=== PATIENT | male | born 1935 | race Caucasian/White ===

== ENCOUNTER → 2017-07-08 12:52 | Outpatient (CLI) | payer MEDICARE, BC, SELFPAY ==
--- NOTE | 2017-07-08 | CT_ITS ---
CT chest wo con HISTORY: Shortness of air, long-term amiodarone therapy, follow-up pulmonary fibrosis ITS.REASON: SOB,, ORDERED HIGH RESOLUTION ORDERING PHYSICIAN: Marcell Angelo MD PATIENT AGE: 82 years COMPARISON: 12/18/2016 Technique: Axial images obtained. Sagittal and coronal reformatted images are also generated and reviewed. EXAM is supplemented with high resolution images All CT scans by the facility use one or more dose reduction, viz: automated exposure control; ma/kV adjustment per patient size (including targeted exams where dose is matched to indication; i.e. head); or iterative reconstruction technique. FINDINGS: No mediastinal or hilar mass or adenopathy. Coronary artery calcifications are present. There remains mild focal thickening of the pericardium anteriorly unchanged. Intralobular emphysematous changes are present with hyperinflation and attenuation the peripheral pulmonary vessels consistent with obstructive chronic bronchitis. Mild fibrotic changes are present in the both apices not significantly changed. Once again there is noted a few small pulmonary nodules some calcified and some are not. The largest noncalcified nodules in the extreme right lung base measuring approximately 7 x 4 mm unchanged. There is a loop recorder device in the precordial region on the left. High-resolution images show no obvious interlobular septal thickening. Scattered fibrotic changes are once again noted in the left lower lobe, lingula, left apex, and right apex unchanged. There is some increased density in the right lower lobe medially in the azygos esophageal recess slightly more prominent on today's exam. No effusions. Upper abdominal images are unremarkable. No acute bony anomalies. IMPRESSION: 1. Centrilobular emphysema/COPD with scattered areas of fibrosis and bilateral calcified and noncalcified pulmonary nodules which are stable. 2. There is a new area of increased density in the right lung base medially in the azygos esophageal region. This could be due to small area of atelectasis or developing fibrosis. 3. No evidence of interlobular septal thickening. The overall findings are not typical for amiodarone lung toxicity. Continued follow-up is recommended.
== END ==
PROVIDERS: PCP Family Medicine; Visit Provider Internal Medicine
DX: R06.02 Shortness of breath (principal)
CPT/HCPCS: 71250

== ENCOUNTER → 2017-09-01 10:34 | Outpatient (CLI) | payer MEDICARE, BC, SELFPAY ==
[2017-09-01 11:22] LABS: Anion Gap 12.3 mEq/L (5-15); Blood Urea Nitrogen 25 mg/dL (7-18); Calcium 8.6 mg/dL (8.5-10.1); Carbon Dioxide 26 mmol/L (21.0-32.0); Chloride 108 mmol/L (98-107); Creatinine,Serum 1.17 mg/dL (0.70-1.30); Estimated Glomerular Filt Rate 60 ml/min (>60); GFR (African American) 73 ML/MIN (>60); Glucose 108 mg/dL (74-106); Sodium 141 mmol/L (136-145)
[2017-09-01 11:23] LABS: Potassium 5.3 mmoL/L (3.5-5.1)
== END ==
PROVIDERS: Visit Provider Internal Medicine
DX: I25.10 Atherosclerotic heart disease of native coronary artery without angina pectoris (principal); I48.0 Paroxysmal atrial fibrillation; I10 Essential (primary) hypertension; E78.5 Hyperlipidemia, unspecified
CPT/HCPCS: 36415; 80048

== ENCOUNTER → 2018-04-28 14:45 | Outpatient (CLI) | payer MEDICARE, BC, SELFPAY ==
--- NOTE | 2018-04-28 14:50 | CT_ITS ---
CT lumbar spine wo con INDICATION: ITS.REASON: ACUTE MIDLINE LOW BACK PAIN ORDERING PHYSICIAN: Ganesh Shah MD PATIENT AGE: 82 years COMPARISON: None TECHNIQUE: Axial images obtained with sagittal and coronal reformats. All CT scans at the facility use one or more dose reduction, viz: automated exposure control, ma/kV adjustment per patient size (including targeted exams where dose is matched to indication, i.e. head), or iterative reconstruction technique. FINDINGS: There is normal alignment. There is multilevel degenerative disc disease. No acute fracture or dislocation is evident. Mild lumbar scoliosis convex left with clockwise rotary component. There is mild wedging anteriorly of T11, T12, and L2 which appears chronic. T10-T11: Degenerative disc disease with endplate hypertrophic change and moderate to severe left-sided foraminal narrowing. Mild left lateral recess narrowing. T11-T12: Mild degenerative disc disease. T12-L1: Degenerative disc disease with a broad-based left foraminal and lateral disc protrusion/disc osteophyte complex causing left-sided foraminal narrowing. L1-L2: Concentric bulging disc which is eccentric toward the left in the left foraminal and lateral region with bilateral foraminal narrowing left greater than right. L2-L3: Degenerative disc disease with bulging disc. Right-sided paracentral foraminal and lateral disc osteophyte complex severe right-sided foraminal narrowing. There is transverse narrowing of the canal at this level at 10 mm. There is mild left foraminal narrowing. Endplate subchondral cystic changes are present along the inferior endplate of L2 L3-L4: Central bulging disc with facet and ligamentum flavum hypertrophy with bilateral foraminal narrowing and transverse canal stenosis. L4-L5: Bulging disc along with facet and ligamentum hypertrophy with transverse narrowing of the canal and bilateral foraminal narrowing and bilateral lateral recess narrowing. L5-S1: Concentric bulging disc with facet hypertrophic change with bilateral foraminal narrowing left greater than right. There is a small left pleural effusion. IMPRESSION: Abnormal CT of the lower thoracic and lumbar spine. There is multilevel degenerative disc disease with bulging disc along facet and ligamentum flavum hypertrophy along with lumbar scoliosis convex left with a rotatory component. Multilevel foraminal and lateral recess narrowing is present as well as transverse narrowing of the canal. Please see above for detailed description at each level. Small left pleural effusion
== END ==
PROVIDERS: PCP Family Medicine; Visit Provider Family Medicine
DX: M54.5 Low back pain (principal)
CPT/HCPCS: 72131

== ENCOUNTER → 2018-05-05 08:40 | Outpatient (POV) | payer MEDICARE, BC, SELFPAY ==
[2018-05-05 08:52] VITALS: BP 156/86; PULSE 77; RESP 18; O2SAT 98
--- NOTE | 2018-05-05 09:24 | HMH.PMCON ---
Assessment and Plan (1) Degenerative disc disease Current visit: Yes Status: Chronic Qualifiers: Spinal region: lumbar Qualified Code(s): M51.36 - Other intervertebral disc degeneration, lumbar region Category: Medical (2) Lumbar radiculopathy Current visit: Yes Status: Chronic Category: Medical Code(s): M54.16 - Radiculopathy, lumbar region - Assessment and plan all Dx Assessment and Plan for all problems:: We will schedule L4-L5 lumbar epidural steroid injection for the patient. Patient is on Eliquis. We will see if he is able to come off of it. We will also give him tramadol 50 mg 1 p.o. twice daily for his travels. I will follow-up with the patient after his injection and reassess his symptoms at that time. Dr. Olmstead has reviewed this note and agrees with this plan of care. This note was dictated using voice recognition software and may contain errors or omissions HPI - Data of Consult Consult date: 05/05/18 Requesting Physician: Etta Adrian APRN Primary Care Provider: Ganesh Shah MD - Consult Narrative Reason for consult: Back pain History of present illness: Mr. Rios is a 82 year old male presents today for consultation in regards to his low back. He rates his pain a 4 out of 10 today. Patient has pain in his low back radiating down his right leg down to his foot. Patient has a recent CT showing degenerative disc disease along with facet ligamentum hypertrophy in his low back. Patient has had injections in the past with extremely good relief lasting up to 3 years. Patient would like to repeat this. Patient is currently on an anti-inflammatory. Patient will be traveling this month for work. Patient has been continuing a home stretching regimen. CC: Etta Adrian APRN [facility] History I have reviewed the patient's past medical history: Yes Medical History: Reports:: Atrial Fibrillation, Cancer, Coronary Artery Disease, Hypertension Denies:: Diabetes Mellitus Type 1, Internal Pacemaker *Have you ever received a pneumonia vaccine?: No Other Medical History: Reports: Arthritis Laterality Cases: Bilateral: Other Other Surgeries: Yes: Skin Cancer Excision, Other (cardioversion). No: Pacemaker Amputation: No Fractures: No - *Social History Smoking Status: Never smoker Tobacco Type: cigarettes #Yrs smoked (if former smoker): 17 Alcohol Intake: never Alcohol Intake Frequency:: a few times a month Substance Use Type: denies use *Occupational Status:: retired Housing: house Household Members: none *Travel in the last 8 weeks: None - Psychiatric History Expresses thoughts of harming self/others: None Suicide Plan Description: No Plan Family Hx:: Coronary Artery Disease Review of Systems - Review of Systems ROS General: no recent weight change, no fever, no sleep disturbances Respiratory: no cough, no shortness of air, no recurring pulmonary infections Cardiovascular/Peripheral Vascular: No chest pain, No palpitations, no edema, no shortness of breath. Gastrointestinal: no incontinence, normal bowel movements reported Genitourinary: no incontinence Musculoskeletal: Back pain, leg pain Psychiatric: normal mood/ affect Neurological: [denies weakness in extremities], [denies balance issues] Meds Home Medications Medication Instructions Recorded Confirmed Type venlafaxine ER 75 mg 75 mg PO QHS 03/10/17 11/20/17 History capsule,extended release 24 hr apixaban 5 mg tablet 5 mg PO BID #60 tab 07/01/17 11/20/17 Rx digoxin 125 mcg tablet 125 mcg PO DAILY #30 tab 07/01/17 11/20/17 Rx tamsulosin 0.4 mg capsule 0.4 mg PO DAILY cap 07/01/17 11/20/17 History gabapentin 100 mg capsule 300 mg PO QHS cap 09/01/17 11/20/17 History prednisone 2.5 mg tablet 7.5 mg PO DAILY #90 tab 10/22/17 11/20/17 Rx diltiazem CD 240 mg 240 mg PO DAILY #30 cap 11/18/17 11/20/17 Rx capsule,extended release 24 hr lisinopril 2.5 mg tablet 2.5 mg PO DAILY 11/18/17 09
--- NOTE | 2018-05-05 09:28 | P.CONS_ITS ---
Assessment and Plan (1) Degenerative disc disease Current visit: Yes Status: Chronic Qualifiers: Spinal region: lumbar Qualified Code(s): M51.36 - Other intervertebral disc degeneration, lumbar region Category: Medical (2) Lumbar radiculopathy Current visit: Yes Status: Chronic Category: Medical Code(s): M54.16 - Radiculopathy, lumbar region - Assessment and plan all Dx Assessment and Plan for all problems:: We will schedule L4-L5 lumbar epidural steroid injection for the patient. Patient is on Eliquis. We will see if he is able to come off of it. We will also give him tramadol 50 mg 1 p.o. twice daily for his travels. I will follow- up with the patient after his injection and reassess his symptoms at that time. Dr. Olmstead has reviewed this note and agrees with this plan of care. This note was dictated using voice recognition software and may contain errors or omissions HPI - Data of Consult Consult date: 05/05/18 Requesting Physician: Etta Adrian APRN Primary Care Provider: Ganesh Shah MD - Consult Narrative Reason for consult: Back pain History of present illness: Mr. Rios is a 82 year old male presents today for consultation in regards to his low back. He rates his pain a 4 out of 10 today. Patient has pain in his low back radiating down his right leg down to his foot. Patient has a recent CT showing degenerative disc disease along with facet ligamentum hypertrophy in his low back. Patient has had injections in the past with extremely good relief lasting up to 3 years. Patient would like to repeat this. Patient is currently on an anti-inflammatory. Patient will be traveling this month for work. Patient has been continuing a home stretching regimen. CC: Etta Adrian APRN [facility] History I have reviewed the patient's past medical history: Yes Medical History: Reports:: Atrial Fibrillation, Cancer, Coronary Artery Disease, Hypertension Denies:: Diabetes Mellitus Type 1, Internal Pacemaker *Have you ever received a pneumonia vaccine?: No Other Medical History: Reports: Arthritis Laterality Cases: Bilateral: Other Other Surgeries: Yes: Skin Cancer Excision, Other (cardioversion). No: Pacemaker Amputation: No Fractures: No - *Social History Smoking Status: Never smoker Tobacco Type: cigarettes #Yrs smoked (if former smoker): 17 Alcohol Intake: never Alcohol Intake Frequency:: a few times a month Substance Use Type: denies use *Occupational Status:: retired Housing: house Household Members: none *Travel in the last 8 weeks: None - Psychiatric History Expresses thoughts of harming self/others: None Suicide Plan Description: No Plan Family Hx:: Coronary Artery Disease Review of Systems - Review of Systems ROS General: no recent weight change, no fever, no sleep disturbances Respiratory: no cough, no shortness of air, no recurring pulmonary infections Cardiovascular/Peripheral Vascular: No chest pain, No palpitations, no edema, no shortness of breath. Gastrointestinal: no incontinence, normal bowel movements reported Genitourinary: no incontinence Musculoskeletal: Back pain, leg pain Psychiatric: normal mood/ affect Neurological: [denies weakness in extremities], [denies balance issues] Meds Home Medications Medication Instructions Recorded Confirmed Type venlafaxine ER 75 mg 75 mg PO QHS 03/10/17 11/20/17 History capsule,extended release 24 hr apixaba
== END ==
PROVIDERS: PCP Family Medicine; Visit Provider Clinical Nurse Specialist Family Health
DX: M51.16 Intervertebral disc disorders with radiculopathy, lumbar region (principal)
CPT/HCPCS: 99202

== ENCOUNTER 2018-08-19 13:35 | Outpatient (RCR) | payer MEDICARE, BC, SELFPAY ==
--- NOTE | 2018-08-19 14:49 | HMH.PTOPEV ---
PT Outpatient Evaluation Rehab PT Outpatient Evaluation Start: 08/19/18 13:46 Freq: Status: Active Protocol: Document 08/19/18 14:40 PHORNE (Rec: 08/19/18 14:48 PHORNE [id number]) Electronically Signed By Girma Sweeney, PT 08/19/18 14:40 Outpatient Therapy Subjective History Subjective History Pt is 83 yowm who presents with c/o intermittent vertigo x 2-3 mos with insidious onset of symptoms. He states, I originally noticed it when I would rollover in bed, then it got worse and will now happen even when I stand up. He reports immediate onset of vertigo with certain positional changes and it resolves quickly. He reports some symptoms of N/V associated with the vertigo at times. He reports having 2 open heart procedures and a pacemaker placed which resulted in his being hospitalized from 12/11 to . He also has hx of COPD and emphysema. He reports ringing in the ears for 40 years or so but it is B and mild in severity. Chief Complaint Other Symptoms Relieved By Rest/Positioning Prior Functional Limitations None Current Functional Limitations Sleeping,Bending/Stooping Symptom Description Activity Dependent Level of pain today (0-10) 0 Pain scale - at its worst (0-10) 0 Balance Eval Chief Complaint vertigo Yes Hx of Falls Hx Falls No Nystagmus Nystagmus Presence Bilateral Nystagmus Description Geotropic,Left Torsion,Latency - Immediate Timed Up and Go Test 3. Is the Timed Up and Go Test result < yes 12 seconds? Oculomotor Gaze Oculomotor Gaze Nml: Vergence Smooth Pursuit Saccades VOR Cancellation Cover/Uncover Cross Cover [place] Feet Together/Eyes open/Stable Surface pass Feet Together/Eyes Closed/Stable Surface pass Feet Together/Eyes open/Unstable Surface pass Feet Together/Eyes Closed/Unstable pass Surface Outpatient Therapy Ass
== END 2018-08-19 13:40 | disposition home or self-care (01) ==
LOC: PT 13:35
PROVIDERS: Visit Provider Family Medicine
DX: R42 Dizziness and giddiness (principal)
CPT/HCPCS: 97140; 97163

== ENCOUNTER → 2018-12-19 09:52 | Outpatient (CLI) | payer MEDICARE, BC, SELFPAY ==
--- NOTE | 2018-12-19 10:04 | XR_ITS ---
PROCEDURE: XR CHEST 2V CLINICAL HISTORY: shortness of breath Shortness of air, smoking history, left-sided chest pain COMPARISON: CXR1 CHEST-PORTABLE from 12/06/2016 CXR CHEST(2 VIEWS-NOT PORTABLE) from 12/17/2016 CXR2 CHEST-AP VIEW ONLY from 12/26/[address] chest wo con from 07/08/2017 FINDINGS: Postsurgical changes are present from prior aortic valve replacement. Borderline cardiomegaly without failure. There is patchy and linear density in the left lower lobe which may be due to areas of atelectasis and/or infiltrate. Vascular crowding is noted in the right lung base. There is a small left pleural effusion. Biventricular and right atrial pacemaker is present. IMPRESSION: Patchy density in the left lower lobe consistent with atelectasis and/or infiltrate with small left effusion Dictated by: Philip Acosta MD 12/19/2018 10:45 Electronically signed by Philip Acosta MD in [place] 12/19/2018 10:45
== END ==
PROVIDERS: PCP Family Medicine; Referring Provider Family Medicine; Visit Provider Family Medicine
DX: R06.02 Shortness of breath (principal)
CPT/HCPCS: 71046

== ENCOUNTER → 2020-05-26 11:08 | Outpatient (CLI) | payer MEDICARE, BC, SELFPAY ==
[2020-05-26 12:14] LABS: Creatine Kinase 42 U/L (55-170)
[2020-05-26 12:46] LABS: Thyroid Stimulating Hormone 2.65 uIU/mL (0.465-4.68)
[2020-05-26 13:04] LABS: Vitamin B12 251 pg/mL (239-931)
== END ==
PROVIDERS: Visit Provider Family Medicine
DX: M79.10 Myalgia, unspecified site (principal); Z13.21 Encounter for screening for nutritional disorder; Z13.29 Encounter for screening for other suspected endocrine disorder; Z79.899 Other long term (current) drug therapy
CPT/HCPCS: 36415; 82550; 82607; 84443

== ENCOUNTER → 2020-08-10 10:53 | Outpatient (CLI) | payer MEDICARE, BC, SELFPAY ==
[2020-08-10 12:46] LABS: Vitamin B12 550 pg/mL (239-931)
== END ==
PROVIDERS: Visit Provider Family Medicine
DX: E53.8 Deficiency of other specified B group vitamins (principal)
CPT/HCPCS: 36415; 82607

== ENCOUNTER 2020-08-11 14:39 | Emergency (ER) | payer MEDICARE, BC, SELFPAY ==
[2020-08-11 14:39] VITALS: BP 146/76; PULSE 74; RESP 18; TEMP 36.7; O2SAT 97; BMI 29.8
--- NOTE | 2020-08-11 14:44 | CT_ITS ---
PROCEDURE: CT HEAD/BRAIN WO CON CT cervical spine without contrast CLINICAL INDICATION: fall, post neck pain, head lac COMPARISON: CT HDWO CT HEAD W/O CONTRAST from 12/26/[address] CERVICAL SPINE WO CON from 08/11/2020 TECHNIQUE: Axial images obtained. All CT scans at the facility use one or more dose reduction, viz: automated exposure control, ma/kV adjustment per patient size (including targeted exams where dose is matched to indication, i.e. head), or iterative reconstruction technique. FINDINGS: CT head shows mild diffuse cerebral atrophy and small-vessel ischemic change. No cerebral edema mass effect or midline shift. No evidence of acute intracranial or subarachnoid hemorrhage. Mild left periorbital soft tissue swelling noted. No acute skull or orbital fracture noted. Paranasal sinuses are patent. CT cervical spine shows extensive diffuse degenerative changes, most pronounced at C5-6. Odontoid and lateral masses of C1 are normal. No prevertebral soft tissue swelling. No acute fracture or subluxation. Soft tissues of the neck are normal. Lung apices show some scarring. There is some calcification of the visualized thoracic aorta without aneurysm. Some bilateral neural foraminal encroachment at several levels, most pronounced at C4-5 and C3-4 on the right noted. IMPRESSION: No acute intracranial abnormality. Mild diffuse cerebral atrophy and small-vessel ischemic change. Mild left periorbital soft tissue swelling. No underlying skull or orbital fracture. Extensive diffuse cervical spondylosis, most pronounced at C5-6 with bilateral neural foraminal encroachment at several levels, most pronounced at C3-4 on the right at C4-5 bilaterally. No acute fracture or subluxation of the cervical spine. Dictated by: Moody Tucker MD 08/11/2020 15:31 Moody Tucker MD in [place] 08/11/2020 15:31
--- NOTE | 2020-08-11 15:37 | HMH.EDFALL ---
ED Disposition Clinical Impression: Closed head injury Qualifiers: Encounter type: initial encounter Qualified Code(s): S09.90XA - Unspecified injury of head, initial encounter Cervical strain, acute Qualifiers: Encounter type: initial encounter Qualified Code(s): S16.1XXA - Strain of muscle, fascia and tendon at neck level, initial encounter Facial laceration Qualifiers: Encounter type: initial encounter Qualified Code(s): S01.81XA - Laceration without foreign body of other part of head, initial encounter Fall Qualifiers: Encounter type: initial encounter Qualified Code(s): W19.XXXA - Unspecified fall, initial encounter Disposition: Home, Self-Care Condition on Discharge: Good Instructions: DI for Laceration Repair -- Simple, DI for Cervical Muscle Strain, DI for Closed Head Injury Additional Instructions: Sutures should be removed in about 7 days. Follow-up with your primary care provider in 3 days for reevaluation. Referrals: Ganesh Shah MD [Primary Care Provider] - 3 days - Critical Care Critical Care Time: No Attestation: On 08/11/20, the high probability of a clinically significant, sudden or life threatening deterioration of the following system(s) required my full and direct attention, intervention and personal management. The time I documented below is in addition to time spent performing reported procedures but includes the following listed in this critical care notation. Medical Decision Making - Medical Records Medical records reviewed: Yes: I reviewed the patient's medical records. - [place] Inquiry Pt receiving controlled substance: No Vital Signs: 08/11/20 14:39 Temperature 98.0 F Temperature Source Oral Pulse Rate [Left Radial] 74 Respiratory Rate 18 Blood Pressure [Left Arm] 146/76 H Blood Pressure Mean [Left Arm] 99 Blood Pressure Source [Left Arm] Automatic Cuff Blood Pressure Position [Left Arm] Sitting 02 Sat by Pulse Oximetry 97 Oxygen Delivery Method Room Air - CT Data CT Scan: Head, C-Spine Time Received: 15:41 Findings Narrative: No acute intracranial abnormality. Mild diffuse cerebral atrophy and small-vessel ischemic change. Mild left periorbital soft tissue swelling. No underlying skull or orbital fracture. Extensive diffuse cervical spondylosis, most pronounced at C5-6 with bilateral neural foraminal encroachment at several levels, most pronounced at C3-4 on the right at C4-5 bilaterally. No acute fracture or subluxation of the cervical spine. Medical Decision Narrative: CT cervical spine with no acute fracture or dislocation on CT scan. He has no radicular or myelopathic symptoms, c-collar removed and patient actually starts feeling better after this. CT head with no acute intracranial process. Facial laceration repaired as below. Mechanical fall, patient has otherwise been feeling well. He is alert and oriented x3. Discharged home. Fall HPI - General Chief Complaint: Fall Stated Complaint: fall, laceration Time Seen by Provider: 08/11/20 14:40 Mode of Arrival: EMS Limitations: No Limitations Description of Symptoms (Recalled from ER Triage Doc. by RN): Pt reports he tripped and fell while walking into his garage. Pt reports possible small period of LOC. Pt states he was able to call his son for help. Irregular shaped laceration to L eyebrow area. Pt also c/o L wrist pain and R knee pain - History of Present Illness HPI Narrative: This is an 85-year-old male with a past medical history significant for hypertension, atrial fibrillation on baby aspirin, coronary artery disease who presents to the emergency department for evaluation of head injury that occurred just prior to arrival. He was picking up bags in his yard and tripped on a rock, hitting his head on either some wood or rock on the ground. Unknown loss of consciousness. He complains of pain around the laceration on the left side of his head, and some low posterior neck pain in the
[2020-08-11 16:23] VITALS: BP 155/99; PULSE 88; RESP 18; TEMP 36.6
== END 2020-08-11 16:24 | disposition home or self-care (01) ==
PROVIDERS: Emergency Provider Emergency Medicine; PCP Family Medicine
DX: S01.81XA Laceration without foreign body of other part of head, initial encounter (principal); S16.1XXA Strain of muscle, fascia and tendon at neck level, initial encounter; M25.532 Pain in left wrist; M25.561 Pain in right knee; W01.198A Fall on same level from slipping, tripping and stumbling with subsequent striking against other object, initial encounter; Y92.015 Private garage of single-family (private) house as the place of occurrence of the external cause; I48.91 Unspecified atrial fibrillation; I10 Essential (primary) hypertension; I25.10 Atherosclerotic heart disease of native coronary artery without angina pectoris; Z79.899 Other long term (current) drug therapy
CPT/HCPCS: 12013; 70450; 72125; 96372; 99282

== ENCOUNTER 2020-08-29 09:45 | Outpatient (RCR) | payer MEDICARE, SELFPAY | END 2020-08-29 09:50 | disposition home or self-care (01) | LOC: PT 09:45 | PROVIDERS: PCP Family Medicine; Visit Provider Family Medicine | DX: R42 Dizziness and giddiness (principal) | CPT/HCPCS: 97163 ==

== ENCOUNTER → 2021-01-16 12:38 | Outpatient (CLI) | payer MEDICARE, SELFPAY ==
--- NOTE | 2021-01-16 13:07 | XR_ITS ---
PROCEDURE: XR CHEST PORTABLE CLINICAL HISTORY: COVID OUTPATIENT COMPARISON: CR CXR CHEST(2 VIEWS-NOT PORTABLE) from 12/17/2016 CR CXR2 CHEST-AP VIEW ONLY from 12/26/[address] chest wo con from 07/08/[address] lumbar spine wo con from 04/28/2018 CR XR CHEST 2V from 12/19/2018 FINDINGS: Mild cardiomegaly without failure. Prior CABG. Biventricular pacemaker with right atrial lead. Prior valve replacement. The there are chronic changes in the left lower lobe with chronic blunting of the left CP angle. Right lung is clear. No acute bony findings. IMPRESSION: Chronic changes in the left lung base. No change with no acute finding. Dictated by: Philip Acosta MD 01/16/2021 13:22 Philip Acosta MD in [place] 01/16/2021 13:22
[2021-01-16 13:38] LABS: Adenovirus,PCR Not Detected (NotDetected); Bordetella Pertussis Not Detected (NotDetected); Chlamydophila Pneumoniae, PCR Not Detected (NotDetected); Coronavirus 19, PCR Not Detected (NotDetected); Coronavirus 229E Not Detected (NotDetected); Coronavirus NL63 Not Detected (NotDetected); Coronavirus OC43 Not Detected (NotDetected); Coronovirus HKU1,PCR Not Detected (NotDetected); Human Metapneumovirus Not Detected (NotDetected); Influenza A, PCR Not Detected (NotDetected); Influenza AH1, 2009 Not Detected (NotDetected); Influenza AH1, PCR Not Detected (NotDetected); Influenza AH3,PCR Not Detected (NotDetected); Influenza B, PCR Not Detected (NotDetected); Mycoplasma Pneumoniae, PCR Not Detected (NotDetected); Parainfluenza 1, PCR Not Detected (NotDetected); Parainfluenza 2, PCR Not Detected (NotDetected); Parainfluenza 3, PCR Not Detected (NotDetected); Parainfluenza 4, PCR Not Detected (NotDetected); Respiratory Syncytial Virus Not Detected (NotDetected); Rhinovirus/Enterovirus Not Detected (NotDetected)
[2021-01-16 15:24] LABS: Coronavirus 19 IgG Antibody Negative (Negative); Coronavirus 19 IgM Antibody Negative (Negative)
== END ==
PROVIDERS: PCP Family Medicine; Visit Provider Family Medicine
DX: Z20.822 Contact with and (suspected) exposure to COVID-19 (principal)
CPT/HCPCS: 36415; 71045; 86328; 87581; 87632; 87798; C9803; U0003; U0005

== ENCOUNTER → 2021-02-28 11:22 | Outpatient (CLI) | payer MEDICARE, SELFPAY ==
[2021-02-28 12:28] LABS: Anion Gap 9.5 mEq/L (5-15); Blood Urea Nitrogen 28 mg/dl (9-20); Calcium 9.4 mg/dl (8.4-10.2); Carbon Dioxide 33 mmol/L (22.0-30.0); Chloride 102 mmol/L (98-107); Estimated Glomerular Filt Rate 53 ml/min (>60); GFR (African American) 64 ML/MIN (>60); Glucose 113 mg/dl (74-100); Magnesium 2.2 mg/dl (1.6-2.3); Potassium 4.5 mmoL/L (3.5-5.1); Sodium 140 mmol/L (136-145)
== END ==
PROVIDERS: Visit Provider Internal Medicine Clinical Cardiac Electrophysiology
DX: I48.19 Other persistent atrial fibrillation (principal)
CPT/HCPCS: 36415; 80048; 83735

== ENCOUNTER → 2021-04-16 14:58 | Outpatient (CLI) | payer MEDICARE, SELFPAY | PROVIDERS: PCP Family Medicine; Visit Provider Nurse Practitioner | DX: Z20.822 Contact with and (suspected) exposure to COVID-19 (principal) | CPT/HCPCS: C9803; U0003; U0005 ==

== ENCOUNTER → 2021-09-06 12:54 | Outpatient (POV) | payer MEDICARE, SELFPAY ==
[2021-09-06 13:35] VITALS: BP 111/67; PULSE 83; RESP 18; TEMP 36.4; O2SAT 92; BMI 31.4
--- NOTE | 2021-09-06 13:56 | HMH.PAINSOAP ---
[facility] Pain Management SOAP Note Subjective:: Patient is a pleasant 86-year-old white male that presents today as a new patient. He was a self-referral. Today he rates his pain a 3 out of 10. He describes his pain located in his neck and lower back. His back he states is a incapacitating feeling that affects his daily activities of living. His neck pain is intermittent with quick shooting pain. He had an episode last week where his neck pain started out of the blue and it affected his vision. He did state that it resolved on its own within 30 minutes. He states that he has had injective therapy in the past by Dr. PITTS with significant relief. He states that his back pain has been going on for years and radiates down his right leg. He denies any trauma or injury to this area. He did have a fall back in July 2020. He states that his neck pain started after this fall. He does currently take gabapentin 300 mg twice a day by Dr. Shah. He States this does help manage his pain. He would like to see about scheduling injections for his neck and back pain. His Zelalem is [id number]. It has been reviewed and is appropriate. Review of Systems: General: No recent weight changes, no fever, no sleep disturbances Respiratory: No cough, no shortness of air, no recurring pulmonary infections Cardiovascular/peripheral vascular: No chest pain, no palpitations, no edema, no shortness of breath Gastrointestinal: No new onset incontinence, normal bowel movements reported Genitourinary: No new onset incontinence Musculoskeletal: Low back pain, neck pain, right leg pain Psychiatric: [Normal mood/affect] Neurological: [Denies weakness in extremities], [denies balance issues] Objective:: Physical Exam: General: Alert and oriented x3, no acute distress, pleasant and cooperative Lungs: Respirations even and unlabored, symmetrical chest expansion Eyes: PERRL Musculoskeletal: Flexion and extension of cervical and lumbar [spine] somewhat guarded secondary to pain, [antalgic gait noted] Neurological: Speech clear, no gross sensory deficit Imaging: CT lumbar spine wo con INDICATION: ITS.REASON: ACUTE MIDLINE LOW BACK PAIN ORDERING PHYSICIAN: Ganesh Shah MD PATIENT AGE: 82 years COMPARISON: None TECHNIQUE: Axial images obtained with sagittal and coronal reformats. All CT scans at the facility use one or more dose reduction, viz: automated exposure control, ma/kV adjustment per patient size (including targeted exams where dose is matched to indication, i.e. head), or iterative reconstruction technique. FINDINGS: There is normal alignment. There is multilevel degenerative disc disease. No acute fracture or dislocation is evident. Mild lumbar scoliosis convex left with clockwise rotary component. There is mild wedging anteriorly of T11, T12, and L2 which appears chronic. T10-T11: Degenerative disc disease with endplate hypertrophic change and moderate to severe left-sided foraminal narrowing. Mild left lateral recess narrowing. T11-T12: Mild degenerative disc disease. T12-L1: Degenerative disc disease with a broad-based left foraminal and lateral disc protrusion/disc osteophyte complex causing left-sided foraminal narrowing. L1-L2: Concentric bulging disc which is eccentric toward the left in the left foraminal and lateral region with bilateral foraminal narrowing left greater than right. L2-L3: Degenerative disc disease with bulging disc. Right-sided paracentral foraminal and lateral disc osteophyte complex severe right-sided foraminal narrowing. There is transverse narrowing of the canal at this level at 10 mm. There is mild left foraminal narrowing. Endplate subchondral cystic changes are present along the inferior endplate of L2 L3-L4: Central bulging disc with facet and ligamentum flavum hypertrophy with bilateral foraminal narrowing and transverse canal stenosis. L4-L5: Bulging disc along with facet and ligamentum hypertrophy with transverse narrow
--- NOTE | 2021-09-06 14:10 | HMH.PMCON ---
Assessment and Plan (1) Neck pain Status: Acute Category: Medical Code(s): M54.2 - Cervicalgia (2) Degenerative disc disease Status: Chronic Qualifiers: Spinal region: lumbar Qualified Code(s): M51.36 - Other intervertebral disc degeneration, lumbar region Category: Medical (3) Lumbar radiculopathy Status: Chronic Category: Medical Code(s): M54.16 - Radiculopathy, lumbar region - Assessment and plan all Dx Assessment and Plan for all problems:: Patient has significant pain in his cervical and lumbar region. He has had a improvement in pain with injective therapy in the past. I have discussed with the patient regarding doing cervical C6-C7 epidural steroid injections. Risk and benefits were discussed with the patient patient would like to proceed forward with this injection. patient states he is not taking any blood thinners. We will schedule the patient today for a JUNAID C6-C7. The last imaging we have on this patient are a cervical CT from [address] from 2017 so we will order updated imaging at today's visit. We will plan to also do lumbar epidural steroid injections in the future. He may be a good candidate for a MILD procedure based off of his imaging. Patient has been instructed to contact the clinic with any concerns before the next appointment. Dr. Olmstead has reviewed this note and agrees with this plan of care. This note was dictated using voice recognition software and make contain errors or omissions. HPI - Data of Consult Patient: new to practice Consult date: 09/06/21 Requesting Physician: JENNIE Nair Primary Care Provider: Pablo - Consult Narrative Reason for consult: low back pain, neck pain History of present illness: Mr. Rios is a pleasant 86-year-old white male that presents today as a new patient. He was a self-referral. Today he rates his pain a 3 out of 10. He describes his pain located in his neck and lower back. His back he states is a incapacitating feeling that affects his daily activities of living. His neck pain is intermittent with quick shooting pain. He had an episode last week where his neck pain started out of the blue and it affected his vision. He did state that it resolved on its own within 30 minutes. He states that he has had injective therapy in the past by Dr. OLMSTEAD with significant relief. He states that his back pain has been going on for years and radiates down his right leg. He denies any trauma or injury to this area. He did have a fall back in July 2020. He states that his neck pain started after this fall. He does currently take gabapentin 300 mg twice a day by Dr. Shah. He States this does help manage his pain. He would like to see about scheduling injections for his neck and back pain. His Zelalem is [id number]. It has been reviewed and is appropriate. CC: JENNIE Nair [facility] History I have reviewed the patient's past medical history: Yes Medical History: Reports:: Arrhythmia, Atrial Fibrillation, Coronary Artery Disease, Diabetes Mellitus Type 2, Hyperlipidemia, Hypertension, Myocardial Infarction, Valvular Heart Disease Denies:: Cancer, Diabetes Mellitus Type 1, Internal Pacemaker, MRSA, Seizures *Have you ever received a pneumonia vaccine?: Yes *Have you received a flu vaccine this season?: Yes Other Medical History: Reports: Arthritis Laterality Cases: Bilateral: Other Other Surgeries: Yes: Cardiac Catheterization, Cardiac Surgery, Skin Cancer Excision, Other Valve Replacement, Other (cardioversion). No: Pacemaker Amputation: No Fractures: No - *Social History Smoking Status: Never smoker Tobacco Type: cigarettes #Yrs smoked (if former smoker): 17 Alcohol Intake: current Alcohol Intake Frequency:: a few times a week Substance Use Type: denies use *Occupational Status:: retired Housing: house Household Members: none *Travel in the last 8 weeks: None Family Hx:: Coronary Artery Disease Review of Systems - Revjulio
== END ==
PROVIDERS: Visit Provider Student in an Organized Health Care Education/Training Program
DX: M51.16 Intervertebral disc disorders with radiculopathy, lumbar region (principal); M54.2 Cervicalgia; M19.90 Unspecified osteoarthritis, unspecified site
CPT/HCPCS: 99202; G0463

== ENCOUNTER → 2021-09-14 15:01 | Outpatient (CLI) | payer MEDICARE, SELFPAY ==
--- NOTE | 2021-09-14 | CT_ITS ---
FINAL REPORT CLINICAL HISTORY: neck pain COMPARISON: 08/11/2021 FINDINGS: Axial CT images of the cervical spine were obtained without contrast. Sagittal and coronal reformatted images were also obtained. This study was performed with techniques to keep radiation doses as low as reasonably achievable (ALARA). Individualized dose reduction techniques using automated exposure control or adjustment of mA and/or kV according to the patient's size were employed. There is no evidence of fracture or dislocation. The bony alignment is normal. There is moderate to severe degenerative change. There is no evidence of canal stenosis. No paraspinous soft tissue abnormality is seen. Limited images of the upper thorax are unremarkable. C2-3: Left uncovertebral osteophytes are present. There is moderate left neural foraminal narrowing. C3-4: A disc osteophyte complex is present. There is severe right and moderate left neural foraminal narrowing. C4-5: A disc osteophyte complex is present. There is moderate right and severe left neural foraminal narrowing. C5-6: A disc osteophyte complex is present. There is moderate bilateral neural foraminal narrowing. C6-7: A disc osteophyte complex is present. There is moderate bilateral neural foraminal narrowing. C7-T1: Bilateral uncovertebral osteophytes are present. There is mild right neural foraminal narrowing. IMPRESSION: Degenerative change with no acute bony abnormality identified, not significantly changed from the prior exam.. Reviewed, Interpreted and Dictated by Keith Steele III, MD Transcribed by Blanca Carter Authenticated and . [facility]
--- NOTE | 2021-09-14 | CT_ITS ---
FINAL REPORT CLINICAL HISTORY: BACKPAIN FINDINGS: Axial imaging of the lumbar spine was obtained without contrast. Sagittal and coronal reformatted images were also obtained and reviewed.This study was performed with techniques to keep radiation doses as low as reasonably achievable (ALARA). Individualized dose reduction techniques using automated exposure control or adjustment of mA and/or kV according to the patient's size were employed. There is no fracture. The vertebral alignment is normal. There is leftward curvature. There is moderate degenerative change. There is multilevel vacuum disc phenomenon. There is no evidence of significant central canal stenosis. T12-L1: There is an annular disc bulge with facet arthropathy and vertebral osteophytes. There is mild right and moderate left neural foraminal narrowing. L1-2: There is an annular disc bulge with facet arthropathy. There is moderate bilateral neural foraminal narrowing. L2-3: There is an annular disc bulge with facet arthropathy and vertebral osteophytes. There is severe right and moderate left neural foraminal narrowing. L3-4: There is an annular disc bulge with facet arthropathy and vertebral osteophytes. There is severe right and moderate left neural foraminal narrowing. There is mild central canal stenosis with an AP diameter of the thecal sac of 8 mm. L4-5: There is an annular disc bulge with facet arthropathy. There is mild right and moderate left neural foraminal narrowing. There is moderate central canal stenosis with an AP diameter of the thecal sac of 6 mm. L5-S1: There is an annular disc bulge with facet arthropathy. There is mild bilateral neural foraminal narrowing. IMPRESSION: Multilevel degenerative change without acute bony abnormality. Canal stenosis at L3-4 and L4-5. Severe neural foraminal narrowing on the right at L2-3 and L3-4 levels. Reviewed, Interpreted and Dictated by Keith Steele III, MD Transcribed by Blanca Carter Authenticated and [facility]
== END ==
PROVIDERS: PCP Family Medicine; Visit Provider Student in an Organized Health Care Education/Training Program
DX: M54.2 Cervicalgia (principal); M54.50 Low back pain, unspecified
CPT/HCPCS: 72125; 72131

== ENCOUNTER 2021-09-18 13:28 | Day surgery (SDC) | payer MEDICARE, SELFPAY ==
[2021-09-18 13:40] VITALS: BP 94/46; PULSE 72; RESP 18; TEMP 36.6; O2SAT 94; BMI 27.1
[2021-09-18 14:02] VITALS: BP 114/61; PULSE 74; RESP 20; O2SAT 97
--- NOTE | 2021-09-18 14:11 | HMH.PMPROC ---
- Procedure Date: 09/18/21 Time: 14:11 Anesthesiologist:: Donovan Vargas CRNA Complications:: None Pre-procedure Diagnosis:: Cervical degenerative disc disease. Cervical radiculopathy. Degenerative disc lumbar spine. Lumbar radiculopathy. Post-procedure Diagnosis:: Same Indications for Procedure:: This patient is a pleasant 86-year-old male who comes to our injection clinic today for cervical epidural steroid injections at the C6-7 level. He has had this once before in 2019 with significant improvement terms of his cervical neck pain and cervical radiculopathy symptoms. He wishes to repeat injection today. Patient complains of cervical neck pain as well as bilateral arm radicular symptoms. Patient also very adamant regarding his lumbar back pain that he rates a 10/10. Patient asking if there is something we can do for his lumbar spine. Patient reports he received lumbar epidural steroid injections in [address] Olmstead which rendered significant improvement in his lumbar pain as well as lumbar radicular pain. I informed the patient we would address this at his follow-up visit and plan injection therapy if possible. Procedure Details:: Procedure:Cervical epidural steroid injection Informed consent was obtained and the risks and benefits of the procedure were explained to the patient. The patient was taken to the procedure room and noninvasive monitors placed, including noninvasive blood pressure cuff and pulse oximeter. The neck was prepped using Betadine as a cleansing solution. The C6-C7 interspace was palpated. The skin and subcutaneous tissues were anesthetized using lidocaine 1.5% and a 25-gauge needle. After this an 18-gauge Touhy epidural needle was placed into the C6-C7 interspace and advanced using loss of resistance to air until the epidural space was encountered. After confirmation of needle placement in the epidural space, a solution containing lidocaine 1.5%, 4 mL and Depo-Medrol 80 mg was incrementally injected into the cervical epidural space.~ The patient tolerated the procedure well with no complications. The patient was observed in the Pain Clinic and then discharged home neurologically intact. Plan and Disposition:: Patient was discharged without incident.
== END 2021-09-18 14:03 | disposition home or self-care (01) ==
LOC: SC.PAINP 13:29
PROVIDERS: PCP Family Medicine; Visit Provider Nurse Anesthetist, Certified Registered
DX: M51.16 Intervertebral disc disorders with radiculopathy, lumbar region (principal); M50.123 Cervical disc disorder at C6-C7 level with radiculopathy
CPT/HCPCS: 62321; J1040

== ENCOUNTER → 2021-09-24 08:59 | Outpatient (POV) | payer MEDICARE, SELFPAY ==
--- NOTE | 2021-09-24 09:38 | HMH.PAINSOAP ---
[facility] Pain Management SOAP Note Subjective:: Patient is a pleasant 86-year-old male that presents today for follow-up from a cervical epidural steroid injection at C6-7 on 09/18/2021. We are currently treating the patient for degenerative disc disease of lumbar spine with lumbar radiculopathy symptoms, degenerative disc disease of cervical spine with cervical radiculopathy symptoms. Patient states that his cervical epidural has worked significantly. He states that he got about 80 to 90% relief and feels like it is still working. Today he rates his pain a 3 out of 10. He states that in his low back and describes it as an ache is worse with increased activity. He states this radiates down his right leg into his right hip. Patient states he has had a previous injection in his low back with Dr. Olmstead. He states this was around 2018 and did provide significant relief. He is interested in having another injection for this. Patient denies any trauma or injury to this area. He did have a fall in July 2020 and at that time his neck pain started. He does believe his low back pain is simply due to his increasing age. He currently takes gabapentin 300 mg twice a day that is prescribed by Dr. Shah. He states this does help manage his pain. He denies any side effects from this medication. His Zelalem is [id number]. It has been reviewed and appropriate. Review of Systems: General: No recent weight changes, no fever, no sleep disturbances Respiratory: No cough, no shortness of air, no recurring pulmonary infections Cardiovascular/peripheral vascular: No chest pain, no palpitations, no edema, no shortness of breath Gastrointestinal: No new onset incontinence, normal bowel movements reported Genitourinary: No new onset incontinence Musculoskeletal: Low back pain, right hip, right thigh pain Psychiatric: [Normal mood/affect] Neurological: [Denies weakness in extremities], [denies balance issues] Objective:: Physical Exam: General: Alert and oriented x3, no acute distress, pleasant and cooperative Lungs: Respirations even and unlabored, symmetrical chest expansion Eyes: PERRL Musculoskeletal: Flexion and extension of lumbar [spine] somewhat guarded secondary to pain, [antalgic gait noted] Neurological: Speech clear, no gross sensory deficit FINDINGS: Axial imaging of the lumbar spine was obtained without contrast. Sagittal and coronal reformatted images were also obtained and reviewed.This study was performed with techniques to keep radiation doses as low as reasonably achievable (ALARA). Individualized dose reduction techniques using automated exposure control or adjustment of mA and/or kV according to the patient's size were employed. There is no fracture. The vertebral alignment is normal. There is leftward curvature. There is moderate degenerative change. There is multilevel vacuum disc phenomenon. There is no evidence of significant central canal stenosis. T12-L1: There is an annular disc bulge with facet arthropathy and vertebral osteophytes. There is mild right and moderate left neural foraminal narrowing. L1-2: There is an annular disc bulge with facet arthropathy. There is moderate bilateral neural foraminal narrowing. L2-3: There is an annular disc bulge with facet arthropathy and vertebral osteophytes. There is severe right and moderate left neural foraminal narrowing. L3-4: There is an annular disc bulge with facet arthropathy and vertebral osteophytes. There is severe right and moderate left neural foraminal narrowing. There is mild central canal stenosis with an AP diameter of the thecal sac of 8 mm. L4-5: There is an annular disc bulge with facet arthropathy. There is mild right and moderate left neural foraminal narrowing. There is moderate central canal stenosis with an AP diameter of the thecal sac of 6 mm. L5-S1: There is an annular disc bulge with facet arthropathy. There is mild bilateral neural foraminal narrowing. IM
[2021-09-24 09:51] VITALS: BP 102/63; PULSE 85; RESP 20; O2SAT 95; BMI 30.5
== END ==
PROVIDERS: Visit Provider Student in an Organized Health Care Education/Training Program
DX: M51.16 Intervertebral disc disorders with radiculopathy, lumbar region (principal); M50.123 Cervical disc disorder at C6-C7 level with radiculopathy
CPT/HCPCS: 99212; G0463

== ENCOUNTER 2021-09-28 14:51 | Day surgery (SDC) | payer MEDICARE, SELFPAY ==
[2021-09-28 13:30] VITALS: BP 105/59; PULSE 70; RESP 18; O2SAT 99
[2021-09-28 15:00] VITALS: BP 117/66; PULSE 88; RESP 20; TEMP 36.4; O2SAT 95; BMI 30.5
[2021-09-28 15:12] VITALS: BP 101/50; PULSE 78; RESP 20
--- NOTE | 2021-09-28 15:18 | HMH.PMPROC ---
- Procedure Date: 09/28/21 Time: 15:18 Anesthesiologist:: Bhupendra Olmstead MD Complications:: None Pre-procedure Diagnosis:: Degenerative disc disease of lumbar spine with lumbar radiculopathy symptoms Post-procedure Diagnosis:: Same Indications for Procedure:: This patient is a pleasant 86-year-old white male who we are treating for low back pain with lumbar radiculopathy symptoms. He has increasing pain in his low back radiating down both legs right greater than left. He has done well with epidural steroid injections before with significant relief for several years after his injection in 2019. Pain is now returned. He presents for repeat series of lumbar epidural steroid injections again. Procedure Details:: Informed consent was obtained and the risk and benefits of the procedure was explained to the patient. The patient was taken to the procedure room. The patient was placed prone on the procedure table. The patient was prepped and draped in sterile fashion. C-arm fluoroscopy was used to view the lumbar spine. Skin and subcutaneous tissues were anesthetized using lidocaine. I placed an 18-gauge epidural needle and advanced into the L4-L5 interspace using fluoroscopic guidance and [id number] to air. After confirmation of needle placement in the epidural space with dye I injected 2 mL of lidocaine 1.5% with Depo-Medrol 80 mg. Patient tolerated the procedure well with no complications. Plan and Disposition:: We will follow-up with him in 2 weeks. Will reevaluate symptoms at that time.
== END 2021-09-28 15:30 | disposition home or self-care (01) ==
LOC: SC.PAINP 14:52
PROVIDERS: PCP Family Medicine; Visit Provider Anesthesiology
DX: M51.16 Intervertebral disc disorders with radiculopathy, lumbar region (principal)
CPT/HCPCS: 62323; J1040; Q9966

== ENCOUNTER → 2021-11-19 14:10 | Outpatient (POV) | payer MEDICARE, SELFPAY ==
[2021-11-19 14:39] VITALS: BP 97/76; PULSE 70; RESP 18; TEMP 36.4; O2SAT 99; BMI 29.0
--- NOTE | 2021-11-19 14:51 | EXP.PAIN.SOA ---
[facility] Pain Management SOAP Note Subjective:: Patient is a pleasant 86-year-old male who presents today for follow-up of lumbar epidural steroid injection of L4-L5 on 09/28/2021. We are currently treating the patient for degenerative disc disease of lumbar spine with lumbar radiculopathy symptoms. Patient states he did have at least 50% improvement of his pain symptoms following this last injection however it only provided about a weeks worth or under worth of relief. Today the patient states his pain is 8 out of 10. He states the pain is primarily in his low back on the right side that radiates into his right lower extremity. Patient denies any new trauma or injury to the site. He denies any change to the location or type of pain he experiences. Patient has had injective therapy in the past that has provided significant improvement of his symptoms. Patient describes this as a aching, throbbing sensation that is worse with increased activity. Patient states he gets relief when he is sitting down. Patient's first lumbar epidural provided significant improvement of his symptoms with a more long-term relief of approximately 1 to 2 months. He is interested in additional injective therapy at today's visit. Patient is currently being managed with [place] [address] Kiana Curry. Patient denies any side effects from this medication. He states this medication is adequately helping manage his pain. His Zelalem is [id number]. It has been reviewed and appropriate. Review of Systems: General: No recent weight changes, no fever, no sleep disturbances Respiratory: No cough, no shortness of air, no recurring pulmonary infections Cardiovascular/peripheral vascular: No chest pain, no palpitations, no edema, no shortness of breath Gastrointestinal: No new onset incontinence, normal bowel movements reported Genitourinary: No new onset incontinence Musculoskeletal: Low back pain, right leg pain Psychiatric: [Normal mood/affect] Neurological: [Denies weakness in extremities], [denies balance issues] Objective:: Physical Exam: General: Alert and oriented x3, no acute distress, pleasant and cooperative Lungs: Respirations even and unlabored, symmetrical chest expansion Eyes: PERRL Musculoskeletal: Flexion and extension of lumbar [spine] somewhat guarded secondary to pain, [antalgic gait noted] Neurological: Speech clear, no gross sensory deficit Assessment:: Degenerative disc disease of lumbar spine with lumbar radiculopathy symptoms Plan:: Patient continues to have significant pain along his low back that radiates into his right lower extremity. Patient has previously gotten significant improvement of his symptoms with epidural injections. I have discussed with the patient regarding a transforaminal epidural injection. Risk and benefits were discussed with the patient. He would like to proceed forward with this injection. Patient is not currently on any blood thinners. We will schedule the patient for a right transforaminal L4-L5 and L5-S1 at today's visit. Patient has been instructed to contact the clinic with any concerns before the next appointment. Dr. Olmstead has reviewed this note and agrees with this plan of care. This note was dictated using voice recognition software and make contain errors or omissions. [facility] Medical History (Updated 09/06/21 @ 14:26 by JENNIE Nair) Tachycardia Social History Smoking Status: Never smoker alcohol intake: never substance use type: denies use current occupational status: retired Travel in the last 8 weeks: None household members: none housing: house current occupational exposures/hazards: No caffeine: Yes
== END ==
PROVIDERS: Visit Provider Nurse Practitioner Family
DX: M51.16 Intervertebral disc disorders with radiculopathy, lumbar region (principal)
CPT/HCPCS: 99212; G0463

== ENCOUNTER → 2021-11-27 10:14 | Day surgery (SDC) | payer MEDICARE, SELFPAY ==
[2021-11-27 10:27] VITALS: BP 121/68; PULSE 88; RESP 20; O2SAT 98; BMI 29.0
[2021-11-27 10:36] VITALS: BP 115/73; PULSE 76; RESP 18; O2SAT 98
[2021-11-27 10:37] VITALS: BP 115/73; PULSE 76; RESP 18; O2SAT 98
[2021-11-27 10:49] VITALS: BP 112/60; PULSE 72; RESP 18; O2SAT 97
--- NOTE | 2021-11-27 11:11 | EXP.PAIN.PRO ---
Procedure Date: 11/27/21 Time: 11:11 Anesthesiologist:: Donovan Vargas CRNA Complications:: None Pre-procedure Diagnosis:: Degenerative disc disease lumbar spine multilevels. Lumbar radiculopathy symptoms Post-procedure Diagnosis:: Same. Indications for Procedure:: Patient is a pleasant 86-year-old male that comes our clinic today for right L4-5, L5-S1 transforaminal epidural injections. Patient has had lumbar epidural steroid injections in the past with some degree of relief. His main complaint is right hip and leg pain. He describes pain as constant, dull, achy. Pain increases with ambulation. He rates his pain 7/10 today. Procedure Details:: Details of the procedure were explained to the patient. The patient was taken to the procedure room placed in the prone position. The area over the lumbar spine was cleansed using chlorhexidine as a cleansing solution. Using fluoroscopy guidance markers were placed on the right lateral border of the L4 and L5 vertebral body. The skin is subcutaneous tissue was anesthetized using 1% lidocaine and 25-gauge needle. At this time using fluoroscopy guidance a 3 inch 22-gauge needle was used to access the upper one third of the right L4-5 foramen and the upper one third of the right L5-S1 foramen. Needle position was confirmed in the lateral view with fluoroscopy. At this time 1 cc of 1% lidocaine and 20 mg of Depo-Medrol was injected at each site. This was after negative aspiration. [place] were removed. Band-Aid applied. Patient tolerated the procedure without difficulty. There are no complications. Plan and Disposition:: Patient was discharged without incident.
== END | disposition home or self-care (01) ==
PROVIDERS: PCP Family Medicine; Visit Provider Nurse Anesthetist, Certified Registered
DX: M51.16 Intervertebral disc disorders with radiculopathy, lumbar region (principal)
CPT/HCPCS: 64483; 64484; J1040

== ENCOUNTER → 2022-01-10 13:01 | Outpatient (POV) | payer MEDICARE, SELFPAY ==
[2022-01-10 13:24] VITALS: BP 107/57; PULSE 80; RESP 18; O2SAT 94; BMI 31.4
--- NOTE | 2022-01-10 13:33 | EXP.PAIN.SOA ---
[facility] Pain Management SOAP Note Subjective:: Patient is a pleasant 86-year-old male who presents today for follow-up of right transforaminal epidural steroid injection at L4-5, L5-S1 on 11/27/2021. We are currently treating the patient for degenerative disc disease of lumbar spine with lumbar radiculopathy symptoms. Patient states that he had 0 relief following this injection. Today he rates his pain a 7 out of 10. He states the pain is all in his low back along the right side with some radiating symptoms into his lower extremities. Patient denies any new trauma or injury. Patient denies any change in location or type of pain he experiences. Patient does state he has increased muscle aches in his lower legs after a long day of walking or working that is more prominent at night. Patient states he frequently has to get up and walk around to relieve these pains. [place] get in to see us sooner. Patient is currently prescribed [place] 7.5 mg from [facility] and gabapentin 300 mg twice a day from Dr. Shah's office. Patient denies any side effects from these medications. He states these medications do help with his pain symptoms. His [place] is [id number]. It has been reviewed and appropriate. Review of Systems: General: No recent weight changes, no fever, no sleep disturbances Respiratory: No cough, no shortness of air, no recurring pulmonary infections Cardiovascular/peripheral vascular: No chest pain, no palpitations, no edema, no shortness of breath Gastrointestinal: No new onset incontinence, normal bowel movements reported Genitourinary: No new onset incontinence Musculoskeletal: Low back pain, leg pain Psychiatric: [Normal mood/affect] Neurological: [Denies weakness in extremities], [denies balance issues] Objective:: Physical Exam: General: Alert and oriented x3, no acute distress, pleasant and cooperative Lungs: Respirations even and unlabored, symmetrical chest expansion Eyes: PERRL Musculoskeletal: Flexion and extension of lumbar [spine] somewhat guarded secondary to pain, [antalgic gait noted] Neurological: Speech clear, no gross sensory deficit Assessment:: Degenerative disc disease of lumbar spine with lumbar radiculopathy symptoms, myofascial pain of right lumbar paraspinous, restless leg syndrome Plan:: Patient continues to experience significant pain in his low back with some radiating symptoms into his lower extremities. Patient did have limited range of motion of his lumbar spine and extreme point tenderness along his right lumbar paraspinous during today's visit. I have discussed with the patient that he may benefit from trigger point injections at this site. Risk and benefits were discussed with the patient. He would like to proceed forward with this plan of care. I will also order the patient ropinirole 0.25 mg at bedtime and provide a 14-day supply of this medication. We will schedule the patient for TPI of right lumbar paraspinous. Patient has been instructed to contact the clinic with any concerns before the next appointment. Dr. Olmstead has reviewed this note and agrees with this plan of care. This note was dictated using voice recognition software and make contain errors or omissions. PFSH PFSH Medical History Hypertension Tachycardia Social History Smoking Status: Never smoker alcohol intake: never substance use type: denies use current occupational status: retired Travel in the last 8 weeks: None household members: none housing: house current occupational exposures/hazards: No caffeine: Yes
== END | disposition home or self-care (01) ==
PROVIDERS: PCP Radiology Diagnostic Radiology; Visit Provider Nurse Practitioner Family
DX: M51.16 Intervertebral disc disorders with radiculopathy, lumbar region (principal); M79.18 Myalgia, other site; G25.81 Restless legs syndrome
CPT/HCPCS: 99212; G0463

== ENCOUNTER 2022-01-22 10:51 | Day surgery (SDC) | payer MEDICARE, SELFPAY ==
[2022-01-22 11:01] VITALS: BP 117/74; PULSE 79; RESP 18; TEMP 36.4; O2SAT 95; BMI 31.1
--- NOTE | 2022-01-22 11:12 | EXP.PAIN.PRO ---
Procedure Date: 01/22/22 Time: 11:12 Anesthesiologist:: Donovan Vargas CRNA Complications:: None Pre-procedure Diagnosis:: Degenerative disc disease of lumbar spine with lumbar radiculopathy symptoms, myofascial pain of right lumbar paraspinous muscles Post-procedure Diagnosis:: same Indications for Procedure:: Patient is a pleasant 86-year-old male who presents today for trigger point injections of his right lumbar paraspinous muscles. We are currently treating the patient for degenerative disc disease of lumbar spine with lumbar radiculopathy symptoms, myofascial pain of the right lumbar paraspinous muscles. Today he rates his pain a 6 out of 10. Patient denies any new trauma or injury. Patient denies any change of location or type of pain he experiences. Patient describes this as a achy, throbbing sensation that is worse with prolonged sitting or standing. Patient is currently managed with [place] 7.5 mg and gabapentin 300 mg twice a day from outside providers. Patient denies any side effects from these medications. General: Alert and oriented x3, no acute distress, pleasant and cooperative Lungs: Respiration even unlabored, symmetrical chest expansion Eyes: PERRL Musculoskeletal: Flexion and extension of lumbar spine somewhat guarded secondary to pain, antalgic gait noted. Extreme point tenderness along right lumbar paraspinous Neurological: Speech clear, no gross sensory deficit Procedure Details:: Informed consent was obtained and the risk and benefits of the procedure were explained to the patient. The patient was taken to the procedure room where noninvasive monitoring was placed including a noninvasive blood pressure cuff and a pulse oximeter. Right lumbar paraspinous muscle region was prepped with ChloraPrep as a cleansing solution. Trigger points were palpated and marked. Each of these trigger points were injected with bupivacaine 0.25% 5 mL and Depo-Medrol 40 mg. A total of 80 mg Depo-Medrol was used for each trigger point of the right cervical paraspinous and right upper trapezius muscles. Needle was withdrawn and sterile bandages placed over the injection sites. Patient tolerated the procedure well with no complications. Plan and Disposition:: Patient was monitored in the clinic setting for short period of time following the procedure and discharged neurologically intact. Patient is going out of town until after February and we will schedule a follow-up appointment within that timeframe. Patient has been counseled to contact the office with any questions or concerns before the next appointment date. Dr. Olmstead has read this note and agrees with this plan of care. This note was dictated using voice recognition software and may contain errors or omissions.
[2022-01-22 11:20] VITALS: BP 102/66; PULSE 83; RESP 20
== END 2022-01-22 11:20 | disposition home or self-care (01) ==
PROVIDERS: PCP Family Medicine; Visit Provider Nurse Anesthetist, Certified Registered
DX: M51.16 Intervertebral disc disorders with radiculopathy, lumbar region (principal); M79.18 Myalgia, other site
CPT/HCPCS: 20552; J1040

== ENCOUNTER 2022-03-07 12:13 | Observation (INO) | payer MEDICARE, SELFPAY ==
--- NOTE | 2022-03-07 12:26 | PC.NURSE ---
patient arrived to floor from front lobby(admissions) at 12:25
--- NOTE | 2022-03-07 12:30 | XR_ITS ---
FINAL REPORT CLINICAL HISTORY: cough, shortness of breath COMPARISON: March 18, 2020 FINDINGS: Two views of the chest were obtained. A left subclavian pacemaker is present. There are postoperative changes from median sternotomy. There is cardiomegaly. The mediastinum is normal. There are mild left lung base opacities favor atelectasis. There is improved aeration of the left lung base. There is a small left pleural effusion. There is no pneumothorax. The bony thorax is intact. IMPRESSION: Mild left lung base opacities, favor atelectasis with improved aeration in the left lung base. Small left pleural effusion. Reviewed, Interpreted and Dictated by Keith Steele III, MD Transcribed by Blanca Carter Authenticated and [facility]
[2022-03-07 12:54] VITALS: BP 98/60; PULSE 74; RESP 17; TEMP 36.4; O2SAT 94; BMI 29.2
[2022-03-07 13:18] LABS: Basophils # 0.2 K/mm3 (0-0.2); Eosinophils # 0.1 K/mm3 (0.0-0.4); Hematocrit 54.2 % (42.0-52.0); Hemoglobin 17.2 g/dL (14.1-18.0); Lymphocytes # 0.7 K/mm3 (0.7-4.5); Mean Corpuscular HGB Conc 31.8 g/dL (31.8-35.4); Mean Corpuscular Hemoglobin 32.9 pg (27.0-31.2); Mean Corpuscular Volume 103.7 fl (80-94); Mean Platelet Volume 9.9 fl (7.4-10.4); Monocytes # 0.6 K/mm3 (0.1-1.0); Neutrophils # 8.2 K/mm3 (1.8-7.8); Neutrophils % 83.9 % (37.0-80.0); Platelet Count 214 K/mm3 (142-424); Red Blood Count 5.23 M/mm3 (4.60-6.20); Red Cell Distribution Width 14.6 % (11.5-17.5); White Blood Count 9.7 K/mm3 (4.8-10.8)
[2022-03-07 13:21] LABS: Adenovirus,PCR Not Detected (NotDetected); Bordetella Pertussis Not Detected (NotDetected); Chlamydophila Pneumoniae, PCR Not Detected (NotDetected); Coronavirus 19, PCR Not Detected (NotDetected); Coronavirus 229E Not Detected (NotDetected); Coronavirus NL63 Not Detected (NotDetected); Coronavirus OC43 Not Detected (NotDetected); Coronovirus HKU1,PCR Not Detected (NotDetected); Human Metapneumovirus Not Detected (NotDetected); Influenza A, PCR Not Detected (NotDetected); Influenza AH1, 2009 Not Detected (NotDetected); Influenza AH1, PCR Not Detected (NotDetected); Influenza AH3,PCR Not Detected (NotDetected); Influenza B, PCR Not Detected (NotDetected); Mycoplasma Pneumoniae, PCR Not Detected (NotDetected); Parainfluenza 1, PCR Not Detected (NotDetected); Parainfluenza 2, PCR Not Detected (NotDetected); Parainfluenza 3, PCR Not Detected (NotDetected); Parainfluenza 4, PCR Not Detected (NotDetected); Respiratory Syncytial Virus Not Detected (NotDetected); Rhinovirus/Enterovirus Not Detected (NotDetected)
[2022-03-07 13:24] LABS: Chloride 104 mmol/L (98-107); Potassium 4.4 mmoL/L (3.5-5.1); Sodium 140 mmol/L (136-145)
[2022-03-07 13:25] LABS: Creatine Kinase 29 U/L (55-170); Lactic Acid 1.6 mmol/L (0.7-2.1)
[2022-03-07 13:27] LABS: Alanine Aminotransferase 17 U/L (12-78); Albumin Level 3.9 g/dl (3.5-5.0); Albumin/Globulin Ratio 1.1 (1.1-1.8); Alkaline Phosphatase 105 U/L (38-126); Anion Gap 12.4 mEq/L (5-15); Aspartate Amino Transferase 26 U/L (17-59); Bilirubin,Total 0.8 mg/dl (0.2-1.3); Blood Urea Nitrogen 25 mg/dl (9-20); Calcium 9.1 mg/dl (8.4-10.2); Carbon Dioxide 28 mmol/L (22.0-30.0); Creatinine Clearance Estimated 47 mL/min (50-200); Estimated Glomerular Filt Rate 41 ml/min (>60); GFR (African American) 50 ML/MIN (>60); Globulin 3.5 g/dL (1.3-3.2); Glucose 103 mg/dl (74-100); Total Protein,Serum 7.4 g/dl (6.3-8.2)
[2022-03-07 13:36] LABS: CKMB Relative Index 3.4 U/L (0-4.0)
[2022-03-07 13:41] LABS: Troponin I < 0.01 ng/ml (0.00-0.034)
--- NOTE | 2022-03-07 14:43 | ECG_ITS ---
APPROVED REPORT Exam: Resting ECG HR:74 bpm ECG Measurements Heart Rate 74 AXES QRSd 119 QRS 176 QT 466 T 58 QTc 493 Conclusion ELECTRONIC VENTRICULAR PACEMAKER ABNORMAL RHYTHM ECG UNCONFIRMED REPORT Electronically signed by : Sukhi Love MD 03/08/2022 10:07:36
--- NOTE | 2022-03-07 14:50 | EXP.HP ---
History of Present Illness *Admission Date: 03/07/22 *Reason for visit:: hypotension, dehydration, bronchitis *History of present illness: Mr. Rios is an 86yo male with a history of Paroxysmal atrial fibrillation, cardiomyopathy with heart failure, hypertension, and mitral valve prolapse. 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 He states when he got off the river boat approximately 10 days ago, he began feeling poorly with sore throat, headache, and body aches. He has felt so bad he could hardly get out of bed and has been extremely fatigued. He has had head congestion but now has shortness of breath and is coughing up sputum. He did not do a home COVID test. He was evaluated in the office today and his CBC showed a bacterial infection. His blood pressure was 70/40 in the office and it was felt he was dehydrated. The case was discussed with Dr. Laird and the plan was to admit the patient for hydration and further testing. [facility] Disclaimer: The information contained in this section may have been updated after the patient was seen, as this information can be updated by other users. Medical History Degenerative disc disease Dilated cardiomyopathy Heart failure Hypertension Lumbar radiculopathy Mitral valve prolapse Nonischemic congestive cardiomyopathy Paroxysmal atrial fibrillation Tachycardia Surgical History History of mitral valve replacement History of permanent cardiac pacemaker placement History of right knee surgery Family History (Updated 03/07/22 @ 15:19 by Gabriela Carlin RN) No significant family history Social History (Updated 03/07/22 @ 15:23 by Gabriela Carlin RN) Smoking Status: Former smoker pack-years: 17 alcohol intake: never substance use type: denies use current occupational status: employed, retired and other Travel in the last 8 weeks: Inside the [place] household members: none housing: house current occupational exposures/hazards: No caffeine: Yes Review of Systems Constitutional Constitutional: Reports body ache(s), Reports chills, Reports fatigue, Reports fever(s), Reports headache(s) and Reports weakness Eyes Eyes: Denies blurry vision and Denies diplopia ENT Ears, Nose, Mouth, and Throat: Reports headache(s), Reports nasal congestion and Reports sore throat *Cardiovascular Cardiovascular: Reports chest pain, Reports dyspnea, Denies leg edema and Denies palpitations *Respiratory Respiratory: Reports cough, Reports dyspnea and Reports wheezing *Gastrointestinal Gastrointestinal: Denies abdominal pain, Denies loose stools, Denies nausea and Denies vomiting *Genitourinary Genitourinary: Denies difficulty urinating and Denies dysuria *Musculoskeletal Musculoskeletal: Reports myalgias *Neurologic Neurologic: Denies confusion, Reports headache(s) and Reports weakness Psychiatric Psychiatric: Denies confusion Endocrine Endocrine: Reports fatigue and Denies palpitations Allergic/Immunologic Allergic/Immunologic: Reports wheezing Meds Home Medications and Allergies Home Medications Medication Instructions Recorded Confirmed Type venlafaxine 75 mg capsule,extended 75 mg PO QHS mood 03/10/17 01/22/22 History release 24 hr tamsulosin 0.4 mg capsule (Flomax) 0.4 mg PO DAILY prostate 07/01/17 01/22/22 History gabapentin 100 mg capsule 300 mg PO QHS Pain 09/01/17 01/22/22 History lisinopril 2.5 mg tablet 2.5 mg PO DAILY blood pressure 11/18/17 01/22/22 History bisoprolol fumarate 5 mg tablet 5 mg PO DAILY blood pressure 06/12/18 01/22/22 History digoxin 125 mcg (0.125 mg) tablet 125 mcg PO DAILY heart rate 06/12/18 01/22/22 History diltiazem HCl 240 mg 240 mg PO DAILY heart rate 06/12/18 01/22/22 History capsule,extended release 24 hr empagliflozin 10 mg tablet 10 mg PO DAILY Diabetes 09/06/21 01/22/22 Hi
[2022-03-07 15:52] VITALS: BP 107/74; PULSE 70; RESP 16; TEMP 36.5; O2SAT 98
--- NOTE | 2022-03-07 19:38 | PC.NURSE ---
pt alert x4. independent with mobility. pleasant. pt c/o DENIZ, spoke with walter, gave multiple med orders to send to pharm including Tylenol. cb within reach no concerns at this time.
[2022-03-07 20:00] VITALS: BP 133/65; PULSE 74; RESP 18; TEMP 37.8; O2SAT 96; O2SAT 97
[2022-03-08] VITALS (7 sets, daily range): BP systolic 109–131; BP diastolic 66–81; PULSE 63–76; RESP 16–20; TEMP 36.4–37; O2SAT 94–97; BMI 29.5
--- NOTE | 2022-03-08 05:27 | PC.NURSE ---
No changes throughout the night. Pt. has one bag left of his NS @ 150 ML/HR.
[2022-03-08 06:24] LABS: Basophils # 0.1 K/mm3 (0-0.2); Basophils % 0.8 % (0.1-2.0); Eosinophils # 0.1 K/mm3 (0.0-0.4); Monocytes # 0.6 K/mm3 (0.1-1.0); Neutrophils # 7.1 K/mm3 (1.8-7.8); White Blood Count 8.9 K/mm3 (4.8-10.8)
[2022-03-08 06:35] LABS: Anion Gap 11.3 mEq/L (5-15); Blood Urea Nitrogen 18 mg/dl (9-20); Calcium 8.5 mg/dl (8.4-10.2); Carbon Dioxide 23 mmol/L (22.0-30.0); Chloride 111 mmol/L (98-107); Creatinine Clearance Estimated 70 mL/min (50-200); Estimated Glomerular Filt Rate 64 ml/min (>60); GFR (African American) 77 ML/MIN (>60); Glucose 91 mg/dl (74-100); Potassium 4.3 mmoL/L (3.5-5.1); Sodium 141 mmol/L (136-145)
[2022-03-08 06:37] LABS: Eosinophils % 1.2 % (0.1-12.0); Hematocrit 49.3 % (42.0-52.0); Lymphocytes % 11.7 % (10-50); Mean Corpuscular HGB Conc 30.6 g/dL (31.8-35.4); Mean Corpuscular Hemoglobin 31.8 pg (27.0-31.2); Mean Platelet Volume 9.4 fl (7.4-10.4); Monocytes % 6.5 % (1.7-9.3); Neutrophils % 79.8 % (37.0-80.0); Platelet Count 192 K/mm3 (142-424); Red Blood Count 4.74 M/mm3 (4.60-6.20); Red Cell Distribution Width 14.6 % (11.5-17.5)
[2022-03-08 06:50] LABS: Hemoglobin 15.1 g/dL (14.1-18.0)
--- NOTE | 2022-03-08 08:25 | EXP.ACUTE.PN ---
Subjective *Date: 03/08/22 *Time: 08:25 Interval history: Patient states he is feeling better this morning. His blood pressure has improved. He still complains of a headache and a nonproductive cough. He states the sputum feels stuck in his chest Medical Exam Vital signs and Labs for Last 24 Hours: Vital Signs Temp Pulse Resp BP Pulse Ox 03/08/22 04:00 98.3 F 75 20 109/66 L 96 03/08/22 00:00 98.0 F 63 20 118/71 94 L 03/07/22 20:00 97 03/07/22 20:00 100.1 F H 74 18 133/65 96 03/07/22 15:52 97.7 F 70 16 107/74 L 98 03/07/22 12:54 97.5 F L 74 17 98/60 L 94 L Intake and Output 03/07/22 03/08/22 03/08/22 19:59 03:59 11:59 Intake Total 840 / 2340 1500 / 2340 Output Total 0 / 800 800 / 800 Balance 840 / 1540 700 / 1540 Intake: Intake, Oral Amount 840 / 840 Intake, Total IV Amount 1500 / 1500 0.9 % Sodium Chloride 2,950 ml 1200 / 1200 @ 150 mls/hr IV .[id number] [facility] Rx #:[id number] Azithromycin 500 mg In 0.9 % 250 / 250 Sodium Chloride 250 ml @ 250 mls/hr IV Q24H [facility] Rx#: [id number] Ceftriaxone Sodium 1 gm In 0.9 50 / 50 % Sodium Chloride 50 ml @ 100 mls/hr IV Q24H [facility] Rx#: [id number] Output: Output, Urine Amount 0 / 800 800 / 800 Other: Number of Unmeasured Voids 1 1 Weight 215 lb 3 oz 218 lb 1.6 oz Patient Weight 03/08/22 11:59 Weight 218 lb 1.6 oz Laboratory Results - last 24 hr 03/07/22 12:50: Chlamy pneumoniae PCR Not detected, Adenovirus (PCR) Not detected, B. pertussis DNA (PCR) Not detected, Coronavirus OC43 (PCR) Not detected, Coronavirus HKU1 (PCR) Not detected, Coronavirus 229E (PCR) Not detected, SARS-CoV-2 (PCR) Not detected, Coronavirus NL63 (PCR) Not detected, Human Metapneumovir PCR Not detected, Influenza A (H1) PCR Not detected, Influ A (H1N1/09) PCR Not detected, Influenza A (H3) PCR Not detected, Influenza Type A (PCR) Not detected, Influenza Type B (PCR) Not detected, M. pneumoniae (PCR) Not detected, Parainfluenza 1 (PCR) Not detected, Parainfluenza 2 (PCR) Not detected, Parainfluenza 3 (PCR) Not detected, Parainfluenza 4 (PCR) Not detected, RSV (PCR) Not detected, Entero/Rhino (PCR) Not detected 03/07/22 12:52: WBC 9.7, RBC 5.23, Hgb 17.2, Hct 54.2 H, MCV 103.7 H, MCH 32.9 H, MCHC 31.8, RDW 14.6, Plt Count 214, MPV 9.9, Neut % (Auto) 83.9 H, Lymph % (Auto) 7.0 L, [place] % (Auto) 6.0, Eos % (Auto) 1.0, Baso % (Auto) 2.0, Neut # (Auto) 8.2 H, Lymph # (Auto) 0.7, [place] # (Auto) 0.6, Eos # (Auto) 0.1, Baso # (Auto) 0.2 03/07/22 12:52: Sodium 140, Potassium 4.4, Chloride 104, Carbon Dioxide 28, Anion Gap 12.4, BUN 25 H, Creatinine 1.60 H, Estimated Creat Clear 47, Estimated GFR 41 L, Est GFR ( Amer) 50 L, Glucose 103 H, Calcium 9.1, Total Bilirubin 0.8, AST 26, ALT 17, Alkaline Phosphatase 105, Total Protein 7.4, Albumin 3.9, Globulin 3.5 H, Albumin/Globulin Ratio 1.1 03/07/22 12:52: Lactate 1.6 03/07/22 12:52: Total Creatine Kinase 29 L, CK-MB (CK-2) 1.0, CK-MB (CK-2) Rel Index 3.4, Troponin I < 0.01 03/08/22 05:56: Sodium 141, Potassium 4.3, Chloride 111 H, Carbon Dioxide 23, Anion Gap 11.3, BUN 18 D, Creatinine 1.10 D, Estimated Creat Clear 70, Estimated GFR 64, Est GFR ( Amer) 77 D, Glucose 91, Calcium 8.5 03/08/22 05:56: WBC 8.9, RBC 4.74, Hgb 15.1 D, Hct 49.3, MCV 104.0 H, MCH 31.8 H, MCHC 30.6 L, RDW 14.6, Plt Count 192, MPV 9.4, Neut % (Auto) 79.8, Lymph % (Auto) 11.7, [place] % (Auto) 6.5, Eos % (Auto) 1.2, Baso % (Auto) 0.8, Neut # (Auto) 7.1, Lymph # (Auto) 1.0, [place] # (Auto) 0.6, Eos # (Auto) 0.1, Baso # (Auto) 0.1 I & O for Labs for Last 24 Hours: Intake & Output 03/05/22 03/06/22 03/07/22 03/08/22 11:59 11:59 11:59 11:59 Intake Total 2340 / 2340 Output Total 800 / 800 Balance 1540 / 1540 Weight 218 lb 1.6 oz Constitutional: Present no acute distress Respiratory: Present decreased breath sounds and CTA bilaterally Cardiac: Present Reg Rat
--- NOTE | 2022-03-08 08:59 | CT_ITS ---
FINAL REPORT TECHNIQUE: Thin section axial CT images of the facial bones and sinuses were obtained without contrast. Coronal reformatted images were also obtained.This study was performed with techniques to keep radiation doses as low as reasonably achievable, (ALARA). Individualized dose reduction techniques using automated exposure control or adjustment of mA and/or kV according to the patient''''s size were employed. CLINICAL HISTORY: left periorbital pain FINDINGS: There is widespread mucosal thickening and opacification throughout the sinuses. There is fluid in the right sphenoid sinus and possible fluid at the level of the left frontal sinus. There is mild leftward nasal septal deviation. Note is made of perla bullosa bilaterally. Soft tissue obstructs the bilateral maxillary sinus ostia and infundibula. IMPRESSION: Sinusitis as above. Reviewed, Interpreted and Dictated by Keith Steele III, MD Transcribed by Roxi Alcazar Authenticated and [facility]
--- NOTE | 2022-03-08 12:25 | HMH.PHAINT1 ---
Pharmacy Intervention Comments: MEDICATION RECONCILIATION COMPLETED ON PATIENT USING EXTERNAL FILL HISTORY FROM PHARMACY, PATIENT INTERVIEW, AND LIST FROM [facility] OFFICE. -ELSI BUSBYD
--- NOTE | 2022-03-08 21:20 | PC.NURSE ---
2120 dr watson called regarding pt complaints of headache un relieved by tylenol and requesting something for sleep, pt states headache is same as has been for days and feels like its from his sinuses, note new orders received for tramadol 50mg 1 q6 hours as needed for pain, melatonin 5mg as needed for sleep repeated and verified.
[2022-03-09 03:44] VITALS: BP 122/68; PULSE 78; RESP 16; TEMP 36.9; O2SAT 97
[2022-03-09 03:45] VITALS: BMI 30.1
--- NOTE | 2022-03-09 05:34 | PC.NURSE ---
pt rested well after dose of melatonin, pt complained of headache this shift relieved by toradol, pt is alert and oriented x4, skin pwd without edema, lung sounds diminished with 02 sats 97% on room air, breathing treatment given x1 for complaints of cough and stated that it feels like phlegm is stuck, pt has not produce sputum for sample at this time, vss, systolic b/p's have been 120-130's, no other issues or concerns at this time.
[2022-03-09 08:00] VITALS: O2SAT 95
[2022-03-09 08:41] VITALS: BP 139/70; PULSE 74; RESP 18; TEMP 36.6; O2SAT 98
--- NOTE | 2022-03-09 10:49 | EXP.ACUTE.PN ---
Subjective *Date: 03/09/22 *Time: 10:49 Interval history: He is feeling better but still complains of headache. His CT of the sinuses showed pansinusitis rather severe.He is receiving IV antibiotic treatment which hopefully will improve his situation. Another day of antibiotics IV today and tomorrow would be indicated. With possible discharge tomorrow. Medical Exam Vital signs and Labs for Last 24 Hours: Vital Signs Temp Pulse Pulse Resp BP Pulse Ox 03/09/22 08:41 97.9 F 74 18 139/70 98 03/09/22 03:44 98.4 F 78 16 122/68 97 03/08/22 20:00 97 03/08/22 20:41 71 03/08/22 20:41 70 03/08/22 19:48 97.8 F 72 16 131/81 97 03/08/22 16:00 97.6 F 76 18 124/76 96 Intake and Output 03/08/22 03/09/22 03/09/22 19:59 03:59 11:59 Intake Total 720 / 1200 480 / 1200 Output Total 0 / 300 300 / 300 Balance 720 / 900 -300 / 900 480 / 900 Intake: Intake, Oral Amount 720 / 1200 480 / 1200 Output: Output, Urine Amount 0 / 300 300 / 300 Other: Number of Unmeasured Voids 0 0 Weight 222 lb 3 oz Patient Weight 03/09/22 11:59 Weight 222 lb 3 oz I & O for Labs for Last 24 Hours: Intake & Output 03/06/22 03/07/22 03/08/22 03/09/22 11:59 11:59 11:59 11:59 Intake Total 2700 / 2700 1200 / 1200 Output Total 1900 / 1900 300 / 300 Balance 800 / 800 900 / 900 Weight 218 lb 1.6 oz 222 lb 3 oz Head: Present normocephalic Eyes: Present eye pain Neck: Present normal inspection Respiratory: Present CTA bilaterally Cardiac: Present Reg Rate and Rhythm (paced) GI: Present soft; Absent tenderness Rectal (male): Present deferred (male): Present deferred Extremities: Absent edema Skin: Present intact Neuro: Present alert and oriented x 3 Assessment and Plan *Assessment and plan (1) Acute pansinusitis: Status: Acute Category: Medical Code(s): J01.40 - Acute pansinusitis, unspecified (2) Dehydration: Status: Acute Category: Medical Code(s): E86.0 - Dehydration (3) Hypotension: Status: Acute Category: Medical Code(s): I95.9 - Hypotension, unspecified (4) History of permanent cardiac pacemaker placement: Status: Acute Category: Surgical Code(s): Z95.0 - Presence of cardiac pacemaker Plan Continue IV antibiotics. We will try to get another dose and tomorrow and then plan for discharge if possible.
[2022-03-09 10:53] VITALS: O2SAT 95
[2022-03-09 15:54] VITALS: BP 120/78; PULSE 70; RESP 18; TEMP 36.7; O2SAT 97
[2022-03-09 20:00] VITALS: BP 139/78; PULSE 72; RESP 18; TEMP 36.6; O2SAT 96; O2SAT 97
--- NOTE | 2022-03-09 23:37 | PC.NURSE ---
2330 noted after starting zithromycin new iv started by karlo hernandez in the amrik infiltrated, david at bedside attempting another iv at this time. pt tolerated well, iv to amrik discontinued with catheter intact
[2022-03-10 04:00] VITALS: BMI 30.2
[2022-03-10 04:53] VITALS: BP 128/83; PULSE 80; RESP 18; TEMP 36.4; O2SAT 91
--- NOTE | 2022-03-10 05:13 | PC.NURSE ---
no acute distress, pt rested well after tramadol given for headache, lung sounds clear and diminished, vss, ow sats 91-98% on room air, no other issues noted at this time.
[2022-03-10 08:00] VITALS: BP 112/63; PULSE 70; RESP 16; TEMP 36.8; O2SAT 97
--- NOTE | 2022-03-10 13:20 | EXP.ACUTE.PN ---
Subjective *Date: 03/10/22 *Time: 13:20 Interval history: He is stable today and ready for discharge. He still complains of some headache. Of course, his sinus infection needs continued antibiotics. He will be discharged on cefdinir. He has received a azithromycin during hospitalization, in addition to Rocephin. He has not received some of his regular medicines on this hospitalization due to hypotension. These include digoxin, diltiazem, metoprolol, and bisoprolol. He also takes lisinopril 2.5 mg daily. I am uncertain as to why he is on both bisoprolol and metoprolol. Prior to hospitalization he was having episodes of passing out which is understandable with these combined medications. His blood pressure has improved since hospitalization. He has continued to receive tamsulosin during hospitalization. He has not received venlafaxine. Apparently empagliflozin has been added to his regimen recently, likely for his cardiac status. I will discharge him today on metoprolol succinate 25 mg, initially twice a day for dosage flexibility. Eventually this should go to 50 mg once a day if BP remains stable. I am reluctant to restart the diltiazem and I am reluctant to restart the digoxin. I will continue the lisinopril 2.5 mg as well as the tamsulosin. I will not continue bisoprolol since he will be on the increased dose of metoprolol. He can continue on venlafaxine and gabapentin. Medical Exam Vital signs and Labs for Last 24 Hours: Vital Signs Temp Pulse Resp BP Pulse Ox 03/10/22 08:00 98.2 F 70 16 112/63 97 03/10/22 04:53 97.6 F 80 18 128/83 91 L 03/09/22 20:00 97.8 F 72 18 139/78 96 03/09/22 20:00 97 03/09/22 15:54 98.1 F 70 18 120/78 97 Intake and Output 03/10/22 03/10/22 03/10/22 03:59 11:59 19:59 Intake Total 660 / 1740 360 / 360 Output Total 0 / 0 Balance 0 / 1740 660 / 1740 360 / 360 Intake: Intake, Oral Amount 360 / 1440 360 / 360 Intake, Total IV Amount 300 / 300 Azithromycin 500 mg In 0.9 % 250 / 250 Sodium Chloride 250 ml @ 250 mls/hr IV Q24H [facility] Rx#:[id number] Ceftriaxone Sodium 1 gm In 0.9 50 / 50 % Sodium Chloride 50 ml @ 100 mls/hr IV Q24H [facility] Rx#:[id number] Output: Output, Urine Amount 0 / 0 Other: Number of Unmeasured Voids 1 Weight 222 lb 11.552 oz I & O for Labs for Last 24 Hours: Intake & Output 03/08/22 03/09/22 03/10/22 03/11/22 11:59 11:59 11:59 11:59 Intake Total 2700 / 2700 1200 / 1200 1740 / 1740 360 / 360 Output Total 1900 / 1900 300 / 300 0 / 0 Balance 800 / 800 900 / 900 1740 / 1740 360 / 360 Weight 218 lb 1.6 oz 222 lb 3 oz 222 lb 11.552 oz Microbiology Reports for the Last 24 Hours: Microbiology 03/07/22 12:52 Blood Blood Culture - Preliminary NO GROWTH AFTER 48 HOURS 03/07/22 12:52 Blood Blood Culture - Preliminary NO GROWTH AFTER 48 HOURS Head: Present normocephalic Neck: Present normal inspection Respiratory: Present CTA bilaterally Cardiac: Present Reg Rate and Rhythm GI: Present soft; Absent tenderness Rectal (male): Present deferred (male): Present deferred Extremities: Absent edema Skin: Present intact Neuro: Present alert, awake and oriented x 3 Assessment and Plan *Assessment and plan (1) Acute pansinusitis: Status: Acute Category: Medical Code(s): J01.40 - Acute pansinusitis, unspecified (2) History of permanent cardiac pacemaker placement: Status: Acute Category: Surgical Code(s): Z95.0 - Presence of cardiac pacemaker (3) Hypotension: Status: Acute Category: Medical Code(s): I95.9 - Hypotension, unspecified (4) Dehydration: Status: Acute Category: Medical Code(s): E86.0 - Dehydration (5) Leukocytosis: Status: Acute Category: Medical Code(s): D72.829 - Elevated white blood cell count, un
--- NOTE | 2022-03-10 15:54 | PC.NURSE ---
pt has been discharged from the unit. prescriptions sent to [facility]. voiced understanding of all dc educaiton and follow up appts.
--- NOTE | 2022-03-11 14:12 | CARE MANAGER ---
Spoke with patient for post-discharge phone interview, no issues noted.
--- NOTE | 2022-03-11 22:29 | EXP.DC.SUM ---
General Admission date:: 03/07/22 Discharge date: 03/10/22 HPI HPI HPI: Mr. Rios is an 86yo male with a history of Paroxysmal atrial fibrillation, cardiomyopathy with heart failure, hypertension, and mitral valve prolapse. 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 He states when he got off the river boat approximately 10 days ago, he began feeling poorly with sore throat, headache, and body aches. He has felt so bad he could hardly get out of bed and has been extremely fatigued. He has had head congestion but now has shortness of breath and is coughing up sputum. He did not do a home COVID test. He was evaluated in the office today and his CBC showed a bacterial infection. His blood pressure was 70/40 in the office and it was felt he was dehydrated. The case was discussed with Dr. Laird and the plan was to admit the patient for hydration and further testing. Hospital Course Hospital Course Hospital Course: Patient was admitted and started on IV fluids. Labs and a chest x-ray as well as blood cultures and respiratory panel were ordered. He did feel better by the morning of 03/08/2022 and his blood pressure had improved. He complained of a headache and a nonproductive cough. His respiratory panel was negative. His kidney function was initially elevated, but did improve with IV fluids. His chest x-ray showed mild left lung base opacities. He was started on IV antibiotics. A CT of the sinuses was ordered due to persistent headache especially around the left eye area. The CT showed pansinusitis which was rather severe. He was continued on IV antibiotics By 03/10/2022 he still complained of some headache, but it was felt he was stable to be discharged home. He was discharged on cefdinir. Some of his home medications were held during his admission due to hypotension. For some reason he had been on bisoprolol and metoprolol at home and had been having episodes of passing out, which was understandable on this combination of medications. He was discharged on metoprolol 25 mg twice a day. Eventually Dr. Shah wanted this to go to 50 mg once a day if his blood pressure remained stable. He was reluctant to restart his diltiazem and digoxin. He did continue the lisinopril 2.5 mg as well as the tamsulosin. Hiis bisoprolol was discontinued. He was discharged on cefdinir 300 mg twice a day and will follow up with cardiology on 03/11/2022 at [facility]. He will follow-up with Dr. Shah in a week as well. Exam Data for Last 24 hours Vital signs and Labs for Last 24 Hours: Temp Pulse Resp BP Pulse Ox 98.2 F 70 16 112/63 97 03/10/22 08:00 03/10/22 08:00 03/10/22 08:00 03/10/22 08:00 03/10/22 08:00 I & O for Last 24 hours: Intake & Output 03/09/22 03/10/22 03/11/22 03/12/22 11:59 11:59 11:59 11:59 Intake Total 1200 / 1200 1740 / 1740 360 / 360 Output Total 300 / 300 0 / 0 Balance 900 / 900 1740 / 1740 360 / 360 Weight 222 lb 3 oz 222 lb 11.552 oz Narrative: Constitutional Comments: Does not appear to feel well *Routine HEENT Exam Head: Present normocephalic and atraumatic Eye: Present EOMI and PERRL ENT: Present mucous membranes dry and other (nose congested) *Routine Neck Exam Neck: Present supple and full ROM *Routine Respiratory Exam Respiratory: Present wheezes; Absent rales *Routine Cardiovascular Exam Cardiovascular: Present RRR *Routine Abdominal Exam Abdominal: Present soft and normoactive bowel sounds; Absent tenderness *Routine Rectal Exam Rectal:: deferred *Routine Genitalia Exam Genitalia:: deferred *Routine Extremities Exam Extremities: Absent cyanosis, clubbing or edema *Routine Skin Exam Skin: Present intact; Absent erythema *Routine Neurological Exam Neurological: Present alert and oriented X3 Results Data Completed and Pending Labs on day of discharge: Preliminary micro results at discharge 02/24
== END 2022-03-10 15:40 | disposition home or self-care (01) ==
PROVIDERS: Physician Assistant; Admitting Provider Family Medicine; PCP Family Medicine; Visit Provider Family Medicine
DX: E86.0 Dehydration (principal); I42.0 Dilated cardiomyopathy; M51.36 Other intervertebral disc degeneration, lumbar region; I34.1 Nonrheumatic mitral (valve) prolapse; I50.32 Chronic diastolic (congestive) heart failure; I48.0 Paroxysmal atrial fibrillation; J01.40 Acute pansinusitis, unspecified; Z95.0 Presence of cardiac pacemaker; I95.1 Orthostatic hypotension; Z79.899 Other long term (current) drug therapy; Z20.822 Contact with and (suspected) exposure to COVID-19
CPT/HCPCS: G0378; G0379; 36415; 70486; 71046; 80048; 80053; 82550; 82553; 83605; 84484; 85025; 87040; 87581; 87632; 87798; 93005; 94640; C9803; J0456; J0696; U0003; U0005

== ENCOUNTER → 2022-04-16 12:40 | Outpatient (CLI) | payer MEDICARE, SELFPAY ==
[2022-04-16 13:37] LABS: Basophils # 0.1 K/mm3 (0-0.2); Basophils % 0.7 % (0.1-2.0); Eosinophils # 0.1 K/mm3 (0.0-0.4); Eosinophils % 1.2 % (0.1-12.0); Hematocrit 53.3 % (42.0-52.0); Hemoglobin 16.7 g/dL (14.1-18.0); Lymphocytes # 1.2 K/mm3 (0.7-4.5); Lymphocytes % 15.5 % (10-50); Mean Corpuscular HGB Conc 31.3 g/dL (31.8-35.4); Mean Corpuscular Hemoglobin 31.6 pg (27.0-31.2); Mean Corpuscular Volume 100.8 fl (80-94); Mean Platelet Volume 10.1 fl (7.4-10.4); Monocytes # 0.5 K/mm3 (0.1-1.0); Monocytes % 6.7 % (1.7-9.3); Neutrophils # 5.9 K/mm3 (1.8-7.8); Neutrophils % 75.9 % (37.0-80.0); Platelet Count 175 K/mm3 (142-424); Red Blood Count 5.28 M/mm3 (4.60-6.20); Red Cell Distribution Width 13.7 % (11.5-17.5); White Blood Count 7.8 K/mm3 (4.8-10.8)
[2022-04-16 13:55] LABS: Chloride 112 mmol/L (98-107); Potassium 4.6 mmoL/L (3.5-5.1); Sodium 146 mmol/L (136-145)
[2022-04-16 13:57] LABS: Alanine Aminotransferase 12 U/L (12-78); Alkaline Phosphatase 113 U/L (38-126); Amylase 53 U/L (30-110); Anion Gap 10.6 mEq/L (5-15); Aspartate Amino Transferase 24 U/L (17-59); Bilirubin,Total 1.1 mg/dl (0.2-1.3); Blood Urea Nitrogen 28 mg/dl (9-20); Carbon Dioxide 28 mmol/L (22.0-30.0); Estimated Glomerular Filt Rate 48 ml/min (>60); GFR (African American) 58 ML/MIN (>60)
[2022-04-16 13:58] LABS: Albumin Level 4.2 g/dl (3.5-5.0); Albumin/Globulin Ratio 1.4 (1.1-1.8); Calcium 9.6 mg/dl (8.4-10.2); Globulin 2.9 g/dL (1.3-3.2); Glucose 102 mg/dl (74-100); Lipase 70 U/L (23-300); Total Protein,Serum 7.1 g/dl (6.3-8.2)
[2022-04-16 14:15] LABS: Free T4 (Free Thyroxine) 0.89 ng/dl (0.78-2.19)
[2022-04-16 14:28] LABS: Thyroid Stimulating Hormone 2.51 uIU/mL (0.465-4.68)
== END ==
PROVIDERS: PCP Nurse Practitioner Family; Visit Provider Nurse Practitioner Family
DX: I42.8 Other cardiomyopathies (principal); R10.9 Unspecified abdominal pain; R53.83 Other fatigue
CPT/HCPCS: 36415; 80053; 82150; 83690; 84439; 84443; 85025

== ENCOUNTER → 2022-08-21 09:17 | Outpatient (POV) | payer MEDICARE, SELFPAY ==
[2022-08-21 09:51] VITALS: BP 119/74; PULSE 80; RESP 19; O2SAT 97; BMI 28.0
--- NOTE | 2022-08-21 10:11 | EXP.PAIN.SOA ---
[facility] Pain Management SOAP Note Subjective:: Patient is a pleasant 87-year-old male who presents today for follow-up. We are currently treating the patient for degenerative disc disease of lumbar spine with lumbar radiculopathy symptoms. Today he rates his pain a 5 out of 10. Patient states he is experiencing worsening pain in his low back along the right side with radiating symptoms into his right hip and groin. Patient denies any new trauma or injury. He does describe this as a constant aching, throbbing sensation that is worse with increased activities. He does state that it is aggravated with prolonged positioning such as sitting and standing. Patient does also state it interferes with his ability perform activities of daily living such as cooking and cleaning. Patient has tried iloz-vav-wbttrcy medications such as Tylenol and ibuprofen along with heat and ice and topicals with no additional relief. Patient states this has been going on for several months. Patient is currently prescribed Deweese 7.5 mg and gabapentin 300 mg twice a day from Dr. Shah's office. Patient denies any side effects from these medications. His Zelalem is [id number]. Its been reviewed and appropriate. Review of Systems: General: No recent weight changes, no fever, no sleep disturbances Respiratory: No cough, no shortness of air, no recurring pulmonary infections Cardiovascular/peripheral vascular: No chest pain, no palpitations, no edema, no shortness of breath Gastrointestinal: No new onset incontinence, normal bowel movements reported Genitourinary: No new onset incontinence Musculoskeletal: Low back pain Psychiatric: [Normal mood/affect] Neurological: [Denies weakness in extremities], [denies balance issues] Objective:: Physical Exam: General: Alert and oriented x3, no acute distress, pleasant and cooperative Lungs: Respirations even and unlabored, symmetrical chest expansion Eyes: PERRL Musculoskeletal: Flexion and extension of lumbar [spine] somewhat guarded secondary to pain, [antalgic gait noted] extreme point tenderness along right SI with positive right Tess's, Maru's, Gaenslen's, compression and distraction exam Neurological: Speech clear, no gross sensory deficit Assessment:: Degenerative disc disease of lumbar spine with lumbar radiculopathy symptoms, right-sided sacroiliitis Plan:: Patient is experiencing significant pain in his low back along the right side with radiating symptoms to his hip and groin. Patient did have limited range of motion of his lumbar spine and extreme point tenderness along his right SI with a positive right Tess's, Maru's, Gaenslen's, compression and distraction exam. I have discussed with the patient that he may benefit from a right SI injection. Risk and benefits were discussed with the patient and he would like to proceed forward with this plan of care. Patient will be scheduled for a right SI injection. Patient has been instructed to contact the clinic with any concerns before the next appointment. Dr. Olmstead has reviewed this note and agrees with this plan of care. This note was dictated using voice recognition software and make contain errors or omissions. [facility] Disclaimer: The information contained in this section may have been updated after the patient was seen, as this information can be updated by other users. Medical History (Updated 03/14/22 @ 00:00 by Joie Moreira) Acute pansinusitis Angina, class III Atrial fibrillation Cervical strain, acute Closed head injury Congestive heart failure Cough Degenerative disc disease Dilated cardiomyopathy Dizziness Facial laceration Fall Heart failure Hypertension Lumbar radiculopathy Mitral valve prolapse Neck pain Nonischemic congestive cardiomyopathy Paroxysmal atrial fibrillation Tachycardia Surgical History (Updated 03/09/22 @ 10:52 by Ganesh Shah MD) History of mitral valve replacement History of permanent cardiac pacemaker placement Hi
== END ==
PROVIDERS: Visit Provider Nurse Practitioner Family
DX: M51.16 Intervertebral disc disorders with radiculopathy, lumbar region (principal); M46.1 Sacroiliitis, not elsewhere classified
CPT/HCPCS: 99212; G0463

== ENCOUNTER 2022-09-03 07:55 | Day surgery (SDC) | payer MEDICARE, SELFPAY ==
[2022-09-03 08:10] VITALS: BP 123/72; PULSE 95; RESP 18; TEMP 36.3; O2SAT 93; BMI 28.0
[2022-09-03 08:26] VITALS: BP 137/83; PULSE 86; RESP 18; O2SAT 94
--- NOTE | 2022-09-03 08:26 | EXP.PAIN.PRO ---
Procedure Date: 09/03/22 Time: 08:00 Anesthesiologist:: Donovan Vargas CRNA Complications:: None Pre-procedure Diagnosis:: Right sacroiliitis Post-procedure Diagnosis:: Same Indications for Procedure:: Very pleasant 87-year-old male that comes our clinic today for right sacroiliac joint injection. Patient has right posterior hip pain describes as constant, dull, aching. Patient states pain increases when sitting and or ambulating. He rates his pain 8/10. Procedure Details:: Procedure: Right sacroliliac joint injection under fluoroscopy Informed consent was obtained and the risk and benefits of the procedure were explained to the patient.~ The patient was taken to the procedure room and noninvasive monitors were placed including noninvasive blood pressure cuff and pulse oximeter.~ The patient was placed prone on the procedure table.~ The~ right hip was cleansed using Betadine as a cleansing solution.~ C-arm fluorosocpy was used to view the right SI joint.~ The skin and subcutaneous tissues were anesthetized using Lidocaine 1.5% and a 25-gauge needle.~ After this, a 22-gauge spinal needle was inserted under fluoroscopic guidance into the inferior aspect of the right SI joint.~ Omnipaque dye was injected and a good spread was seen throughout the joint.~ After this, approximately 5 mL of bupivacaine 0.25% and Depo-Medrol 40 mg was incrementally injected into the sacroiliac joint.~ The patient tolerated the procedure well with no complications.~ The patient was observed in the Pain Clinic, then discharged home neurologically intact.~ Plan and Disposition:: Patient was discharged without incident.
[2022-09-03 08:28] VITALS: BP 135/79; PULSE 86; RESP 18; O2SAT 98
[2022-09-03 08:30] VITALS: BP 135/79; PULSE 86; RESP 18; O2SAT 98
== END 2022-09-03 08:26 | disposition home or self-care (01) ==
PROVIDERS: PCP Nurse Practitioner Family; Visit Provider Nurse Anesthetist, Certified Registered
DX: M46.1 Sacroiliitis, not elsewhere classified (principal)
CPT/HCPCS: 27096; G0260; J1040

== ENCOUNTER 2024-05-12 09:51 | Outpatient (POV) | payer MEDICARE, SELFPAY ==
--- NOTE | 2024-05-12 09:58 | EXP.PAIN.SOA ---
[facility] Disclaimer: The information contained in this section may have been updated after the patient was seen, as this information can be updated by other users. Medical History (Updated 05/12/24 @ 10:56 by Flores Koenig APRN) Tongue lesion Acute pansinusitis Mitral valve prolapse Hypertension Neck pain Fall Facial laceration Cervical strain, acute Closed head injury Lumbar radiculopathy Degenerative disc disease Tachycardia Cough Dizziness Congestive heart failure Dilated cardiomyopathy Angina, class III Nonischemic congestive cardiomyopathy Heart failure Paroxysmal atrial fibrillation Atrial fibrillation Surgical History History of permanent cardiac pacemaker placement History of mitral valve replacement History of right knee surgery Family History Other No significant family history Social History Smoking Status: Former smoker tobacco type: cigarettes alcohol intake: never substance use type: denies use current occupational status: retired Travel in the last 8 weeks: None household members: none housing: house current occupational exposures/hazards: No caffeine: Yes PM Subjective & Objective Subjective Subjective:: Patient is a pleasant 88-year-old male who presents today for worsening pain. Patient was last seen in our office back in August 2022 where he had a right SI joint injection. Patient does state that he has started to experience worsening pain in the same area over the last couple of months. He states the last injection we did was wonderful and that he had no issue for over a year. He states now that he cannot get up and do increased activity for longer than an hour or 2 without being in unbearable pain. He states it is all across to his low back on the right side and goes into his right hip. He states the pain is interfering with his ability perform activities of daily living such as cooking and cleaning. He does rate his pain currently a 3 however states it will automatically go to at least a 5 or more with any type of work. He states that he would like to see about getting additional injections as they did work so well for so long. Patient is also asking whether or not if there is anything we can do to help with the pain where it is unmanageable. His Zelalem has been reviewed and is appropriate. Review of Systems: General: No recent weight changes, no fever, no sleep disturbances Respiratory: No cough, no shortness of air, no recurring pulmonary infections Cardiovascular/peripheral vascular: No chest pain, no palpitations, no edema, no shortness of breath Gastrointestinal: No new onset incontinence, normal bowel movements reported Genitourinary: No new onset incontinence Musculoskeletal: [] Psychiatric: [Normal mood/affect] Neurological: [Denies weakness in extremities], [denies balance issues] Pain at rest (0-10 scale): 5 Objective Objective:: Physical Exam: General: Alert and oriented x3, no acute distress, pleasant and cooperative Lungs: Respirations even and unlabored, symmetrical chest expansion Eyes: PERRL Musculoskeletal: Flexion and extension of lumbar [spine] somewhat guarded secondary to pain, [antalgic gait noted] point tenderness along right SI with positive right Tess's, Maru's, Gaenslen's, compression and distraction exam Neurological: Speech clear, no gross sensory deficit Has patient had previous pain injection?: No Conservative treatment options previously tried: Home exercise plan Length of treatment: Longer than 12 weeks Meds Home Medications and Allergies Home Medications ?Medication ?Instructions ?Recorded ?Confirmed ?Type tamsulosin 0.4 mg capsule (Flomax) 0.4 mg PO DAILY prostate 07/01/17 12/11/22 History empagliflozin 10 mg tablet 10 mg PO DAILY Diabetes 09/06/21 12/11/22 History gabapentin 300 mg capsule 300 mg PO BID Pain 03/08/22 12/11/22 History venlafaxine 75 mg tablet 75 mg PO BID MOOD 03/08/22 12/11/22 History lisinopril 2.5 mg tablet 2.5 mg PO DAILY CHF/HBP #30 tabs 03/10/22 12/11/22 Rx metoprolol succinate 25 mg 25 mg PO BID BLOOD PRESSURE 08/21/22 12/11/22 History tablet,extended release 24 hr baclofen 5 mg tablet 5 mg PO TID #42 tabs 05/12/24 Rx prednisone 20 mg tablet 20 mg PO BID #10 tabs 05/12/24 Rx New Prescriptions to Start Prescriptions: baclofen Koenig,Flores A prednisone Koenig,Flores A Allergies Allergy/AdvReac Type Severity Reaction Status Date / Time No Known Allergies Allergy Verified 12/11/22 14:36 Assessment and Plan *Assessment and plan (1) Sacroiliitis: Status: Acute Category: Medical Code(s): M46.1 - Sacroiliitis, not elsewhere classified (2) Right hip pain: Status: Acute Category: Medical Code(s): M25.551 - Pain in right hip Plan Patient is experiencing worsening pain along the low back and right hip. They did have limited range of motion of the lumbar spine along with point tenderness along right SI joints and a positive right Tess's, Maru's, Gaenslen's, compression and distraction exam. I did discuss with the patient that I do believe they would benefit from right SI injections. Risk and benefits were discussed with the patient and they would like to proceed forward with this option. Patient has tried and failed conservative therapy including oral medications, heat and ice, topicals and continued at home stretching exercise for longer than 12 weeks. Patient had his last SI injection in August 2022 that did provide improvements for over a year and a half. Patient has had this pain for longer than 2 years. Patient has just started to experience increased pain over the last 2 to 3 months. I will order the patient a compounded cream and also send in a 2-week dose of baclofen 5 mg 3 times daily as needed and prednisone 20 mg twice daily for 5 days. Patient will be scheduled for right SI injections under fluoroscopy. Patient has been instructed to contact the clinic with any concerns before the next appointment. Dr. Olmstead has reviewed this note and agrees with this plan of care. This note was dictated using voice recognition software and make contain errors or omissions. All injections are used with Lidocaine or Bupivacaine and Depo Medrol.
[2024-05-12 11:14] VITALS: BP 115/80; PULSE 71; RESP 14; O2SAT 95; BMI 25.7
== END 2024-05-12 23:59 | disposition home or self-care (01) ==
PROVIDERS: PCP Family Medicine; Visit Provider Nurse Practitioner Family
DX: M46.1 Sacroiliitis, not elsewhere classified (principal); M25.551 Pain in right hip; Z87.891 Personal history of nicotine dependence; Z73.89 Other problems related to life management difficulty
CPT/HCPCS: 99212; G0463

== ENCOUNTER 2024-06-08 10:45 | Day surgery (SDC) | payer MEDICARE, SELFPAY ==
[2024-06-08 10:57] VITALS: BP 117/56; PULSE 72; RESP 16; TEMP 36.4; O2SAT 98; BMI 25.7
[2024-06-08 11:09] VITALS: BP 117/72; PULSE 74; RESP 16; O2SAT 98
--- NOTE | 2024-06-08 11:09 | P.PCN_ITS ---
Procedure Date: 06/08/24 Time: 10:55 Anesthesiologist:: Donovan Vargas CRNA Complications:: None Pre-procedure Diagnosis:: Right sacroiliitis Post-procedure Diagnosis:: Same Indications for Procedure:: Is a very pleasant 88-year-old male who comes our clinic today for right sacroiliac joint injection cortisone local onset. Patient describes right low lumbar back pain as well as right posterior hip pain. He reports responding very well to previous right sacroiliac joint injections of cortisone. He rates his pain 6/10. Procedure Details:: Procedure: Right sacroliliac joint injection under fluoroscopy Informed consent was obtained and the risk and benefits of the procedure were explained to the patient.~ The patient was taken to the procedure room and noninvasive monitors were placed including noninvasive blood pressure cuff and p ulse oximeter.~ The patient was placed prone on the procedure table.~ The~ right hip was cleansed using Betadine as a cleansing solution.~ C-arm fluorosocpy was used to view the right SI joint.~ The skin and subcutaneous tissues were anesthetized using Lidocaine 1.5% and a 25-gauge needle.~ After this, a 22-gauge spinal needle was inserted under fluoroscopic guidance into the inferior aspect of the right SI joint.~ Omnipaque dye was injected and a good spread was seen throughout the joint.~ After this, approximately 5 mL of bupivacaine 0.25% and Depo-Medrol 40 mg was incrementally injected into the sacroiliac joint.~ The patient tolerated the procedure well with no complications.~ The patient was observed in the Pain Clinic, then discharged home neurologically intact.~ Plan and Disposition:: Patient was discharged without incident.
[2024-06-08] MEDS: LIDOCAINE 1% 5ML PF VIAL 5 ML (11:50)
[2024-06-08] MEDS: methylPREDNISolone ACETATE 80MG/ML VIAL 80 MG (11:50)
[2024-06-08] MEDS: BUPIVACAINE 0.25% 10ML INJ 25 MG IJ (11:50)
[2024-06-08 11:51] VITALS: BP 109/64; PULSE 79; RESP 18; O2SAT 95
[2024-06-08 11:56] VITALS: BP 109/64; PULSE 79; RESP 18; O2SAT 95
== END 2024-06-08 11:09 | disposition home or self-care (01) ==
PROVIDERS: PCP Family Medicine; Visit Provider Nurse Anesthetist, Certified Registered
DX: M46.1 Sacroiliitis, not elsewhere classified (principal)
CPT/HCPCS: 27096; G0260; J1010

== ENCOUNTER 2024-06-12 21:07 | Emergency (ER) | payer MEDICARE, SELFPAY ==
[2024-06-12 21:16] VITALS: BP 129/81; PULSE 89; RESP 16; TEMP 36.6; O2SAT 95; BMI 24.4
--- OUTSIDE RECORDS SUMMARY | 2024-06-12 21:19 | XMS_ITS ---
Author Organization Unknown Problems Date Problem Result OnSetDate Icd10 SnomedCode Severity 11/26/2021 00:00:00 Systolic CHF, chronic I50.22 [id number] 11/26/2021 00:00:00 Benign prostatic hyperplasia with lower urinary tract symptoms N40.1 [id number] 03/12/2022 00:00:00 Pansinusitis, unspecified chronicity J32.4 [id number] 03/12/2022 00:00:00 Presence of cardiac pacemaker Z95.0 [id number] 03/12/2022 00:00:00 Leukocytosis, unspecified type D72.829 [id number] 04/16/2022 00:00:00 Reactive depression F32.9 04/16/2022 00:00:00 BPH (benign prostatic hyperplasia) N40.0
--- NOTE | 2024-06-12 21:35 | HMH.EDGENADL ---
Discharge Plan Disposition Patient Disposition: Home, Self-Care Chief Complaint: Recheck/Abnormal Lab/Rx Prescriptions Prescriptions: No Action tamsulosin [Flomax] 0.4 mg capsule,extended release 24hr 0.4 mg PO DAILY venlafaxine 75 mg tablet 75 mg PO BID gabapentin 300 mg capsule 300 mg PO BID Patient Comments: TAKE 1 CAPSULE BY MOUTH TWICE DAILY lisinopril 2.5 mg tablet 2.5 mg PO DAILY Qty: 30 2RF metoprolol succinate 25 mg tablet extended release 24 hr 25 mg PO BID baclofen 5 mg tablet 5 mg PO TID Qty: 42 0RF prednisone 20 mg tablet 20 mg PO BID Qty: 10 0RF empagliflozin 10 MG tablet 10 mg PO DAILY Referrals Follow up/Referrals: Ganesh Shah MD [Primary Care Provider] - See instructions Activity Restrictions/Add. Instructions Additional Instructions/Restrictions: At this time it was felt you are safe to be discharged home. If new or worsening symptoms please do not hesitate to return the emergency department. Clinical Impressions Clinical Impression: Tick bite with subsequent removal of tick Print Language Print Language: French Discharge ED Provider: Mikael Garcia General Adult HPI General Chief complaint: Recheck/Abnormal Lab/Rx Stated complaint: 2 ticks in groin area Time Seen by Provider: 06/12/24 21:22 Mode of Arrival: Ambulatory Source of Information: Patient Description of Symptoms (Recalled from ER Triage Doc. by RN): Patient states he believes he has two ticks in his groin area. States his son told him to come here to have them removed. History of Present Illness HPI narrative: Patient is 88-year-old male with no pertinent past medical history presents emergency department for evaluation of possible ticks in his groin. He thinks that he has 2 ticks in his right groin which he wishes to have removed. Unknown duration. No other acute complaints at this time. Please note that above description of symptoms, in this electronic medical record under categorization of recalled from ER triage doctor by RN are reflective of an initial nursing assessment, however, is not reflective of my full history and physical exam that was personally taken and clarified. Consequentially, this preceding description of symptoms, which may include the patient's categorized chief complaint in the EMR, do not reflect my personal clinical impression, and the ultimate description of history of present illness and patient stated complaints should be deferred to this section of the note. Unless stated otherwise or congruent with this section of the note, additional signs, symptoms, or incongruence should be interpreted as inaccurate with my clinical impression. Related Data Home Medications ?Medication ?Instructions ?Recorded ?Confirmed tamsulosin 0.4 mg capsule (Flomax) 0.4 mg PO DAILY prostate 07/01/17 06/08/24 empagliflozin 10 mg tablet 10 mg PO DAILY Diabetes 09/06/21 06/08/24 gabapentin 300 mg capsule 300 mg PO BID Pain 03/08/22 06/08/24 venlafaxine 75 mg tablet 75 mg PO BID MOOD 03/08/22 06/08/24 metoprolol succinate 25 mg 25 mg PO BID BLOOD PRESSURE 08/21/22 06/08/24 tablet,extended release 24 hr Previous Rx's ?Medication ?Instructions ?Recorded lisinopril 2.5 mg tablet 2.5 mg PO DAILY CHF/HBP #30 tabs 03/10/22 baclofen 5 mg tablet 5 mg PO TID #42 tabs 05/12/24 prednisone 20 mg tablet 20 mg PO BID #10 tabs 05/12/24 Allergies Allergy/AdvReac Type Severity Reaction Status Date / Time No Known Allergies Allergy Verified 12/11/22 14:36 [facility] Disclaimer: The information contained in this section may have been updated after the patient was seen, as this information can be updated by other users. Medical History (Updated 06/12/24 @ 22:03 by Mikael Garcia MD) Tongue lesion Acute pansinusitis Mitral valve prolapse Hypertension Neck pain Fall Facial laceration Cervical strain, acute Closed head injury Lumbar radiculopathy Degenerative disc disease Tachycardia Cough Dizziness Congestive heart failure Dilated cardiomyopathy Angina, class III Nonischemic congestive cardiomyopathy Heart failure Paroxysmal atrial fibrillation Atrial fibrillation Surgical History History of permanent cardiac pacemaker placement History of mitral valve replacement History of right knee surgery Family History Other No significant family history Social History Smoking Status: Never smoker alcohol intake: never substance use type: denies use current occupational status: other Travel in the last 8 weeks: None household members: none housing: house current occupational exposures/hazards: No caffeine: Yes Have you lived/traveled outside [place] in past 30 days?: No Contact w/someone who lives/traveled outside US past 30 days?: No Exposure to someone with infectious disease in past 14 days?: No Do you have a fever (greater than 100.4 F or 38 C)?: No Have you tested positive for COVID-19: No Exposed to someone with COVID-19 in past 14 days?: No Do you have a sore throat?: No Do you have a cough?: No Do you have any weakness?: No Do you have any diarrhea?: No Are you experiencing any unusual bleeding?: No Do you have any muscle aches/pain?: No Do you have any abdominal pain?: No Are you experiencing loss of taste or smell?: No Other Medical History Have you received the Flu Vaccine for this season: No Have you received the Pneumonia Vaccine: No ROS Obtained: Yes Systems reviewed as appropriate & no additional complaints except as documented Physical Exam General General appearance: alert and in no apparent distress Head Head exam: atraumatic and normocephalic Eye Eye exam: Present PERRL and EOMI ENT ENT exam: Present mucous membranes moist Neck Neck exam: Present normal inspection Chest Chest inspection: Present normal inspection and symmetric chest wall rise Respiratory Respiratory exam: Absent respiratory distress Cardiovascular Cardiovascular exam: Present regular rate and normal rhythm Abdominal Exam Abdominal exam: Present soft exam: Present other (2 tics embedded in the right inguinal region, no engorgement, no surrounding erythema.) Extremities Exam Extremities exam: Present normal inspection Neurological Exam Neurological exam: Present alert Psychiatric Psychiatric exam: Present normal affect Skin Skin exam: Present warm and dry; Absent rash Medical Decision Making Medical Records Screening: Per USPSTF and CDC recommendations, given the prevalence of disease in our region, it is our hospital?s policy to screen for HIV and viral Hepatitis for all patients aged 18 and over and those with ongoing risk factors. Zelalem Inquiry Pt receiving controlled substance: No Vital Signs: 06/12/24 21:16 Temperature 97.9 F Temperature Source Oral Pulse Rate [Right Radial] 89 Respiratory Rate 16 Blood Pressure [Right Arm] 129/81 Blood Pressure Mean [Right Arm] 97 Blood Pressure Source [Right Arm] Automatic Cuff Blood Pressure Position [Right Arm] Supine 02 Sat by Pulse Oximetry 95 Oxygen Delivery Method Room Air Orders (Tests/Meds): ED MEDICATIONS Discontinued Medications Generic Name Dose Route Start Last Admin Trade Name Curtis PRN Reason Stop Dose Admin Doxycycline Hyclate 200 mg 06/12/24 21:35 06/12/24 21:54 Doxycycline Hycl 100 Mg Tablet PO 06/12/24 21:36 200 mg ONCE ONE Administration Lidocaine HCl 5 ml 06/12/24 21:35 06/12/24 21:53 Lidocaine 2% Jelly 5ml Tube TP 06/12/24 21:36 Not Given ONCE ONE Lidocaine HCl 1 ml 06/12/24 21:41 06/12/24 21:53 Lidocaine 2% Urojet 10ml TP 06/12/24 21:42 1 ml ONCE ONE Administration Medical Decision Narrative: In summary patient is a 88-year-old male with past medical history described above who presents emergency department for evaluation of suspected ticks. Patient has 2 ticks which will be removed after killed with lidocaine. No engorgement to suspect active transmission of Lyme disease postexposure prophylaxis will be conducted with 200 mg p.o. doxycycline 1 dose with some food. Patient underwent tick removal with success and is appropriate for discharge at this time. Procedure: Procedure performed was tick removal. Procedure performed by Mikael Garcia. Using viscous lidocaine both ticks were killed after leaving on for approximately 20 minutes. Using forceps the base where the tick was attached to the skin was grasped and longitudinal traction was applied until tick was successfully removed. Both ticks were removed without residual mouthparts remaining. Patient tolerated procedure well. There were no immediate complications. Critical Care Critical Care Time Critical Care Time: No
[2024-06-12] MEDS: LIDOCAINE 2% UROJET 10ML TP (21:53)
[2024-06-12] MEDS: DOXYCYCLINE HYCL 100 MG TABLET 200 MG PO (21:54)
[2024-06-12 22:04] VITALS: BP 128/81; PULSE 85; RESP 22; TEMP 36.6; O2SAT 97
== END 2024-06-12 22:05 | disposition home or self-care (01) ==
PROVIDERS: Emergency Provider Emergency Medicine; PCP Family Medicine
DX: S30.861A Insect bite (nonvenomous) of abdominal wall, initial encounter (principal); W57.XXXA Bitten or stung by nonvenomous insect and other nonvenomous arthropods, initial encounter
CPT/HCPCS: 99283

== ENCOUNTER 2024-06-23 09:29 | Outpatient (POV) | payer MEDICARE, SELFPAY ==
--- NOTE | 2024-06-23 09:39 | EXP.PAIN.SOA ---
[facility] Disclaimer: The information contained in this section may have been updated after the patient was seen, as this information can be updated by other users. Medical History (Updated 06/12/24 @ 22:03 by Mikael Garcia MD) Tongue lesion Acute pansinusitis Mitral valve prolapse Hypertension Neck pain Fall Facial laceration Cervical strain, acute Closed head injury Lumbar radiculopathy Degenerative disc disease Tachycardia Cough Dizziness Congestive heart failure Dilated cardiomyopathy Angina, class III Nonischemic congestive cardiomyopathy Heart failure Paroxysmal atrial fibrillation Atrial fibrillation Surgical History History of permanent cardiac pacemaker placement History of mitral valve replacement History of right knee surgery Family History Other No significant family history Social History Smoking Status: Never smoker alcohol intake: never substance use type: denies use current occupational status: other Travel in the last 8 weeks?: None household members: none housing: house current occupational exposures/hazards: No caffeine: Yes PM Subjective & Objective Subjective Subjective:: Patient is a pleasant 89-year-old male who presents today for follow-up of right SI injection on 06/08/2024. Today he rates his pain a 5 out of 10. Patient denies any new falls or injuries. He does state that that injection did help his overall low back however did not seem to do much for his right hip. Patient states he does have pain when he is up walking and it does interfere with his ability perform activities of daily living such as cooking and cleaning. Patient denies any prior right hip surgery. patient is currently managed with compounded cream and baclofen 5 mg 3 times a day from our office. He was recently given a dose of prednisone for 5 days. He does state that this medicine really did make a difference. He states however he did not notice as much with the baclofen but does not think it caused any side effects. He does also make mention that he has been dealing with a lot more leg cramps. He states this has been going on for some time but just progressively worsened. He states he has gotten a topical and it does help. he is prescribed gabapentin from outside providers. His Zelalem has been reviewed and is appropriate. Review of Systems: General: No recent weight changes, no fever, no sleep disturbances Respiratory: No cough, no shortness of air, no recurring pulmonary infections Cardiovascular/peripheral vascular: No chest pain, no palpitations, no edema, no shortness of breath Gastrointestinal: No new onset incontinence, normal bowel movements reported Genitourinary: No new onset incontinence Musculoskeletal: Right hip pain Psychiatric: [Normal mood/affect] Neurological: [Denies weakness in extremities], [denies balance issues] Pain at rest (0-10 scale): 5 Objective Objective:: Physical Exam: General: Alert and oriented x3, no acute distress, pleasant and cooperative Lungs: Respirations even and unlabored, symmetrical chest expansion Eyes: PERRL Musculoskeletal: Flexion and extension of right hip somewhat guarded secondary to pain, [antalgic gait noted] Neurological: Speech clear, no gross sensory deficit Has patient had previous pain injection?: Yes Percent improvement in pain since last injection: Moderate Conservative treatment options previously tried: Home exercise plan Length of treatment: Longer than 12 weeks Meds Home Medications and Allergies Home Medications ?Medication ?Instructions ?Recorded ?Confirmed ?Type tamsulosin 0.4 mg capsule (Flomax) 0.4 mg PO DAILY prostate 07/01/17 06/08/24 History empagliflozin 10 mg tablet 10 mg PO DAILY Diabetes 09/06/21 06/08/24 History gabapentin 300 mg capsule 300 mg PO BID Pain 03/08/22 06/08/24 History venlafaxine 75 mg tablet 75 mg PO BID MOOD 03/08/22 06/08/24 History lisinopril 2.5 mg tablet 2.5 mg PO DAILY CHF/HBP #30 tabs 03/10/22 06/08/24 Rx metoprolol succinate 25 mg 25 mg PO BID BLOOD PRESSURE 08/21/22 06/08/24 History tablet,extended release 24 hr baclofen 5 mg tablet 5 mg PO TID #42 tabs 05/12/24 06/08/24 Rx prednisone 20 mg tablet 20 mg PO BID #10 tabs 05/12/24 06/08/24 Rx New Prescriptions to Start Prescriptions: Allergies Allergy/AdvReac Type Severity Reaction Status Date / Time No Known Allergies Allergy Verified 12/11/22 14:36 Assessment and Plan *Assessment and plan (1) Right hip pain: Status: Acute Category: Medical Code(s): M25.551 - Pain in right hip Plan Patient is experiencing worsening pain in his right hip with limited range of motion. I did discuss with the patient that he may benefit from a right hip intra-articular injection. Risk and benefits were discussed with the patient and he would like to proceed forward with this plan of care. Patient has tried and failed conservative therapy including oral medication, heat and ice, topicals, at home stretching exercise for longer than 12 weeks. We did discuss at length regarding his leg cramps. Patient was counseled that he may need updated labs. Patient does state that he was supposed to go to [place] for updated labs in February however due to the weather he never got around to going to have this testing. He states that he will make it a point to go and have this completed. He does state in the past he has had his potassium out of range. I did discuss that I will send in a 2-week dose of ropinirole 0.25 mg at bedtime to see if this does also help with the leg cramps. I will refill his baclofen and change it to a 10 mg 3 times daily. Patient will be scheduled for a right hip intra-articular injection under fluoroscopy. Patient has been instructed to contact the clinic with any concerns before the next appointment. Dr. Olmstead has reviewed this note and agrees with this plan of care. This note was dictated using voice recognition software and make contain errors or omissions. All injections are used with Lidocaine, Bupivacaine and dexamethasone. Occasionally urine drug screen is needed to verify patient's compliance with our office pain contract. This is ordered based off specific treatments related to chronic pain with the potential to abuse certain medications.
[2024-06-23 10:26] VITALS: BP 111/67; PULSE 66; RESP 14; O2SAT 98; BMI 26.2
== END 2024-06-23 23:59 | disposition home or self-care (01) ==
PROVIDERS: PCP Family Medicine; Visit Provider Nurse Practitioner Family
DX: M25.551 Pain in right hip (principal); Z73.89 Other problems related to life management difficulty
CPT/HCPCS: 99212; G0463

== ENCOUNTER 2024-07-20 08:48 | Day surgery (SDC) | payer MEDICARE, SELFPAY ==
[2024-07-20 08:49] VITALS: BP 139/79; PULSE 71; RESP 16; TEMP 36.6; O2SAT 99; BMI 25.7
[2024-07-20] MEDS: DEXAMETHASONE 10MG/ML 1ML VIAL 10 MG (09:13)
[2024-07-20] MEDS: LIDOCAINE 1% 5ML PF VIAL 5 ML (09:13)
[2024-07-20] MEDS: BUPIVACAINE 0.25% 10ML INJ 25 MG IJ (09:13)
[2024-07-20 09:14] VITALS: BP 125/75; PULSE 72; RESP 18; O2SAT 96
[2024-07-20 09:15] VITALS: BP 125/75; PULSE 72; RESP 18; O2SAT 96
--- NOTE | 2024-07-20 09:19 | EXP.PAIN.PRO ---
Procedure Date: 07/20/24 Time: 09:00 Anesthesiologist:: Donovan Vargas CRNA Complications:: None Pre-procedure Diagnosis:: DJD right hip. Chronic right hip pain. Post-procedure Diagnosis:: Same. Indications for Procedure:: Patient is a very pleasant 89-year-old male who comes our clinic today for right intra-articular hip injection to cortisone local anesthetic. Patient describes right hip pain as constant, dull, aching. His pain predominantly is lateral and posterior. However, he does mention some anterior pain with abduction. He rates his pain 6/10. Procedure Details:: Details of the procedure were explained to the patient. The patient was taken to procedure room placed in the supine position. The area over the right hip was cleaned using chlorhexidine as a cleansing solution. Using fluoroscopy guidance a 3 and half inch 22-gauge spinal needle was used to access the right hip joint without difficulty. After negative aspiration 3 cc of 1% lidocaine +3 cc of 0.25% Marcaine and 40 mg of Depo-Medrol was injected. Needle was withdrawn. Band-Aid applied. Patient tolerated procedure without difficulty. There are no complications. Plan and Disposition:: Patient was discharged without incident.
[2024-07-20 09:53] VITALS: BP 133/82; PULSE 70; RESP 16; O2SAT 99
== END 2024-07-20 09:53 | disposition home or self-care (01) ==
PROVIDERS: PCP Family Medicine; Visit Provider Nurse Anesthetist, Certified Registered
DX: M16.11 Unilateral primary osteoarthritis, right hip (principal); M25.551 Pain in right hip; G89.29 Other chronic pain
CPT/HCPCS: 20610; 77002; J1100

== ENCOUNTER 2024-08-09 11:09 | Outpatient (POV) | payer MEDICARE, SELFPAY ==
--- OUTSIDE RECORDS SUMMARY | 2023-09-22 11:30 | XMS_ITS ---
[facility] Address [address] [place] [id number] Care Team Providers Care Warehouse Guard Name Role Phone Miguel Shah Primary Care Provider Allergies No Known Allergies REASON FOR VISIT 4 Month Check Up, Needs labs Medications Medication SIG (Take, Route, Frequency, Duration) Notes Start Date End Date Status Jardiance 10 MG TAKE 1 TABLET BY TERRELL TH ONCE DAILY IN THE MORNING for 30 Active Gabapentin 300 MG 1 cap(s) orally 2 ti mes a day for 30 day(s) 09/22/2023 Active Losartan Potassium 25 MG 1 tab(s) every other day Active Furosemide 20 MG 1 tab(s) orally as needed prn Active Tamsulosin HCl 0.4 MG 1 capsule Orally O nce a day for 90 days Active Venlafaxine HCl 75 MG 1 tab(s) Orally Tw ice a day for 30 days Active B-12 1000 MCG 1 tab(s) orally once a day 05/30/2020 Not-Taking Metoprolol Succinate ER 25 MG 1 tab(s) orally once a day Active Vitamin C 250 MG 1 tab(s) orally once a day for 30 day(s) Not-Taking Vital Signs Blood pressure systolic 120 mm Hg 09/22/19 24 Blood pressure diastolic 70 mm Hg 024 Heart Rate 72 /min 09/22/2023 Height 72 in 09/22/2023 Weight 200.0 lbs 09/22/2023 BMI 27.12 kg/m2 09/22/2023 Encounters Encounter Location Date Provider Diagnosis [place] [address] [facility] [address] [place] [phone] 09/22/2023 Miguel Shah H/O mitral valve replacement Z95.2 ; H/O cardiac pacemaker Z95.0 ; Vitamin B12 deficiency E53.8 ; Hyperkalemia E87.5 ; Benign prostatic hyperplasia with lower urinary tract symptoms N40.1 and Primary osteoarthritis involving multiple joints M15.0 Assessments Encounter Date Diagnosis (ICD Code) Assessment Notes Treatment Notes Treatment Clinical Notes Section Notes 09/22/2023 H/O mitral valve replacement (ICD-10 - Z95.2) 09/22/2023 H/O cardiac pacemaker (ICD-10 - Z95.0) 09/22/2023 Vitamin B12 deficiency (ICD-10 - E53.8) 09/22/2023 Hyperkalemia (ICD-10 - E87.5) 09/22/2023 Benign prostatic hyperplasia with lower urinary tract symptoms (ICD-10 - N40.1) 09/22/2023 Primary osteoarthritis involving multiple joints (ICD-10 - M15.0) Plan Of Treatment Medication Medication Name Sig Start Date Stop Date Notes Gabapentin 300 MG 1 cap(s) orally 2 ti mes a day for 30 day(s) 09/22/2023 Losartan Potassium 25 MG 1 tab(s) every other day Furosemide 20 MG 1 tab(s) orally as needed prn Tamsulosin HCl 0.4 MG 1 capsule Orally O nce a day for 90 days Venlafaxine HCl 75 MG 1 tab(s) Orally Tw ice a day for 30 days Metoprolol Succinate ER 25 MG 1 tab(s) orally once a day Next Appt Details Follow Up: 4 Months, Reason: Provider Name:Miguel Baron er, 08/16/2024 10:30:00 AM, [address] [facility] [address] [facility], [address], [place], [phone], Progress Notes * Brandon RIOSDOB:1935 (89 yo M)Acc No.[id number]:09/22/2023 Progress Notes Patient: Brandno OCONNELL Provider: Miguel Shah M.D. :1935 A ge:88 Y S ex:Male Date:09/22/2023 Address:[facility] [address], [place], [id number] Subjective: * Chief Complaints: * 1 . 4 Month Check Up. 2. Needs labs. * HPI: C ardiology: The pt is here today for a check up. Pt states he is doing good. Pt states he is losing weight. Pt states he saw Cardiology, [facility], Dr. Sotomayor,Potassium was elevated. About 2 weeks ago. Pt states his weight was 196. Pt states he has been trying to eat more. Pt states he gets tired easily. 88 year old male presents with c/o Dizziness w orse standing. Denies : Chest Pain. D enies : Short of Breath. D enies : Palpitations. * ROS: D ERMATOLOGY: no R emelyn. n o H osorio. G ASTROENTEROLOGY: no N ausea. n o V omiting. n o D iarrhea.? U ROLOGY: no D ifficulty urinating. n o B lood in urine. * Medical History: H ypertension, BPH, Depression, Atrial fibrillation, Mitral valve prolapse, COVID 19 Vaccine, Pfizer 2020, 2016 Echo 40-45% EF, [facility]. * Surgical History: R T Knee 1955, Mitral Valve Replacement 11/2017, Pacemaker - [facility] 02/2018. * Hospitalization/Major Diagno stic Procedure: H CHF 12/17-, [facility] - AFIB 01/12-02/09, [facility] ER - laceration to head due to fall 08/11/20. * Family History: F ather: . M other: . 5 brother(s) , 2 sister(s) - healthy. 3 son(s) - healthy. . * Social History: C affeine: no. Exercise: no. Marital Status: . Past smoking status: yes, PPD: , years: ,determination:. Alcohol: Yes, Type: , Frequency: ,Years: , Determination:. * Medications: T aking Losartan Potassium 25 MG Tablet 1 tab(s) every other day , Taking Furosemide 20 MG Tablet 1 tab(s) orally as needed , Notes to Pharmacist: prn, Taking Metoprolol Succinate ER 25 MG Tablet Extended Release 24 Hour 1 tab(s) orally once a day , Taking Tamsulosin HCl 0.4 MG Capsule 1 capsule Orally Once a day , Taking Venlafaxine HCl 75 MG Tablet 1 tab(s) Orally Twice a day , Taking Gabapentin 300 MG Capsule 1 cap(s) orally 2 times a day , Taking Jardiance 10 MG Tablet TAKE 1 TABLET BY MOUTH ONCE DAILY IN THE MORNING , Not-Taking Vitamin C 250 MG Tablet 1 tab(s) orally once a day , Not-Taking B-12 1000 MCG Tablet 1 tab(s) orally once a day , Medication List reviewed and reconciled with the patient * Allergies: N .K.D.A. Objective: * Vitals: W t:200.0, Temp:98.1, BP:120/70, HR:72, Nurse:DELILAH, Ht: 72, BMI:27.12. * Examination: G eneral Examination: General Appearance: N AD. HEENT: u nremarkable. Oral cavity: m ucosa moist and WNL. Neck: s upple, no lymphadenopathy. Chest: n ormal shape and expansion, pacemaker battery in place. Heart: R SR. Lungs: c lear to auscultation. Abdomen: bowel sounds present, soft and nontender. Neurologic Exam: I ntact, gait normal. Skin: n ormal, no rash. Peripheral pulses: n ormal . Extremities: n o leg edema. Assessment: * Assessment: 1. H /O mitral valve replacement - Z95.2 (Primary) 2 . H /O cardiac pacemaker - Z95.0 3 . V itamin B12 deficiency - E53.8 4 . H yperkalemia - E87.5 5 . B enign prostatic hyperplasia with lower urinary tract symptoms - N40.1 6 . P rimary osteoarthritis involving multiple joints - M15.0 ? Plan: * Treatment: 2. B enign prostatic hyperplasia with lower urinary tract symptoms Refill Tamsulosin HCl Capsule, 0.4 MG, 1 capsule, Orally, Once a day, 90 days, 90 Capsule, Refills 1. 3. P rimary osteoarthritis involving multiple joints Refill Gabapentin Capsule, 300 MG, 1 cap(s), orally, 2 times a day, 30 day(s), 60 Capsule, Refills 3. 4. O thers Refill Venlafaxine HCl Tablet, 75 MG, 1 tab(s), Orally, Twice a day, 30 days, 60 Tablet, Refills 3.? * Follow Up: 4 Months * Billing Information: * Visit Code: 38534 Office Visit, Est Pt., Level 4. * Procedure Codes: * Electronic signature of Miguel Shah MD on 08/09/2024 at 11:13 AM EDT Sign off status: Pending * Provider: Miguel Shah M.D. Date: 0 09/22/2023 Generated for Analyi anita/Staci/eTransmitting on: 0 08/09/2024 11:13 AM EDT History and Physical Notes * HPI (History of Present Illness) Category Sub-Category Detail Notes Category Not es Cardiology Short of Breath Chest Pain Palpitations Dizziness worse standing Examination Category Sub-Category Detail Notes Category Not es General Examination HEENT: unremarkable Heart: RSR Lungs: clear to auscultatio n Abdomen: bowel sounds present , soft and nontender Extremities: no leg edema General Appearance: NAD Skin: normal, no rash Neurologic Exam: Intact, gait normal Neck: supple, no lymphaden opathy Oral cavity: mucosa moist and WNL Peripheral pulses: normal Chest: normal shape and exp ansion, pacemaker battery in place
--- OUTSIDE RECORDS SUMMARY | 2024-01-23 05:30 | XMS_ITS ---
Author Organization [facility] Address [address] [facility] [address] [place] [id number] Care Team Providers Care Roller Pneumatic Name Role Phone Miguel Shah Primary Care Provider [phone] Allergies No Known Allergies REASON FOR VISIT 4 MONTH CHECK UP, Needs labs & flu vaccine Encounters Encounter Location Date Provider Diagnosis [place] [address] [facility] [address] [place] [id number] 01/23/2024 Miguel Shah Plan Of Treatment Next Appt Details Provider Name:Miguel Baron er, 08/16/2024 10:30:00 AM, [address] [facility] [address], [address], [place], [phone], Progress Notes * Brandon RIOSDOB:1935 (89 yo M)Acc No.[id number]:01/23/2024 Progress Notes Patient: Brandon OCONNELL Provider: Miguel Shah M.D. :1935 A ge:88 Y S ex:Male Date:01/23/2024 Address:[address], [id number] Subjective: * Chief Complaints: * 1 . [...] Vaccine, Pfizer 2020, 2016 Echo 40-45% EF, [facility]. * Surgical History: R T Knee 1955, Mitral Valve Replacement 11/2017, Pacemaker - [facility] 02/2018. * Hospitalization/Major Diagno stic Procedure: H CHF 12/17-, [facility] - AFIB 01/12-02/09, [facility] ER - laceration to head due [...] 2211 Complex e/m visit add on * Billing Information: * Visit Code: * Procedure Codes: G2211 Complex e/m visit add on. * Electronic signature of Miguel Shah MD on 08/09/2024 at 11:12 AM EDT Sign off status: Pending * Provider: Miguel Shah M.D. Date: 03/24/2023 Generated for Olga Lidia howard/Staci/Odalisitting on: 0 08/09/2024 11:12 AM EDT
--- OUTSIDE RECORDS SUMMARY | 2024-06-14 08:45 | XMS_ITS ---
Author Organization [facility] Address [address] [place] [phone] Care Team Providers Care Hydraulic Jack Mechanic Name Role Phone Miguel Shah Primary Care Provider Allergies No Known Allergies REASON FOR VISIT Check Up and Refills, Needs labs Medications Medication SIG (Take, Route, Frequency, Duration) Notes Start Date End Date Status Losartan Potassium 25 MG 1 tab(s) Orally every other day Active Venlafaxine HCl 75 MG 1 tab(s) Orally Tw ice a day for 15 days Active B-12 1000 MCG 1 tab(s) orally once a day 05/30/2020 Not-Taking Vitamin C 250 MG 1 tab(s) orally once a day for 30 day(s) Not-Taking Doxycycline Monohydrate 100 MG 1 capsule Orally Twice a day for 10 days 06/14/2024 Active Furosemide 20 MG 1 tab(s) orally as needed prn Active Jardiance 10 MG TAKE 1 TABLET BY TERRELL ONCE DAILY IN THE MORNING for 30 Active Gabapentin 300 MG 1 cap(s) orally 2 ti mes a day for 30 day(s) 05/18/2024 Active Metoprolol Succinate ER 25 MG 1 tab(s) orally once a day Active Tamsulosin HCl 0.4 MG 1 capsule Orally O nce a day for 30 days Active Vital Signs Blood pressure systolic 100 mm Hg 06/15/19 25 Blood pressure diastolic 60 mm Hg 025 Heart Rate 74 /min 06/14/2024 Height 72 in 06/14/2024 Weight 193.2 lbs 06/14/2024 BMI 26.2 kg/m2 06/14/2024 Encounters Encounter Location Date Provider Diagnosis [facility] 36 [facility] [address] [place], [place] [id number] 06/14/2024 Miguel Shah 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 :1935 A ge:88 Y S ex:Male Date:06/14/2024 Address:[facility] [place] , [id number] Subjective: * Chief Complaints: * 1 . [...] Vaccine, Pfizer 2020, 2016 Echo 40-45% EF, [facility]. * Surgical History: R T Knee 1955, Mitral Valve Replacement 11/2017, Pacemaker - [facility] 02/2018. * Hospitalization/Major Diagno stic Procedure: H CHF 12/17-, [facility] - AFIB 01/12-02/09, [facility] ER - laceration to head due [...] eneral Examination: General Appearance: N AD. HEENT: s caling lesion right pinna. Treated with cryo freeze/freeze, Micheal IL-100. Oral cavity: m ucosa moist and WNL. Neck: s upple, no lymphadenopathy. Chest: n ormal shape and expansion, pacemaker battery in place. Heart: R SR. Lungs: c lear to auscultation. Abdomen: bowel sounds present, soft and nontender. Neurologic Exam: I ntact, gait normal. Skin: t wo lesions of the left upper arm. Small amount of black material removed. Two lesions of the left buttock. One with dark material removed with splinter forceps from one wound.. Peripheral pulses: n ormal . Extremities: n o leg edema. Raised keratinized lesion of dorsum of left hand, nearly 2cm.. Assessment: * Assessment: 1. A rteriosclerotic cardiovascular disease - I25.10 2 . V itamin B12 deficiency - E53.8 3 . H /O mitral valve replacement - Z95.2 4 . T ick bite of multiple sites - W57.XXXA 5 . N eoplasm of hand - D49.89 ? 6 . B SD 26.0-26.9,adult - Z68.26 Plan: * Treatment: * Labs: * L ab: Lyme IgG/IgM Ab L ab: BMP L ab: CBC * Procedure Codes: G 2211 Complex e/m visit add on, 3074F SYST BP LT 130 MM HG, 3078F DIAST BP < 80 MM HG * Follow Up: 2 Months * Ramying Information: * Visit Code: 24954 Office Visit, Est Pt., Level 3. * Procedure Codes: G2211 Complex e/m visit add on. 3074F SYST BP LT 130 MM HG. 3078F DIAST BP < 80 MM HG. * Electronic signature of Miguel Shah MD on 08/09/2024 at 11:12 AM EDT Sign off status: Pending * Provider: Miguel Shah M.D. Date: 0 06/14/2024 Generated for Olga Lidia howard/Staci/eTransmitting on: 0 08/09/2024 11:12 AM EDT History and Physical Notes * [...]
--- OUTSIDE RECORDS SUMMARY | 2024-06-25 11:59 | XMS_ITS | Encounter Summary ---
Author Organization [place] [address] Care Team Providers Care Agronomy Specialist Name Role Phone Unavailable Primary Care Provider Unavailabl e Encounter Details Date Type Department Care Team (Latest Contact Info) Description 06/25/2024 11:59 AM EDT - 06/25/2024 11:59 PM EDT Hospital Encounter [facility]. [place] [phone] Heart failure with mid-range ejection fraction (HCC) Discharge Disposition: Home or Self Care Social History Tobacco Use Types Packs/Day Years Used Date Smoking Tobacco: Never Smokeless Tobacco: Never Alcohol Use Standard Drinks/Week Comments No 0 (1 standard drink = 0.6 oz pur e alcohol) rare Sexually Active Control Partners Comments Not Currently Sex and Gender Information Value Date Recorded Sex Assigned at Not on file Legal Sex Male 11:06 PM EDT Gender Identity Not on file Sexual Orientation Not on file documented as of this encounter Medications at Time of Discharge fUROsemide (LASIX) 20 mg Oral TabletIndications :Systolic congestive heart failure, unspecified HF chronicity (HCC) Take 1 Tablet by mouth as needed (take for weight gain of 2-3 lbs overnight or > 5 lbs in one week). 30 Tablet 1 12/04/2021 gabapentin (NEURONTIN) 300 mg Oral Capsule Take by mouth nightly. ibuprofen (ADVIL;MOTRIN) 100 mg/5 mL Oral Suspension Take 10 mg/kg by mouth 2 times daily. losartan (COZAAR) 25 mg Oral Tablet Take 1 Tablet by mouth daily. 90 Tablet 3 03/03/2023 metoprolol succinate (TOPROL-XL) 25 mg Oral Tablet Sustained Release 24 hr Take 1 Tablet by mouth 2 times daily. 180 Tablet 3 03/03/2023 spironolactone (ALDACTONE) 25 mg Oral Tablet Take 1 Tablet by mouth every other day. 45 Tablet 3 03/03/2023 tamsulosin (FLOMAX) 0.4 mg Oral Capsule Take 0.4 mg by mouth every other day. venlafaxine (EFFEXOR) 75 mg Oral TabletIndications :Depression, unspecified depression type Take 1 Tab by mouth every evening. 30 Tab 4 02/09/2018 documented as of this encounter Discharge Disposition Disposition Code Departure Means Destination Home or Self Care documented in this encounter Plan of Treatment Upcoming Encounters Date Type Department Care Team (Late st Contact Info) Description 09/10/2024 1:30 PM EDT [facility] [address] [place] [phone] 09/10/2024 2:00 PM EDT Office Visit [facility] [address] [place] [address] [address] [place] [address] Kirti Ely APRN [address] [place] [address] 09/13/2024 11:30 AM EDT Appointment [facility] [address] [place] [address] [address] [place] [phone] Rosa Beebe MD [address] [place] [address] documented as of this encounter Goals Goal Patient Goal Type Associated Problems Recent Progress Patient-Stated? Author Blood Pressure < 140/90 Blood Pressure 115/69(2024 10:38 AM EST) No Belkys Traore CCMA Maintain a healthy diet, exercise regularly and maintain an ideal body weight General Belkys Ely CCMA documented as of this encounter Procedures Procedure Name Priority Date/Time Associated Diagnosis Comments CBC Routine 06/25/2024 11:59 AM EDT Heart failure with mid-range ejection fraction (HCC) BASIC METABOLIC PANEL Routine 06/25/2024 11:59 AM EDT Heart failure with mid-range ejection fraction (HCC) documented in this encounter Results * (ABNORMAL) CBC (06/25/2024 11:59 AM EDT) WBC 9.5 3.7 - 10.3 x10(3)/mcL 06/25/2024 7:11 PM EDT [facility] RBC 5.61 4.60 - 6.10 x10(6)/mcL 06/25/2024 7:11 PM EDT [facility] Hgb 17.1 13.7 - 17.5 g/dL 06/25/2024 7:11 PM EDT [facility] Hct 54.6(H) 40.0 - 51.0 % 06/25/2024 7:11 PM EDT [facility] MCV 97.3 80.0 - 100.0 fL 06/25/2024 7:11 PM EDT [facility] MCH 30.5 26.0 - 34.0 pg 06/25/2024 7:11 PM EDT [facility] MCHC 31.3 30.7 - 35.5 g/dL 06/25/2024 7:11 PM EDT [facility] RDW 15.6(H) <=14.9 % 06/25/2024 7:11 PM EDT [facility] Platelet 125(L) 155 - 369 x10(3)/mcL 06/25/2024 7:11 PM EDT [facility] MPV 12.3 8.8 - 12.5 fL 06/25/2024 7:11 PM EDT [facility] Blood VENOUS BLOOD / Unknown Venipuncture / Unknown 06/25/2024 11:59 AM EDT 06/25/2024 11:59 AM EDT us Luana Cooper NP HEMATOLOGY ORDERABLES Final Res ult [facility] [address] [facility] , [place] [address] * (ABNORMAL) BASIC METABOLIC PANEL (06/25/2024 11:59 AM EDT) Sodium 140 136 - 145 mmol/L 06/25/2024 8:06 PM EDT [facility] Potassium 4.6 3.5 - 5.0 mmol/L 06/25/2024 8:06 PM EDT [facility] Chloride 105 98 - 107 mmol/L 06/25/2024 8:06 PM EDT [facility] Total CO2 24 22 - 29 mmol/L 06/25/2024 8:06 PM EDT [facility] Anion Gap 11 7 - 16 mmol/L 06/25/2024 8:06 PM EDT [facility] Calcium 9.6 8.8 - 10.4 mg/dL 06/25/2024 8:06 PM EDT [facility] Glucose Lvl 86 70 - 99 mg/dL 06/25/2024 8:06 PM EDT [facility] BUN 21 8 - 23 mg/dL 06/25/2024 8:06 PM EDT [facility] Creatinine 1.23 0.67 - 1.30 mg/dL 06/25/2024 8:06 PM EDT [facility] eGFR (CKD-EPIcr 2020) 57(L) >=60 mL/min/1.7 3 m2 06/25/2024 8:06 PM EDT [facility] Comment:Estimated GFR was ca lculated using the CKD-EPIcr (2020) equation refit without race. The equation is recommended by the National Kidney Foundation - [place] [employer] Nephrology Task Force. Blood VENOUS BLOOD / Unknown Venipuncture / Unknown 06/25/2024 11:59 AM EDT 06/25/2024 11:59 AM EDT us Luana Cooper NP CHEMISTRY ORDERABLES Final Resu lt [facility] [address] [facility] , [place] [address] documented in this encounter Visit Diagnoses Diagnosis Heart failure with mid-range ejection fraction (HCC) documented in this encounter Additional Health Concerns Assessment Noted Time A fall risk assessment has been complete d for the patient 09/09/2023 1:11 PM EDT documented as of this encounter
--- OUTSIDE RECORDS SUMMARY | 2024-08-09 11:13 | XMS_ITS | Encounter Summary ---
Author Organization [place] [address] Care Team Providers Care Refrigeration Engine Operator Name Role Phone Unavailable Primary Care Provider Unavailabl e Reason for Visit * Reason Onset Date Comments Other 07/06/2024 Financial - Jard iance - Refill Encounter Details Date Type Department Care Team (Late st Contact Info) Description 07/06/2024 Telephone [facility] [address] [facility] [address] [place], [place] [phone] Hannah Baeza MSW Other (Financial - Jardiance - Refill) Social History Tobacco Use Types Packs/Day Years [...] on file documented as of this encounter Miscellaneous Notes * Telephone Encounter - Hannah Baeza MSW - 07/08/2024 9:54 AM EDT BHAVESH contacted [facility] [place] [facility] and placed refill order for Jardiance for patient. Patient should receive shipment in 7-10 days. BHAVESH contacted patient and let him know that his medication will shipped. * Telephone Encounter - Hannah Baeza MSW - 07/06/2024 3:12 PM EDT Patient left SW a message stating that he has not been able to refill his Jardiance and is needing SW assistance. SW contacted GUILLAUME Messina ([facility]) and was informed that due to the prescription profile beingassigned to [facility] that there is not a valid prescription on file from that provider and a new prescription would need to be sent. documented in this encounter Plan of Treatment Upcoming Encounters Date Type Department Care Team (Late st Contact Info) Description 09/10/2024 1:30 PM EDT Office Visit [facility] [address] [place] [address] [place] [phone] 09/10/2024 2:00 PM EDT Office Visit [facility] [address] [place] [address] [address] [place] [address] Kirti Ely APRN [address] [place] [address] 09/13/2024 11:30 AM EDT Appointment [facility] [address] [place] [address] [address] [place] [address] Rosa Beebe MD [address] [place] [address] documented as of this encounter Goals Goal Patient Goal Type Associated Problems Recent Progress Patient-Stated? Author Blood Pressure < 140/90 Blood Pressure 115/69(2024 10:38 AM EST) Belkys Ely CCMA Maintain a healthy diet, exercise regularly and maintain an ideal body weight General No Belkys Traore CCMA documented as of this encounter Visit Diagnoses Not on filedocumented in this encounter Additional Health Concerns Assessment Noted Time A fall risk assessment has been complete d for the patient 09/09/2023 1:11 PM EDT documented as of this encounter
--- OUTSIDE RECORDS SUMMARY | 2024-08-09 11:13 | XMS_ITS | Encounter Summary ---
Author Organization [place] [address] Care Team Providers Care Technical Sales Support Manager Name Role Phone Unavailable Primary Care Provider Unavailabl e Encounter Details Date Type Department Care Team (Late Contact Info) Description 01/23/2021 Orders Only [facility] [address] [place] [phone] Markell Lennon MD [address] [place] [address] Social History Tobacco Use Types Packs/Day Years [...] on file documented as of this encounter Plan of Treatment Upcoming Encounters Date Type Department Care Team ([facility] Contact Info) Description 09/10/2024 1:30 PM EDT Office Visit [facility] [address] [phone] 09/10/2024 2:00 PM EDT Office Visit [facility] [address] [place] [phone] Kirti Ely APRN [address] [place] [address] 09/13/2024 11:30 AM EDT Appointment [facility] [address] [place] [address] [address] [place], [place] [address] Rosa Beebe MD [address] [place] [address] ROBYN ADRIAN [facility] documented as of this encounter Goals Goal Patient Goal Type Associated Problems Recent Progress Patient-Stated? Author Blood Pressure < 140/90 Blood Pressure 115/69(2024 10:38 AM EST) Belkys Ely CCMA Maintain a healthy diet, exercise regularly and maintain an ideal body weight General No Belkys Traore CCMA documented as of this encounter Procedures Procedure Name Priority Date/Time Associated Diagnosis Comments PACEART REPORT Routine 01/23/2021 12:09 AM EST documented in this encounter Results * PACEART REPORT (01/23/2021 12:09 AM EST) 01/23/2021 12:0 9 AM EST Narrative [facility] - 01/26/2021 2:08 PM EST - Unscheduled Bi-V PPM remote rcv'd. AT/AF and Opti-Vol alerts noted. - Presenting rhythm EGM = AF w/ Bi-Auto Transmission Technician'ing in 90's. - (1) AT/AF episode in progress since 06/07/20. AT/AF histogram indicates V-rates < or = 100bpm approx 95% of time. AF burden = 100% since last session on 11/23/20. Known h/o AF - No VT episodes. - Battery and lead measurements = stable/WNL. Sensing integrity counters= (0). - Histograms = optimal rate response. - Opti-Vol exceeded threshold on 12/12/20 and ongoing to date w/ Thoracic impedance trends below reference. Both trending indicates possible fluid retention. - Device is functioning as programmed. Zeina RN/CDS. us Markell Lennon MD [facility] CATH ORDERAB LES Final Result [facility] 1 [place] [phone] documented in this encounter Visit Diagnoses Not on filedocumented in this encounter Additional Health Concerns Assessment Noted Time A fall risk assessment has been complete d for the patient 06/30/2020 2:32 PM EDT documented as of this encounter
--- OUTSIDE RECORDS SUMMARY | 2024-08-09 11:13 | XMS_ITS | Encounter Summary ---
Author Organization [place] [address] Care Team Providers Care Plastic Parts Fabricator Trimmer Name Role Phone Unavailable Primary Care Provider Unavailabl e Encounter Details Date Type Department Care Team (Late Contact Info) Description 06/11/2024 Orders Only [facility] [address] [phone] Markell Lennon MD [address] [place] [address] Vector Remote Device Social History Tobacco Use Types Packs/Day Years [...] Encounters Date Type Department Care Team (Late Contact Info) Description 09/10/2024 1:30 PM EDT Office Visit [facility] [address] [phone] 09/10/2024 2:00 PM EDT Office Visit [facility] [address] [place] [phone] Kirti Ely APRN [address] [place] [address] 09/13/2024 11:30 AM EDT Appointment [facility] [address] [facility] [address] [place] [address] Rosa Beebe MD [address] [place] [address] documented as of this encounter Goals Goal Patient Goal Type Associated Problems Recent Progress Patient-Stated? Author Blood Pressure < 140/90 Blood Pressure 115/69(2024 10:38 AM EST) Belkys Ely CCMA Maintain a healthy diet, exercise regularly and maintain an ideal body weight General No Belkys Traore CCMA documented as of this encounter Procedures Procedure Name Priority Date/Time Associated Diagnosis Comments WA REM INTERROG ICPMS <30 D PHYS/QHP Routine 06/11/2024 12:00 AM EDT Vector Remote Device documented in this encounter Results * VECTOR REMOTE HEART FAILURE DEVICE (06/11/2024 12:00 AM EDT) 06/11/2024 Narrative [facility] - 06/11/2024 12:00 AM EDT Stable trend. us Markell Lennon MD [facility] CATH ORDERAB LES Final Result [facility] 1 [place] [phone] documented in this encounter Visit Diagnoses Diagnosis Vector Remote Device documented in this encounter Additional Health Concerns Assessment Noted Time A fall risk assessment has been complete d for the patient 09/09/2023 1:11 PM EDT documented as of this encounter
--- OUTSIDE RECORDS SUMMARY | 2024-08-09 11:13 | XMS_ITS | Encounter Summary ---
Author Organization [place] [address] Care Team Providers Care Immigration Consultant Name Role Phone Unavailable Primary Care Provider Unavailabl e Encounter Details Date Type Department Care Team (Late Contact Info) Description 06/21/2024 Orders Only [facility] [address] [phone] Markell Lennon MD [address] [place] [address] Vector Remote Device Social History Tobacco [...] Office Visit [facility] [address] [phone] 09/10/2024 2:00 PM EDT Office Visit [facility] [address] [place] [phone] Kirti Ely APRN [address] [place] [address] 09/13/2024 11:30 AM EDT Appointment [facility] [address] [facility] [address] [place] [address] Rosa Beebe MD [address] [place] [address] [address] [place] [address] documented as of this encounter Goals Goal Patient Goal Type Associated Problems Recent Progress Patient-Stated? Author Blood Pressure < 140/90 Blood Pressure 115/69(2024 10:38 AM EST) Belkys Ely CCMA Maintain a healthy diet, exercise regularly and maintain an ideal body weight General No Belkys Traore CCMA documented as of this encounter Procedures Procedure Name Priority Date/Time Associated Diagnosis Comments VECTOR REMOTE DEVICE Routine 06/21/2024 12:00 AM EDT Vector Remote Device documented in this encounter Results * VECTOR REMOTE DEVICE (06/21/2024 12:00 AM EDT) 06/21/2024 Narrative [facility] - 06/21/2024 12:00 AM EDT NSVT: 3 longest lasting 7s on 06/10/24. V. Sensing Episodes: 8, longest 8s. Pt with history of NOY procedure. Mode: VVIR. ABORIGINAL CEREMONIAL CELEBRANT: 97%. Effective BiVP: 96%. Normal device function. Battery Advisory. Added note: Reviewed. Did not call. Monitor./RS. us Markell Lennon MD [facility] CARDIAC CATH ORDERAB LES Edited Result - Final [facility] [address] [facility] [place] [address] documented in this encounter Visit Diagnoses Diagnosis Vector Remote Device documented in this encounter Additional Health Concerns Assessment Noted Time A fall risk assessment has been complete d for the patient 09/09/2023 1:11 PM EDT documented as of this encounter
--- OUTSIDE RECORDS SUMMARY | 2024-08-09 11:13 | XMS_ITS | Encounter Summary ---
Author Organization [place] [address] Care Team Providers Care Cooker Tender Name Role Phone Unavailable Primary Care Provider Unavailabl e Encounter Details Date Type Department Care Team (Late Contact Info) Description 04/07/2020 Orders Only [facility] [address] [phone] Markell Lennon MD [address] [place] [phone] Social History Tobacco Use Types Packs/Day [...] on file Sexual Orientation Not on file COVID-19 Exposure Response Date Recorded In the last month, have you been in contact with someone who was confirmed or suspected to have Coronavirus / COVID-19? Unable to assess 03/31/2020 12:58 PM EST documented as of this encounter Plan of Treatment Upcoming Encounters Date Type Department Care Team (Late st Contact Info) Description 09/10/2024 1:30 PM EDT Office Visit [facility] [address] [facility] [address] [place] [phone] 09/10/2024 2:00 PM EDT Office Visit [facility] [address] [facility] [address] [place] [phone] Kirti Ely APRN [address] [place] [address] 09/13/2024 11:30 AM EDT Appointment [facility] [address] [place] [address] [address] [place] [address] Rosa Beebe MD [address] [place] [address] documented as of this encounter Goals Goal Patient Goal Type Associated Problems Recent Progress Patient-Stated? Author Blood Pressure < 140/90 Blood Pressure 115/69(2024 10:38 AM EST) Belkys Ely CCMA Maintain a healthy diet, exercise regularly and maintain an ideal body weight General No Belkys Traore CCMA documented as of this encounter Procedures Procedure Name Priority Date/Time Associated Diagnosis Comments PACEART REPORT Routine 04/07/2020 4:33 PM EST documented in this encounter Results * PACEART REPORT (04/07/2020 4:33 PM EST) 04/07/2020 4:33 PM EST Narrative [facility] - 04/07/2020 12:27 PM EST - Medtronic Bi-V PPM remote for pt c/o dizziness episode this AM while dusting. - (1) NS-VT episode = 04/05/20 for 1 sec. - No AT/AF episodes. - Battery and lead measurements = WNL/stable. Sensing integrity counters = (0). Outputs are programmed w/in appropriate safety margins. - Pacing Mode: DDDR 70/130/130ppm. Ap = 60.3%, Consulting Technical Director= 99.9%. (Effective = 99.8%). - Presenting rhythm = Ap/Bi-Consulting Technical Director'ing in 70's w/ PAC's. - Opti-Vol = baseline. - Histograms = optimal rate response distribution. - Device is functioning as programmed. Pt was notified of results. - Zeina WARD. us Markell Lennon MD [facility] CARDIAC CATH ORDERAB LES Final Result [facility] 1 [place] [address] documented in this encounter Visit Diagnoses Not on filedocumented in this encounter
--- OUTSIDE RECORDS SUMMARY | 2024-08-09 11:13 | XMS_ITS | Encounter Summary ---
Author Organization [place] [address] Care Team Providers Care Home Office Claims Examiner Name Role Phone Unavailable Primary Care Provider Unavailabl e Encounter Details Date Type Department Care Team (Late Contact Info) Description 07/04/2024 Orders Only [facility] [address] [phone] Markell Lennon MD [address] [place] [address] Vector Remote Device Social History Tobacco [...] Office Visit [facility] [address] [phone] 09/10/2024 2:00 PM EDT Office Visit [facility] [address] [place] [phone] Kirti Ely APRN [address] [place] [address] 09/13/2024 11:30 AM EDT Appointment [facility] 711 [facility] [address] [place] [address] Rosa Beebe MD [address] [place] [address] ROBYN ADRIAN [address] documented as of this encounter Goals Goal Patient Goal Type Associated Problems Recent Progress Patient-Stated? Author Blood Pressure < 140/90 Blood Pressure 115/69(2024 10:38 AM EST) Belkys Ely CCMA Maintain a healthy diet, exercise regularly and maintain an ideal body weight General No Belkys Traore CCMA documented as of this encounter Procedures Procedure Name Priority Date/Time Associated Diagnosis Comments VECTOR REMOTE DEVICE Routine 07/04/2024 12:00 AM EDT Vector Remote Device documented in this encounter Results * VECTOR REMOTE DEVICE (07/04/2024 12:00 AM EDT) 07/04/2024 Narrative [facility] - 07/04/2024 12:00 AM EDT NSVT: 3 longest lasting 11.4s on 06/28/24. V. Sensing Episodes: 5, longest 13s. Pt with history of NOY procedure. Mode: VVIR. BUSINESS LINE MANAGER: 96%. Effective BiVP: 95%. Normal device function. Battery Advisory. ADDENDUM: No atrial lead but egms c/w probable SVT vs aflutter/RVR due to visible P waves seen in LV1 to Can. Pt has hx of same type of events and has been asymptomatic. Pt not called at this time. Will continue to monitor--kls us Markell Lennon MD [facility] CARDIAC CATH ORDERAB LES Final Result [facility] [address] [place] [address] documented in this encounter Visit Diagnoses Diagnosis Vector Remote Device documented in this encounter Additional Health Concerns Assessment Noted Time A fall risk assessment has been complete d for the patient 09/09/2023 1:11 PM EDT documented as of this encounter
--- OUTSIDE RECORDS SUMMARY | 2024-08-09 11:13 | XMS_ITS | Encounter Summary ---
Author Organization [place] [address] Care Team Providers Care Karate Black Belt Name Role Phone Unavailable Primary Care Provider Unavailabl e Encounter Details Date Type Department Care Team (Late Contact Info) Description 05/15/2021 Orders Only [facility] [address] [address] Markell Lennon MD [address] [place] [address] Social History Tobacco Use Types Packs/Day [...] Office Visit [facility] [address] [address] 09/10/2024 2:00 PM EDT Office Visit [facility] [address] [place] [address] Kirti Ely APRN 711 [place] [address] 09/13/2024 11:30 AM EDT Appointment [facility] [address] [facility] [address] [place], [place] [address] Rosa Beebe MD [address] [place] [address] [place] [address] documented as of this encounter Goals Goal Patient Goal Type Associated Problems Recent Progress Patient-Stated? Author Blood Pressure < 140/90 Blood Pressure 115/69(2024 10:38 AM EST) No Belkys Traore CCMA Maintain a healthy diet, exercise regularly and maintain an ideal body weight General No Belkys Traore CCMA documented as of this encounter Procedures Procedure Name Priority Date/Time Associated Diagnosis Comments PACEART REPORT Routine 05/15/2021 8:35 PM EDT documented in this encounter Results * PACEART REPORT (05/15/2021 8:35 PM EDT) 05/15/2021 8:35 PM EDT Narrative [facility] - 05/16/2021 10:46 AM EDT Carelink alert: MDT BV PPM. Vector summary: Alert Criteria Met Summary 2 SVT and 1 Monitored Fast A&V Episode, c/w significant NSVT lasting 6- 22 seconds all occurring on 05/14/21 (Hx AVN ablation). Battery advisory. AT/AF Russell: 100%. AP: <1%. COLLECTION ADMINISTRATOR: >99%. NOY ligation. Battery 7.7 yrs Brand MDT Model Percepta Quad GLASS EDGER-P MRI Additional note: SVT/AF 05-14-21: 13 sec w/ V-rate avg 188 bpm. Other episodes 04-16-21 w/ V-rate avg 148-176. PVC counters 0 since 03-27-21. V-rate histogram rarely >100 bpm. Optivol increased since 05-02-21. See encounter for more details. LindaRN us Markell Lennon MD [facility] CATH ORDERAB LES Final Result [facility] 1 [facility] [place], [place] [address] documented in this encounter Visit Diagnoses Not on filedocumented in this encounter Additional Health Concerns Assessment Noted Time A fall risk assessment has been complete d for the patient 06/30/2020 2:32 PM EDT documented as of this encounter
--- OUTSIDE RECORDS SUMMARY | 2024-08-09 11:13 | XMS_ITS | Encounter Summary ---
Author Organization [place] [address] Care Team Providers Care Research Project Manager Name Role Phone Unavailable Primary Care Provider Unavailabl e Encounter Details Date Type Department Care Team (Late Contact Info) Description 06/28/2024 Results Follow-Up [facility] [address] [place] [address] Luana Cooper, [employer]ACLE HYPERION CONSULTANT [address] [place] [address] BASIC METABOLIC PANEL, CBC Social History Tobacco Use Types Packs/Day Years [...] Office Visit [facility] [address] [place] [address] [address] [place] [address] 09/10/2024 2:00 PM EDT Office Visit [facility] [address] [place] [address] [address] [place] [address] Kirti Ely APRN [address] [place] [address] 09/13/2024 11:30 AM EDT Appointment [facility] [address] [place] [address] Drive [address] [place] [address] Rosa Beebe MD [address] [place] [address] [place] [address] Scheduled Orders Name Type Priority Associated Diagnoses Orde r Schedule CBC Lab Routine Heart failure with mid-range ejection fraction (HCC) NICM (nonischemic cardiomyopathy) (HCC) 1 Occurrences starting 06/28/2024 until 06/28/2025 documented as of this encounter Goals Goal Patient Goal Type Associated Problems Recent Progress Patient-Stated? Author Blood Pressure < 140/90 Blood Pressure 115/69(2024 10:38 AM EST) Belkys Ely CCMA Maintain a healthy diet, exercise regularly and maintain an ideal body weight General No Belkys Traore CCMA documented as of this encounter Visit Diagnoses Diagnosis Heart failure with mid-range ejection fraction (HCC)- Primary NICM (nonischemic cardiomyopathy) (HCC) Other primary cardiomyopathies documented in this encounter Additional Health Concerns Assessment Noted Time A fall risk assessment has been complete d for the patient 09/09/2023 1:11 PM EDT documented as of this encounter
--- OUTSIDE RECORDS SUMMARY | 2024-08-09 11:14 | XMS_ITS | Encounter Summary ---
Author Organization [place] [address] Care Team Providers Care Bench Lay Out Technician Name Role Phone Unavailable Primary Care Provider Unavailabl e Encounter Details Date Type Department Care Team (Late Contact Info) Description 03/12/2018 Orders Only [facility] [address] [phone] Markell Lennon MD [address] [place] [address] Social History Tobacco Use Types Packs/Day [...] Upcoming Encounters Date Type Department Care Team ([facility] Contact Info) Description 09/10/2024 1:30 PM EDT Office Visit [facility] [address] [address] 09/10/2024 2:00 PM EDT Office Visit [facility] [address] [place] [address] Kirti Ely APRN 711 [place] [address] 09/13/2024 11:30 AM EDT Appointment [facility] 711 [facility] [address] [place] [address] Rosa Beebe MD [address] [place] [address] [address] documented as of this encounter Goals Goal Patient Goal Type Associated Problems Recent Progress Patient-Stated? Author Blood Pressure < 140/90 Blood Pressure 115/69(2024 10:38 AM EST) No Belkys Traore CCMA Maintain a healthy diet, exercise regularly and maintain an ideal body weight General No Belkys Traore CCMA documented as of this encounter Procedures Procedure Name Priority Date/Time Associated Diagnosis Comments PACEART REPORT Routine 03/12/2018 9:10 PM EST documented in this encounter Results * PACEART REPORT (03/12/2018 9:10 PM EST) 03/12/2018 9:10 PM EST Narrative [facility] - 03/12/2018 4:10 PM EST IMPLANT REPORT us Markell Lennon MD [facility] CARDIAC CATH ORDERAB LES Final Result [facility] 1 [place] [address] documented in this encounter Visit Diagnoses Not on filedocumented in this encounter
--- OUTSIDE RECORDS SUMMARY | 2024-08-09 11:14 | XMS_ITS | Encounter Summary ---
Author Organization [place] [address] Care Team Providers Care Disaster Recovery Consultant Name Role Phone Unavailable Primary Care Provider Unavailabl e Encounter Details Date Type Department Care Team (Late Contact Info) Description 07/12/2024 Orders Only [facility] [address] [address] Markell Lennon MD [address] [place] [address] Vector Remote Device Social History Tobacco [...] Office Visit [facility] [address] [address] 09/10/2024 2:00 PM EDT Office Visit [facility] [address] [place] [address] Kirti Ely APRN 711 [place] [address] 09/13/2024 11:30 AM EDT Appointment [facility] 711 [facility] [address] [place] [address] Rosa Beebe MD [address] [place] [address] documented as of this encounter Goals Goal Patient Goal Type Associated Problems Recent Progress Patient-Stated? Author Blood Pressure < 140/90 Blood Pressure 115/69(2024 10:38 AM EST) Belkys Ely CCMA Maintain a healthy diet, exercise regularly and maintain an ideal body weight General No Belkys Traore CCMA documented as of this encounter Procedures Procedure Name Priority Date/Time Associated Diagnosis Comments IL REM INTERROG ICPMS <30 D PHYS/QHP Routine 07/12/2024 12:00 AM EDT Vector Remote Device documented in this encounter Results * VECTOR REMOTE HEART FAILURE DEVICE (07/12/2024 12:00 AM EDT) 07/12/2024 Narrative [facility] - 07/12/2024 12:00 AM EDT Stable trend. Optivol wnl. [place] us Markell Lennon MD [facility] CATH ORDERAB LES Final Result [facility] 1 [place] [address] documented in this encounter Visit Diagnoses Diagnosis Vector Remote Device documented in this encounter Additional Health Concerns Assessment Noted Time A fall risk assessment has been complete d for the patient 09/09/2023 1:11 PM EDT documented as of this encounter
--- OUTSIDE RECORDS SUMMARY | 2024-08-09 11:14 | XMS_ITS | Encounter Summary ---
Author Organization [place] [address] Care Team Providers Care Blow Moulding Machine Operator Name Role Phone Unavailable Primary Care Provider Unavailabl e Encounter Details Date Type Department Care Team (Late st Contact Info) Description 01/11/2020 Orders Only [facility] [address] [address] Markell Lennon MD [address] [place] [address] Social History Tobacco Use Types Packs/Day [...] or suspected to have Coronavirus / COVID-19? No / Unsure 12/31/2019 2:05 PM EST documented as of this encounter Plan of Treatment Upcoming Encounters Date Type Department Care Team (Late st Contact Info) Description 09/10/2024 1:30 PM EDT Office Visit [facility] 711 [facility] [address] [place] [address] 09/10/2024 2:00 PM EDT Office Visit [facility] 711 [facility] [address] [place] [address] Kirti Ely APRN 711 [place] [address] 09/13/2024 11:30 AM EDT Appointment [facility] 711 [facility] [address] [place] [address] Rosa Beebe MD 711 [place] [address] documented as of this encounter Goals Goal Patient Goal Type Associated Problems Recent Progress Patient-Stated? Author Blood Pressure < 140/90 Blood Pressure 115/69(2024 10:38 AM EST) No Belkys Traore CCMA Maintain a healthy diet, exercise regularly and maintain an ideal body weight General No Belkys Traore CCMA documented as of this encounter Procedures Procedure Name Priority Date/Time Associated Diagnosis Comments PACEART REPORT Routine 01/11/2020 12:15 AM EST documented in this encounter Results * PACEART REPORT (01/11/2020 12:15 AM EST) 01/11/2020 12:1 5 AM EST Narrative [facility] - 01/11/2020 10:28 AM EST Carelink alert for VT event lasting 7 sec 01/09 at 19:13 @ 182 bpm. 3 NST VT events lasting 1-3 sec on 01/04 and 01/06 with rates 160 -195 bpm. also 2 AFL events on 12/31 and 01/03, longest 70 hrs 38 min.- known AFL/NOY/AVN. Presenting eGM = AP/BIVP @ 76 bpm. AP = 30.6% BIVP = 99.6% Battery with 9.2 yrs remaining. Optivol and thoracic impedance have exceeded threshold. Histogram WNL. Device function is as programmed. Seema Trejo RN us Markell Lennon MD [facility] CARDI[facility] CATH ORDERAB LES Final Result [facility] 1 [place] [address] documented in this encounter Visit Diagnoses Not on filedocumented in this encounter
--- OUTSIDE RECORDS SUMMARY | 2024-08-09 11:14 | XMS_ITS | Encounter Summary ---
Author Organization [place] [address] Care Team Providers Care Director Translational Name Role Phone Unavailable Primary Care Provider Unavailabl e Encounter Details Date Type Department Care Team (Late Contact Info) Description 07/06/2024 Orders Only [facility] [address] [place] [address] Moody Gates, TOM [address] [place] [address] NICM (nonischemic cardiomyopathy) (HCC) (Primary Dx) Social History Tobacco Use Types Packs/Day Years [...] on file documented as of this encounter Ordered Prescriptions Prescription Sig Dispense Quantity Refills Last Filled Start Date End Date empagliflozin (JARDIANCE) 10 mg Oral Tablet Take 1 Tablet by mouth daily. 90 Tablet 3 07/06/2024 documented in this encounter Plan of Treatment Upcoming Encounters Date Type Department Care Team (Late st Contact Info) Description 09/10/2024 1:30 PM EDT Office Visit [facility] [address] [place] [address] 09/10/2024 2:00 PM EDT Office Visit [facility] [address] [place] [address] [address] [place] [address] Kirti Ely APRN [address] [place] [address] 09/13/2024 11:30 AM EDT Appointment [facility] [address] [place] [address] [address] [place] [address] Rosa Beebe MD [address] [place] [address] documented as of this encounter Goals Goal Patient Goal Type Associated Problems Recent Progress Patient-Stated? Author Blood Pressure < 140/90 Blood Pressure 115/69(2024 10:38 AM EST) No Belkys Traore CCMA Maintain a healthy diet, exercise regularly and maintain an ideal body weight General No Belkys Traore CCMA documented as of this encounter Visit Diagnoses Diagnosis NICM (nonischemic cardiomyopathy) (HCC)- Primary Other primary cardiomyopathies documented in this encounter Discontinued Medications Medication Sig Discontinue Reason Start Date End Da te empagliflozin (JARDIANCE) 10 mg Oral Tablet Take 1 Tablet by mouth daily. Reorder 07/16/2023 07/06/2024 documented as of this encounter Additional Health Concerns Assessment Noted Time A fall risk assessment has been complete d for the patient 09/09/2023 1:11 PM EDT documented as of this encounter
--- OUTSIDE RECORDS SUMMARY | 2024-08-09 11:14 | XMS_ITS | Encounter Summary ---
Author Organization [place] [address] Care Team Providers Care Manager Drive Name Role Phone Unavailable Primary Care Provider Unavailabl e Reason for Visit * Reason Onset Date Comments Reschedule 07/15/2024 Encounter Details Date Type Department Care Team (Late st Contact Info) Description 07/15/2024 Telephone [facility] 711 [facility] [address] [place] [phone] Elisa Mejia MA Reschedule Social History Tobacco Use Types Packs/Day Years [...] encounter Miscellaneous Notes * Telephone Encounter - Elisa Mejia MA - 07/15/2024 8:26 AM EDT LMOM to RS appointment on 09/10 not in that day. documented in this encounter Plan of Treatment Upcoming Encounters Date Type Department Care Team (Late st Contact Info) Description 09/10/2024 1:30 PM EDT Office Visit [facility] 711 [facility] [address] [place] [address] 09/10/2024 2:00 PM EDT Office Visit [facility] [address] [place] [address] [address] [place] [address] Kirti Ely APRN [address] [place] [address] 09/13/2024 11:30 AM EDT Appointment [facility] [address] [place] [address] [address] [place] [address] Rosa Beebe MD [address] [place] [address] documented as of this encounter Goals Goal [...]
--- OUTSIDE RECORDS SUMMARY | 2024-08-09 11:14 | XMS_ITS | Patient Health Record ---
Author Organization [facility] Address [address] [place] [id number] Care Team Providers Care Emotionally Impaired Teacher Name Role Phone Miguel Shah Primary Care Provider [phone] Harjeet Laird Unavailable [phone] Allergies No Known Allergies Medications Medication SIG (Take, Route, Frequency, Duration) Notes Start Date End Date Status Gabapentin 300 MG 1 cap(s) orally 2 ti mes a day for 30 day(s) 07/20/2024 Active Furosemide 20 MG 1 tab(s) orally as needed prn Active Jardiance 10 MG TAKE 1 TABLET BY TERRELL TH ONCE DAILY IN THE MORNING for 30 Active Venlafaxine HCl 75 MG 1 tab(s) Orally Tw ice a day for 15 days Active Tamsulosin HCl 0.4 MG TAKE 1 CAPSULE BY MOUTH DAILY for 90 days Active B-12 1000 MCG 1 tab(s) orally once a day 05/30/2020 Not-Taking Vitamin C 250 MG 1 tab(s) orally once a day for 30 day(s) Not-Taking Doxycycline Monohydrate 100 MG 1 capsule Orally Twice a day for 10 days 06/14/2024 Active Metoprolol Succinate ER 25 MG 1 tab(s) orally once a day Active Losartan Potassium 25 MG TAKE 1 TABLET B Y MOUTH EVERY OTHER DAY for 30 days Active Immunizations Vaccine Route Administration Date Status Comme nts Prevnar (PCV13) IM Intramuscular 10/04/2019 Administered PNEUMOVAX 23 VACCINE Unknown 01/24/2018 Administered Fluzone PF Quad (6-35 months) Unknown 11/29/2017 Administered Fluzone High Dose (65yr and older) IM Intramuscular 11/26/2021 Administered COVID 19 Pfizer Unknown 06/21/2020 Administered COVID 19 Pfizer Unknown 07/12/2020 Administered COVID 19 Pfizer Unknown 01/23/2021 Administered Problems Problem Type SNOMED Code ICD Code Onset Dates Problem Status W/U Status Risk Notes Problem 529487551 Vertigo (R42) Active confirmed Problem 459512050 Vitamin B12 deficiency (E53.8) Active confirmed Problem Benign prostatic hyperplasia (407852338) BPH (benign prostatic hyperplasia) (N40.0) Active confirmed Problem 973355286 Vitamin B 12 deficiency (E53.8) Active confirmed Problem 37803133 Restless legs (G25.81) Active confirmed Problem 653154107 Actinic keratosi s (L57.0) Active confirmed Problem 7012451 Primary insomnia (F51.01) Active confirmed Problem 543179421 Persistent atria l fibrillation (I48.1) Active confirmed Problem 239404321 Presence of card iac pacemaker (Z95.0) Active confirmed Problem 78411745 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 confirmed Problem 72105745 Other chronic pa in (G89.29) Active confirmed Problem 30281274 Fatigue, unspecified type (R53.83) Active confirmed Problem 629768819 Primary osteoarthritis involving multiple joints (M15.0) Active confirmed Problem 5044706767199 H/O mitral valve replacement (Z95.2) Active confirmed Problem 726383171 Leukocytosis, unspecified type (D72.829) Active confirmed Problem 948848454 Episodic atrial fibrillation (I48.0) Active confirmed Problem 827822150 Mitral valve prolapse (I34.1) Active confirmed Problem 039547316 Imbalance (R26.89) Active confirmed Problem Reactive depression (18594995) Reactive depression (F32.9) Active confirmed Problem 290560727 Facial laceratio n, subsequent encounter (S01.81XD) Active confirmed Problem 83582774 Reactive depress ion (situational) (F32.9) Active confirmed Problem 985714269146999 Benign prostatic hyperplasia with lower urinary tract symptoms (N40.1) Active confirmed Problem 4698265 Fall, subsequent encounter (W19.XXXD) Active confirmed Problem 432498927 Pansinusitis, unspecified chronicity (J32.4) Active confirmed Problem 652738 Nystagmus (H55.00) Active confirmed Problem 617718167 H/O cardiac pacemaker (Z95.0) Active confirmed Problem 51656476 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) Active confirmed Problem 746891483 Systolic CHF, chronic (I50.22) Active confirmed Vital Signs Heart Rate 74 /min 06/14/2024 Blood pressure diastolic 60 mm Hg 06/14/2024 Height 72 in 06/14/2024 Blood pressure systolic 100 mm Hg 06/14/2024 Weight 193.2 lbs 06/14/2024 BMI 26.2 kg/m2 06/14/2024 Encounters Encounter Location Date Provider Diagnosis [facility] [address] [place], [place] [phone] 09/22/2023 Miguel Shah H/O mitral valve replacement Z95.2 ; H/O cardiac pacemaker Z95.0 ; Vitamin B12 deficiency E53.8 ; Hyperkalemia E87.5 ; Benign prostatic hyperplasia with lower urinary tract symptoms N40.1 and Primary osteoarthritis involving multiple joints M15.0 [facility] [address] [place], [place] [id number] 06/14/2024 Miguel Shah 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 ; Vitamin B12 deficiency E53.8 ; H/O mitral valve replacement Z95.2 ; Tick bite of multiple sites W57.XXXA ; 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 and BMI 26.0-26.9,adult Z68.26 [facility] [address] [place], [place] [id number] 05/18/2024 Miguel Shah Primary osteoarthrit is involving multiple joints M15.0 [facility] [address] [facility] [place], [place] [id number] 06/07/2024 Miguel Shah [facility] [address] [facility] [place], [place] [id number] 06/18/2024 Miguel Shah [facility] [address] [facility] [address] [place], [place] [id number] 07/01/2024 Miguel Shah [facility] [address] [place], [place] [id number] 07/20/2024 Harjeet Laird Primary osteoarthrit is involving multiple joints M15.0 Assessments Encounter Date Diagnosis (ICD Code) Assessment Notes Treatment Notes Treatment Clinical Notes Section Notes 09/22/2023 H/O cardiac pacemaker (ICD-10 - Z95.0) 05/18/2024 Primary osteoarthritis involving multiple joints (ICD-10 - M15.0) 06/14/2024 Vitamin B12 deficiency (ICD-10 - E53.8) 06/14/2024 Arteriosclerotic cardiovascular disease (ICD-10 - I25.10) 09/22/2023 H/O mitral valve replacement (ICD-10 - Z95.2) 07/20/2024 Primary osteoarthritis involving multiple joints (ICD-10 - M15.0) 06/14/2024 H/O mitral valve replacement (ICD-10 - Z95.2) 09/22/2023 Vitamin B12 deficiency (ICD-10 - E53.8) 09/22/2023 Hyperkalemia (ICD-10 - E87.5) 06/14/2024 Tick bite of multiple sites (ICD-10 - W57.XXXA) 06/14/2024 Neoplasm of hand (ICD-10 - D49.89) 09/22/2023 Benign prostatic hyperplasia with lower urinary tract symptoms (ICD-10 - N40.1) 09/22/2023 Primary osteoarthritis involving multiple joints (ICD-10 - M15.0) 06/14/2024 BMI 26.0-26.9,adult (ICD-10 - Z68.26) Plan Of Treatment Pending Test Test Name Order Date CBC 06/14/2024 BMP 06/14/2024 Lyme IgG/IgM Ab 06/14/2024 Next Appt Details Provider Name:Miguel Baron er, 08/16/2024 10:30:00 AM, [address], [address], [place], [id number], Insurance Providers Payer Name Payer Address Payer Phone Subscriber Number Group Number Insured Name Patient Relationship to Insured Coverage Start Date Coverage End Date [employer] [address] [address] [place], [place] [id number] Brandon Rios Self - patient is the insured Medications Administered Medication Instructions Date of Administration Dosage Notes B-12 05/31/2020 1 mL B-12 06/07/2020 1 mL B-12 06/14/2020 1 mL B-12 06/21/2020 1 mL Medical (General) History Medical History History ICD Code Hypertension BPH depression Atrial fibrillation mitral valve prolapse COVID 19 Vaccine, Pfizer 2020 2016 Echo 40-45% EF, [facility] Surgical History Surgery Date(Month/Year) RT Knee 1955 Mitral Valve Replacement 11/[address] [facility] 02/2018 Hospitalization History Reason Date(Month/Year) [facility] ER - laceration to head due to fall 08/11/20 [facility] - AFIB 01/12-02/09 [facility] CHF 12/17-
--- OUTSIDE RECORDS SUMMARY | 2024-08-09 11:14 | XMS_ITS | Continuity of Care Document ---
Author Organization [facility] Address [address] [place] [phone] Phone Care Team Providers Care Setup Operator Name Role Phone Unavailable Primary Care Provider Unavailabl e Encounters Date Type Department Care Team Description 07/15/2024 Telephone [facility] [address] [place] [address] Elisa Mejia MA Reschedule 07/12/2024 Orders Only [facility] [address] [place] [phone] Alo Lennon MD Vector Remote Device 07/06/2024 Orders Only [facility] [address] [place], [place] [phone] Moody Gates NP NICM (nonischemic cardiomyopathy) (HCC) (Primary Dx) 07/06/2024 Telephone [facility] [address] [place], [place] [phone] Hannah Baeza MSW Other (Financial - Jardiance - Refill) 07/04/2024 Orders Only [facility] [address] [place] [phone] Alo Lennon MD Vector Remote Device 06/28/2024 Results Follow-Up [facility] [address] [place] [address] Luana Cooper NP BASIC METABOLIC PANEL, CBC 06/25/2024 11:59 AM EDT - 06/25/2024 11:59 PM EDT Hospital Encounter [facility] [address] [place], [place] [id number] Heart failure with mid-range ejection fraction (HCC) Discharge Disposition: Home or Self Care 06/21/2024 Orders Only [facility] [address] [facility] [address] [place] [phone] Alo Lennon MD Vector Remote Device 06/11/2024 Orders Only [facility] [address] [place] [address] [address] [place] [phone] Alo Lennon MD Vector Remote Device 05/28/2024 Orders Only [facility] [address] [place] [address] [address] [place] [phone] Alo Lennon MD Vector Remote Device 05/10/2024 Telephone [facility] [address] [place] [address] [address] [place] [address] Nakita Durant (T BV PPM. Carelink. TC. ) 05/10/2024 Orders Only [facility] [address] [place] [address] [address] [place] [address] Alo Lennon MD Vector Remote Device 05/09/2024 Orders Only [facility] [address] [place] [address] [address] [place] [phone] Alo Lennon MD Vector Remote Device 04/09/2024 Orders Only [facility] [address] [place] [address] [address] [place] [address] Alo Lennon MD Vector Remote Device 04/08/2024 Orders Only [facility] [address] [place] [address] [address] [place] [address] Alo Lennon MD Vector Remote Device 03/09/2024 Social Work [facility] [address] [place] [address] [address] [place], [place] [phone] Hannah Baeza MSW Medication-social Work (Jardiance) 03/09/2024 Orders Only [facility] [address] [place], [place] [phone] Alo Lennon MD Vector Remote Device 03/09/2024 10:25 AM EST - 03/09/2024 11:59 PM EST Hospital Encounter [facility] [address] [place] [address] Rosa Beebe MD Heart failure with mid-range ejection fraction (HCC) (Primary Dx); NICM (nonischemic cardiomyopathy) (HCC); Valvular heart disease; Permanent atrial fibrillation (HCC) Discharge Disposition: Home or Self Care 03/08/2024 Orders Only [facility] [address] [place], [place] [phone] Alo Lennon MD Vector Remote Device 02/13/2024 Telephone [facility] [address] [place] [address] Malu Newsome MA Other (Jardiance - CARES) 02/09/2024 Telephone [facility] [address] [place], [place] [phone] Nakita Durant Other (JULIANO BV PPM. Carelink. TC. ) 02/07/2024 Orders Only [facility] [address] [place], [place] [phone] Alo Lennon MD Vector Remote Device 02/06/2024 Orders Only [facility] [address] [place] [phone] Alo Lennon MD Vector Remote Device 01/29/2024 Telephone [facility] [address] [place] [address] Constantine Leos RN Reschedule 09/09/2023 1:00 PM EDT Office Visit [facility] [address] [place] [phone] Alo Lennon MD NICM (nonischemic cardiomyopathy) (HCC) (Primary Dx); Biventricular cardiac pacemaker in situ; 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); Permanent atrial fibrillation (HCC) 09/09/2023 12:30 PM EDT Office Visit [facility] [address] [place] [address] [address] [place] [address] Whit Fernández RN NICM (nonischemic cardiomyopathy) (HCC) (Primary Dx); 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 TC. Carelink. ) 08/27/2023 Orders Only [facility] [address] [place] [address] Joi Sethi, TOM Heart failure with mid-range ejection fraction (HCC) (Primary Dx) 08/26/2023 11:53 AM EDT - 08/26/2023 11:59 PM EDT Hospital Encounter [facility] [address] [place] [address] Heart failure with mid-range ejection fraction (HCC) Discharge Disposition: Home or Self Care 08/26/2023 Social Work [facility] [address] [place] [address] Hannah Baeza MSW Medication-social Work (Jardiance) 08/26/2023 10:53 AM EDT - 08/26/2023 11:52 AM EDT Hospital Encounter [facility] [address] [place] [address] Rosa Beebe MD Heart failure with mid-range ejection fraction (HCC) (Primary Dx); NICM (nonischemic cardiomyopathy) (HCC); Valvular heart disease; Permanent atrial fibrillation (HCC) Discharge Disposition: Home or Self Care 07/15/2023 Refill [facility] [place] [address] Elisa Mejia MA Medication Refill 03/11/2023 1:18 PM EST - 03/11/2023 11:59 PM EST Hospital Encounter [facility] [address] [place] [address] Heart failure with mid-range ejection fraction (HCC) Discharge Disposition: Home or Self Care 03/03/2023 12:55 PM EST - 03/03/2023 11:59 PM EST Hospital Encounter [facility] [place] [address] Rosa Beebe MD Heart failure with mid-range ejection fraction (HCC) (Primary Dx); NICM (nonischemic cardiomyopathy) ([facility]) Discharge Disposition: Home or Self Care 02/28/2023 Orders Only [facility] [address] [place] [phone] Alo Lennon MD Vector Remote Device 02/28/2023 Telephone [facility] [address] [place] [phone] Parvin Trejo RN Results (Carelink results) 12/13/2022 Telephone [facility] [place] [phone] Elisa Mejia MA Other (Jardiance Cost) 09/02/2022 12:52 PM EDT - 09/02/2022 11:59 PM EDT Hospital Encounter [facility] [address] [place], [place] [phone] NICM (nonischemic cardiomyopathy) (HCC) Discharge Disposition: Home or Self Care 09/02/2022 Travel 09/02/2022 11:58 AM EDT - 09/02/2022 12:51 PM EDT Hospital Encounter [facility] [address] [place] [address] Rosa Beebe MD NICM (nonischemic cardiomyopathy) (HCC) (Primary Dx); Heart failure with mid-range ejection fraction (HCC); Valvular heart disease; Permanent atrial fibrillation (HCC) Discharge Disposition: Home or Self Care 08/28/2022 Orders Only [facility] [address] [place], [place] [phone] Alo Lennon MD Vector Remote Device 08/05/2022 Telephone [facility] [address] [place] [address] Mirna Jimenez, varnish dipper Refill (Losartan and metoprolol) 07/15/2022 Orders Only [facility] [address] [place] [address] Shima Sibley, RMA 07/11/2022 Telephone [facility] [address] [place] [address] Mirna Jimenez, varnish dipper Refill (Jardiance and losartan) 05/29/2022 Orders Only [facility] [address] [place], [place] [phone] Alo Lennon MD Vector Remote Device 04/05/2022 Telephone [facility] [address] [place] [address] Shima Sibley, RMA Orders 04/02/2022 Travel 04/02/2022 9:40 AM EST - 04/02/2022 11:[address] [facility] Hospital Encounter [facility] [address] [place] [address] Kulwant Ferraro MD NICM (nonischemic cardiomyopathy) (HCC) (Primary Dx) Discharge Disposition: Home or Self Care 03/28/2022 Orders Only [facility] [address] [place] [address] Luana Cooper NP NICM (nonischemic cardiomyopathy) (HCC) (Primary Dx) 03/25/2022 Travel 03/25/2022 11:30 AM EST - 03/25/2022 11:59 PM EST Hospital Encounter [facility] [address] [facility] [place] [phone] NICM (nonischemic cardiomyopathy) (HCC) Discharge Disposition: Home or Self Care 03/18/2022 Orders Only [facility] [address] [place] [address] Luana Cooper NP NICM (nonischemic cardiomyopathy) (HCC) (Primary Dx) 03/11/2022 Telephone [facility] [address] [place] [address] Nae Garcia RMA Follow-up 03/04/2022 Telephone [facility] [place] [address] Shima Silbey RMA Appointment Needed 01/31/2022 Telephone [facility] [place] [address] Mirna Jimenez RN Other (Reschedule appt) 01/09/2022 Travel 01/09/2022 1:00 PM EST - 01/09/2022 11:59 PM EST Hospital Encounter [facility] [address] [place] [address] Rosa Beebe MD NICM (nonischemic cardiomyopathy) (HCC) (Primary Dx); Orthostatic dizziness; Chronic HFrEF (heart failure with reduced ejection fraction) ([facility]) Discharge Disposition: Home or Self Care 12/10/2021 Refill [facility] [address] [place], [place] [phone] Alo Lennon MD Medication Refill 12/04/2021 Telephone [facility] [place] [address] Shima Sibley RMA Dizziness 11/19/2021 Orders Only [facility] [place] [address] Shima Sibley RMA Heart failure with mid-range ejection fraction (HCC); NICM (nonischemic cardiomyopathy) (HCC) 11/07/2021 Orders Only [facility] [address] [place] [address] [place] [phone] Alo Lennon MD Vector Remote Device 11/07/2021 Travel 11/07/2021 11:15 AM EDT - 11/07/2021 11:59 PM EDT Hospital Encounter [facility] [place] [phone] Kulwant Ferraro MD Heart failure with mid-range ejection fraction (HCC) (Primary Dx); NICM (nonischemic cardiomyopathy) (HCC); ASHD (arteriosclerotic heart disease); Valvular heart disease; Atrial fibrillation, unspecified type (HCC) Discharge Disposition: Home or Self Care 11/05/2021 Travel 11/05/2021 11:25 AM EDT - 11/05/2021 11:59 PM EDT Hospital Encounter [facility] [address] [place] [address] Heart failure with mid-range ejection fraction (HCC); NICM (nonischemic cardiomyopathy) (HCC) Discharge Disposition: Home or Self Care 10/02/2021 Travel 10/02/2021 11:42 AM EDT - 10/02/2021 11:59 PM EDT Hospital Encounter [facility] [place] [phone] Luana Cooper NP Heart failure with mid-range ejection fraction (HCC) (Primary Dx); NICM (nonischemic cardiomyopathy) (HCC); ASHD (arteriosclerotic heart disease); Valvular heart disease; Atrial fibrillation, unspecified type (HCC); Systolic congestive heart failure, unspecified HF chronicity (HCC) Discharge Disposition: Home or Self Care 09/27/2021 Telephone [facility] [address] [place] [phone] Lety Caldwell APRN Procedure (Risk assessment prior to dental procedure ) 09/21/2021 Telephone [facility] [address] [place] [phone] Mirna Jimenez RN Other (Overnight pulse ox status) 09/06/2021 Refill [facility] [address] [place], [place] [phone] Joi Sethi NP Medication Refill 09/06/2021 11:25 AM EDT - 09/06/2021 11:59 PM EDT Hospital Encounter [facility] [address] [facility]. [place] [phone] Heart failure with mid-range ejection fraction (HCC) Discharge Disposition: Home or Self Care 09/05/2021 Telephone [facility] [address] [place] [address] Nae Leblanc APRN Lab Orders 09/05/2021 Travel 09/05/2021 10:04 AM EDT - 09/05/2021 11:59 PM EDT Hospital Encounter [facility] [place] [address] Nae Leblanc APRN Heart failure with mid-range ejection fraction (HCC) (Primary Dx); NICM (nonischemic cardiomyopathy) (HCC); ASHD (arteriosclerotic heart disease); Valvular heart disease; Atrial fibrillation, unspecified type (HCC); Systolic congestive heart failure, unspecified HF chronicity (HCC) Discharge Disposition: Home or Self Care 09/04/2021 Telephone [facility] [place] [address] Moody Gates NP Non-scheduled Referral 08/30/2021 Refill [facility] [address] [place] [phone] Alo Lennon MD Medication Refill 08/20/2021 Orders Only [facility] [address] [place] [phone] Alo Lennon MD Vector Remote Device 08/17/2021 Orders Only [facility] [address] [place] [address] Moody Gates NP Heart failure with mid-range ejection fraction (HCC) (Primary Dx); NICM (nonischemic cardiomyopathy) (HCC) 08/17/2021 Travel 08/17/2021 12:40 PM EDT - 08/17/2021 11:59 PM EDT Hospital Encounter [facility] [place] [address] Persistent atrial fibrillation (HCC); Heart failure with mid-range ejection fraction (HCC); NICM (nonischemic cardiomyopathy) (HCC) Discharge Disposition: Home or Self Care 08/17/2021 2:30 PM EDT Office Visit [facility] [address] [place] [address] [address] [place] [phone] Alo Lennon MD Atrial fibrillation with RVR (HCC) (Primary Dx); S/P AV rissa ablation; Biventricular cardiac pacemaker in situ 08/17/2021 2:00 PM EDT Office Visit [facility] [address] [place] [address] [address] [place] [phone] Cheo Ramos RN Biventricular pacemaker reprogramming (Primary Dx); NICM (nonischemic cardiomyopathy) (HCC); Chronic systolic congestive heart failure (HCC); Paroxysmal atrial fibrillation (HCC); Persistent atrial fibrillation (HCC); Heart failure, unspecified HF chronicity, unspecified heart failure type (HCC); 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); Biventricular cardiac pacemaker in situ 08/15/2021 Travel 08/15/2021 2:21 PM EDT - 08/15/2021 11:59 PM EDT Hospital Encounter [facility] [address] [place] [address] [address] [place] [address] Moody Gates NP Heart failure with mid-range ejection fraction (HCC) (Primary Dx); NICM (nonischemic cardiomyopathy) (HCC); ASHD (arteriosclerotic heart disease); Valvular heart disease; Atrial fibrillation, unspecified type (HCC) Discharge Disposition: Home or Self Care 07/09/2021 Telephone [facility] [address] [place] [address] [address] [place] [phone] Belkys Frost MA Reschedule (R/s cx 06/29/21 appt- 1 year follow up JULIANO BiV PPM) 07/03/2021 Orders Only [facility] [address] [place] [address] Joi Sethi NP Acute on chronic heart failure with preserved ejection fraction (HCC) (Primary Dx); Systolic congestive heart failure, unspecified HF chronicity (HCC) 07/02/2021 Travel 07/02/2021 3:20 PM EDT - 07/02/2021 11:59 PM EDT Hospital Encounter [facility] [address] [place] [address] Chronic systolic congestive heart failure (HCC) Discharge Disposition: Home or Self Care 06/28/2021 Refill [facility] [address] [place] [address] Joi Sethi NP Medication Refill 06/28/2021 Travel 06/28/2021 2:09 PM EDT - 06/28/2021 11:59 PM EDT Hospital Encounter [facility] [address] [place], [place] [phone] Rosa Beebe MD Acute on chronic heart failure with preserved ejection fraction (HCC) (Primary Dx); Valvular heart disease; Chronic systolic congestive heart failure (HCC); Systolic congestive heart failure, unspecified HF chronicity (HCC) Discharge Disposition: Home or Self Care 05/22/2021 Telephone [facility] [address] [place] [address] Nae Garcia RMA Referral (OUTPATIENT PSYCHIATRIST appointment ) 05/22/2021 Travel 05/22/2021 9:12 AM EDT - 05/22/2021 11:59 PM EDT Hospital Encounter [facility] [address] [facility] [place] [address] Lety Caldwell APRN Chronic systolic congestive heart failure (HCC); Persistent atrial fibrillation (HCC) Discharge Disposition: Home or Self Care 05/16/2021 Refill [facility] [address] [place] [phone] Alo Lennon MD Medication Refill 05/16/2021 9:00 AM EDT Clinical Support [facility] [address] 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); NICM (nonischemic cardiomyopathy) (HCC); Chronic systolic congestive heart failure (HCC); Paroxysmal atrial fibrillation (HCC) 03/01/2021 Telephone [facility] [address] [place] [address] [place] [phone] Alo Lennon MD Other 02/26/2021 Telephone [facility] [address] [place] [phone] Alo Lennon MD Other (shortness of breath ) 02/22/2021 Telephone [facility] [address] [place] [address] [place] [phone] Alo Lennon MD Other 01/29/2021 10:48 AM EST - 01/29/2021 11:59 PM EST [facility] [place] [phone] Systolic congestive heart failure, unspecified HF chronicity (HCC) Discharge Disposition: Home or Self Care 01/29/2021 Travel 01/29/2021 9:00 AM EST Office Visit [facility] [address] 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 [address] [place] [phone] Lety Caldwell APRN Chronic systolic congestive heart failure (HCC) (Primary Dx); Persistent atrial fibrillation (HCC); SOB (shortness of breath); S/P AV rissa ablation; S/P left atrial appendage ligation; S/P mitral valve replacement with bioprosthetic valve; NICM (nonischemic cardiomyopathy) ([facility]) 01/26/2021 Refill [facility] [address] [facility] [address] [place] [phone] Lety Caldwell APRN Medication Refill 01/26/2021 Telephone [facility] [address] [place] [phone] Alo Lennon MD Other 01/23/2021 Orders Only [facility] [address] [place] [address] [place] [phone] Alo Lennon MD 11/23/2020 Telephone [facility] [address] [place] [address] [place] [phone] Parvin Trejo RN Other (Carelink results) 11/23/2020 Travel 11/23/2020 9:00 AM EDT Clinical Support [facility] [address] 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 [address] [place] [phone] Alo Lennon MD Other 11/22/2020 Telephone [facility] [address] [place] [address] [place] [phone] Alo Lennon MD Other (address concern) 11/09/2020 Telephone [facility] [address] [place] [address] [place] [phone] Parvin Trejo RN Other (carelink not connecting) 06/30/2020 Travel 06/30/2020 2:30 PM EDT Office Visit [facility] [address] [place] [address] [place] [phone] Alo Lennon MD Biventricular cardiac pacemaker in situ (Primary Dx); Biventricular pacemaker reprogramming; 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); NICM (nonischemic cardiomyopathy) (HCC); Chronic systolic congestive heart failure (HCC); Paroxysmal atrial fibrillation (HCC) 04/07/2020 Orders Only [facility] [address] [place] [address] [place] [phone] Alo Lennon MD 04/07/2020 Telephone [facility] [address] [place] [phone] Alo Lennon MD Other 03/31/2020 Telephone [facility] [address] [place] [phone] Whit Fernández, ED Pacemaker Check (Results of Carelink transmission) 03/31/2020 9:00 AM EST Clinical Support [facility] [address] [place] [address] [place] [phone] Whit Fernández, ED NICM (nonischemic cardiomyopathy) (HCC) (Primary Dx); Chronic systolic congestive heart failure (HCC); 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 [address] [place] [address] Whit Fernández RN Other (Carelink monitor disconnected) 02/07/2020 Telephone [facility] [address] [facility] [address] [place] [address] Alo Lennon MD Other (Echo results ) 01/26/2020 Travel 01/26/2020 1:45 PM EST - 01/26/2020 11:59 PM EST Hospital Encounter [facility] [address] [facility] [place] [address] Alo Lennon MD NICM (nonischemic cardiomyopathy) (HCC); Chronic systolic congestive heart failure (HCC) Discharge Disposition: Home or Self Care 01/25/2020 Travel 01/11/2020 Orders Only [facility] [address] [place] [address] [place] [phone] Alo Lennon MD 01/11/2020 Telephone [facility] [address] [place] [address] [place] [phone] Parvin Trejo RN Other (carelink alert for 7 sec VT event 01/09); Other (Returning call to [facility]) 12/31/2019 Travel 12/31/2019 2:00 PM EST Office Visit [facility] [address] [place] [address] [place] [phone] Alo Lennon MD Biventricular cardiac pacemaker in situ (Primary Dx); Biventricular pacemaker reprogramming; NICM (nonischemic cardiomyopathy) (HCC); Chronic systolic congestive heart failure (HCC); 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 [address] [place] [phone] Parvin Trejo RN Other (carelink results) 10/06/2019 Travel 10/04/2019 9:00 AM EDT Clinical Support [facility] [address] 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) 08/13/2019 Telephone [facility] [address] [place] [address] [place], [place] [phone] Alo Lennon MD Other (Disconnected monitor ) 07/05/2019 Telephone [facility] [address] [place] [address] [place] [phone] Parvin Trejo RN Other (carelink results) 07/05/2019 3:30 PM EDT Clinical Support [facility] [address] [place] [address] [place] [phone] Parvin Trejo RN NICM (nonischemic cardiomyopathy) (HCC) (Primary Dx); Chronic systolic congestive heart failure (HCC); 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) 07/05/2019 Travel 04/05/2019 Telephone [facility] [address] [place] [phone] Parvin Trejo RN Other (carelink results) 04/05/2019 11:00 AM EST Clinical Support [facility] [address] [place] [address] [place] [phone] Parvin Trejo RN NICM (nonischemic cardiomyopathy) (HCC) (Primary Dx); Chronic systolic congestive heart failure (HCC); S/P AV rissa ablation 04/05/2019 Travel 03/31/2019 Telephone [facility] [address] [place] [address] [place] [phone] Whit Fernández RN Other (Carelink not connecting, missed transmission) 12/25/2018 2:00 PM EDT Office Visit [facility] [address] [place] [address] [place] [phone] Alo Lennon MD Cardiac pacemaker in situ (Primary Dx); Pacemaker reprogramming/check; NICM (nonischemic cardiomyopathy) (HCC); S/P AV rissa ablation 08/07/2018 3:30 PM EDT Office Visit [facility] [address] [facility] [address] [place] [address] Alo Lennon MD Cardiac pacemaker in situ (Primary Dx); Pacemaker reprogramming/check 03/26/2018 11:00 AM EST Office Visit [facility] [address] [facility] [address] [place] [address] Parvin Trejo, RN NICM (nonischemic cardiomyopathy) (HCC) (Primary Dx); Chronic systolic congestive heart failure (HCC); Atrial fibrillation with RVR (HCC); S/P AV rissa ablation; Status post biventricular pacemaker; Biventricular pacemaker reprogramming 03/17/2018 Telephone [facility] [address] [place] [address] [address] [place] [address] Alo Lennon MD Other 03/13/2018 Telephone [facility] [address] [place] [address] [address] [place] [address] Alo Lennon MD Other 03/11/2018 1:06 PM EST - 03/13/2018 2:45 PM EST Hospital Encounter EDG 6D [facility]CU [facility] [place] [address] Karl Wilkes MD Goetz, Kevin R, MD Connelly, Kevin D, MD Chronic systolic congestive heart failure (HCC) (Primary Dx); Chest pain, unspecified type; Shortness of breath; Atrial fibrillation, unspecified type (HCC); Heart failure (HCC); Heart failure, unspecified HF chronicity, unspecified heart failure type (HCC); Paroxysmal atrial fibrillation (HCC) Discharge Disposition: Home or Self Care 03/12/2018 Orders Only [facility] [address] [place] [address] [address] [place] [address] Alo Lennon MD 03/12/2018 2:02 PM EST Anesthesia Event EDG PROFESSOR [facility] [place] [place] [address] Vineet Mims MD 03/12/2018 2:30 PM EST - 03/12/2018 5:40 PM EST Surgery EDG PROFESSOR OF MUSIC [facility] [place] [address] Alo Lennon MD ATRIOVENTRICULAR NODE MODIFICATION WITH BIVENTRICULAR PERMANENT PACEMAKER IMPLANT 03/10/2018 Telephone [facility] [address] [place] [address] [address] [place] [address] Alo Lennon MD Other 03/06/2018 Telephone [facility] [address] [place] [address] [address] [place] [address] Alo Lennon MD Procedure (pre procedure instructions) 03/06/2018 10:30 AM EST Office Visit [facility] [address] [place] [address] [address] [place] [address] Alo Lennon MD Paroxysmal atrial fibrillation (HCC) (Primary Dx) 02/26/2018 Telephone EDG [facility] [address] [place] [address] [address] [place] [address] Cecilia Prajapati, Clerical Staff Cardiac Rehab (Referral) 02/18/2018 Orders Only [facility] Surgeons [address] [place] [address] Fred Marquez MD Hx of pleural effusion (Primary Dx) 02/18/2018 12:50 PM EST Office Visit [facility] [address] [place] [address] Harjeet Fox APRN S/P mitral valve replacement (Primary Dx); Paroxysmal atrial fibrillation (HCC); S/P left atrial appendage ligation 02/09/[address] [place] [address] Belkys Traore, MARILYN Medication Question 01/12/2018 2:44 PM EST - 02/09/2018 1:40 PM EST Hospital Encounter [facility]TT [facility] [address] [place] [address] Jeffrey Curtis MD Other constipation (Primary Dx); Paroxysmal atrial fibrillation (HCC); NICM (nonischemic cardiomyopathy) (HCC); Screening for tuberculosis; Pain; Hypertension, unspecified type; SOB (shortness of breath); Essential hypertension; Flush; Debility; Dry eyes, bilateral; Need for prophylactic vaccination against Streptococcus pneumoniae (pneumococcus); Hypotension due to drugs; Depression, unspecified depression type; Insomnia, unspecified type; Dysuria; RLS (restless legs syndrome); Healthcare maintenance; Prophylactic measure Discharge Disposition: Home Health Care [facility] 01/28/2018 Telephone [facility] [address] [place] [address] Willie Addison MD Other (Huseyin from [employer] calling stating would like to set up appt to speak to Dr. Addison) 01/09/2018 4:58 PM EST - 01/12/2018 2:34 PM EST Hospital Encounter FTT TCU 3SW [address] [place] [place] [address] Jeffrey Curtis MD Paroxysmal atrial fibrillation (HCC); NICM (nonischemic cardiomyopathy) (HCC); Persistent atrial fibrillation (HCC); Persistent atrial fibrillation (HCC) Discharge Disposition: Longterm Facility 01/11/2018 10:00 AM EST - 01/11/2018 11:00 AM EST Surgery FTT CARDIAC PROFESSOR OF MUSIC [address] [place] [place] [address] Ricardo Rai MD CARDIOVERSION 01/09/2018 3:38 PM EST - 01/09/2018 4:46 PM EST Hospital Encounter FTT [facility] [address] [place] [place] [place] [address] Jeffrey Curtis MD Paroxysmal atrial fibrillation (HCC) (Primary Dx); NICM (nonischemic cardiomyopathy) (HCC) Discharge Disposition: Admitted as an Inpatient 11/28/2017 11:49 AM EDT - 01/09/2018 3:00 PM EST Hospital Encounter EDG [facility]D [facility] [place] [address] Angeline Lim MD Yates, Jeffrey L, MD Schmelzer, Victor, MD Near syncope (Primary Dx); Chronic atrial fibrillation (HCC); Atrial fibrillation, unspecified type (HCC); Arrhythmia; Other cardiac arrhythmia; Mitral valve disorder; Chest pain; Non-rheumatic mitral regurgitation; Paroxysmal atrial fibrillation (HCC); Paroxysmal atrial fibrillation (HCC); Sternal wound dehiscence, initial encounter; Hemoptysis Discharge Disposition: Longterm Facility 01/01/2018 11:30 AM EST - 01/01/2018 12:30 PM EST Surgery EDG PROFESSOR OF [facility] [place] [place] [address] Alo Lennon MD CARDIOVERSION 01/01/2018 11:00 AM EST Anesthesia Event EDG PROFESSOR [facility] [place] [address] Vineet Mims MD Merkle Serey, Jennifer L, TOM 12/18/2017 9:24 PM EDT Anesthesia Event EDG [facility] [place] [address] Valentina Carrasco MD 12/18/2017 1:00 PM EDT - 12/18/2017 1:40 PM EDT Surgery EDG ENDOSCOPY [facility] [place] [address] Stu Abdi MD BRONCHOSCOPY 12/17/2017 9:52 AM EDT Anesthesia Event EDG PERIOP [facility] [place] [address] Sherif Brown, Neo Nichols, SECURITY SOLUTIONS ENGINEER 12/17/2017 10:00 AM EDT - 12/17/2017 11:50 AM EDT Surgery EDG [facility] [place] [address] Fred Marquez MD STERNAL DEBRIDEMENT/ANTERIOR CHEST WALL DEBRIDEMENT OR STERNAL WASH OUT 12/14/2017 5:50 PM EDT Anesthesia Event EDG [facility] [place] [address] Robert Olson MD 12/11/2017 2:02 PM EDT Anesthesia Event EDG PROFESSOR [facility] [place] [place] [address] Bony Valencia MD Merkle Serey, Jennifer L, TOM 12/11/2017 1:35 PM EDT - 12/11/2017 2:05 PM EDT Surgery EDG PROFESSOR OF [facility] [address] [place] [facility] Alo Lennon MD CARDIOVERSION 12/05/2017 11:04 PM EDT Anesthesia Event EDG [facility] [address] [place] [address] Jose Ramon Bains MD Corriveau, Matthew M, MD 12/05/2017 10:35 PM EDT - 12/06/2017 12:45 AM EDT Surgery EDG [facility] [address] [place] [address] Fred Marquez MD OPEN HEART POST OP BLEED 12/05/2017 7:15 AM EDT - 12/05/2017 12:15 PM EDT Surgery EDG [facility] [address] [place] [facility] Fred Marquez MD MITRAL VALVE REPAIR OR REPLACEMENT 12/05/2017 7:55 AM EDT Anesthesia Event EDG [facility] [address] [place] [facility]17 Fabián Harris MD Braxton-Brown, Jennifer, SITE SUPERVISOR 12/04/2017 Orders Only [facility] Cardiac Surgeons [address] [place] [address] Fred Marquez MD Atrial fibrillation, unspecified type (HCC) (Primary Dx); Non-rheumatic mitral regurgitation 12/01/2017 3:15 PM EDT - 12/01/2017 4:15 PM EDT Surgery EDG PROFESSOR OF MUS[facility] [place] [address] Yolette Davis MD CORONARY ANGIOGRAM / CARDIAC CATHETERIZATION 12/01/2017 11:34 AM EDT Anesthesia Event EDG PROFESSOR OF [facility] [place] [place] [address] Jose Ramon Bains MD Stone, Dyshera Lee, CRNA 12/01/2017 11:30 AM EDT - 12/01/2017 12:10 PM EDT Surgery EDG PROFESSOR OF [facility] [place] [address] Alo Lennon MD TRANSESOPHAGEAL ECHOCARDIOGRAM/CARDIOVE RSION 11/30/2017 11:59 PM EDT Anesthesia Event EDG PROFESSOR OF [facility] [place] [address] Demetrius Cobos MD 11/28/2017 11:00 AM EDT Office Visit [facility] [address] [facility] [address] [facility] [phone] Alo Lennon MD Atrial fibrillation, unspecified type ([facility]) 11/27/2017 Abstract [facility] [address] [facility] [address] [place] [address] Alo Lennon MD 03/31/1995 5:24 AM EST - 03/31/1995 6:52 PM EST Hospital Encounter HST TCB Khurram Pedraza MD Otte, Robert, MD 03/01/1992 9:35 AM EST - 03/01/1992 10:45 PM EST Hospital Encounter HST 4CS [facility] Allergies Active Allergy Reactions Criticality Noted Date Comments Amiodarone Other (See Comments) High 05/13/2018 Possible Lung toxicity Sotalol Other (See Comments) 05/13/2018 Not tolerated. Prolonged QT. Flecainide Other (See Comments) High 05/13/[address] Lennon Medications tamsulosin (FLOMAX) 0.4 mg Oral Capsule Take 0.4 mg by mouth every other day. Active venlafaxine (EFFEXOR) 75 mg Oral TabletIndication s:Depression, unspecified depression type Take 1 Tab by mouth every evening. 30 Tab 4 8 Active gabapentin (NEURONTIN) 300 mg Oral Capsule Take by mouth nightly. Active fUROsemide (LASIX) 20 mg Oral TabletIndication s:Systolic congestive heart failure, unspecified HF chronicity ([facility]) Take 1 Tablet by mouth as needed (take for weight gain of 2-3 lbs overnight or > 5 lbs in one week). 30 Tablet 1 2 Active spironolactone (ALDACTONE) 25 mg Oral Tablet Take 1 Tablet by mouth every other day. 45 Tablet 3 4 Active losartan (COZAAR) 25 mg Oral Tablet Take 1 Tablet by mouth daily. 90 Tablet 3 4 Active metoprolol succinate (TOPROL-XL) 25 mg Oral Tablet Sustained Release 24 hr Take 1 Tablet by mouth 2 times daily. 180 Tablet 3 4 Active ibuprofen (ADVIL;MOTRIN) 100 mg/5 mL Oral Suspension Take 10 mg/kg by mouth 2 times daily. Active empagliflozin (JARDIANCE) 10 mg Oral Tablet Take 1 Tablet by mouth daily. 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 Lennon Biventricular cardiac pacemaker in situ 03/12/19 Overview (03/12/2018): S/P Medtronic BiV PPM by Dr. Lennon on 03/12/18 Benign prostatic hyperplasia with urinary freque ncy 02/01/2018 RLS (restless legs syndrome) 02/01/2018 Hypokalemia 01/18/2018 Debility 01/17/2018 Loculated pleural effusion 01/16/2018 Persistent atrial fibrillation 01/09/2018 Overview (01/10/2018): Added automatically from request for surgery [id number] Respiratory failure, post-operative 12/18/2017 Hemoptysis 12/18/2017 NICM (nonischemic cardiomyopathy) 11/28/2017 Hypotension due to drugs 11/28/2017 Essential hypertension 11/28/2017 Paroxysmal atrial fibrillation 11/28/2017 Overview (12/11/2017): Added automatically from request for surgery [id number] Chronic systolic congestive heart failure Non-rheumatic mitral regurgitation Leukocytosis Confusion S/P mitral valve replacement with bioprosthetic valve S/P left atrial appendage ligation Pulmonary infiltrate Acute respiratory failure with hypoxia Pneumothorax on left Pleural effusion Mediastinal abscess Cellulitis of chest wall SOB (shortness of breath) Bilateral pleural effusion Resolved Problems Problem Noted Date Diagnosed Date Resolved Date S/P AV rissa ablation 03/12/20182023 Overview (03/12/2018): S/P AV node ablation by Dr. Lennon on 03/12/18 Heart failure 03/11/2018 07/01/2023 Overview (03/12/2018): Added automatically from request for surgery [id number] Chest pressure 01/11/2018 12/25/2018 Chest pressure 01/09/2018 12/25/2018 Arrhythmia 11/28/2017 12/25/2018 Overview (12/01/2017): Added automatically from request for surgery [id number] Chest pain, precordial 11/28/201712/25 Overview (12/01/2017): Added automatically from request for surgery [id number] Fever in adult 12/25/2018 Rapid atrial fibrillation S/P mitral valve replacement 12/25/2018 Atrial fibrillation with RVR 07/01/2023 Immunizations Immunization Administration Dates Next Due Influenza Vaccine Quadrivalent PF 11/29/2017 PPD Test 01/26/2018,01/12/2018 Pneumococcal Polysaccharide 23 Valent 01/24/2018 Social History Smoking Status as of 08/09/2024 Tobacco Use Types Packs/Day Years Used Date Smoking Tobacco: Never Assessed Sex and Gender Information Value Date Recorded Sex Assigned at Not on file Legal Sex Male 11:06 PM EDT Gender Identity Not on file Sexual Orientation Not on file Last Filed Vital Signs Vital Sign Reading Time Taken Comments Blood Pressure 115/69 03/09/2024 10:38 AM EST Pulse 70 03/09/2024 10:38 AM EST Temperature 36.3 C (97.4 F) 06/30/2020 2:35 PM EDT Respiratory Rate 18 03/13/2018 11:06 AM EST Oxygen Saturation 97% 03/09/2024 10:38 AM EST Inhaled Oxygen Concentration - - Weight 88 kg (194 lb) 03/09/2024 10:38 AM EST Height 182.9 cm (6') 01/29/2021 10:03 AM EST Body Mass Index 26.31 01/29/2021 10:03 AM EST Plan of Treatment Upcoming Encounters Date Type Department Care Team (Late st Contact Info) Description 09/10/2024 1:30 PM EDT Office Visit [facility] [address] [phone] 09/10/2024 2:00 PM EDT Office Visit [facility] [address] [place] [address] [address] [place] [address] Kirti Ely APRN [address] [place] [address] 09/13/2024 11:30 AM EDT Appointment [facility] [address] [place] [address] [address] [place] [address] Rosa Beebe MD [address] [place] [address] Medical Devices Implanted Type Area Metal Door Assembler Device Identifier Shelf Expiration Date Model / Serial / Lot Lead Pacing Implantable Capsurefix Novus 58cm Atrial/Ventric - [id number] Implanted:Qty: 1 on 03/12/2018 by Alo Lennon MD at [facility] Lead [employer]:EMY King SYS 5076-58 / [id number] / Lead Attain Performa 88cm 4298 - [id number] Implanted:Qty: 1 on 03/12/2018 by Alo Lennon MD at [facility] Lead [employer]:EMY Knig SYS [id number] / [id number] / Lead Pacing Implantable Capsurefix Novus 52cm Atrial/Ventric - [id number] Implanted:Qty: 1 on 03/12/2018 by Alo Lennon MD at [facility] Lead [employer]:EMY King SYS 5076-52 / [id number] / Device - Percepta Mri Quad Signaler-P - [id number] Implanted:Qty: 1 on 03/12/2018 by Alo Lennon MD at [facility] Pacemaker MEDTR[employer]IC [id number] / [id number] / Bioprosthesis Valve Mitral Pericardial Plus Perimount Wilks 31mm - [id number] Implanted:Qty: 1 on 12/05/2017 by Fred Marquez MD at [facility] N/A: Heart WILKS [employer]IF[employer]CI 2018 6900P-31 / [id number] / Procedures Procedure Name Priority Date/Time Associated Diagnosis Comments ID REM INTERROG ICPMS <30 D PHYS/QHP Routine 07/12/2024 12:00 AM EDT Vector Remote Device VECTOR REMOTE DEVICE Routine 07/04/2024 12:00 AM EDT Vector Remote Device CBC Routine 06/25/2024 11:59 AM EDT Heart failure with mid-range ejection fraction (HCC) BASIC METABOLIC PANEL Routine 06/25/2024 11:59 AM EDT Heart failure with mid-range ejection fraction (HCC) VECTOR REMOTE DEVICE Routine 06/21/2024 12:00 AM EDT Vector Remote Device ID REM INTERROG ICPMS <30 D PHYS/QHP Routine 06/11/2024 12:00 AM EDT Vector Remote Device VECTOR REMOTE DEVICE Routine 05/28/2024 12:00 AM EDT Vector Remote Device ID REM INTERROG ICPMS <30 D PHYS/QHP Routine 05/10/2024 12:00 AM EDT Vector Remote Device ID REM INTERROG PM/LDLS PM <90 D PHYS/QHP Routine 05/09/2024 12:00 AM EDT Vector Remote Device ID REM INTERROG ICPMS <30 D PHYS/QHP Routine 04/09/2024 12:00 AM EST Vector Remote Device VECTOR REMOTE DEVICE Routine 04/08/2024 12:00 AM EST Vector Remote Device ID REM INTERROG ICPMS <30 D PHYS/QHP Routine 03/09/2024 12:00 AM EST Vector Remote Device VECTOR REMOTE DEVICE Routine 03/08/2024 12:00 AM EST Vector Remote Device ID REM INTERROG ICPMS <30 D PHYS/QHP Routine 02/07/2024 12:00 AM EST Vector Remote Device ID REM INTERROG PM/LDLS PM <90 D PHYS/QHP Routine 02/06/2024 12:00 AM EST Vector Remote Device PACEART REPORT Routine 09/09/2023 4:40 PM EDT ID REM INTERROG ICPMS <30 D PHYS/QHP Routine 09/02/2023 12:00 AM EDT Vector Remote Device ID REM INTERROG PM/LDLS PM <90 D PHYS/QHP Routine 09/01/2023 12:00 AM EDT Vector Remote Device BASIC METABOLIC PANEL Routine 08/26/2023 12:08 PM EDT Heart failure with mid-range ejection fraction (HCC) BASIC METABOLIC PANEL Routine 03/11/2023 1:18 PM EST Heart failure with mid-range ejection fraction (HCC) VECTOR REMOTE DEVICE Routine 02/28/2023 12:00 AM EST Vector Remote Device BASIC METABOLIC PANEL Routine 09/02/2022 12:52 PM EDT NICM (nonischemic cardiomyopathy) (HCC) ID REM INTERROG PM/LDLS PM <90 D PHYS/QHP Routine 08/28/2022 12:00 AM EDT Vector Remote Device ID REM INTERROG PM/LDLS PM <90 D PHYS/QHP Routine 05/29/2022 12:00 AM EDT Vector Remote Device BASIC METABOLIC PANEL Routine 03/25/2022 11:31 AM EST NICM (nonischemic cardiomyopathy) (HCC) VECTOR REMOTE DEVICE Routine 11/07/2021 12:00 AM EDT Vector Remote Device BASIC METABOLIC PANEL Routine 11/05/2021 11:27 AM EDT Heart failure with mid-range ejection fraction (HCC) NICM (nonischemic cardiomyopathy) (HCC) BASIC METABOLIC PANEL Routine 09/06/2021 11:26 AM EDT Heart failure with mid-range ejection fraction (HCC) SCANNED EKG 08/20/2021 11:39 AM EDT ID REM INTERROG PM/LDLS PM <90 D PHYS/QHP Routine 08/20/2021 12:00 AM EDT Vector Remote Device PACEART REPORT Routine 08/17/2021 6:18 PM EDT MAGNESIUM LEVEL Routine 08/17/2021 1:04 PM EDT Persistent atrial fibrillation (HCC) BASIC METABOLIC PANEL Routine 08/17/2021 1:04 PM EDT Persistent atrial fibrillation (HCC) BASIC METABOLIC PANEL Routine 07/02/2021 3:27 PM EDT Chronic systolic congestive heart failure (HCC) EC ECHOCARDIOGRAM COMPLETE W DOPPLER AND COLOR FLOW MAPPING Routine 05/22/2021 10:33 AM EDT Chronic systolic congestive heart failure (HCC) Persistent atrial fibrillation (HCC) PACEART REPORT Routine 05/15/2021 8:35 PM EDT PACEART REPORT Routine 03/27/2021 6:59 AM EST SCANNED LABS 03/01/2021 1:47 PM EST SCANNED EKG 02/06/2021 9:31 AM EST PACEART REPORT Routine 01/29/2021 2:35 PM EST NT PROBNP Routine 01/29/2021 10:58 AM EST Systolic congestive heart failure, unspecified HF chronicity (HCC) BASIC METABOLIC PANEL Routine 01/29/2021 10:58 AM EST Systolic congestive heart failure, unspecified HF chronicity (HCC) CBC Routine 01/29/2021 10:58 AM EST Systolic congestive heart failure, unspecified HF chronicity (HCC) PACEART REPORT Routine 01/23/2021 12:09 AM EST PACEART REPORT Routine 11/23/2020 12:58 PM EDT PACEART REPORT Routine 06/30/2020 6:42 PM EDT Biventricular cardiac pacemaker in situ PACEART REPORT Routine 04/07/2020 4:33 PM EST PACEART REPORT Routine 03/31/2020 6:10 AM EST EC ECHOCARDIOGRAM COMPLETE W DOPPLER AND COLOR FLOW MAPPING Routine 01/26/2020 2:37 PM EST NICM (nonischemic cardiomyopathy) (HCC) Chronic systolic congestive heart failure (HCC) PACEART REPORT Routine 01/11/2020 12:15 AM EST PACEART REPORT Routine 12/31/2019 7:19 PM EST Biventricular cardiac pacemaker in situ PACEART REPORT Routine 10/04/2019 6:56 AM EDT PACEART REPORT Routine 07/05/2019 6:14 AM EDT PACEART REPORT Routine 04/05/2019 5:51 AM EST PACEART REPORT Routine 12/25/2018 6:05 PM EDT PACEART REPORT Routine 08/07/2018 7:46 PM EDT Pacemaker reprogramming/c heck PACEART REPORT Routine 03/26/2018 5:06 PM EST CARDIAC INTERROGATION DEVICE 03/14/2018 4:23 PM EST ECG AND WAVEFORMS - TELEMETRY Routine 03/13/2018 7:43 AM EST MAGNESIUM LEVEL Routine 03/13/2018 6:31 AM EST BASIC METABOLIC PANEL Routine 03/13/2018 6:31 AM EST CBC WITH DIFF Routine 03/13/2018 6:31 AM EST PACEART REPORT Routine 03/12/2018 9:10 PM EST ECG AND WAVEFORMS - TELEMETRY Routine 03/12/2018 7:56 PM EST SCANNED EKG 03/12/2018 6:08 PM EST ECG AND WAVEFORMS - TELEMETRY Routine 03/12/2018 5:25 PM EST IP CONSULT TO CARDIOLOGY Routine 03/12/2018 5:13 PM EST Procedure Note - Daryl Leroy MD - 03/13/2018 8:33 AM ESTThis note is in progress. CARDIOLOGY CONSULT Brandon Rios Today's Date: 03/13/2018 Date of Admission: 03/11/2018 Primary Care Provider: No primary care provider on file. Waiver Analyst: Dr. Angelo Milan Chief Complaint: chest pain Reason for Consult: chf Referring MD:Dr. Dyer HPI: Brandon Rios is an 82 year old male who presented with cp and sob. Wassent to ER by Dr. Lennon's office. Reports he's been gasping for air unable to lie flat. Some associated cp with his sob. -Has had 2 extensive admissions end of 2017, which included MVR with anassociated would dehis. 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 Reports breathing is 99% better PMH: AF, NICM, dementia, s/p MVR, h/o NSVT, HTN ROS: Denies: Constitutional: fever, chills ENT: headaches, vertigo Cardiovascular: +chest pain, +dyspnea, palpitations, edema, orthopnea,lightheaded, syncope Pulmonary: +cough, sputum production Gastrointestinal: abdominal pain, nausea, vomiting Genitourinary: change in bladder habits Musculoskeletal: weakness, joint complaints Integumentary: rash Endocrine: fatigue Hematologic/Lymphatic: abnormal bruising Allergic/Immunologic: hives Complains of: sob (resolving) No Known Allergies Prior to Admission Medications Prescriptions Prior to Admission Medication Sig Dispense Refill Last Dose apixaban (ELIQUIS) 2.5 mg Oral Tablet Take 1 Tab by mouth 2 times daily.60 Tab 3 03/11/2018 at 800 aspirin 81 mg Oral Tablet, Chewable Take 1 Tab by mouth daily.03/11/2018 at 800 docusate sodium (COLACE) 100 mg Oral Capsule Take 1 Cap by mouth 2 timesdaily. 30 Cap 0 Taking at Unknown time ibuprofen (ADVIL;MOTRIN) 400 mg Oral Tablet Take 400 mg by mouth every 4hours as needed for Pain. 03/11/2018 at 800 melatonin 5 mg Oral Tablet Take by mouth. Taking metoprolol (LOPRESSOR) 100 mg Oral Tablet Take 1 Tab by mouth 2 timesdaily. 60 Tab 3 03/11/2018 at 800 polyethylene glycol (GLYCOLAX, MIRALAX) 17 gram Oral Powder in PacketTake 17 g by mouth daily. Taking at Unknown time pramipexole (MIRAPEX) 0.25 mg Oral Tablet Take 0.25 mg by mouth once.Every bedtime 03/10/2018 at 2100 tamsulosin (FLOMAX) 0.4 mg Oral Capsule Take 0.4 mg by mouth daily.03/11/2018 at 800 venlafaxine (EFFEXOR) 75 mg Oral Tablet Take 1 Tab by mouth everyevening. 30 Tab 4 03/10/2018 at 2100 Past Medical History: Past Medical History: Diagnosis Date Atrial fibrillation (HCC) 11/28/2017 CHF (congestive heart failure) (HCC) NICM (nonischemic cardiomyopathy) (HCC) 11/28/2017 S/P AV rissa ablation 03/12/[address] Lennon Surgical History: Past Surgical History: Procedure Laterality Date BRONCHOSCOPY N/A 12/18/2017 BRONCHOSCOPY at bedside with bronchoaveolar lavage ; Surgeon: Stu Abdi MD; Location: [facility] ENDOSCOPY; Service:Endoscopy CARDIAC SURGERY N/A 12/05/2017 reopen sternotomy,control of bleeding; Surgeon: Fred Marquez MD;Location: [facility] MAIN OR; Service: Open Heart CARDIOVERSION 12/01/[address] Lennon CARDIOVERSION 12/11/[address] Lennon CARDIOVERSION 01/01/2018 IR PICC INSERTION EQUAL OR > 5 YEARS 12/24/2017 IR PICC INSERTION EQUAL OR > 5 YEARS 12/24/2017 Leila Mix PA-C [facility] IR ULTRASOUND GUIDED VASCULAR ACCESS 12/24/2017 IR ULTRASOUND GUIDED VASCULAR ACCESS 12/24/2017 Boone, Leila R, PA-C [facility] IR US GUIDED THORACENTESIS 12/16/2017 IR US GUIDED THORACENTESIS 12/16/2017 [facility] ULTRASOUND KNEE SURGERY MITRAL VALVE REPLACEMENT N/A 12/05/2017 Mitral ValveReplacement-tissue, MAZE Procedure, Ligation Left AtrialAppendage, 3D Trans esophageal Echocardiogram; Surgeon: Fred Marquez MD; Location: [facility] MAIN OR; Service: Open Heart PACEMAKER INSERTION Left 03/12/[address] [employer] [address] Lennon STERNUM DEBRIDEMENT N/A 12/17/2017 sternal debridement and re-wire; Surgeon: Fred Marquez MD;Location: [facility] MAIN OR; Service: Open Heart Family History: History reviewed. No pertinent family history. Social History: reports that he has never smoked. He has never used smokeless tobacco. Hereports that he does not drink alcohol or use drugs. Labs: Lab Results Component Value Date HGB 13.1 (L) 03/13/2018 HCT 42.3 03/13/2018 PLT 171 03/13/2018 NA 139 03/13/2018 K 4.2 03/13/2018 CREATININE 1.09 03/13/2018 BUN 19 03/13/2018 TSH 1.400 02/01/2018 INR 1.23 (H) 01/09/2018 Vitals: Vitals: 03/13/18 0506 03/13/18 0519 03/13/18 0525 03/13/18 0808 BP: 91/50 95/51 (!) 85/42 BP Location: Right arm Right arm Right arm Patient Position: Semi Fowlers Sitting Semi Fowlers Pulse: 88 89 90 Resp: 16 16 16 Temp: 97.4 F (36.3 C) 97.8 F (36.6 C) 98 F (36.7 C) TempSrc: Oral Oral Oral SpO2: 93% 90% 95% 94% Weight: Height: Body mass index is 26.57 kg/m . Echo (complete) 11/2017 CONCLUSIONS Left Ventricular ejection fraction is normal, estimated at 50-55%. Normal global left ventricular size and wall thickness No obvious regional wall motion abnormalities. Mild left atrial dilatation. Mitral valve is mildly thickened. with prolapse of the anterior leaflet. Eccentric mitral regurgitation which is posteriorally directed ,probably moderate in severity. Mild tricuspid regurgitation. LHC/RHC 11/2017 Conclusion Result status: Final result Final Impression: 1. Mild Coronary artery disease as described above 2. Normal filling pressures 3. Preserved left ventricular systolic function 4. At least moderate mitral regurgitation. Echo limited 12/2017 CONCLUSIONS This was a limited exam for ejection fraction. Patient refused tocomplete the exam. Normal global left ventricular size and wall thickness. Difficult to assess for wall motion and ejection fraction due toabnormal rhythm, however, the ejection fraction appears to be mildly decreased 45-50%. A new bioprosthetic mitral valve visualized. The valve appears to bewell seated. There appears to be trace valvular mitral regurgitation. Limited Echo 12/2017 CONCLUSIONS Reduced ejection fraction by visual estimate 35-40% TELEMETRY:V paced Physical Exam: GEN: Alert, pleasant and oriented x3. In no acute distress. HEENT: EOM's intact. NECK: Supple. Carotids without bruits. No JVD LUNGS: slightly diminished RLL. Chest wall nontender. HEART: RRR, no murmur, gallop, or rub. dsg in place mid and left chest ABD: soft, nontender, positive bowel sounds EXT: no edema, +2 radial, +2 PT pulses NEURO: no obvious focal abnormalities EK/16 AF with RVR Assessment: HFrEF -EF 45-50% -increased interstitial markings cxr 03/12 -BNP 4799 -lasix 40mg IVP x 1 03/12 -net I & O -2.3L -on metoprolol SEAM STAY STITCHER, but no diuretics S/P PPM 03/12/17 -AVN ablation, BiV PPM per Dr. Saji MENENDEZ -mild ds per cath 11/2017 -on ASA, metoprolol SEAM STAY STITCHER S/P MVR -bioprosthetic 11/2017 -had sternal wound dehis post op requiring chest wall debridement andsternal re-wire -well seated valve per echo 12/2017 Atrial fib -s/p DCCV, MAZE and NOY ligation 11/2017 -h/o amio toxicity -sotalol previous d/c'd 2/2 prolonged QT -on eliquis, metoprolol SEAM STAY STITCHER NICM -EF 45-50% -on metoprolol SEAM STAY STITCHER H/O NSVT -on metoprolol SEAM STAY STITCHER HTN -on metoprolol SEAM STAY STITCHER Dementia Plan: -SOB patient was having likely to fluid overload. Has had good UOP withdose of IV lasix. SOB has almost completely resolved. Not on any diureticsprior to admission -Will start lasix po daily -Recent echos have been limited. Last complete echo 11/2017. Will deferneed to repeat to fourdrinier tender -Continue eliquis, ASA, metoprolol -EP following s/p BiV PPM Further input to follow-up from Dr. Rad Puente, SITE SUPERVISOR 03/13/2018 Cardiology: ATTENDING PHYSICIAN ATTESTATION: The patient was seen in collaboration with the nurse practioner. I have reviewed all the pertinent history, laboratory and radiologystudies. I have taken a history and performed a physical examination of thispatient. I agree with the history, physical, assessment and plan as outlinedabove. Patent seen and examined Chest exam: negative CVS S1 S2 normal No murmurs or gallops As above. Patient's shortness shortness of breath is improved afterdiuresis in the hospital okay to go from cardiac standpoint on p.o. Lasix. I reduced his dose ofhis metoprolol to 50 mg twice daily due to low blood pressure Thanks for consult follow-up with his own fourdrinier tender in 3-4 weeks XR CHEST AP PORTABLE STAT 03/12/2018 4:30 PM EST INTRAOP AIRWAY PLACEMENT Routine 03/12/2018 4:06 PM EST ELECTROPHYSIOLOGY PROCEDURE Routine 03/12/2018 3:58 PM EST Heart failure, unspecified HF chronicity, unspecified heart failure type (HCC) ECG AND WAVEFORMS - TELEMETRY Routine 03/12/2018 7:44 AM EST PHOSPHORUS LEVEL Routine 03/12/2018 7:21 AM EST MAGNESIUM LEVEL Routine 03/12/2018 7:21 AM EST BASIC METABOLIC PANEL Routine 03/12/2018 7:21 AM EST CBC WITH DIFF Routine 03/12/2018 7:21 AM EST ECG AND WAVEFORMS - TELEMETRY Routine 03/12/2018 3:07 AM EST ECG AND WAVEFORMS - TELEMETRY Routine 03/11/2018 7:38 PM EST TROPONIN-T HIGH SENSITIVITY BASELINE W/ REFLEX Timed 03/11/2018 7:32 PM EST IP CONSULT TO NUTRITION Routine 03/11/2018 6:47 PM EST ECG AND WAVEFORMS - TELEMETRY Routine 03/11/2018 6:17 PM EST IP CONSULT TO ELECTROPHYSIOLOGY Routine 03/11/2018 4:19 PM EST Procedure Note - Alo Lennon MD - 03/12/2018 7:43 AM ESTThis note is in progress. ADMISSION: 03/12/2018 PATIENT: Brandon Rios [id number] PCP: No primary care provider on file. Electrophysiology Consultation I would like to thank Maxi Dyer MD for requesting me to see yourpatient, Brandon Rios in consultation for AF with RVR. Mr. Rios is a 82 yo male with history of persistent AF- Dx 2004, S/Pseveral DCCV- 2 post surgery, severe MR, S/P MVR bioprosthetic and S/Psurgical MAZE/NOY ligation- Sternal wound dehiscence and infection postprocedure, CHF, Cardiomyopathy, HTN, ETOH. 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 He wasseen in office last week and was in AF with RVR. His BB was up titrated.Yesterday when we spoke to him on the phone he C/O SOB. He reportsincrease SOB x 3 days. He presented to ED yesterday. Intermittent chestdiscomfort with inspiration. Son reports his father has gained 20 lbs.Denies edema, abdominal bloating. EKG showed AF with RVR on admission. Hecontinues to have AF with RVR on monitor. Denies syncope. Occ LH. Deniespalpitation. He's afebrile. WBC normal. Past Medical History Past Medical History: Diagnosis Date Atrial fibrillation (HCC) 11/28/2017 CHF (congestive heart failure) (HCC) NICM (nonischemic cardiomyopathy) (HCC) 11/28/2017 Medication No current facility-administered medications on file prior to encounter. Current Outpatient Prescriptions on File Prior to Encounter Medication Sig Dispense Refill apixaban (ELIQUIS) 2.5 mg Oral Tablet Take 1 Tab by mouth 2 times daily.60 Tab 3 aspirin 81 mg Oral Tablet, Chewable Take 1 Tab by mouth daily. docusate sodium (COLACE) 100 mg Oral Capsule Take 1 Cap by mouth 2 timesdaily. 30 Cap 0 metoprolol (LOPRESSOR) 100 mg Oral Tablet Take 1 Tab by mouth 2 timesdaily. 60 Tab 3 polyethylene glycol (GLYCOLAX, MIRALAX) 17 gram Oral Powder in PacketTake 17 g by mouth daily. pramipexole (MIRAPEX) 0.25 mg Oral Tablet Take 0.25 mg by mouth once.Every bedtime tamsulosin (FLOMAX) 0.4 mg Oral Capsule Take 0.4 mg by mouth daily. venlafaxine (EFFEXOR) 75 mg Oral Tablet Take 1 Tab by mouth everyevening. 30 Tab 4 Scheduled Meds: apixaban 2.5 mg Oral BID aspirin 81 mg Oral Daily melatonin 5 mg Oral Nightly metoprolol 75 mg Oral BID pramipexole 0.25 mg Oral QPM tamsulosin 0.4 mg Oral Daily venlafaxine 75 mg Oral QPM Continuous Infusions: Past Surgical History Past Surgical History: Procedure Laterality Date BRONCHOSCOPY N/A 12/18/2017 BRONCHOSCOPY at bedside with bronchoaveolar lavage ; Surgeon: Stu Abdi MD; Location: [facility] ENDOSCOPY; Service:Endoscopy CARDIAC SURGERY N/A 12/05/2017 reopen sternotomy,control of bleeding; Surgeon: Fred Maqruez MD;Location: [facility] MAIN OR; Service: Open Heart CARDIOVERSION 12/01/[address] Lennon CARDIOVERSION 12/11/[address] Lennon CARDIOVERSION 01/01/2018 IR PICC INSERTION EQUAL OR > 5 YEARS 12/24/2017 IR PICC INSERTION EQUAL OR > 5 YEARS 12/24/2017 Leila Mix PA-C [facility] IR ULTRASOUND GUIDED VASCULAR ACCESS 12/24/2017 IR ULTRASOUND GUIDED VASCULAR ACCESS 12/24/2017 Leila Mix PA-C [facility] IR US GUIDED THORACENTESIS 12/16/2017 IR US GUIDED THORACENTESIS 12/16/2017 [facility] ULTRASOUND KNEE SURGERY MITRAL VALVE REPLACEMENT N/A 12/05/2017 Mitral ValveReplacement-tissue, MAZE Procedure, Ligation Left AtrialAppendage, 3D Trans esophageal Echocardiogram; Surgeon: Fred Marquez MD; Location: [facility] MA[facility] OR; Service: Open Heart STERNUM DEBRIDEMENT N/A 12/17/2017 sternal debridement and re-wire; Surgeon: Fred Marquez MD;Location: [facility] MAIN OR; Service: Open Heart Allergy No Known Allergies Family History History reviewed. No pertinent family history. Social History Social History Substance Use Topics Smoking status: Never Smoker Smokeless tobacco: Never Used Alcohol use No Comment: rare Review of Systems Constitutional: negative for - fever, weight loss. +Wt gain. +tired Ophthalmic: negative for - eye pain, diplopia ENT: negative for - hearing loss, sore throat Respiratory: +SOB, +CARRASCO Cardiovascular: negative for - dizziness, lightheadedness, syncope,palpitation. +chest discomfort. Gastrointestinal: negative for - abdominal pain, N/V, melena,hematochezia Hematology: negative for - bleeding, blood clots, bruising Genito-Urinary: negative for - dysuria or incontinence Musculoskeletal: negative for - muscle pain, gait disturbance.+generalized weakness Neurological: negative for - TIA symptoms, confusion Psychiatric: negative for - anxiety, depression Dermatological: negative for - rash, pruritis Objective: BP 103/69 (BP Location: Right arm, Patient Position: Supine) Pulse 132 Temp 97.1 F (36.2 C) (Oral) Resp 18 Ht 6' (1.829 m) Wt 195 lb14.4 oz (88.9 kg) SpO2 95% BMI 26.57 kg/m Physical Exam: Constitutional: Vital signs above. No distress Eyes: sclera white, conjunctiva clear ENT: Oropharynx is clear and moist Neck: Neck supple. No JVD present Cardiovascular: tachycardia, irregularly irregular rhythm, no edema Pulmonary/Chest: Bilateral respiratory sounds. No wheezes, no Rhonchi.Sternum well healed Gastrointestinal: Soft. Bowel sounds present. No distention, Notenderness. Musculoskeletal: no cyanosis, no atrophy or weakness Neurological: Alert and oriented. No gross deficit Hematological: No abnormal bruising, no petechiae Skin: Warm and dry. No rash noted Psychiatric: Normal mood, affect, and behavior Diagnostic tests: Lab Results Component Value Date WBC 7.0 03/11/2018 HGB 14.1 03/11/2018 HCT 44.2 03/11/2018 PLT 174 03/11/2018 Lab Results Component Value Date CREATININE 0.96 03/11/2018 BUN 18 03/11/2018 NA 142 03/11/2018 K 4.6 03/11/2018 CL 106 03/11/2018 CO2 24 03/11/2018 Lab Results Component Value Date CHOLESTEROL 167 01/09/2018 TRIG 72 01/09/2018 HDL 32 (L) 01/09/2018 LDLCALC 121 (H) 01/09/2018 Lab Results Component Value Date ALT 11 02/03/2018 AST 14 02/03/2018 Lab Results Component Value Date TSH 1.400 02/01/2018 Lab Results Component Value Date INR 1.23 (H) 01/09/2018 No results found for: CKTOTAL, CKMB, CKMBINDEX, TROPONINI Chest X-Ray: 03/11/18 1. Interval decrease in small right pleural effusion. 2. Otherwise, no significant change since January 13, 2018. Chronic leftbase parenchymal and pleural disease. A superimposed acute process cannot beentirely excluded and therefore, clinical correlation necessary. EC03/11/18 AF Telemetry: AF, VR currently 130's, rates increase 140-150's at times Echocardiogram: TTE limited 01/12/18 Reduced ejection fraction by visual estimate. EF 35-40% TTE 01/06/18 This was a limited exam for ejection fraction. Patient refused tocomplete the exam. Normal global left ventricular size and wall thickness. Difficult to assess for wall motion and ejection fraction due toabnormal rhythm, however, the ejection fraction appears to be mildlydecreased 45-50%. A new bioprosthetic mitral valve visualized. The valve appears to bewell seated. There appears to be trace valvular mitral regurgitation. Ischemic Evaluation: Cardiac cath 12/01/17 Coronary Findings Dominance: Right Left Anterior Descending The vessel is moderate in size. The vessel exhibits minimal luminalirregularities. This vessel is mildly tortuous. Left Circumflex The vessel is moderate in size. The vessel exhibits minimal luminalirregularities. This vessel is mildly tortuous. Right Coronary Artery The vessel is small. The vessel exhibits minimal luminal irregularities.This vessel is mildly tortuous. Implants No implant documentation for this case. Left Heart Left Ventricle The left ventricular size is in the upper limits of normal.The ejection fraction is 50-55% by visual estimate. Mitral Valve There is moderate (3+) mitral regurgitation. Aortic Valve There is no aortic valve stenosis. Left Heart Pressures LVEDP /post-A wave : 6 mmHg Right Heart Right Heart [place]-Ashutosh catheter inserted via the right femoral vein andadvanced through right heart into pulmonary artery. Cardiac output was obtained through Moon method. Right atrial pressure isnormal. There was no Pulmonary Hypertension. No vasodilator challenge performed.RA 5 sats 66.5 RV: 25/7 PA: 26/10 ~ 12 Sats 67.5 Wedge 12 AIR REST Data Systolic Diastolic EDP MEAN A Wave V WAVE AO pressures 113 mmHg 54 mmHg 75 mmHg 98 mmHg 52 mmHg 70 mmHg 106 mmHg 56 mmHg 76 mmHg LV pressures 99 mmHg 2 mmHg 8 mmHg 102 mmHg 1 mmHg 6 mmHg RA pressures 5 mmHg 5 mmHg 5 mmHg RV pressures 25 mmHg 7 mmHg PA pressures 27 mmHg 5 mmHg 16 mmHg PCWP 12 mmHg 12 mmHg 12 mmHg Blood Oximetry 12/01/17 1526--12/01/17 1625 before discharge Date/Time RA O2 SATURATION PA O2 SATURATION FA O2 SATURATION 12/01/17 15:36:08 67 % 68 % 88 % AIR REST Data HR TDCO TDCI Moon CO Moon CI PVR/SVR TPR/TVR PVR SVR CO results 6.68 L/min 3.06 (L/min)/BSA Resistance 0.05 0.2 0.57 HRU 10.48 HRU Conclusion Result status: Final result Final Impression: 1. Mild Coronary artery disease as described above 2. Normal filling pressures 3. Preserved left ventricular systolic function 4. At least moderate mitral regurgitation. Plan: 1. The patient will be evaluated by cardiothoracic surgery. Last [id number] Score Documented Value Time User [id number] - CALCULATED SCORE 3 03/12/2018 10:46 AM Brian Lagos APRN The most recent cardiovascular imaging studies available in [facility] EMR werereviewed at time of consultation Assessment: Active Hospital Problems Diagnosis *Rapid atrial fibrillation (HCC) SOB (shortness of breath) Pleural effusion S/P mitral valve replacement with bioprosthetic valve Chronic systolic congestive heart failure (HCC) Plan: Patient is a 82 yo male with history of persistent AF, recent MVR, MAZE,NOY ligation, cardiomyopathy. He was recently seen in office and found yolette in AF with RVR. His Metoprolol was increased but later decreased forsymptoms. He's had increasing SOB/CARRASCO, remains in AF with RVR. Difficultto control HR with low BP. Last Echo showed EF 35-40%. Recommendation wasBiV PPM/AV node ablation if medication fails to control HR. Scheduled forprocedure today with Dr. Lennon. Ronit Lagos APRN ATTENDING PHYSICIAN ATTESTATION: The patient was seen in collaboration with the [facility]. I have reviewed all the pertinent history, ROS, laboratory and radiologystudies. I have taken a history and performed a physical examination of thispatient. I agree with the history, physical, assessment and plan as outlinedabove. HPI: Mr. Rios is an 82 yo man well known to me. Last week I increased hismetoprolol for RVR. He continued to have SOB/CARRASCO and presented to [facility]. Continues to be in rapid ventricular response overnight. Physical Examination:BP 102/67 (BP Location: Right arm) Pulse 89 Temp 97.4 F (36.3 C) (Oral) Resp 17 Ht 6' (1.829 m) Wt 195 lb14.4 oz (88.9 kg) SpO2 92% BMI 26.57 kg/m General: NAD, AO3 Neck: Nontender, neck veins are flat, trachea is midline Lung: clear to auscultation bilaterally Heart: Rapid and irregularly irregular rhythm, S1, S2 normal, no murmur,click, rub or gallop Abdomen: Soft, NT, ND Extremities: No edema Pulses: 2+ and symmetric Skin: warm and dry Neuro: normal without focal findings, NATALIE and mental status, speechnormal, alert and oriented x iii Assessment/Plan: 1. Atrial Fibrillation with RVR --> s/p MAZE and NOY ligation 2. Bioprosthetic mitral valve replacement c/b sternal wound infectionwhich has now healed 3. Moderate LV systolic dysfunction, LVEF 35-40%; tachycardia mediated Patient is well known to me. Following mitral valve surgery he had aprolonged and complicated postoperative course with difficult to controlatrial fibrillation with RVR. Anti-arrhythmic drugs (amio, sotalol,flecainide) were unable to maintain sinus rhythm or not tolerated.Ventricular response was not able to be adequately controlled on maximallytolerated AV rissa blocking agents. He is not a good candidate for AFablation given biatrial enlargement. Recommend a biventricular pacemakerand AV node ablation. Alo Lennon MD 03/12/2018 13:00 MAGNESIUM LEVEL Add-On 03/11/2018 3:56 PM EST TROPONIN-T HIGH SENSITIVITY BASELINE W/ REFLEX Timed 03/11/2018 3:56 PM EST NT PROBNP STAT 03/11/2018 1:52 PM EST TROPONIN-T HIGH SENSITIVITY BASELINE W/ REFLEX STAT 03/11/2018 1:52 PM EST BASIC METABOLIC PANEL STAT 03/11/2018 1:52 PM EST CBC WITH DIFF STAT 03/11/2018 1:52 PM EST XR CHEST PA AND LATERAL BUBBA 03/11/2018 1:43 PM EST SALINE LOCK IV STAT 03/11/2018 1:24 PM EST EK EKG 12 LEAD STAT 03/11/2018 12:47 PM EST POCT EKG Routine 03/06/2018 10:32 AM EST Paroxysmal atrial fibrillation (HCC) SEDIMENTATION RATE AUTOMATED Timed 02/03/2018 6:01 AM EST COMPREHENSIVE METABOLIC PANEL Timed 02/03/2018 6:01 AM EST CBC WITH DIFF Timed 02/03/2018 6:01 AM EST C-REACTIVE PROTEIN Timed 02/03/2018 6:01 AM EST THYROID STIMULATING HORMONE Routine 02/01/2018 6:21 AM EST TESTOSTERONE LEVEL TOTAL Routine 02/01/2018 6:21 AM EST VITAMIN D 25 HYDROXY Routine 02/01/2018 6:21 AM EST VITAMIN B12/ FOLIC ACID Routine 02/01/2018 6:21 AM EST COMPREHENSIVE METABOLIC PANEL Routine 02/01/2018 6:21 AM EST CBC Routine 02/01/2018 6:21 AM EST BASIC METABOLIC PANEL Routine 01/31/2018 6:21 AM EST URINE CULTURE (NO STAIN) Routine 01/30/2018 11:21 PM EST CBC WITH DIFF Routine 01/29/2018 5:54 AM EST BASIC METABOLIC PANEL Routine 01/29/2018 5:54 AM EST EK EKG 12 LEAD Routine 01/28/2018 2:35 PM EST SEDIMENTATION RATE AUTOMATED Timed 01/27/2018 6:04 AM EST COMPREHENSIVE METABOLIC PANEL Timed 01/27/2018 6:04 AM EST CBC WITH DIFF Timed 01/27/2018 6:04 AM EST C-REACTIVE PROTEIN Timed 01/27/2018 6:04 AM EST BASIC METABOLIC PANEL Routine 01/26/2018 5:56 PM EST CBC WITH DIFF Routine 01/26/2018 5:56 PM EST COMPREHENSIVE METABOLIC PANEL Routine 01/21/2018 5:23 AM EST CBC Routine 01/21/2018 5:23 AM EST SEDIMENTATION RATE AUTOMATED Timed 01/20/2018 4:55 AM EST COMPREHENSIVE METABOLIC PANEL Timed 01/20/2018 4:55 AM EST CBC WITH DIFF Timed 01/20/2018 4:55 AM EST C-REACTIVE PROTEIN Timed 01/20/2018 4:55 AM EST IP CONSULT TO INTERVENTIONAL RADIOLOGY Routine 01/19/2018 3:08 PM EST Procedure Note - Leila Mix PA-C - 01/19/2018 4:28 PM ESTThis note is in progress. IR aware of consult request for possible chest tube. Case and imagesreviewed with Dr Jose Gates. IR would like opinion from [facility] consideringthis is a complex loculated effusion and unsure whether our small pigtailpleural drain will be able to completely evacuate this collection. [employer] message has been sent to [facility]. Await options and opinion. COMPREHENSIVE METABOLIC PANEL Routine 01/18/2018 6:00 AM EST CBC Routine 01/18/2018 6:[address] CHEST WO CONTRAST BUBBA 01/17/2018 9:34 AM EST IP CONSULT TO PULMONOLOGY Routine 01/13/2018 10:19 PM EST Procedure Note - Kavon Reese MD - 01/16/2018 4:36 PM ESTThis note is in progress. Patient: Brandon Rios Date of Admission: 01/12/2018 Admitting Provider: Jeffrey Curtis MD Date of Consultation: 01/16/[address] Lomeli on 01/13. We were notified only today about the consult. D/w the clerical staff HISTORY OF PRESENT ILLNESS: 82 yo man with AFib, amiodarone toxicity (was on prednisone), hadbioprosthetic MVR, MAZE & Left atrial appendage ligation on 12/05/17. Thepost op course complicated by - post-op bleeding and mediastinal hematoma - incision cellulitis/abscess- required debridement - L pneumothorax s/p L chest tube with 1L of bloody drainage - Pulm infiltrates, s/p Bronch and cultures negative. He was [facility] the SNF on [facility]/09 for rehab. On antibiotics per ID and a chest xray was repeated on 01/13 to evaluatehis dypsnea- see below. Pt states his breathing is ok. Denies any fevers, chills, cough orhemoptysis. PAST MEDICAL HISTORY: Past Medical History: Diagnosis Date Atrial fibrillation (HCC) 11/28/2017 CHF (congestive heart failure) (HCC) NICM (nonischemic cardiomyopathy) (HCC) 11/28/2017 PAST SURGICAL HISTORY: Past Surgical History: Procedure Laterality Date BRONCHOSCOPY N/A 12/18/2017 BRONCHOSCOPY at bedside with bronchoaveolar lavage ; Surgeon: Stu Abdi MD; Location: [facility]; Service:Endoscopy CARDIAC SURGERY N/A 12/05/2017 reopen sternotomy,control of bleeding; Surgeon: Fred Marquez MD;Location: [facility] OR; Service: Open Heart CARDIOVERSION 12/01/[address] Lennon CARDIOVERSION 12/11/[address] Lennon CARDIOVERSION 01/01/2018 IR PICC INSERTION EQUAL OR > 5 YEARS 12/24/2017 IR PICC INSERTION EQUAL OR > 5 YEARS 12/24/2017 Leila Mix PA-C [facility] ULTRASOUND GUIDED VASCULAR ACCESS 12/24/2017 IR ULTRASOUND GUIDED VASCULAR ACCESS 12/24/2017 Leila Mix PA-C [facility] US GUIDED THORACENTESIS 12/16/2017 IR US GUIDED THORACENTESIS 12/16/2017 [facility] ULTRASOUND KNEE SURGERY MITRAL VALVE REPLACEMENT N/A 12/05/2017 Mitral ValveReplacement-tissue, MAZE Procedure, Ligation Left AtrialAppendage, 3D Trans esophageal Echocardiogram; Surgeon: Fred Marquez MD; Location: [facility]; Service: Open Heart STERNUM DEBRIDEMENT N/A 12/17/2017 sternal debridement and re-wire; Surgeon: Fred Marquez MD;Location: [facility]; Service: Open Heart No significant family history SOCIAL HISTORY: Social History Social History Marital status: Spouse name: N/A Number of children: N/A Years of education: N/A Occupational History Not on file. Social History Main Topics Smoking status: Never Smoker Smokeless tobacco: Never Used Alcohol use Yes Comment: rare Drug use: No Sexual activity: Not Currently Other Topics Concern Not on file Social History Narrative No narrative on file reports that he has never smoked. He has never used smokeless tobacco. No significant family history Scheduled Meds: ampicillin-sulbactam (UNASYN) IVPB (Orderable) 3 g Intravenous 4 timesper day aspirin 81 mg Oral Daily Check PPD Site MISCELLANEOUS Q14 Days Check PPD Site MISCELLANEOUS Q14 Days docusate sodium 100 mg Oral BID enoxaparin 40 mg Subcutaneous Daily - LMWH/Xa fUROsemide 20 mg Oral Daily lisinopril 40 mg Oral Daily metoprolol succinate ER 200 mg Oral Daily pantoprazole 40 mg Oral Daily polyethylene glycol 17 g Oral Daily tuberculin 5 Units Intradermal Q14 Days Continuous Infusions: ALLERGIES: Patient has No Known Allergies. REVIEW OF SYSTEMS: Constitutional: Negative except for mentioned in the HPI HENT: Negative for sore throat Eyes: Negative for redness, itching Respiratory: Negative for hemoptysis Cardiovascular: Negative for chest pain Gastrointestinal: Negative for vomiting, diarrhea Genitourinary: Negative for hematuria Musculoskeletal: Negative for arthralgias Skin: Negative for rash Neurological: Negative for syncope Hematological: Negative for adenopathy Psychiatric/Behavorial: Negative for anxiety, depression PHYSICAL EXAM: Vitals: 01/16/18 1305 BP: 130/80 Pulse: 71 Resp: 18 Temp: SpO2: Temp (24hrs), Av.2 F (36.2 C), Min:97 F (36.1 C), Max:97.3 F(36.3 C) & BP Min: 130/80 Max: 150/77 Intake/Output Summary (Last 24 hours) at 01/16/18 1636 Last data filed at 01/16/18 1400 Gross per 24 hour Intake 800 ml Output 400 ml Net 400 ml Constitutional: vitals as above; awake and alert, no distress. Wellgroomed and nourished ENT: clear nares, mucous membranes are moist Eyes: non-icteric sclerae, EOMI Cardiovascular: S1 and S2 are heard without murmurs or gallop, no JVD Respiratory: decreased on the left Musculoskeletal: no clubbing, joint swelling. Normal ROM Neurological: AAOX3, non focal Skin: no rashes, lesions or ulcers Psychiatric: normal affect and mood LABS: Lab Results Component Value Date WBC 10.0 01/13/2018 HGB 10.3 (L) 01/13/2018 HCT 32.5 (L) 01/13/2018 PLT 229 01/13/2018 Lab Results Component Value Date NA 140 01/13/2018 K 4.4 01/13/2018 CL 105 01/13/2018 CO2 24 01/13/2018 BUN 13 01/13/2018 CREATININE 0.92 01/13/2018 GLU 110 (H) 01/13/2018 No results for input(s): AST, ALT, LIPASE, BILIDIR, BILITOT, ALKPHOS inthe last 72 hours. Invalid input(s): AMYLASE, ALB No results found for this visit on 01/12/18 (from the past 336 hour(s)). I personally reviewed the chest imaging (xray and CT chest) and agree withthe radiologist's reading: Chest xray 01/13: Right approach PICC terminates in the SVC. Heart size is enlarged but stable. Prior mitral valve replacement in the upper cord are unchanged. Lung volumes are low. Likely left pleural effusion partially loculatedwith associated left basilar parenchymal opacity. Right lung is grosslyclear. IMPRESSION: Left pleural and parenchymal opacity with possible loculated component laterally. CT chest 12/27: 1. Pleural effusions with some loculation on the LEFT. Associatedbilateral pulmonary infiltrates. 2. Expected postsurgical alterations at the sternotomy. No alterationof mediastinal fat density to suggest superimposed mediastinitis. ASSESSMENT/PLAN: - S/p bioprosthetic MVR, MAZE & Left atrial appendage ligation on12/05/17 - Post op course complicated by - post-op bleeding and mediastinal hematoma - incision cellulitis/abscess- required debridement - L pneumothorax s/p L chest tube with 1L of bloody drainage - Pulm infiltrates, s/p Bronch and cultures negative - L sided pleural effusion, loculated - amiodarone tox, was on prednisone (prior to the surgery) Plan: - The L effusion was noted even on the CT scan from 12/27 (presumed to besterile) but has definitely increased in size on the xray from 01/13.However the pts resp status has been very stable, on room air and his wbcis normal. - Get a CT chest (without contrast) to better evaluate, may need athoracentesis to ensure it is not infected. Will also ask CTS to weigh independing on the CT results. - on ampicillin per ID Thank you for the consult, we will follow. [facility] XR CHEST PA AND LATERAL Routine 01/13/2018 1:54 PM EST EK EKG 12 LEAD STAT 01/13/2018 11:27 AM EST SEDIMENTATION RATE AUTOMATED Timed 01/13/2018 6:24 AM EST COMPREHENSIVE METABOLIC PANEL Timed 01/13/2018 6:24 AM EST CBC WITH DIFF Timed 01/13/2018 6:24 AM EST C-REACTIVE PROTEIN Timed 01/13/2018 6:24 AM EST SCANNED LABS 01/12/2018 4:31 PM EST IP CONSULT TO SOCIAL WORK Routine 01/12/2018 2:55 PM EST IP CONSULT TO NUTRITION Routine 01/12/2018 2:55 PM EST IP CONSULT TO SOCIAL WORK Routine 01/12/2018 2:50 PM EST IP CONSULT TO NUTRITION Routine 01/12/2018 2:50 PM EST EC ECHOCARDIOGRAM LIMITED Routine 01/12/2018 1:09 PM EST ECG AND WAVEFORMS - TELEMETRY Routine 01/12/2018 8:30 AM EST ECG AND WAVEFORMS - TELEMETRY Routine 01/12/2018 7:00 AM EST ECG AND WAVEFORMS - TELEMETRY Routine 01/11/2018 8:45 PM EST ECG AND WAVEFORMS - TELEMETRY Routine 01/11/2018 7:36 PM EST EK EKG 12 LEAD STAT 01/11/2018 10:56 AM EST ECG AND WAVEFORMS - TELEMETRY Routine 01/11/2018 10:44 AM EST ELECTROPHYSIOLOGY PROCEDURE Routine 01/11/2018 10:23 AM EST Persistent atrial fibrillation (HCC) PROFESSOR OF MUSIC HEMODYNAMIC WAVEFORMS Routine 01/11/2018 10:13 AM EST ECG AND WAVEFORMS - TELEMETRY Routine 01/11/2018 7:25 AM EST ECG AND WAVEFORMS - TELEMETRY Routine 01/11/2018 7:00 AM EST POTASSIUM LEVEL Routine 01/11/2018 4:02 AM EST MAGNESIUM LEVEL Routine 01/11/2018 4:02 AM EST EK EKG 12 LEAD Routine 01/11/2018 12:05 AM EST ECG AND WAVEFORMS - TELEMETRY Routine 01/10/2018 9:02 PM EST ECG AND WAVEFORMS - TELEMETRY Routine 01/10/2018 7:02 PM EST IP CONSULT TO ELECTROPHYSIOLOGY Routine 01/10/2018 12:16 PM EST Procedure Note - Alo Lennon MD - 01/10/2018 9:12 PM ESTThis note is in progress. Electrophysiology Consultation Note Admission Date:01/10/2018 PCP: No primary care provider on file. Requesting Physician: Dr. Rai Consult Requested For: AF with RVR 82 yo man s/p MVR (bioprosthetic valve), s/p NOY ligation, s/p surgicalMAZE, persistent AF recently discharged after prolonged hospitalizationafter [facility]. He was [facility] from [facility] to SNF on Friday. During transit he reportedchest discomfort that resolved prior to presenting to SNF. He was thenadmitted to TCU for chest pain evaluation. Cardiology is followingpatient. He is known to have AF with h/o prior cardioversions, amiodarone inducedpneumonitis, QT prolongation on sotalol 120mg BID currently on ratecontrol treatment with periods of RVR. PPM and AVN was not considered yolette a viable option b/c of SWI on abx and risk of CIED infection. Past Medical History Past Medical History: Diagnosis Date Atrial fibrillation (HCC) 11/28/2017 CHF (congestive heart failure) ([facility]) NICM (nonischemic cardiomyopathy) ([facility]) 11/28/2017 Medications No current facility-administered medications on file prior to encounter. Current Outpatient Prescriptions on File Prior to Encounter Medication Sig Dispense Refill acetylcysteine (MUCOMYST) 200 mg/mL (20 %) Misc Solution Inhale 4 mLinto the lungs as needed. ampicillin-sulbactam 3 g in sodium chloride 0.9 % 100 mL Inject 3 g intothe vein every 6 hours for 14 days. apixaban (ELIQUIS) 2.5 mg Oral Tablet Take 1 Tab by mouth 2 times daily.60 Tab 3 aspirin 81 mg Oral Tablet, Chewable Take 1 Tab by mouth daily. dilTIAZem (CARDIZEM CD) 360 mg Oral Capsule, Sust. Release 24 hr Take 1Cap by mouth daily. 60 Cap 3 docusate sodium (COLACE) 100 mg Oral Capsule Take 1 Cap by mouth 2 timesdaily. 30 Cap 0 metoprolol (LOPRESSOR) 100 mg Oral Tablet Take 1 Tab by mouth 2 timesdaily. 60 Tab 3 pantoprazole (PROTONIX) 40 mg Oral Tablet, Delayed Release (E.C.) Take 1Tab by mouth daily. 30 Tab 0 polyethylene glycol (GLYCOLAX, MIRALAX) 17 gram Oral Powder in PacketTake 17 g by mouth daily. tamsulosin (FLOMAX) 0.4 mg Oral Capsule Take 0.4 mg by mouth daily. Scheduled Meds: ampicillin-sulbactam (UNASYN) IVPB (Orderable) 3 g Intravenous 4 timesper day aspirin 81 mg Oral Daily dilTIAZem 360 mg Oral Daily docusate sodium 100 mg Oral BID enoxaparin 40 mg Subcutaneous Daily - LMWH/Xa metoprolol 100 mg Oral BID pantoprazole 40 mg Oral Daily polyethylene glycol 17 g Oral Daily Continuous Infusions: Past Surgical History Past Surgical History: Procedure Laterality Date BRONCHOSCOPY N/A 12/18/2017 BRONCHOSCOPY at bedside with bronchoaveolar lavage ; Surgeon: Stu Abdi MD; Location: [facility]; Service:Endoscopy CARDIAC SURGERY N/A 12/05/2017 reopen sternotomy,control of bleeding; Surgeon: Fred Maqruez MD;[facility]: [facility]; Service: Open Heart CARDIOVERSION 12/01/[address] Lennon CARDIOVERSION 12/11/[address] Lennon CARDIOVERSION 01/01/2018 IR PICC INSERTION EQUAL OR > 5 YEARS 12/24/2017 IR PICC INSERTION EQUAL OR > 5 YEARS 12/24/2017 Leila Mix PA-C [facility] IR ULTRASOUND GUIDED VASCULAR ACCESS 12/24/2017 IR ULTRASOUND GUIDED VASCULAR ACCESS 12/24/2017 Leila Mix PA-C [facility] US GUIDED THORACENTESIS 12/16/2017 IR US GUIDED THORACENTESIS 12/16/2017 [facility] ULTRASOUND KNEE SURGERY MITRAL VALVE REPLACEMENT N/A 12/05/2017 Mitral ValveReplacement-tissue, MAZE Procedure, Ligation Left AtrialAppendage, 3D Trans esophageal Echocardiogram; Surgeon: Fred Marquez MD; Location: [facility]; Service: Open Heart STERNUM DEBRIDEMENT N/A 12/17/2017 sternal debridement and re-wire; Surgeon: Fred Marquez MD;Location: [facility]; Service: Open Heart Allergy No Known Allergies Family History No family history on file. There is no pertinent family history based on the presenting problems. Social History Social History Substance Use Topics Smoking status: Never Smoker Smokeless tobacco: Never Used Alcohol use Yes Comment: rare Review of Systems negative, all other systems have been reviewed and are negative. Objective BP 120/61 (BP Location: Left arm, Patient Position: Semi Fowlers) Pulse67 Temp 98.2 F (36.8 C) (Oral) Resp 18 Ht 6' (1.829 m) Wt202 lb 14.4 oz (92 kg) SpO2 95% BMI 27.52 kg/m General: elderly man in No apparent distress. Alert and oriented. Eyes: No Scleral icterus. Ptosis is absent. Ears, Nose, Mouth, Throat: Oropharynx is clear. Nose is midline. Neck:Trachea is midline. Respiratory: Respiratory effort is normal. Clear to auscultationbilaterally Cardiovascular: Rhythm is rapid and irregulalry irregular. S1 and [id number]. N0 murmur. Pulses are normal. Jugular venous pressure is normal.Carotid Bruits are absent. Abdomen: Abdomen is soft and non tender. Extremeties: Clubbing is absent. Cyanosis is absent. No Edema Skin: Warm and dry. Neurological: Cranial nerves are grossly intact. Speech is normal. Psychiatric: Mood is normal. Affect is normal. Diagnostic Tests Lab Results Component Value Date WBC 7.9 01/09/2018 HGB 10.4 (L) 01/09/2018 HCT 33.1 (L) 01/09/2018 PLT 304 01/09/2018 Lab Results Component Value Date CREATININE 1.15 01/09/2018 BUN 11 01/09/2018 NA 143 01/09/2018 K 3.9 01/09/2018 CL 109 (H) 01/09/2018 CO2 25 01/09/2018 Lab Results Component Value Date CHOLESTEROL 167 01/09/2018 TRIG 72 01/09/2018 HDL 32 (L) 01/09/2018 LDLCALC 121 (H) 01/09/2018 Lab Results Component Value Date ALT 21 01/09/2018 AST 20 01/09/2018 Lab Results Component Value Date TSH 1.610 01/09/2018 Lab Results Component Value Date INR 1.23 (H) 01/09/2018 No results found for: CKTOTAL, CKMB, CKMBINDEX, TROPONINI Assessment 1. AF with RVR 2. S/p surgical MAZE 3. S/p NOY surgical ligation 4. S/p Bioprosthetic MVR 5. Sternal wound infection 6. NSVT Plan Flecainide 150mg BID --> Will repeat echo in SR for EF assessment. Recent LVEF done in settingof RVR was poor quality and incomplete. If LVEF remains low, will not beable to continue. Discussed with Dr. Rai Will plan for CVN tomorrow AM Anticoagulation is not indicated - the NOY is surgically excluded fromLA Continue metoprolol Hold AM diltiazem PPM and AVN is not considered to be a viable option b/c of SWI on abx andrisk of CIED infection. ECG AND WAVEFORMS - TELEMETRY Routine 01/10/2018 7:24 AM EST ECG AND WAVEFORMS - TELEMETRY Routine 01/10/2018 7:00 AM EST EK EKG 12 LEAD Routine 01/10/2018 12:06 AM EST BASIC METABOLIC PANEL Routine 01/09/2018 10:29 PM EST TROPONIN-T HIGH SENSITIVITY BASELINE W/ REFLEX Timed 01/09/2018 10:29 PM EST ECG AND WAVEFORMS - TELEMETRY Routine 01/09/2018 8:03 PM EST ECG AND WAVEFORMS - TELEMETRY Routine 01/09/2018 7:03 PM EST TROPONIN-T HIGH SENSITIVITY BASELINE W/ REFLEX Timed 01/09/2018 6:01 PM EST IP CONSULT TO CARDIOLOGY Routine 01/09/2018 5:55 PM EST Procedure Note - Riacrdo Rai MD - 01/10/2018 9:46 AM ESTThis note is in progress. Cardiology Consultation Admission: 01/10/2018 Patient: Brandon Rios [id number] PCP:No primary care provider on file. Waiver Analyst: Valentina Angelo MD - [place], [place] Presents with chest pain Cardiology consulted for chest pain PMH includes afib, NICM, dementia Recent extensive hospitalization (11/27 - 01/09/2018) at ED followingcardiversion, bioprosthetic MVR, MAZE procedure with NOY ligation, chestwall debridement with cellulitis. Upon arrival to [facility] (for rehab)began having chest pain transferred to TCU. States after leaving [facility] in son's truck began having mild SOB followed bymidtsternal chest pain. Describes as tightness, 2/10, lasted < 5 minutes,non radiating. States pain was completely gone before [facility]. No palpitations, presyncope, diaphoresis. Cardiac catheterization 12/01/2017 Minimal luminal irregularities Past Medical History Past Medical History: Diagnosis Date Atrial fibrillation (HCC) 11/28/2017 CHF (congestive heart failure) ([facility]) NICM (nonischemic cardiomyopathy) ([facility]) 11/28/2017 Medication No current facility-administered medications on file prior to encounter. Current Outpatient Prescriptions on File Prior to Encounter Medication Sig Dispense Refill acetylcysteine (MUCOMYST) 200 mg/mL (20 %) Misc Solution Inhale 4 mLinto the lungs as needed. ampicillin-sulbactam 3 g in sodium chloride 0.9 % 100 mL Inject 3 g intothe vein every 6 hours for 14 days. apixaban (ELIQUIS) 2.5 mg Oral Tablet Take 1 Tab by mouth 2 times daily.60 Tab 3 aspirin 81 mg Oral Tablet, Chewable Take 1 Tab by mouth daily. dilTIAZem (CARDIZEM CD) 360 mg Oral Capsule, Sust. Release 24 hr Take 1Cap by mouth daily. 60 Cap 3 docusate sodium (COLACE) 100 mg Oral Capsule Take 1 Cap by mouth 2 timesdaily. 30 Cap 0 metoprolol (LOPRESSOR) 100 mg Oral Tablet Take 1 Tab by mouth 2 timesdaily. 60 Tab 3 pantoprazole (PROTONIX) 40 mg Oral Tablet, Delayed Release (E.C.) Take 1Tab by mouth daily. 30 Tab 0 polyethylene glycol (GLYCOLAX, MIRALAX) 17 gram Oral Powder in PacketTake 17 g by mouth daily. tamsulosin (FLOMAX) 0.4 mg Oral Capsule Take 0.4 mg by mouth daily. Scheduled Meds: ampicillin-sulbactam (UNASYN) IVPB (Orderable) 3 g Intravenous 4 timesper day aspirin 81 mg Oral Daily dilTIAZem 360 mg Oral Daily docusate sodium 100 mg Oral BID enoxaparin 40 mg Subcutaneous Daily - LMWH/Xa pantoprazole 40 mg Oral Daily polyethylene glycol 17 g Oral Daily Continuous Infusions: Past Surgical History Past Surgical History: Procedure Laterality Date BRONCHOSCOPY N/A 12/18/2017 BRONCHOSCOPY at bedside with bronchoaveolar lavage ; Surgeon: Stu Abdi MD; [facility]; Service:Endoscopy CARDIAC SURGERY N/A 12/05/2017 reopen sternotomy,control of bleeding; Surgeon: Fred Marquez MD;Location: [facility]; Service: Open Heart CARDIOVERSION 12/01/[address] Lennon CARDIOVERSION 12/11/[address] Lennon CARDIOVERSION 01/01/2018 IR PICC INSERTION EQUAL OR > 5 YEARS 12/24/2017 IR PICC INSERTION EQUAL OR > 5 YEARS 12/24/2017 Leila Mix PA-C [facility] IR ULTRASOUND GUIDED VASCULAR ACCESS 12/24/2017 IR ULTRASOUND GUIDED VASCULAR ACCESS 12/24/2017 Leila Mix PA-C [facility] US GUIDED THORACENTESIS 12/16/2017 IR US GUIDED THORACENTESIS 12/16/2017 [facility] ULTRASOUND KNEE SURGERY MITRAL VALVE REPLACEMENT N/A 12/05/2017 Mitral ValveReplacement-tissue, MAZE Procedure, Ligation Left AtrialAppendage, 3D Trans esophageal Echocardiogram; Surgeon: Fred Marquez MD; Location: [facility]; Service: Open Heart STERNUM DEBRIDEMENT N/A 12/17/2017 sternal debridement and re-wire; Surgeon: Fred Marquez MD;Location: [facility]; Service: Open Heart Allergy No Known Allergies Family History No family history on file. Social History Social History Substance Use Topics Smoking status: Never Smoker Smokeless tobacco: Never Used Alcohol use Yes Comment: rare Review of Systems Denies or negative for the following: Constitutional: fever, chills, weight loss, weight gain, falls ENT: headaches, visual changes Cardiovascular: see HPI Pulmonary: cough, sputum production, wheezing, hemoptysis Gastrointestinal: abdominal pain, nausea, vomiting, constipation,diarrhea, hematochezia, melena Genitourinary: change in bladder habits, hematuria Musculoskeletal: weakness, joint complaints Integumentary: rash Endocrine: fatigue Hematologic/Lymphatic: abnormal bruising or excessive bleeding Allergic/Immunologic: hives Objective: BP 126/74 (BP Location: Left arm, Patient Position: Semi Fowlers) [id number] Temp 97.5 F (36.4 C) (Oral) Resp 20 Ht 6' (1.829 m) Wt202 lb 14.4 oz (92 kg) SpO2 95% BMI 27.52 kg/m General: alert, appears stated age, cooperative and no distress Oropharynx: normal Neck: nontender, no carotid bruit, no JVD, thyroid nonenlarged Lung: clear to auscultation bilaterally Heart: irregularly irregular rhythm and S1, S2 normal Abdomen: soft, non-tender. Bowel sounds normal. No masses, no organomegaly Extremities: extremities normal, atraumatic, no cyanosis or edema Pulses: 2+ and symmetric bilaterally,brachial, radial, inquinal,popliteal, posterior tibial and dorsalis pedis Skin: Warm and dry Neuro: No obvious focal deficits Diagnostic tests Lab Results Component Value Date WBC 7.9 01/09/2018 HGB 10.4 (L) 01/09/2018 HCT 33.1 (L) 01/09/2018 PLT 304 01/09/2018 Lab Results Component Value Date CREATININE 1.15 01/09/2018 BUN 11 01/09/2018 NA 143 01/09/2018 K 3.9 01/09/2018 CL 109 (H) 01/09/2018 CO2 25 01/09/2018 Lab Results Component Value Date CHOLESTEROL 167 01/09/2018 TRIG 72 01/09/2018 HDL 32 (L) 01/09/2018 LDLCALC 121 (H) 01/09/2018 Lab Results Component Value Date ALT 21 01/09/2018 AST 20 01/09/2018 Lab Results Component Value Date TSH 1.610 01/09/2018 Lab Results Component Value Date INR 1.23 (H) 01/09/2018 No results found for: CKTOTAL, CKMB, CKMBINDEX, TROPONINI Ek Ekg 12 Lead Result Date: 01/10/2018 NOTICE: Preliminary tracing available for review; Final Interpretation byphysician to follow. Stationary ECG StudySt. Nanda PrajapatiInterpretive StatementsATRIAL FIBRILLATION WITH RAPID VENTRICULAR RESPONSE ST DEVIATION ANDMODERATE T-WAVE ABNORMALITY, CONSIDER LATERAL ISCHEMIA [-0.1+ mV T WAVE INI/aVL/V5/V6] Ek Ekg 12 Lead Result Date: 01/09/2018 NOTICE: Preliminary tracing available for review; Final Interpretation byphysician to follow. Stationary ECG StudySt. Nanda PrajapatiInterpretive StatementsATRIAL FIBRILLATION decreased R progression, non specific STabnormalities. Electronically Signed On 01-09-2018 17:46:08 EST by MD Herman Telemetry: afib, rate 110's The most recent cardiovascular imaging studies availabe [facility] EMR werereviewed at time of consultation Assessment: 1. Chest pain Recent cath - minimal disease Echo 01/06- EF 45-50% 2. Mitral valve disease S/p MVR - biosprosthetic 3. Persistent afib S/p DCCV (12/11), MAZE, NOY ligation (12/06) Rate 110's Hx amio toxicity Sotalol stopped - prolonged QT interval 4. Hx NSVT 5. Dementia 6. Chest incision cellulitis / chest abscess 7. HTN Controlled Plan: Suspect noncardiac etiology for pain Continue ASA, CCB Resume BB Monitor rhythm Further input to follow per Dr. Fredi Patel APRN Pt was seen in conjunction with a mid-level provider. I obtained the history from the patient. I personally examined this patient. I discussed the plan with pt and at bedside. I placed orders in chart. Pt admitted with chest pain Pt with recent cardiac surgery Mild chest pain for about 10 min No recurrence No radiation Pain in center of chest Feels well now. On exam VSS Neck no JVD CVS s1, s2 irr RS no rales or rhonchi Abd soft + BS Ext no edema EKG course AFib Telemetry Afib Labs noted Plan. Atypical cp Med Rx Afib Consulted ARLINE Taylor, he know pt very well- proceed with CV tomorroww/o AC I obtained informed consent from patient and his son, Tenzin Risks not limited to stroke, medication reactions, aspiration pneumonia,life threatening arrhythmias and explained. S/p bioprosthetic mitral valve replacement ligation of left atrialappendage, MAZE on 12/05/2017 complicated by cardiac tamponade and takenback to the OR on 12/06/2017. Intraoperatively had an arrest requiringCPR, postop bleeding with mediastinal re exploration. hematomaevacuation was done and repair of left atriotomy and repair of rightatrium. Echo in Dec 2017- Difficult to assess for wall motion and ejectionfraction due to abnormal rhythm, however, the ejection fraction appears to be mildly decreased 45-50%. A new bioprosthetic mitral valve visualized. The valve appears to bewell seated. There appears to be trace valvular mitral regurgitation. IP CONSULT TO CARDIOLOGY Routine 01/09/2018 5:53 PM EST Procedure Note - Ricardo aRi MD - 01/10/2018 9:46 AM ESTThis note is in progress. Cardiology Consultation Admission: 01/10/2018 Patient: Brandon Rios [id number] PCP:No primary care provider on file. Waiver Analyst: Valentina Angelo MD - [place], [place] Presents with chest pain Cardiology consulted for chest pain PMH includes afib, NICM, dementia Recent extensive hospitalization (11/27 - 01/09/2018) at [facility] followingcardiversion, bioprosthetic MVR, MAZE procedure with NOY ligation, chestwall debridement with cellulitis. Upon arrival to [facility] (for rehab)began having chest pain transferred to TCU. States after leaving [facility] in son's truck began having mild SOB followed bymidtsternal chest pain. Describes as tightness, 2/10, lasted < 5 minutes,non radiating. States pain was completely gone before [facility]hospital [facility]. No palpitations, presyncope, diaphoresis. Cardiac catheterization 12/01/2017 Minimal luminal irregularities Past Medical History Past Medical History: Diagnosis Date Atrial fibrillation (HCC) 11/28/2017 CHF (congestive heart failure) ([facility]) NICM (nonischemic cardiomyopathy) ([facility]) 11/28/2017 Medication No current facility-administered medications on file prior to encounter. Current Outpatient Prescriptions on File Prior to Encounter Medication Sig Dispense Refill acetylcysteine (MUCOMYST) 200 mg/mL (20 %) Misc Solution Inhale 4 mLinto the lungs as needed. ampicillin-sulbactam 3 g in sodium chloride 0.9 % 100 mL Inject 3 g intothe vein every 6 hours for 14 days. apixaban (ELIQUIS) 2.5 mg Oral Tablet Take 1 Tab by mouth 2 times daily.60 Tab 3 aspirin 81 mg Oral Tablet, Chewable Take 1 Tab by mouth daily. dilTIAZem (CARDIZEM CD) 360 mg Oral Capsule, Sust. Release 24 hr Take 1Cap by mouth daily. 60 Cap 3 docusate sodium (COLACE) 100 mg Oral Capsule Take 1 Cap by mouth 2 timesdaily. 30 Cap 0 metoprolol (LOPRESSOR) 100 mg Oral Tablet Take 1 Tab by mouth 2 timesdaily. 60 Tab 3 pantoprazole (PROTONIX) 40 mg Oral Tablet, Delayed Release (E.C.) Take 1Tab by mouth daily. 30 Tab 0 polyethylene glycol (GLYCOLAX, MIRALAX) 17 gram Oral Powder in PacketTake 17 g by mouth daily. tamsulosin (FLOMAX) 0.4 mg Oral Capsule Take 0.4 mg by mouth daily. Scheduled Meds: ampicillin-sulbactam (UNASYN) IVPB (Orderable) 3 g Intravenous 4 timesper day aspirin 81 mg Oral Daily dilTIAZem 360 mg Oral Daily docusate sodium 100 mg Oral BID enoxaparin 40 mg Subcutaneous Daily - LMWH/Xa pantoprazole 40 mg Oral Daily polyethylene glycol 17 g Oral Daily Continuous Infusions: Past Surgical History Past Surgical History: Procedure Laterality Date BRONCHOSCOPY N/A 12/18/2017 BRONCHOSCOPY at bedside with bronchoaveolar lavage ; Surgeon: Stu Abdi MD; Location: [facility]; Service:Endoscopy CARDIAC SURGERY N/A 12/05/2017 reopen sternotomy,control of bleeding; Surgeon: Fred Marquez MD;Location: [facility]; Service: Open Heart CARDIOVERSION 12/01/[address] Lennon CARDIOVERSION 12/11/[address] Lennon CARDIOVERSION 01/01/2018 IR PICC INSERTION EQUAL OR > 5 YEARS 12/24/2017 IR PICC INSERTION EQUAL OR > 5 YEARS 12/24/2017 Leila Mix PA-C [facility] IR ULTRASOUND GUIDED VASCULAR ACCESS 12/24/2017 IR ULTRASOUND GUIDED VASCULAR ACCESS 12/24/2017 Leila Mix PA-C [facility] IR US GUIDED THORACENTESIS 12/16/2017 IR US GUIDED THORACENTESIS 12/16/2017 [facility] ULTRASOUND KNEE SURGERY MITRAL VALVE REPLACEMENT N/A 12/05/2017 Mitral ValveReplacement-tissue, MAZE Procedure, Ligation Left AtrialAppendage, 3D Trans esophageal Echocardiogram; Surgeon: Fred Marquez MD; Location: [facility]; Service: Open Heart STERNUM DEBRIDEMENT N/A 12/17/2017 sternal debridement and re-wire; Surgeon: Fred Marquez MD;Location: [facility]; Service: Open Heart Allergy No Known Allergies Family History No family history on file. Social History Social History Substance Use Topics Smoking status: Never Smoker Smokeless tobacco: Never Used Alcohol use Yes Comment: rare Review of Systems Denies or negative for the following: Constitutional: fever, chills, weight loss, weight gain, falls ENT: headaches, visual changes Cardiovascular: see HPI Pulmonary: cough, sputum production, wheezing, hemoptysis Gastrointestinal: abdominal pain, nausea, vomiting, constipation,diarrhea, hematochezia, melena Genitourinary: change in bladder habits, hematuria Musculoskeletal: weakness, joint complaints Integumentary: rash Endocrine: fatigue Hematologic/Lymphatic: abnormal bruising or excessive bleeding Allergic/Immunologic: hives Objective: BP 126/74 (BP Location: Left arm, Patient Position: Semi Fowlers) [id number] Temp 97.5 F (36.4 C) (Oral) Resp 20 Ht 6' (1.829 m) Wt202 lb 14.4 oz (92 kg) SpO2 95% BMI 27.52 kg/m General: alert, appears stated age, cooperative and no distress Oropharynx: normal Neck: nontender, no carotid bruit, no JVD, thyroid nonenlarged Lung: clear to auscultation bilaterally Heart: irregularly irregular rhythm and S1, S2 normal Abdomen: soft, non-tender. Bowel sounds normal. No masses, no organomegaly Extremities: extremities normal, atraumatic, no cyanosis or edema Pulses: 2+ and symmetric bilaterally,brachial, radial, inquinal,popliteal, posterior tibial and dorsalis pedis Skin: Warm and dry Neuro: No obvious focal deficits Diagnostic tests Lab Results Component Value Date WBC 7.9 01/09/2018 HGB 10.4 (L) 01/09/2018 HCT 33.1 (L) 01/09/2018 PLT 304 01/09/2018 Lab Results Component Value Date CREATININE 1.15 01/09/2018 BUN 11 01/09/2018 NA 143 01/09/2018 K 3.9 01/09/2018 CL 109 (H) 01/09/2018 CO2 25 01/09/2018 Lab Results Component Value Date CHOLESTEROL 167 01/09/2018 TRIG 72 01/09/2018 HDL 32 (L) 01/09/2018 LDLCALC 121 (H) 01/09/2018 Lab Results Component Value Date ALT 21 01/09/2018 AST 20 01/09/2018 Lab Results Component Value Date TSH 1.610 01/09/2018 Lab Results Component Value Date INR 1.23 (H) 01/09/2018 No results found for: CKTOTAL, CKMB, CKMBINDEX, TROPONINI Ek Ekg 12 Lead Result Date: 01/10/2018 NOTICE: Preliminary tracing available for review; Final Interpretation byphysician to follow. Stationary ECG StudySt. Nanda PrajapatiInterpretive StatementsATRIAL FIBRILLATION WITH RAPID VENTRICULAR RESPONSE ST DEVIATION ANDMODERATE T-WAVE ABNORMALITY, CONSIDER LATERAL ISCHEMIA [-0.1+ mV T WAVE INI/aVL/V5/V6] Ek Ekg 12 Lead Result Date: 01/09/2018 NOTICE: Preliminary tracing available for review; Final Interpretation byphysician to follow. Stationary ECG StudyStViridiana PrajapatiInterpretive StatementsATRIAL FIBRILLATION decreased R progression, non specific STabnormalities. Electronically Signed On 01-09-2018 17:46:08 EST by MD Herman Telemetry: afib, rate 110's The most recent cardiovascular imaging studies availabe in [facility] EMR werereviewed at time of consultation Assessment: 1. Chest pain Recent cath - minimal disease Echo 01/06- EF 45-50% 2. Mitral valve disease S/p MVR - biosprosthetic 3. Persistent afib S/p DCCV (12/11), MAZE, NOY ligation (12/06) Rate 110's Hx amio toxicity Sotalol stopped - prolonged QT interval 4. Hx NSVT 5. Dementia 6. Chest incision cellulitis / chest abscess 7. HTN Controlled Plan: Suspect noncardiac etiology for pain Continue ASA, CCB Resume BB Monitor rhythm Further input to follow per Dr. Fredi Patel APRN Pt was seen in conjunction with a mid-level provider. I obtained the history from the patient. I personally examined this patient. I discussed the plan with pt and at bedside. I placed orders in chart. Pt admitted with chest pain Pt with recent cardiac surgery Mild chest pain for about 10 min No recurrence No radiation Pain in center of chest Feels well now. On exam VSS Neck no JVD CVS s1, s2 irr RS no rales or rhonchi Abd soft + BS Ext no edema EKG course AFib Telemetry Afib Labs noted Plan. Atypical cp Med Rx Afib Consulted ARLINE Taylor, he know pt very well- proceed with CV tomorroww/o AC I obtained informed consent from patient and his son, Tenzin Risks not limited to stroke, medication reactions, aspiration pneumonia,life threatening arrhythmias and explained. S/p bioprosthetic mitral valve replacement ligation of left atrialappendage, MAZE on 12/05/2017 complicated by cardiac tamponade and takenback to the OR on 12/06/2017. Intraoperatively had an arrest requiringCPR, postop bleeding with mediastinal re exploration. hematomaevacuation was done and repair of left atriotomy and repair of rightatrium. Echo in Dec 2017- Difficult to assess for wall motion and ejectionfraction due to abnormal rhythm, however, the ejection fraction appears to be mildly decreased 45-50%. A new bioprosthetic mitral valve visualized. The valve appears to bewell seated. There appears to be trace valvular mitral regurgitation. EXTRA GOLD SST Routine 01/09/2018 5:12 PM EST EXTRA TUBES PANEL Routine 01/09/2018 5:12 PM EST TROPONIN-T HIGH SENSITIVITY BASELINE W/ REFLEX STAT 01/09/2018 5:12 PM EST THYROID STIMULATING HORMONE Routine 01/09/2018 5:12 PM EST PT / INR Routine 01/09/2018 5:12 PM EST PARTIAL THROMBOPLASTIN TIME Routine 01/09/2018 5:12 PM EST MAGNESIUM LEVEL Routine 01/09/2018 5:12 PM EST LIPID SCREEN Routine 01/09/2018 5:12 PM EST HEPATIC FUNCTION PANEL Routine 01/09/2018 5:12 PM EST CBC WITH DIFF Routine 01/09/2018 5:12 PM EST BASIC METABOLIC PANEL Routine 01/09/2018 5:12 PM EST ECG AND WAVEFORMS - TELEMETRY Routine 01/09/2018 5:03 PM EST IP CONSULT TO NEUROLOGY Routine 01/09/2018 5:03 PM EST Procedure Note - Robb Newton MD - 01/10/2018 9:06 AM ESTThis note is in progress. Inpatient consult to Neurology Other (persistent confusion) Consult performed by: ROBB NEWTON Consult ordered by: JEFFREY CURTIS Pt seen and examined. Full note Dictated. #[id number] 82yo WM with confusion. Evaluated by Dr. Jimenez on the . That w/uwas unrevealing. Exam is not changed. Some question if underlyingdementia process but would need to be evaluated in outpatient setting. Ofnote, has A.fib but only on ASA daily. Multiple Cardiac/CT surgery/EPprocedures last admission. Defer Anti-coagulation when/if toCards/EP/CTS. No additional recs. Will sign-off, please call with any additionalquestions/concerns. ECG AND WAVEFORMS - TELEMETRY Routine 01/09/2018 5:00 PM EST EK EKG 12 LEAD Routine 01/09/2018 3:55 PM EST ECG AND WAVEFORMS - TELEMETRY Routine 01/09/2018 7:04 AM EST ECG AND WAVEFORMS - TELEMETRY Routine 01/08/2018 7:01 PM EST ECG AND WAVEFORMS - TELEMETRY Routine 01/08/2018 7:04 AM EST ECG AND WAVEFORMS - TELEMETRY Routine 01/07/2018 7:04 PM EST BASIC METABOLIC PANEL BUBBA 01/07/2018 9:34 AM EST ECG AND WAVEFORMS - TELEMETRY Routine 01/07/2018 8:11 AM EST ECG AND WAVEFORMS - TELEMETRY Routine 01/06/2018 7:06 PM EST EC ECHOCARDIOGRAM LIMITED Routine 01/06/2018 1:[address] HEAD WO CONTRAST BUBBA 01/06/2018 11:28 AM EST BASIC METABOLIC PANEL STAT 01/06/2018 10:26 AM EST ECG AND WAVEFORMS - TELEMETRY Routine 01/06/2018 9:34 AM EST ECG AND WAVEFORMS - TELEMETRY Routine 01/06/2018 7:57 AM EST ECG AND WAVEFORMS - TELEMETRY Routine 01/06/2018 7:29 AM EST ECG AND WAVEFORMS - TELEMETRY Routine 01/05/2018 7:05 PM EST ECG AND WAVEFORMS - TELEMETRY Routine 01/05/2018 10:34 AM EST ECG AND WAVEFORMS - TELEMETRY Routine 01/05/2018 7:41 AM EST COMPREHENSIVE METABOLIC PANEL Routine 01/05/2018 4:53 AM EST CBC WITH DIFF Routine 01/05/2018 4:53 AM EST ECG AND WAVEFORMS - TELEMETRY Routine 01/05/2018 1:24 AM EST ECG AND WAVEFORMS - TELEMETRY Routine 01/04/2018 7:03 PM EST BASIC METABOLIC PANEL Routine 01/04/2018 3:47 PM EST ECG AND WAVEFORMS - TELEMETRY Routine 01/04/2018 7:43 AM EST ECG AND WAVEFORMS - TELEMETRY Routine 01/03/2018 11:51 AM EST ECG AND WAVEFORMS - TELEMETRY Routine 01/03/2018 7:13 AM EST EK EKG 12 LEAD Routine 01/03/2018 12:05 AM EST ECG AND WAVEFORMS - TELEMETRY Routine 01/02/2018 7:06 PM EST GLUCOSE METER POC Routine 01/02/2018 6:11 PM EST ECG AND WAVEFORMS - TELEMETRY Routine 01/02/2018 4:00 PM EST ECG AND WAVEFORMS - TELEMETRY Routine 01/02/2018 7:37 AM EST SCANNED RHYTHM STRIPS 01/02/2018 6:58 AM EST C-REACTIVE PROTEIN Routine 01/02/2018 5:14 AM EST SEDIMENTATION RATE AUTOMATED Routine 01/02/2018 5:14 AM EST EK EKG 12 LEAD Routine 01/02/2018 12:05 AM EST EK EKG 12 LEAD STAT 01/01/2018 11:18 AM EST ELECTROPHYSIOLOGY PROCEDURE Routine 01/01/2018 11:12 AM EST Atrial fibrillation, unspecified type (HCC) INTRAOP AIRWAY PLACEMENT Routine 01/01/2018 11:03 AM EST XR CHEST PA AND LATERAL Routine 01/01/2018 7:46 AM EST ECG AND WAVEFORMS - TELEMETRY Routine 01/01/2018 7:06 AM EST POTASSIUM LEVEL Routine 01/01/2018 5:00 AM EST MAGNESIUM LEVEL Routine 01/01/2018 5:00 AM EST EK EKG 12 LEAD Routine 01/01/2018 12:05 AM EST ECG AND WAVEFORMS - TELEMETRY Routine 12/31/2017 7:49 PM EST ECG AND WAVEFORMS - TELEMETRY Routine 12/31/2017 5:12 PM EST ECG AND WAVEFORMS - TELEMETRY Routine 12/31/2017 9:18 AM EST BASIC METABOLIC PANEL Routine 12/31/2017 3:14 AM EST CBC WITH DIFF Routine 12/31/2017 3:14 AM EST ECG AND WAVEFORMS - TELEMETRY Routine 12/30/2017 8:11 PM EST FL MODIFIED BARIUM SWALLOW BUBBA 12/30/2017 9:51 AM EST ECG AND WAVEFORMS - TELEMETRY Routine 12/30/2017 6:37 AM EST XR CHEST AP PORTABLE BUBBA 12/30/2017 6:24 AM EST ECG AND WAVEFORMS - TELEMETRY Routine 12/29/2017 7:38 PM EST ECG AND WAVEFORMS - TELEMETRY Routine 12/29/2017 9:36 AM EST GLUCOSE METER POC Routine 12/29/2017 6:00 AM EST COMPREHENSIVE METABOLIC PANEL Routine 12/29/2017 4:39 AM EST CBC WITH DIFF Routine 12/29/2017 4:39 AM EST BASIC METABOLIC PANEL Timed 12/29/2017 4:39 AM EST PREALBUMIN Timed 12/29/2017 4:39 AM EST PHOSPHORUS LEVEL Timed 12/29/2017 4:39 AM EST MAGNESIUM LEVEL Timed 12/29/2017 4:39 AM EST GLUCOSE METER POC Routine 12/28/2017 11:43 PM EST ECG AND WAVEFORMS - TELEMETRY Routine 12/28/2017 7:50 PM EST GLUCOSE METER POC Routine 12/28/2017 5:45 PM EST GLUCOSE METER POC Routine 12/28/2017 1:02 PM EST ECG AND WAVEFORMS - TELEMETRY Routine 12/28/2017 7:37 AM EST XR CHEST AP PORTABLE BUBBA 12/28/2017 7:25 AM EST PHOSPHORUS LEVEL Add-On 12/28/2017 7:22 AM EST MAGNESIUM LEVEL Add-On 12/28/2017 7:22 AM EST COMPREHENSIVE METABOLIC PANEL Routine 12/28/2017 7:22 AM EST CBC WITH DIFF Routine 12/28/2017 7:22 AM EST VANCOMYCIN LEVEL TROUGH Timed 12/28/2017 7:22 AM EST GLUCOSE METER POC Routine 12/28/2017 6:49 AM EST GLUCOSE METER POC Routine 12/27/2017 11:49 PM EDT GLUCOSE METER POC Routine 12/27/2017 5:26 PM EDT GLUCOSE METER POC Routine 12/27/2017 11:[address] CHEST WO CONTRAST Routine 12/27/2017 11:26 AM EDT IP CONSULT TO PHARMACY Routine 12/27/2017 9:55 AM EDT XR CHEST AP PORTABLE Routine 12/27/2017 6:38 AM EDT HEPATIC FUNCTION PANEL Add-On 12/27/2017 4:08 AM EDT MAGNESIUM LEVEL Routine 12/27/2017 4:08 AM EDT BASIC METABOLIC PANEL Early AM 12/27/2017 4:08 AM EDT CBC WITH DIFF Early AM 12/27/2017 4:08 AM EDT SCANNED RHYTHM STRIPS 12/27/2017 12:00 AM EDT GLUCOSE METER POC Routine 12/26/2017 11:51 PM EDT GLUCOSE METER POC Routine 12/26/2017 6:06 PM EDT SCANNED RHYTHM STRIPS 12/26/2017 3:19 PM EDT FL MODIFIED BARIUM SWALLOW BUBBA 12/26/2017 1:45 PM EDT GLUCOSE METER POC Routine 12/26/2017 12:47 PM EDT GLUCOSE METER POC Routine 12/26/2017 7:08 AM EDT XR CHEST AP PORTABLE BUBBA 12/26/2017 6:40 AM EDT VANCOMYCIN LEVEL TROUGH Timed 12/26/2017 5:54 AM EDT CBC WITH DIFF Early AM 12/26/2017 5:54 AM EDT BASIC METABOLIC PANEL Timed 12/26/2017 5:54 AM EDT C-REACTIVE PROTEIN Routine 12/26/2017 5:54 AM EDT SEDIMENTATION RATE AUTOMATED Routine 12/26/2017 5:54 AM EDT GLUCOSE METER POC Routine 12/26/2017 1:02 AM EDT ECG AND WAVEFORMS - TELEMETRY Routine 12/26/2017 12:08 AM EDT GLUCOSE METER POC Routine 12/25/2017 5:52 PM EDT POTASSIUM WHOLE BLOOD STAT 12/25/2017 4:03 PM EDT GLUCOSE METER POC Routine 12/25/2017 12:33 PM EDT BASIC METABOLIC PANEL Early AM 12/25/2017 9:51 AM EDT CBC WITH DIFF Early AM 12/25/2017 9:51 AM EDT EK EKG 12 LEAD Routine 12/25/2017 8:44 AM EDT ECG AND WAVEFORMS - TELEMETRY Routine 12/25/2017 8:11 AM EDT XR CHEST AP PORTABLE Early AM 12/25/2017 6:21 AM EDT GLUCOSE METER POC Routine 12/25/2017 5:04 AM EDT PREALBUMIN Timed 12/25/2017 4:57 AM EDT PHOSPHORUS LEVEL Timed 12/25/2017 4:57 AM EDT MAGNESIUM LEVEL Timed 12/25/2017 4:57 AM EDT ECG AND WAVEFORMS - TELEMETRY Routine 12/25/2017 12:35 AM EDT GLUCOSE METER POC Routine 12/24/2017 11:31 PM EDT ECG AND WAVEFORMS - TELEMETRY Routine 12/24/2017 7:44 PM EDT GLUCOSE METER POC Routine 12/24/2017 5:06 PM EDT CATH TIP CULTURE (NO STAIN) Routine 12/24/2017 4:25 PM EDT IR ULTRASOUND GUIDED VASCULAR ACCESS BUBBA 12/24/2017 3:50 PM EDT IR PICC INSERTION EQUAL OR > 5 YEARS BUBBA 12/24/2017 3:50 PM EDT GLUCOSE METER POC Routine 12/24/2017 11:43 AM EDT CBC Routine 12/24/2017 9:52 AM EDT ECG AND WAVEFORMS - TELEMETRY Routine 12/24/2017 6:46 AM EDT XR CHEST AP PORTABLE Early AM 12/24/2017 6:21 AM EDT GLUCOSE METER POC Routine 12/24/2017 6:00 AM EDT BASIC METABOLIC PANEL Timed 12/24/2017 4:14 AM EDT GLUCOSE METER POC Routine 12/24/2017 12:19 AM EDT LOWER RESPIRATORY CULTURE (STAIN INCLUDED) Routine 12/23/2017 8:38 PM EDT URINALYSIS Routine 12/23/2017 8:30 PM EDT UA W/REFLEX TO CULTURE Routine 12/23/2017 8:30 PM EDT URINE CULTURE (NO STAIN) Routine 12/23/2017 8:30 PM EDT EXTRA GLYNN URINE CX Routine 12/23/2017 8:30 PM EDT BLOOD CULTURE (NO STAIN) Routine 12/23/2017 8:09 PM EDT BLOOD CULTURE (NO STAIN) Routine 12/23/2017 8:09 PM EDT GLUCOSE METER POC Routine 12/23/2017 7:36 PM EDT SCANNED RHYTHM STRIPS 12/23/2017 5:16 PM EDT GLUCOSE METER POC Routine 12/23/2017 12:29 PM EDT XR CHEST AP PORTABLE Early AM 12/23/2017 6:17 AM EDT BASIC METABOLIC PANEL STAT 12/23/2017 5:15 AM EDT CBC STAT 12/23/2017 5:15 AM EDT ECG AND WAVEFORMS - TELEMETRY Routine 12/22/2017 7:52 PM EDT GLUCOSE METER POC Routine 12/22/2017 5:59 PM EDT GLUCOSE METER POC Routine 12/22/2017 4:15 PM EDT SCANNED RHYTHM STRIPS 12/22/2017 1:35 PM EDT GLUCOSE METER POC Routine 12/22/2017 12:30 PM EDT XR CHEST AP PORTABLE Routine 12/22/2017 6:24 AM EDT GLUCOSE METER POC Routine 12/22/2017 6:21 AM EDT COMPREHENSIVE METABOLIC PANEL Routine 12/22/2017 3:55 AM EDT CBC WITH DIFF Routine 12/22/2017 3:55 AM EDT BASIC METABOLIC PANEL Timed 12/22/2017 3:55 AM EDT PREALBUMIN Timed 12/22/2017 3:55 AM EDT PHOSPHORUS LEVEL Timed 12/22/2017 3:55 AM EDT MAGNESIUM LEVEL Timed 12/22/2017 3:55 AM EDT GLUCOSE METER POC Routine 12/21/2017 11:38 PM EDT ECG AND WAVEFORMS - TELEMETRY Routine 12/21/2017 8:31 PM EDT GLUCOSE METER POC Routine 12/21/2017 6:16 PM EDT GLUCOSE METER POC Routine 12/21/2017 1:05 PM EDT ECG AND WAVEFORMS - TELEMETRY Routine 12/21/2017 7:58 AM EDT XR CHEST AP PORTABLE Early AM 12/21/2017 6:56 AM EDT GLUCOSE METER POC Routine 12/21/2017 6:27 AM EDT HEMOGLOBIN AND HEMATOCRIT BUBBA 12/21/2017 4:18 AM EDT POTASSIUM WHOLE BLOOD BUBBA 12/21/2017 4:18 AM EDT GLUCOSE METER POC Routine 12/21/2017 12:55 AM EDT ECG AND WAVEFORMS - TELEMETRY Routine 12/20/2017 7:35 PM EDT GLUCOSE METER POC Routine 12/20/2017 5:32 PM EDT GLUCOSE METER POC Routine 12/20/2017 2:37 PM EDT ECG AND WAVEFORMS - TELEMETRY Routine 12/20/2017 8:15 AM EDT XR CHEST AP PORTABLE Early AM 12/20/2017 6:28 AM EDT GLUCOSE METER POC Routine 12/20/2017 5:17 AM EDT BASIC METABOLIC PANEL Routine 12/20/2017 4:27 AM EDT CBC WITH DIFF Routine 12/20/2017 4:27 AM EDT GLUCOSE METER POC Routine 12/20/2017 12:10 AM EDT ECG AND WAVEFORMS - TELEMETRY Routine 12/19/2017 7:57 PM EDT GLUCOSE METER POC Routine 12/19/2017 5:55 PM EDT POC ARTERIAL BLOOD GAS PROFILE Routine 12/19/2017 2:37 PM EDT POC ARTERIAL BLOOD GAS PROFILE Routine 12/19/2017 10:56 AM EDT POC ARTERIAL BLOOD GAS PROFILE Routine 12/19/2017 7:33 AM EDT XR CHEST AP PORTABLE Early AM 12/19/2017 6:23 AM EDT SCANNED RHYTHM STRIPS 12/19/2017 5:54 AM EDT GLUCOSE METER POC Routine 12/19/2017 5:13 AM EDT BASIC METABOLIC PANEL Timed 12/19/2017 4:31 AM EDT CORTISOL Timed 12/19/2017 4:31 AM EDT HEPATIC FUNCTION PANEL Routine 12/19/2017 4:31 AM EDT GLUCOSE METER POC Routine 12/19/2017 12:08 AM EDT BLOOD GAS ARTERIAL STAT 12/18/2017 11:58 PM EDT ANE ARTERIAL LINE PLACEMENT Routine 12/18/2017 9:24 PM EDT CALCIUM, IONIZED STAT 12/18/2017 6:26 PM EDT MAGNESIUM LEVEL STAT 12/18/2017 6:26 PM EDT POTASSIUM WHOLE BLOOD STAT 12/18/2017 6:26 PM EDT POC ARTERIAL BLOOD GAS PROFILE Routine 12/18/2017 6:13 PM EDT GLUCOSE METER POC Routine 12/18/2017 6:13 PM EDT ECG AND WAVEFORMS - TELEMETRY Routine 12/18/2017 4:56 PM EDT SCANNED RHYTHM STRIPS 12/18/2017 2:19 PM EDT CELL COUNT BODY FLUID Routine 12/18/2017 1:19 PM EDT Hemoptysis CELL COUNT W/ DIFF BODY FLUID Routine 12/18/2017 1:19 PM EDT Hemoptysis FUNGUS CULTURE (NO STAIN) Routine 12/18/2017 1:19 PM EDT Hemoptysis LOWER RESPIRATORY CULTURE (STAIN INCLUDED) Routine 12/18/2017 1:19 PM EDT Hemoptysis MODIFIED ACID FAST STAIN (STAIN ONLY) Routine 12/18/2017 1:19 PM EDT Hemoptysis ACID FAST BACILLI CULTURE AND SMEAR (STAIN INCLUDED) Routine 12/18/2017 1:19 PM EDT Hemoptysis MISCELLANEOUS LAB Routine 12/18/2017 1:19 PM EDT Hemoptysis NON-FIRE CONTROL TECHNICIAN B CYTOLOGY REQUEST Routine 12/18/2017 1:19 PM EDT Hemoptysis BRONCHOSCOPY 12/18/2017 1:15 PM EDT Hemoptysis GLUCOSE METER POC Routine 12/18/2017 12:00 PM EDT IP CONSULT TO PULMONOLOGY STAT 12/18/2017 9:45 AM EDT GLUCOSE METER POC Routine 12/18/2017 6:40 AM EDT XR CHEST AP PORTABLE Early AM 12/18/2017 6:26 AM EDT CBC WITH DIFF Routine 12/18/2017 4:14 AM EDT BASIC METABOLIC PANEL Routine 12/18/2017 4:14 AM EDT PREALBUMIN Timed 12/18/2017 4:14 AM EDT PHOSPHORUS LEVEL Timed 12/18/2017 4:14 AM EDT MAGNESIUM LEVEL Timed 12/18/2017 4:14 AM EDT GLUCOSE METER POC Routine 12/18/2017 12:12 AM EDT ECG AND WAVEFORMS - TELEMETRY Routine 12/17/2017 11:47 PM EDT SCANNED RHYTHM STRIPS 12/17/2017 8:20 PM EDT GLUCOSE METER POC Routine 12/17/2017 6:14 PM EDT PATHOLOGY TISSUE REQUEST Routine 12/17/2017 2:25 PM EDT Sternal wound dehiscence, initial encounter GLUCOSE METER POC Routine 12/17/2017 1:30 PM EDT XR CHEST AP PORTABLE STAT 12/17/2017 1:14 PM EDT POTASSIUM WHOLE BLOOD STAT 12/17/2017 12:26 PM EDT MAGNESIUM LEVEL Routine 12/17/2017 12:25 PM EDT PARTIAL THROMBOPLASTIN TIME Routine 12/17/2017 12:25 PM EDT PT / INR Routine 12/17/2017 12:25 PM EDT BASIC METABOLIC PANEL Routine 12/17/2017 12:25 PM EDT CBC Routine 12/17/2017 12:25 PM EDT COAGULATION SCREEN Routine 12/17/2017 12:25 PM EDT FIBRINOGEN Routine 12/17/2017 12:25 PM EDT TRANSFUSE RED BLOOD CELLS Routine 12/17/2017 11:07 AM EDT TRANSFUSE RED BLOOD CELLS Routine 12/17/2017 10:46 AM EDT INTRAOP AIRWAY PLACEMENT Routine 12/17/2017 10:36 AM EDT FUNGUS CULTURE (NO STAIN) Routine 12/17/2017 10:35 AM EDT Sternal wound dehiscence, initial encounter WOUND CULTURE (STAIN INCLUDED) Routine 12/17/2017 10:35 AM EDT Sternal wound dehiscence, initial encounter ANAEROBIC CULTURE (NO STAIN) Routine 12/17/2017 10:35 AM EDT Sternal wound dehiscence, initial encounter MISCELLANEOUS LAB Routine 12/17/2017 10:35 AM EDT Sternal wound dehiscence, initial encounter STERNAL DEBRIDEMENT/ANTERIOR CHEST WALL DEBRIDEMENT OR STERNAL WASH OUT 12/17/2017 9:51 AM EDT Sternal wound dehiscence, initial encounter CBC STAT 12/17/2017 9:18 AM EDT ECG AND WAVEFORMS - TELEMETRY Routine 12/17/2017 7:21 AM EDT XR CHEST AP PORTABLE Early AM 12/17/2017 6:30 AM EDT GLUCOSE METER POC Routine 12/17/2017 5:46 AM EDT BASIC METABOLIC PANEL Timed 12/17/2017 3:42 AM EDT GLUCOSE METER POC Routine 12/16/2017 11:50 PM EDT RED BLOOD CELLS REQUEST BUBBA 12/16/2017 8:25 PM EDT BB HISTORY CHECK Routine 12/16/2017 8:25 PM EDT ANTIBODY SCREEN IGG Routine 12/16/2017 8:25 PM EDT ABORH Routine 12/16/2017 8:25 PM EDT TYPE AND SCREEN Routine 12/16/2017 8:25 PM EDT BLOOD CULTURE (NO STAIN) STAT 12/16/2017 8:24 PM EDT URINALYSIS STAT 12/16/2017 7:52 PM EDT URINE CULTURE (NO STAIN) STAT 12/16/2017 7:52 PM EDT BLOOD CULTURE (NO STAIN) STAT 12/16/2017 7:50 PM EDT GLUCOSE METER POC Routine 12/16/2017 6:36 PM EDT HEMOGLOBIN AND HEMATOCRIT Routine 12/16/2017 4:21 PM EDT IR US GUIDED THORACENTESIS STAT 12/16/2017 4:07 PM EDT WOUND CULTURE (STAIN INCLUDED) Routine 12/16/2017 4:03 PM EDT PT / INR STAT 12/16/2017 1:20 PM EDT GLUCOSE METER POC Routine 12/16/2017 11:52 AM EDT SCANNED RHYTHM STRIPS 12/16/2017 9:12 AM EDT GLUCOSE METER POC Routine 12/16/2017 8:31 AM EDT XR CHEST AP PORTABLE Early AM 12/16/2017 6:42 AM EDT GLUCOSE METER POC Routine 12/16/2017 5:43 AM EDT CBC BUBBA 12/16/2017 5:38 AM EDT BASIC METABOLIC PANEL BUBBA 12/16/2017 5:38 AM EDT GLUCOSE METER POC Routine 12/16/2017 12:44 AM EDT GLUCOSE METER POC Routine 12/15/2017 6:21 PM EDT POTASSIUM WHOLE BLOOD STAT 12/15/2017 6:09 PM EDT HEMOGLOBIN AND HEMATOCRIT Routine 12/15/2017 5:13 PM EDT POTASSIUM WHOLE BLOOD STAT 12/15/2017 2:20 PM EDT PREALBUMIN Routine 12/15/2017 2:15 PM EDT MAGNESIUM LEVEL Routine 12/15/2017 2:15 PM EDT PHOSPHORUS LEVEL Routine 12/15/2017 2:15 PM EDT BASIC METABOLIC PANEL Routine 12/15/2017 2:15 PM EDT IP CONSULT TO NUTRITION Routine 12/15/2017 8:20 AM EDT XR CHEST AP PORTABLE Early AM 12/15/2017 6:20 AM EDT BLOOD CULTURE (NO STAIN) Routine 12/15/2017 5:30 AM EDT BASIC METABOLIC PANEL Routine 12/15/2017 4:38 AM EDT CBC WITH DIFF Routine 12/15/2017 4:38 AM EDT PROCALCITONIN Routine 12/15/2017 4:38 AM EDT BLOOD CULTURE (NO STAIN) Routine 12/15/2017 4:38 AM EDT POC ARTERIAL BLOOD GAS PROFILE Routine 12/14/2017 10:01 PM EDT XR CHEST AP PORTABLE BUBBA 12/14/2017 7:57 PM EDT POC ARTERIAL BLOOD GAS PROFILE Routine 12/14/2017 7:42 PM EDT XR CHEST AP PORTABLE BUBBA 12/14/2017 6:10 PM EDT LOWER RESPIRATORY CULTURE (STAIN INCLUDED) Routine 12/14/2017 5:56 PM EDT ANE INTUBATION Routine 12/14/2017 5:51 PM EDT XR CHEST AP PORTABLE BUBBA 12/14/2017 5:12 PM EDT POC ARTERIAL BLOOD GAS PROFILE Routine 12/14/2017 5:04 PM EDT XR CHEST AP PORTABLE STAT 12/14/2017 2:12 PM EDT LOWER RESPIRATORY CULTURE (STAIN INCLUDED) Routine 12/14/2017 10:26 AM EDT XR CHEST AP PORTABLE STAT 12/14/2017 10:12 AM EDT ECG AND WAVEFORMS - TELEMETRY Routine 12/14/2017 8:19 AM EDT XR CHEST AP PORTABLE Early AM 12/14/2017 6:20 AM EDT CBC WITH DIFF Early AM 12/14/2017 5:22 AM EDT BASIC METABOLIC PANEL Early AM 12/14/2017 5:22 AM EDT POC ARTERIAL BLOOD GAS PROFILE Routine 12/14/2017 1:35 AM EDT ECG AND WAVEFORMS - TELEMETRY Routine 12/13/2017 8:50 PM EDT BLOOD CULTURE (NO STAIN) STAT 12/13/2017 7:54 PM EDT PROCALCITONIN STAT 12/13/2017 7:20 PM EDT LACTIC ACID Routine 12/13/2017 7:20 PM EDT BLOOD CULTURE (NO STAIN) STAT 12/13/2017 7:20 PM EDT ECG AND WAVEFORMS - TELEMETRY Routine 12/13/2017 8:12 AM EDT XR CHEST AP PORTABLE Early AM 12/13/2017 5:20 AM EDT BLOOD GAS ARTERIAL STAT 12/13/2017 4:33 AM EDT CBC WITH DIFF Early AM 12/13/2017 4:30 AM EDT BASIC METABOLIC PANEL Early AM 12/13/2017 4:30 AM EDT ECG AND WAVEFORMS - TELEMETRY Routine 12/12/2017 8:19 PM EDT HIV AG/AB Routine 12/12/2017 5:46 PM EDT SYPHILIS SCREEN WITH REFLEX RPR QUANT Routine 12/12/2017 5:46 PM EDT VITAMIN B12/ FOLIC ACID Routine 12/12/2017 5:46 PM EDT URINALYSIS Routine 12/12/2017 5:01 PM EDT LEGIONELLA ANTIGEN URINE Routine 12/12/2017 5:01 PM EDT STREP PNEUMO ANTIGEN Routine 12/12/2017 5:01 PM EDT URINE CULTURE (NO STAIN) Routine 12/12/2017 5:01 PM EDT CATH TIP CULTURE (NO STAIN) Routine 12/12/2017 10:45 AM EDT POC ARTERIAL BLOOD GAS PROFILE Routine 12/12/2017 10:16 AM EDT BLOOD CULTURE (NO STAIN) Routine 12/12/2017 9:38 AM EDT CBC WITH DIFF STAT 12/12/2017 9:34 AM EDT AMMONIA LEVEL STAT 12/12/2017 9:22 AM EDT PROCALCITONIN Routine 12/12/2017 8:26 AM EDT HEPATIC FUNCTION PANEL Routine 12/12/2017 8:26 AM EDT BLOOD CULTURE (NO STAIN) Routine 12/12/2017 8:26 AM EDT ECG AND WAVEFORMS - TELEMETRY Routine 12/12/2017 7:30 AM EDT XR CHEST AP PORTABLE Early AM 12/12/2017 6:38 AM EDT CBC WITH DIFF Early AM 12/12/2017 4:33 AM EDT BASIC METABOLIC PANEL Early AM 12/12/2017 4:33 AM EDT ECG AND WAVEFORMS - TELEMETRY Routine 12/11/2017 8:27 PM EDT EK EKG 12 LEAD STAT 12/11/2017 2:54 PM EDT ELECTROPHYSIOLOGY PROCEDURE Routine 12/11/2017 2:19 PM EDT Paroxysmal atrial fibrillation (HCC) INTRAOP AIRWAY PLACEMENT Routine 12/11/2017 2:09 PM EDT ECG AND WAVEFORMS - TELEMETRY Routine 12/11/2017 7:11 AM EDT XR CHEST AP PORTABLE Early AM 12/11/2017 6:35 AM EDT ECG AND WAVEFORMS - TELEMETRY Routine 12/10/2017 8:09 PM EDT SCANNED RHYTHM STRIPS 12/10/2017 3:18 PM EDT XR CHEST AP PORTABLE Early AM 12/10/2017 10:52 AM EDT BASIC METABOLIC PANEL Routine 12/10/2017 3:55 AM EDT CBC WITH DIFF Routine 12/10/2017 3:55 AM EDT ECG AND WAVEFORMS - TELEMETRY Routine 12/09/2017 8:13 PM EDT GLUCOSE METER POC Routine 12/09/2017 6:22 PM EDT FL MODIFIED BARIUM SWALLOW BUBBA 12/09/2017 1:55 PM EDT GLUCOSE METER POC Routine 12/09/2017 11:49 AM EDT SCANNED RHYTHM STRIPS 12/09/2017 11:23 AM EDT GLUCOSE METER POC Routine 12/09/2017 8:34 AM EDT XR CHEST AP PORTABLE Early AM 12/09/2017 6:32 AM EDT BASIC METABOLIC PANEL Routine 12/09/2017 5:15 AM EDT GLUCOSE METER POC Routine 12/08/2017 10:14 PM EDT ECG AND WAVEFORMS - TELEMETRY Routine 12/08/2017 8:00 PM EDT POTASSIUM WHOLE BLOOD Routine 12/08/2017 6:05 PM EDT GLUCOSE METER POC Routine 12/08/2017 5:09 PM EDT POTASSIUM WHOLE BLOOD Routine 12/08/2017 1:55 PM EDT GLUCOSE METER POC Routine 12/08/2017 1:10 PM EDT SCANNED RHYTHM STRIPS 12/08/2017 11:36 AM EDT EK EKG 12 LEAD Routine 12/08/2017 11:18 AM EDT IP CONSULT TO ELECTROPHYSIOLOGY Routine 12/08/2017 10:16 AM EDT POTASSIUM WHOLE BLOOD Timed 12/08/2017 9:26 AM EDT GLUCOSE METER POC Routine 12/08/2017 7:54 AM EDT XR CHEST AP PORTABLE Early AM 12/08/2017 6:25 AM EDT CBC WITH DIFF Early AM 12/08/2017 4:07 AM EDT BASIC METABOLIC PANEL Early AM 12/08/2017 4:07 AM EDT POTASSIUM WHOLE BLOOD Timed 12/08/2017 4:07 AM EDT SCANNED RHYTHM STRIPS 12/08/2017 3:23 AM EDT ECG AND WAVEFORMS - TELEMETRY Routine 12/08/2017 2:16 AM EDT POTASSIUM WHOLE BLOOD Timed 12/07/2017 11:41 PM EDT GLUCOSE METER POC Routine 12/07/2017 10:05 PM EDT ECG AND WAVEFORMS - TELEMETRY Routine 12/07/2017 7:56 PM EDT POTASSIUM WHOLE BLOOD Timed 12/07/2017 5:28 PM EDT GLUCOSE METER POC Routine 12/07/2017 5:26 PM EDT POTASSIUM WHOLE BLOOD Timed 12/07/2017 11:56 AM EDT GLUCOSE METER POC Routine 12/07/2017 11:55 AM EDT SCANNED RHYTHM STRIPS 12/07/2017 8:53 AM EDT XR CHEST AP PORTABLE Early AM 12/07/2017 6:59 AM EDT GLUCOSE METER POC Routine 12/07/2017 4:19 AM EDT O2 SAT - MIXED VENOUS BUBBA 12/07/2017 4:15 AM EDT CORTISOL BUBBA 12/07/2017 4:13 AM EDT CBC WITH DIFF Early AM 12/07/2017 4:13 AM EDT BASIC METABOLIC PANEL Early AM 12/07/2017 4:13 AM EDT POTASSIUM WHOLE BLOOD Timed 12/07/2017 4:13 AM EDT FFP/PLASMA REQUEST BUBBA 12/07/2017 2:35 AM EDT GLUCOSE METER POC Routine 12/07/2017 12:13 AM EDT POTASSIUM WHOLE BLOOD Timed 12/06/2017 10:20 PM EDT GLUCOSE METER POC Routine 12/06/2017 10:19 PM EDT ECG AND WAVEFORMS - TELEMETRY Routine 12/06/2017 8:14 PM EDT POTASSIUM WHOLE BLOOD Timed 12/06/2017 4:47 PM EDT GLUCOSE METER POC Routine 12/06/2017 4:46 PM EDT GLUCOSE METER POC Routine 12/06/2017 12:53 PM EDT HEMOGLOBIN AND HEMATOCRIT STAT 12/06/2017 12:51 PM EDT POTASSIUM WHOLE BLOOD Timed 12/06/2017 12:51 PM EDT POC ARTERIAL BLOOD GAS PROFILE Routine 12/06/2017 11:05 AM EDT POC ARTERIAL BLOOD GAS PROFILE Routine 12/06/2017 10:06 AM EDT GLUCOSE METER POC Routine 12/06/2017 10:04 AM EDT SCANNED RHYTHM STRIPS 12/06/2017 9:23 AM EDT POTASSIUM WHOLE BLOOD Timed 12/06/2017 7:53 AM EDT POC ARTERIAL BLOOD GAS PROFILE Routine 12/06/2017 7:52 AM EDT GLUCOSE METER POC Routine 12/06/2017 7:52 AM EDT XR CHEST AP PORTABLE STAT 12/06/2017 6:42 AM EDT POC ARTERIAL BLOOD GAS PROFILE Routine 12/06/2017 5:35 AM EDT GLUCOSE METER POC Routine 12/06/2017 5:34 AM EDT MAGNESIUM LEVEL Routine 12/06/2017 5:29 AM EDT O2 SAT - MIXED VENOUS Routine 12/06/2017 5:29 AM EDT CBC WITH DIFF Early AM 12/06/2017 5:29 AM EDT BASIC METABOLIC PANEL Early AM 12/06/2017 5:29 AM EDT POTASSIUM WHOLE BLOOD Timed 12/06/2017 5:29 AM EDT PLATELETS REQUEST STAT 12/06/2017 2:35 AM EDT CRYOPRECIPITATE REQUEST BUBBA 12/06/2017 2:35 AM EDT POC ARTERIAL BLOOD GAS PROFILE Routine 12/06/2017 1:59 AM EDT GLUCOSE METER POC Routine 12/06/2017 1:59 AM EDT PARTIAL THROMBOPLASTIN TIME STAT 12/06/2017 1:51 AM EDT PT / INR STAT 12/06/2017 1:51 AM EDT PLATELET COUNT STAT 12/06/2017 1:51 AM EDT COAGULATION SCREEN STAT 12/06/2017 1:51 AM EDT POTASSIUM WHOLE BLOOD Timed 12/06/2017 1:51 AM EDT BROOKS Routine 12/06/2017 12:47 AM EDT INTRAOP AIRWAY PLACEMENT Routine 12/06/2017 12:28 AM EDT XR CHEST AP PORTABLE Early AM 12/06/2017 12:24 AM EDT EK EKG 12 LEAD Early AM 12/06/2017 12:05 AM EDT TRANSFUSE RED BLOOD CELLS Routine 12/05/2017 11:52 PM EDT TRANSFUSE RED BLOOD CELLS Routine 12/05/2017 11:42 PM EDT ACTIVATED CLOTTING TIME + POC Routine 12/05/2017 11:38 PM EDT POC ARTERIAL BLOOD GAS PROFILE Routine 12/05/2017 11:38 PM EDT TRANSFUSE FRESH FROZEN PLASMA Routine 12/05/2017 11:35 PM EDT OPEN HEART POST OP BLEED 12/05/2017 11:08 PM EDT Bleeding TRANSFUSE FRESH FROZEN PLASMA Routine 12/05/2017 11:00 PM EDT CBC STAT 12/05/2017 10:46 PM EDT XR CHEST AP PORTABLE STAT 12/05/2017 10:10 PM EDT TRANSFUSE RED BLOOD CELLS STAT 12/05/2017 10:02 PM EDT POC ARTERIAL BLOOD GAS PROFILE Routine 12/05/2017 9:48 PM EDT TRANSFUSE PLATELETS Routine 12/05/2017 9:21 PM EDT TRANSFUSE CRYOPRECIPITATE Routine 12/05/2017 9:00 PM EDT O2 SAT - MIXED VENOUS Routine 12/05/2017 8:36 PM EDT PARTIAL THROMBOPLASTIN TIME Routine 12/05/2017 8:18 PM EDT PT / INR Routine 12/05/2017 8:18 PM EDT FIBRINOGEN Routine 12/05/2017 8:18 PM EDT COAGULATION SCREEN Routine 12/05/2017 8:18 PM EDT CBC Routine 12/05/2017 8:18 PM EDT POTASSIUM WHOLE BLOOD Timed 12/05/2017 8:18 PM EDT POC ARTERIAL BLOOD GAS PROFILE Routine 12/05/2017 8:16 PM EDT TRANSFUSE RED BLOOD CELLS Routine 12/05/2017 7:16 PM EDT O2 SAT - MIXED VENOUS Routine 12/05/2017 6:15 PM EDT POC ARTERIAL BLOOD GAS PROFILE Routine 12/05/2017 6:03 PM EDT TRANSFUSE PLATELETS Routine 12/05/2017 5:48 PM EDT SCANNED RHYTHM STRIPS 12/05/2017 5:30 PM EDT XR CHEST AP PORTABLE STAT 12/05/2017 4:34 PM EDT TEG PLATELET MAPPING Routine 12/05/2017 4:15 PM EDT O2 SAT - MIXED VENOUS Routine 12/05/2017 4:10 PM EDT POTASSIUM WHOLE BLOOD Timed 12/05/2017 4:10 PM EDT TEG GLOBAL HEMOSTASIS Routine 12/05/2017 4:08 PM EDT PLATELET COUNT Add-On 12/05/2017 4:02 PM EDT HEMOGLOBIN AND HEMATOCRIT STAT 12/05/2017 4:02 PM EDT POC ARTERIAL BLOOD GAS PROFILE Routine 12/05/2017 3:57 PM EDT POC ARTERIAL BLOOD GAS PROFILE Routine 12/05/2017 3:32 PM EDT POC ARTERIAL BLOOD GAS PROFILE Routine 12/05/2017 2:40 PM EDT XR CHEST AP PORTABLE STAT 12/05/2017 2:10 PM EDT POC ARTERIAL BLOOD GAS PROFILE Routine 12/05/2017 1:43 PM EDT O2 SAT - MIXED VENOUS Timed 12/05/2017 1:41 PM EDT FIBRINOGEN STAT 12/05/2017 1:34 PM EDT PARTIAL THROMBOPLASTIN TIME STAT 12/05/2017 1:34 PM EDT PT / INR STAT 12/05/2017 1:34 PM EDT POTASSIUM WHOLE BLOOD STAT 12/05/2017 1:34 PM EDT CBC STAT 12/05/2017 1:34 PM EDT TEG GLOBAL HEMOSTASIS Routine 12/05/2017 12:13 PM EDT POC ARTERIAL BLOOD GAS PROFILE Routine 12/05/2017 12:02 PM EDT ACTIVATED CLOTTING TIME + POC Routine 12/05/2017 12:01 PM EDT POC ARTERIAL BLOOD GAS PROFILE Routine 12/05/2017 11:50 AM EDT ACTIVATED CLOTTING TIME + POC Routine 12/05/2017 11:36 AM EDT POC ARTERIAL BLOOD GAS PROFILE Routine 12/05/2017 11:36 AM EDT ACTIVATED CLOTTING TIME + POC Routine 12/05/2017 11:14 AM EDT POC ARTERIAL BLOOD GAS PROFILE Routine 12/05/2017 11:13 AM EDT ACTIVATED CLOTTING TIME + POC Routine 12/05/2017 10:41 AM EDT POC WHOLE BLOOD GLUCOSE Routine 12/05/2017 10:41 AM EDT ACTIVATED CLOTTING TIME + POC Routine 12/05/2017 10:12 AM EDT POC ARTERIAL BLOOD GAS PROFILE Routine 12/05/2017 10:12 AM EDT BROOKS Routine 12/05/2017 10:05 AM EDT ACTIVATED CLOTTING TIME + POC Routine 12/05/2017 9:59 AM EDT ACTIVATED CLOTTING TIME + POC Routine 12/05/2017 9:43 AM EDT POC ARTERIAL BLOOD GAS PROFILE Routine 12/05/2017 9:42 AM EDT ACTIVATED CLOTTING TIME + POC Routine 12/05/2017 9:33 AM EDT ACTIVATED CLOTTING TIME + POC Routine 12/05/2017 9:14 AM EDT POC ARTERIAL BLOOD GAS PROFILE Routine 12/05/2017 9:14 AM EDT ACTIVATED CLOTTING TIME + POC Routine 12/05/2017 9:06 AM EDT ANE PA CATHETER PLACEMENT Routine 12/05/2017 9:03 AM EDT CENTRAL VENOUS LINE PLACEMENT Routine 12/05/2017 9:00 AM EDT POC WHOLE BLOOD GLUCOSE Routine 12/05/2017 8:58 AM EDT ACTIVATED CLOTTING TIME + POC Routine 12/05/2017 8:57 AM EDT PATHOLOGY TISSUE REQUEST Routine 12/05/2017 8:46 AM EDT Non-rheumatic mitral regurgitation Atrial fibrillation, unspecified type (HCC) TEG GLOBAL HEMOSTASIS Routine 12/05/2017 8:37 AM EDT TEG PLATELET MAPPING Routine 12/05/2017 8:29 AM EDT ACTIVATED CLOTTING TIME + POC Routine 12/05/2017 8:18 AM EDT POC ARTERIAL BLOOD GAS PROFILE Routine 12/05/2017 8:18 AM EDT INTRAOP AIRWAY PLACEMENT Routine 12/05/2017 8:13 AM EDT MITRAL VALVE REPAIR OR REPLACEMENT 12/05/2017 7:15 AM EDT Non-rheumatic mitral regurgitation Atrial fibrillation, unspecified type (HCC) ECG AND WAVEFORMS - TELEMETRY Routine 12/05/2017 5:29 AM EDT GLUCOSE METER POC Routine 12/05/2017 4:44 AM EDT HEPARIN ANTI-XA, UNF Timed 12/05/2017 3:47 AM EDT EK EKG 12 LEAD Routine 12/05/2017 12:05 AM EDT ECG AND WAVEFORMS - TELEMETRY Routine 12/04/2017 5:02 PM EDT URINALYSIS Routine 12/04/2017 1:39 PM EDT STAPHYLOCOCCUS AUREUS SCREEN Routine 12/04/2017 12:52 PM EDT XR CHEST PA AND LATERAL BUBBA 12/04/2017 9:08 AM EDT RED BLOOD CELLS REQUEST STAT 12/04/2017 8:52 AM EDT RED BLOOD CELLS REQUEST BUBBA 12/04/2017 8:52 AM EDT RED BLOOD CELLS REQUEST STAT 12/04/2017 8:52 AM EDT RED BLOOD CELLS REQUEST STAT 12/04/2017 8:52 AM EDT RED BLOOD CELLS REQUEST BUBBA 12/04/2017 8:52 AM EDT BB HISTORY CHECK Routine 12/04/2017 8:52 AM EDT ANTIBODY SCREEN IGG Routine 12/04/2017 8:52 AM EDT ABORH Routine 12/04/2017 8:52 AM EDT TYPE AND SCREEN Routine 12/04/2017 8:52 AM EDT HEMOGLOBIN A1C Routine 12/04/2017 8:52 AM EDT BLOOD GAS ARTERIAL Routine 12/04/2017 8:52 AM EDT PT / INR Routine 12/04/2017 8:52 AM EDT BASIC METABOLIC PANEL STAT 12/04/2017 8:52 AM EDT CBC WITH DIFF Routine 12/04/2017 8:52 AM EDT EK EKG 12 LEAD Routine 12/04/2017 8:36 AM EDT HEPARIN ANTI-XA, UNF Early AM 12/04/2017 5:55 AM EDT CBC Timed 12/04/2017 5:55 AM EDT ECG AND WAVEFORMS - TELEMETRY Routine 12/04/2017 5:00 AM EDT EK EKG 12 LEAD Routine 12/04/2017 12:05 AM EDT ECG AND WAVEFORMS - TELEMETRY Routine 12/03/2017 4:54 PM EDT BASIC METABOLIC PANEL Routine 12/03/2017 6:34 AM EDT HEPARIN ANTI-XA, UNF Early AM 12/03/2017 6:34 AM EDT ECG AND WAVEFORMS - TELEMETRY Routine 12/03/2017 5:05 AM EDT PULMONARY FUNCTION TEST - BEDSIDE Routine 12/03/2017 2:21 AM EDT EK EKG 12 LEAD Routine 12/03/2017 12:06 AM EDT ECG AND WAVEFORMS - TELEMETRY Routine 12/02/2017 4:48 PM EDT EC ECHOCARDIOGRAM LIMITED Routine 12/02/2017 4:[address] CHEST WO CONTRAST BUBBA 12/02/2017 3:25 PM EDT HEPARIN ANTI-XA, UNF Timed 12/02/2017 1:45 PM EDT PARTIAL THROMBOPLASTIN TIME Early AM 12/02/2017 6:21 AM EDT HEPARIN ANTI-XA, UNF Early AM 12/02/2017 6:21 AM EDT CBC Timed 12/02/2017 6:21 AM EDT ECG AND WAVEFORMS - TELEMETRY Routine 12/02/2017 5:17 AM EDT ECG AND WAVEFORMS - TELEMETRY Routine 12/01/2017 5:45 PM EDT ECG AND WAVEFORMS - TELEMETRY Routine 12/01/2017 5:07 PM EDT LEFT HEART CATH Routine 12/01/2017 4:25 PM EDT Mitral valve disorder LEFT VENTRICULOGRAM Routine 12/01/2017 4:25 PM EDT Mitral valve disorder CARDIAC PROCEDURE Routine 12/01/2017 4:25 PM EDT Mitral valve disorder CARDIAC PROCEDURE Routine 12/01/2017 4:25 PM EDT Mitral valve disorder PROFESSOR OF MUSIC HEMODYNAMIC WAVEFORMS Routine 12/01/2017 3:36 PM EDT EK EKG 12 LEAD STAT 12/01/2017 2:41 PM EDT EC ECHOCARDIOGRAM TRANSESOPHAGEAL W DOPPLER AND COLOR FLOW MAPPING Routine 12/01/2017 12:45 PM EDT ELECTROPHYSIOLOGY PROCEDURE Routine 12/01/2017 12:22 PM EDT Other cardiac arrhythmia INTRAOP AIRWAY PLACEMENT Routine 12/01/2017 11:40 AM EDT PARTIAL THROMBOPLASTIN TIME Early AM 12/01/2017 5:51 AM EDT HEPARIN ANTI-XA, UNF Early AM 12/01/2017 5:51 AM EDT ECG AND WAVEFORMS - TELEMETRY Routine 12/01/2017 5:38 AM EDT MAGNESIUM LEVEL Add-On 11/30/2017 8:25 PM EDT PT / INR Routine 11/30/2017 8:25 PM EDT BASIC METABOLIC PANEL Routine 11/30/2017 8:25 PM EDT CBC WITH DIFF Routine 11/30/2017 8:25 PM EDT ECG AND WAVEFORMS - TELEMETRY Routine 11/30/2017 5:06 PM EDT PARTIAL THROMBOPLASTIN TIME Early AM 11/30/2017 5:59 AM EDT HEPARIN ANTI-XA, UNF Early AM 11/30/2017 5:59 AM EDT CBC Timed 11/30/2017 5:59 AM EDT ECG AND WAVEFORMS - TELEMETRY Routine 11/30/2017 5:30 AM EDT ECG AND WAVEFORMS - TELEMETRY Routine 11/29/2017 4:52 PM EDT PARTIAL THROMBOPLASTIN TIME Timed 11/29/2017 2:01 PM EDT HEPARIN ANTI-XA, UNF Timed 11/29/2017 2:01 PM EDT EC ECHOCARDIOGRAM COMPLETE W DOPPLER AND COLOR FLOW MAPPING Routine 11/29/2017 8:52 AM EDT PARTIAL THROMBOPLASTIN TIME Early AM 11/29/2017 7:49 AM EDT HEPARIN ANTI-XA, UNF Early AM 11/29/2017 7:49 AM EDT ECG AND WAVEFORMS - TELEMETRY Routine 11/29/2017 5:30 AM EDT TROPONIN-T HIGH SENSITIVITY BASELINE W/ REFLEX Timed 11/28/2017 6:28 PM EDT ECG AND WAVEFORMS - TELEMETRY Routine 11/28/2017 5:53 PM EDT HEPARIN ANTI-XA, UNF STAT 11/28/2017 5:20 PM EDT PARTIAL THROMBOPLASTIN TIME STAT 11/28/2017 5:20 PM EDT ECG AND WAVEFORMS - TELEMETRY Routine 11/28/2017 3:45 PM EDT DIGOXIN LEVEL STAT 11/28/2017 3:22 PM EDT TROPONIN-T HIGH SENSITIVITY BASELINE W/ REFLEX Timed 11/28/2017 2:30 PM EDT XR CHEST AP PORTABLE BUBBA 11/28/2017 12:37 PM EDT BB HISTORY CHECK STAT 11/28/2017 12:19 PM EDT ANTIBODY SCREEN IGG STAT 11/28/2017 12:19 PM EDT ABORH STAT 11/28/2017 12:19 PM EDT TYPE AND SCREEN STAT 11/28/2017 12:19 PM EDT TROPONIN-T HIGH SENSITIVITY BASELINE W/ REFLEX STAT 11/28/2017 12:11 PM EDT NT PROBNP STAT 11/28/2017 12:11 PM EDT COMPREHENSIVE METABOLIC PANEL STAT 11/28/2017 12:11 PM EDT CBC WITH DIFF STAT 11/28/2017 12:11 PM EDT SALINE LOCK IV STAT 11/28/2017 12:08 PM EDT EK EKG 12 LEAD STAT 11/28/2017 11:48 AM EDT POCT EKG Routine 11/28/2017 11:03 AM EDT Atrial fibrillation, unspecified type (HCC) TRANSFUSE CRYOPRECIPITATE Routine Results * VECTOR REMOTE HEART FAILURE DEVICE (07/12/2024 12:00 AM EDT) Only the most recent of7 resultswithin the time period is included. 07/12/2024 Narrative [facility] - 07/12/2024 12:00 AM EDT Stable trend. Optivol wnl. [place] us Alo Lennon MD [facility] CARDIAC CATH ORDERAB LES Final Result Performing Organization Address City/State/[facility] Co de Phone Number [facility] [address] [place] [address] * VECTOR REMOTE DEVICE (07/04/2024 12:00 AM EDT) Only the most recent of13 resultswithin the time period is included. 07/04/2024 Narrative [facility] - 07/04/2024 12:00 AM EDT NSVT: 3 longest lasting 11.4s on 06/28/24. V. Sensing Episodes: 5, longest 13s. Pt with history of NOY procedure. Mode: VVIR. PRE PLANNING ADVISOR: 96%. Effective BiVP: 95%. Normal device function. Battery Advisory. ADDENDUM: No atrial lead but egms c/w probable SVT vs aflutter/RVR due to visible P waves seen in LV1 to Can. Pt has hx of same type of events and has been asymptomatic. Pt not called at this time. Will continue to monitor--kls us Alo Lennon MD [facility]ARDIAC CATH ORDERAB LES Final Result [facility] [address] [place] [address] * (ABNORMAL) CBC (06/25/2024 11:59 AM EDT) Only the most recent of16 resultswithin the time period is included. WBC 9.5 3.7 - 10.3 x10(3)/mcL 06/25/2024 [...] ORDERABLES Final Res ult [facility] [address] [facility] , [place] [address] * (ABNORMAL) BASIC METABOLIC PANEL (06/25/2024 11:59 AM EDT) Only the most recent of48 resultswithin the time period is included. Sodium 140 136 - 145 mmol/L 06/25/2024 8:06 PM EDT [facility] Potassium 4.6 3.5 - 5.0 mmol/L 06/25/2024 8:06 PM EDT [facility] Chloride 105 98 - 107 mmol/L 06/25/2024 8:06 PM EDT [facility] Total CO2 24 22 - 29 mmol/L 06/25/2024 8:06 PM EDT [facility] Anion Gap 11 7 - 16 mmol/L 06/25/2024 8:06 PM EDT [facility] Calcium 9.6 8.8 - 10.4 mg/dL 06/25/2024 8:06 PM EDT [facility] Glucose Lvl 86 70 - 99 mg/dL 06/25/2024 8:06 PM EDT [facility] BUN 21 8 - 23 mg/dL 06/25/2024 8:06 PM EDT [facility] Creatinine 1.23 0.67 - 1.30 mg/dL 06/25/2024 8:06 PM EDT [facility] eGFR (CKD-EPIcr 2020) 57(L) >=60 mL/min/1.7 3 m2 06/25/2024 8:06 PM EDT [facility] Comment:Estimated GFR was ca lculated using the CKD-EPIcr (2020) equation refit without race. The equation is recommended by the [employer] - [place] [employer] Neph[employer] Task Force. Blood VENOUS BLOOD / Unknown Venipuncture / Unknown 06/25/2024 11:59 AM EDT 06/25/2024 11:59 AM EDT uLana Cooper OUTPATIENT PSYCHIATRIST CHEMISTRY ORDERABLES Final Resu lt Performing Organization Address City/[facility]/ZIP Co de Phone Number [employer] [address] [facility], [place] [address] * PACEART REPORT (09/09/2023 4:40 PM EDT) Only the most recent of19 resultswithin the time period is included. 09/09/2023 4:40 PM EDT Narrative [facility] - 09/09/2023 12:57 PM EDT Here for MD visit. See office visit note and attached PDF. Umm Fernández, RN/CDS Alo Lennon MD [facility] CARDI[facility] CATH ORDERAB LES Final Result Performing Organization Address [facility] Co de Phone Number [facility] [address] [place], [place] [id number] * SCANNED EKG (08/20/2021 11:39 AM EDT) Only the most recent of3 resultswithin the time period is included. Anatomical Region Laterality Modality Other 08/20/2021 11:3 9 AM EDT Unknown Provider IMG ECG ORDERABLES Final Result * (ABNORMAL) MAGNESIUM LEVEL (08/17/2021 1:04 PM EDT) Only the most recent of18 resultswithin the time period is included. Magnesium 2.8(H) 1.6 - 2.4 mg/dL 08/17/2021 2:31 PM EDT [employer] Blood VENOUS BLOOD / Unknown Venipuncture / Unknown 08/17/2021 1:04 PM EDT 08/17/2021 1:04 PM EDT Alo Lennon MD CHEMISTRY ORDERABLES Fin al Result [facility] [address] [facility] , [place] [address] * EC ECHOCARDIOGRAM COMPLETE W DOPPLER AND COLOR FLOW MAPPING (05/22/2021 10:33 AM EDT) Only the most recent of3 resultswithin the time period is included. AORTIC STENOSIS no PYRAMIS LV DIASTOLIC PLAX 4.984 cm PYRAMIS MITRAL REGURGITATION trace PYRAMIS Anatomical Region Laterality Modality Electrocardiogra phy 05/22/2021 9:25 AM EDT Impressions 05/22/2021 3:43 PM EDT Conclusions * Left ventricular segmental wall motion is abnormal. * Right ventricular systolic function is reduced, with a TAPSE of 1.08 cm and a RV s' of 7.00 cm/s. Narrative Procedure Note Los Tyson MD - 05/22/2021 IMPRESSION Conclusions * Left ventricular segmental wall motion is abnormal. * Right ventricular systolic function is reduced, with a TAPSE of 1.08cm and a RV s' of 7.00 cm/s. Lety Caldwell APRN IMG ECHO ORDERABLES Final Resu lt * SCANNED LABS (03/01/2021 1:47 PM EST) Only the most recent of2 resultswithin the time period is included. 03/01/2021 1:47 PM EST us Unknown Provider HEMATOLOGY ORDERABLES Final Res ult * (ABNORMAL) NT PROBNP (01/29/2021 10:58 AM EST) Only the most recent of3 resultswithin the time period is included. NT Pro-BNP 926(H) <=852 pg/mL 01/29/2021 12:11 PM EST [employer] Blood VENOUS BLOOD / Unknown Venipuncture / Unknown 01/29/2021 10:58 AM EST 01/29/2021 10:59 AM EST Narrative [employer] - 01/29/2021 12:11 PM EST An NT pro-BNP level less than 300 pg/mL in any patient, regardless of age, effectively rules out acute CHF with a 99% negative predictive value. Ingestion of paz doses of biotin (>5 mg/day) taken within 8 hours of drawing blood sample can interfere with this immunoassay test. us Lety Caldwell SITE SUPERVISOR CHEMISTRY ORDERABLES Final Res ult Performing Organization Address [facility] de Phone Number [employer] [address] [facility] [facility], [address] [place] [id number] * CARDIAC INTERROGATION DEVICE (03/14/2018 4:23 PM EST) Anatomical Region Laterality Modality Other 03/14/2018 4:23 PM EST us Unknown Unknown IMG ECG ORDERABLES Final Result * ECG AND WAVEFORMS - TELEMETRY (03/13/2018 7:43 AM EST) Only the most recent of95 resultswithin the time period is included. ECG INTERPRET Ventricular Paced [facility] SAND SYSTEM OPERATOR APPROVED Yes [facility] 03/13/2018 7:43 AM EST Narrative [facility] - 03/13/2018 8:33 AM EST See Clinical Report link for waveform capture us Unknown Provider POINT OF CARE CARDIOLOGY Final Result Performing Organization Address [facility] de Phone Number [facility] [address] [place] [address] * (ABNORMAL) CBC WITH DIFF (03/13/2018 6:31 AM EST) Only the most recent of32 resultswithin the time period is included. WBC 11.6(H) 3.7 - 10.3 x10(3)/mcL 03/13/2018 6:47 AM EST [employer] RBC 4.76 4.60 - 6.10 x10(6)/mcL 03/13/2018 6:47 AM EST [employer] Hgb 13.1(L) 13.7 - 17.5 g/dL 03/13/2018 6:47 AM EST [facility] Hct 42.3 40.0 - 51.0 % 03/13/2018 6:47 AM EST [facility] MCV 88.9 79.0 - 98.0 fL 03/13/2018 6:47 AM EST [facility] MCH 27.5 26.0 - 32.0 pg 03/13/2018 6:47 AM EST [facility] MCHC 31.0 30.7 - 35.5 g/dL 03/13/2018 6:47 AM EST [facility] RDW 14.6 <=14.9 % 03/13/2018 6:47 AM EST [facility] Platelet 171 155 - 369 x10(3)/mcL 03/13/2018 6:47 AM EST [facility] MPV 11.9 8.8 - 12.5 fL 03/13/2018 6:47 AM EST [facility] Neut Percent 92.1 % 03/13/2018 6:47 AM EST [facility] Comment:Neutrophils equals s egs plus bands Imm Gran% 0.6 % 03/13/2018 6:47 AM EST [facility] Comment:Automated count of m etamyelocytes, myelocytes and promyelocytes. Lymph Percent 2.6 % 03/13/2018 6:47 AM EST [facility] Frontier Percent 4.0 % 03/13/2018 6:47 AM EST [facility] Eos Percent 0.5 % 03/13/2018 6:47 AM EST [facility] Baso Percent 0.2 % 03/13/2018 6:47 AM EST [facility] Neut # 10.7(H) 1.6 - 6.1 x10(3)/mcL 03/13/2018 6:47 AM EST [facility] Comment:Neutrophils equals s egs plus bands IMMGRAN# 0.1 0.0 - 0.1 x10(3)/mcL 03/13/2018 6:47 AM EST [facility] Comment:Automated count of m etamyelocytes, myelocytes and promyelocytes. An absolute IG <0.1 is reported as 0.0. Lymph # 0.3(L) 1.2 - 3.9 x10(3)/mcL 03/13/2018 6:47 AM EST [facility] # 0.5 0.3 - 0.9 x10(3)/mcL 03/13/2018 6:47 AM EST [facility] Eos# 0.1 0.0 - 0.5 x10(3)/mcL 03/13/2018 6:47 AM EST [facility] Baso # 0.0 0.0 - 0.1 x10(3)/[facility] 03/13/2018 6:47 AM EST [facility] [facility] Blood Venipuncture / Unknown 03/13/2018 6:31 AM EST 03/13/2018 6:37 AM EST us Maxi Dyer MD HEMATOLOGY ORDERABLES Final Result [facility] [address] [place] [address], [place] [address] * XR CHEST AP PORTABLE (03/12/2018 4:30 PM EST) Only the most recent of36 resultswithin the time period is included. Anatomical Region Laterality Modality Chest Radiographic Eugenia ging 03/12/2018 4:30 PM EST Impressions 03/12/2018 4:58 PM EST No evidence of pneumothorax following transvenous pacer insertion. Increased interstitial markings compared to yesterday's exam, suggesting CHF or fluid overload. Progress films advised. Code gris. Stat call. Narrative 03/12/2018 4:58 PM EST XR CHEST AP PORTABLE, 03/12/2018 4:30 PM CLINICAL HISTORY: -rule out pneumothorax post Pacemaker/ICD COMPARISON: 03/11/2018. PROCEDURE COMMENTS: AP portable technique. FINDINGS: Patient is moderately rotated to the left. Interval placement of transvenous pacer, with right atrial, right ventricular, and coronary sinus leads. Prior sternotomy and valvular prosthesis again noted. No pneumothorax identified. Pleural and parenchymal opacity is again noted at the left lung base. There are increased interstitial markings throughout both lungs, and markings are more prominent than on yesterday's exam, suggesting mild CHF or fluid overload. Triangular opacity overlying the medial left upper lung is likely superimposition of aortic knob and bony structures, due to patient rotation. Procedure Note Moody Courtney MD - 03/12/2018 XR CHEST AP PORTABLE, 03/12/2018 4:30 PM CLINICAL HISTORY: -rule out pneumothorax post Pacemaker/ICD COMPARISON: 03/11/2018. PROCEDURE COMMENTS: AP portable technique. FINDINGS: Patient is moderately rotated to the left. Interval placement oftransvenous pacer, with right atrial, right ventricular, and coronary sinus leads.Prior sternotomy and valvular prosthesis again noted. No pneumothoraxidentified. Pleural and parenchymal opacity is again noted at the left lung base.There are increased interstitial markings throughout both lungs, and markings aremore prominent than on yesterday's exam, suggesting mild CHF or fluidoverload. Triangular opacity overlying the medial left upper lung is likely superimposition of aortic knob and bony structures, due to patientrotation. IMPRESSION: No evidence of pneumothorax following transvenous pacer insertion. Increased interstitial markings compared to yesterday's exam, suggestingCHF or fluid overload. Progress films advised. Code jot. Stat call. us Alo Lennon MD IMG DIAGNOSTIC IMAGING O RDERABLES Final Result * INTRAOP AIRWAY PLACEMENT (03/12/2018 4:06 PM EST) Narrative [facility] - 03/12/2018 4:06 PM EST Bony Raman CRNA 03/12/2018 4:06 PM Intraop Airway Placement: Airway type: Nasal cannula salter Procedure Note Bony Raman CRNA - 03/12/2018 4:06 PM EST Intraop Airway Placement: Airway type: Nasal cannula salter us Vineet Mims MD ID ANESTHESIA Final Result [facility] [address] [place] [phone] * AV NODE MODIFICATION WITH BIVENTRICULAR PERMANENT PACEMAKER (03/12/2018 3:58 PM EST) Narrative [facility] - 03/25/2018 1:08 PM EST Successful biventricular pacemaker placement Permanent atrial fibrillation 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 Phosphorus 4.1 2.5 - 4.5 mg/dL 03/12/2018 8:32 AM EST [employer] Blood VENOUS BLOOD / Unknown Venipuncture / Unknown 03/12/2018 7:21 AM EST 03/12/2018 7:53 AM EST Maxi Dyer MD CHEMISTRY ORDERABLES Final R esult Performing Organization Address [facility] Co de Phone Number [facility] [address] [place] [address], [place] [address] * TROPONIN-T HIGH SENSITIVITY (03/11/2018 7:32 PM EST) Only the most recent of9 resultswithin the time period is included. mx-[id number] 18 <22 ng/L 03/11/2018 8:04 PM EST [facility] Comment: See the website below for rule out VT care pathway, conditions other than AMI that can cause elevated hs cTnT, and comparison of values from the 4th and 5th generation Suha tests. [email or web address] Blood VENOUS BLOOD / Unknown Venipuncture / Unknown 03/11/2018 7:32 PM EST 03/11/2018 7:40 PM EST Narrative [facility] - 03/11/2018 8:04 PM EST Ingestion of paz doses of biotin (>5 mg/day) taken within 8 hours of drawing blood sample can interfere with this immunoassay test. us Karl Wilkes MD CHEMISTRY ORDERABLES Final Resul t Performing Organization Address City/[facility]/ZIP Co de Phone Number [facility] [address] [place] [phone] * XR CHEST PA AND LATERAL (03/11/2018 1:43 PM EST) Only the most recent of4 resultswithin the time period is included. Anatomical Region Laterality Modality Chest Radiographic Eugenia ging 03/11/2018 1:43 PM EST Impressions 03/11/2018 2:07 PM EST 1. Interval decrease in small right pleural effusion. 2. Otherwise, no significant change since January 13, 2018. 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 A superimposed acute process cannot be entirely excluded and therefore, clinical correlation necessary. Narrative 03/11/2018 2:07 PM EST PA AND LATERAL CHEST X-RAY, 03/11/2018 1:43 PM CLINICAL HISTORY: -CHEST PAIN 82-year-old with chest pain. History of bilateral pleural effusions, loculated left effusion. COMPARISON: December 28, December 30, January 01, and January 13, 2018. PROCEDURE COMMENTS: Frontal and lateral views of the chest. FINDINGS: Overlying cardiac leads noted. Status post median sternotomy and mitral valve replacement. instrumentation and control technician device projects over the medial aspect of the left hemithorax, unchanged. Cardiomediastinal silhouette partially obscured. Visualized portions stable and enlarged. Pulmonary vasculature is within normal limits. Persistent left pleural effusion with associated left base airspace opacity, unchanged. Remainder the lungs are stable. No definite new parenchymal opacities. Interval decrease in small right pleural effusion. No pneumothorax. Procedure Note Nanda Logan MD - 03/11/2018 PA AND LATERAL CHEST X-RAY, 03/11/2018 1:43 PM CLINICAL HISTORY: -CHEST PAIN 82-year-old with chest pain. History ofbilateral pleural effusions, loculated left effusion. COMPARISON: December 28, December 30, January 01, and January 13, 2018. PROCEDURE COMMENTS: Frontal and lateral views of the chest. FINDINGS: Overlying cardiac leads noted. Status post median sternotomyand mitral valve replacement. instrumentation and control technician device projects over the medialaspect of the left hemithorax, unchanged. Cardiomediastinal silhouette partially obscured. Visualized portionsstable and enlarged. Pulmonary vasculature is within normal limits. Persistent left pleural effusion with associated left base airspaceopacity, unchanged. Remainder the lungs are stable. No definite new parenchymal opacities. Interval decrease in small right pleural effusion. Nopneumothorax. IMPRESSION: 1. Interval decrease in small right pleural effusion. 2. Otherwise, no significant change since January 13, 2018. Chronic leftbase parenchymal and pleural disease. A superimposed acute process cannot beentirely excluded and therefore, clinical correlation necessary. Karl Wilkes MD IMG DIAGNOSTIC IMAGING ORDERABLE S Final Result * EK EKG 12 LEAD (03/11/2018 12:47 PM EST) Only the most recent of21 resultswithin the time period is included. Anatomical Region Laterality Modality Electrocardiogra phy 03/11/2018 12:5 1 PM EST Impressions 03/11/2018 8:51 PM EST Stationary ECG Study [place] Interpretive Statements ATRIAL FIBRILLATION WITH RAPID VENTRICULAR RESPONSE POSSIBLE ANTERIOR MYOCARDIAL INFARCTION, OF INDETERMINATE AGE Electronically Signed On 03-11-2018 20:51:05 EST by Ray Davis MD Narrative Procedure Note Ray Davis MD - 03/11/2018 IMPRESSION Stationary ECG Study [place] Interpretive Statements ATRIAL FIBRILLATION WITH RAPID VENTRICULAR RESPONSE POSSIBLE ANTERIOR MYOCARDIAL INFARCTION, OF INDETERMINATE AGE Electronically Signed On 03-11-2018 20:51:05 EST by Ray Davis MD Karl Wilkes MD IMG ECG ORDERABLES Final Result * POCT EKG (03/06/2018 10:32 AM EST) Only the most recent of2 resultswithin the time period is included. 03/06/2018 10:3 2 AM EST Impressions [facility] - 03/06/2018 10:32 AM EST Atrial Fibrillation with RVR Alo Lennno MD POINT OF CARE CARDIOLOGY Final Result [facility] * (ABNORMAL) SEDIMENTATION RATE AUTOMATED (02/03/2018 6:01 AM EST) Only the most recent of6 resultswithin the time period is included. Sed Rate 39(H) 0 - 20 mm/hr 02/03/2018 6:59 AM EST [facility] Blood VENOUS BLOOD / Unknown Venipuncture / Unknown 02/03/2018 6:01 AM EST 02/03/2018 6:15 AM EST Willie Addison MD HEMATOLOGY ORDERABLES F inal Result Performing Organization Address [facility] Co de Phone Number [facility] [address] [place] [id number] * C-REACTIVE PROTEIN (02/03/2018 6:01 AM EST) Only the most recent of6 resultswithin the time period is included. Pathologist [facility] CRP 3.09 <=5.00 mg/L 02/03/2018 7:55 AM EST [employer] Blood Venipuncture / Unknown 02/03/2018 6:01 AM EST 02/03/2018 6:15 AM EST Willie Addison MD CHEMISTRY ORDERABLES Fi nal Result Performing Organization Address [facility] Co de Phone Number [employer] [address] [place] [address], [address] [place] [phone] * (ABNORMAL) COMPREHENSIVE METABOLIC PANEL (02/03/2018 6:01 AM EST) Only the most recent of12 resultswithin the time period is included. Pathologist [facility] Sodium 139 136 - 145 mmol/L 02/03/2018 6:34 AM EST [facility] Potassium 4.9 3.5 - 5.0 mmol/L 02/03/2018 6:34 AM [facility] Chloride 103 98 - 107 mmol/L 02/03/2018 6:34 AM EST [facility] Total CO2 25 22 - 29 mmol/L 02/03/2018 6:34 AM [facility] Anion Gap 11 7 - 16 mmol/L 02/03/2018 6:34 AM [facility] Calcium 9.5 8.8 - 10.2 mg/dL 02/03/2018 6:34 AM EST [facility] Glucose Lvl 118(H) 82 - 100 mg/dL 02/03/2018 6:34 AM EST [facility] BUN 18 8 - 23 mg/dL 02/03/2018 6:[address] [facility] Creatinine 1.02 0.67 - 1.30 mg/dL 02/03/2018 6:[address] [facility] Albumin 3.4 3.2 - 4.6 gm/dL 02/03/2018 6:34 AM EST [facility] Total Protein 6.7 6.4 - 8.3 gm/dL 02/03/2018 6:34 AM EST [facility] Bili Total 0.4 0.1 - 1.4 mg/dL 02/03/2018 6:34 AM EST [facility] ALT 11 <=41 IU/L 02/03/2018 6:[address] [facility] AST 14 <=40 IU/L 02/03/2018 6:[address] [facility] Alk Phos 114 40 - 129 IU/L 02/03/2018 6:34 AM EST [facility] GFR Afr Am 80 >=60 mL/min/1.7 3 m2 02/03/2018 6:[address] [facility] GFR Non Afr Am 69 >=60 mL/min/1.7 3 m2 02/03/2018 6:[address] [facility] Comment: This estimated GFR was calculated using CKD-EPI equation which is modified based on ethnicity for Non Americans and Americans. Both results are reported since it is not always possible to determine the patient's ethnicity. This equation should only be used for individuals 18 and older. It has not been validated for use with the elderly (>70 years), women, or in some racial or ethnic subgroups, such as Hispanics. The equation will be less accurate in people with differences in nutritional status or muscle mass. Blood Venipuncture / Unknown 02/03/2018 6:01 AM EST 02/03/2018 6:15 AM EST us Willie Addison MD CHEMISTRY ORDERABLES Fi nal Result [facility] [address] [facility] [place] [address] * (ABNORMAL) VITAMIN B12/ FOLIC ACID (02/01/2018 6:21 AM EST) Only the most recent of2 resultswithin the time period is included. Vitamin B12 512 211 - 946 pg/mL 02/01/2018 11:22 AM EST [employer] Folate >16.00(H) 4.50 - 16.00 ng/mL 02/01/2018 11:22 AM EST [employer] Blood VENOUS BLOOD / Unknown Venipuncture / Unknown 02/01/2018 6:21 AM EST 02/01/2018 6:34 AM EST Narrative [employer] - 02/01/2018 11:22 AM EST Ingestion of paz doses of biotin (>5 mg/day) taken within 8 hours of drawing blood sample can interfere with this immunoassay test. us Willie Addison MD CHEMISTRY ORDERABLES Fi nal Result Performing Organization Address [facility] Co de Phone Number [employer] [address] [facility] , [address] [place], [place] [phone] * (ABNORMAL) VITAMIN D 25 HYDROXY (02/01/2018 6:21 AM EST) Vit D 25 OH 24.0(L) 30.0 - 120.0 ng/mL 02/01/2018 12:36 PM EST [employer] Comment: INTERPRETIVE INFORMATION: Vitamin D, 25-Hydroxy <20 ng/mL Deficiency 20 - 29 ng/mL Insufficiency 30 - 80 ng/mL Optimum Level >120 ng/mL Possible Toxicity NOTE: For infants and children up to 17 years of age, the optimum level is >=20 ng/mL. This assay accurately quantifies the sum of vitamin D3, 25-Hydroxy and vitamin D2, 25-Hydroxy. Blood VENOUS BLOOD / Unknown Venipuncture / Unknown 02/01/2018 6:21 AM EST 02/01/2018 6:34 AM EST us Willie Addison MD CHEMISTRY ORDERABLES Fi nal Result Performing Organization Address [facility] de Phone Number [employer] [address] [facility] , [place] [address] * THYROID STIMULATING HORMONE (02/01/2018 6:21 AM EST) Only the most recent of2 resultswithin the time period is included. TSH 1.400 0.270 - 4.200 mcIU/mL 02/01/2018 11:30 AM EST [employer] Blood VENOUS BLOOD / Unknown Venipuncture / Unknown 02/01/2018 6:21 AM EST 02/01/2018 6:33 AM EST Narrative [employer] - 02/01/2018 11:30 AM EST Ingestion of paz doses of biotin (>5 mg/day) taken within 8 hours of drawing blood sample can interfere with this immunoassay test. us Willie Addison MD CHEMISTRY ORDERABLES nal Result Performing Organization Address [facility] Phone Number [employer] [address] [place] [address] , [place] [address] * TESTOSTERONE LEVEL TOTAL (02/01/2018 6:21 AM EST) Testosterone Lvl 329 300 - 720 ng/dL 02/01/2018 11:30 AM EST [employer] Blood VENOUS BLOOD / Unknown Venipuncture / Unknown 02/01/2018 6:21 AM EST 02/01/2018 6:33 AM EST Narrative [employer] - 02/01/2018 11:30 AM EST Values less than 12 ng/dL are not reliable as the intermediate precision coefficient of variation is > 20%. Ingestion of paz doses of biotin (>5 mg/day) taken within 8 hours of drawing blood sample can interfere with this immunoassay test. us Willie Addison MD CHEMISTRY ORDERABLES Fi nal Result Performing Organization Address [facility] Co de Phone Number [employer] [address] [facility] , [place] [address] * (ABNORMAL) URINE CULTURE (NO STAIN) (01/30/2018 11:21 PM EST) Only the most recent of4 resultswithin the time period is included. Culture Positive Growth(A) 02/01/2018 11:35 AM EST [facility] Culture 3000 CFU/mL Gram negative rods 02/01/2018 11:35 AM EST [employer] Comment:No further workup. Urine URINE SPECIMEN COLLECTION, CLEAN CATCH / Unknown 01/30/2018 11:21 PM EST 01/30/2018 11:25 PM EST us Jeffrey Curtis MD MICROBIOLOGY - GENERAL ORDERABL ES Final Result [facility] [address] [facility], [place] [address] * CT CHEST WO CONTRAST (01/17/2018 9:34 AM EST) Only the most recent of3 resultswithin the time period is included. Anatomical Region Laterality Modality Chest Computed Tomogra phy 01/17/2018 9:34 AM EST Impressions 01/17/2018 10:31 AM EST Similar size of bilateral pleural effusions with left loculated. Similar associated consolidation atelectasis and/or pneumonia. Narrative 01/17/2018 10:[address] CHEST WITHOUT CONTRAST, 01/17/2018 9:34 AM CLINICAL HISTORY: -Pleural effusion -Worsening effusion on 01/13 xray. Concern for continued worsening based on exam COMPARISON: December 27, 2017 PROCEDURE COMMENTS: Multi-detector CT of the chest with multiplanar reconstructions per protocol. No contrast given. Automated exposure control for dose reduction was used. CTDIvol: 8.9 mGy. DLP: 339 mGy-cm. FINDINGS: Central airways are patent not well evaluated distally within consolidation. Bilateral pleural effusions and associated consolidation are similar to the clinically increased bilaterally. Left appears loculated unchanged. Minimal other patchy and bandlike areas of consolidation. No suspicious mediastinal or hilar lymphadenopathy. Heart size is stable. Post surgical changes of mitral valve redemonstrated. Limited imaging of the upper abdomen demonstrates no acute findings. No suspicious osseous lesion. Procedure Note Zander Michael MD - 01/17/2018 CT CHEST WITHOUT CONTRAST, 01/17/2018 9:34 AM CLINICAL HISTORY: -Pleural effusion -Worsening effusion on 01/13 xray. Concern for continued worsening basedon exam COMPARISON: December 27, 2017 PROCEDURE COMMENTS: Multi-detector CT of the chest with multiplanar reconstructions per protocol. No contrast given. Automated exposurecontrol for dose reduction was used. CTDIvol: 8.9 mGy. DLP: 339 mGy-cm. FINDINGS: Central airways are patent not well evaluated distally withinconsolidation. Bilateral pleural effusions and associated consolidation are similar tothe clinically increased bilaterally. Left appears loculated unchanged.Minimal other patchy and bandlike areas of consolidation. No suspicious mediastinal or hilar lymphadenopathy. Heart size is stable.Post surgical changes of mitral valve redemonstrated. Limited imaging of the upper abdomen demonstrates no acute findings. No suspicious osseous lesion. IMPRESSION: Similar size of bilateral pleural effusions with left loculated. Similar associated consolidation atelectasis and/or pneumonia. Kavon Reese MD [facility] [place] ORDERABLES Final Resul t * EC ECHOCARDIOGRAM LIMITED (01/12/2018 1:09 PM EST) Only the most recent of3 resultswithin the time period is included. Ejection Fraction 35-40 % [place] Anatomical Region Laterality Modality Electrocardiogra phy 01/12/2018 12:3 2 PM EST Impressions 01/12/2018 2:13 PM EST CONCLUSIONS Reduced ejection fraction by visual estimate. Narrative Procedure Note Los Tyson MD - 01/12/2018 IMPRESSION CONCLUSIONS Reduced ejection fraction by visual estimate. Alo Lennon MD [facility] [place] ORDERABLES Haylee l Result * CARDIOVERSION (01/11/2018 10:23 AM EST) Narrative [facility] - 01/11/2018 10:50 AM EST Successful CV of Afib to SR with one 200Joule DC shock. Plan Flecainide per Dr. Lennon. us Ricardo Rai MD ELECTROPHYSIOLOGY ORDERABLES Fin al Result Performing Organization Address [facility] Co de Phone Number [facility] * PROFESSOR OF MUSIC HEMODYNAMIC WAVEFORMS (01/11/2018 10:13 AM EST) Only the most recent of2 resultswithin the time period is included. 01/11/2018 10:1 3 AM EST us Ricardo Rai MD CARDIAC CATH ORDERABLES Final Re sult Performing Organization Address [facility] de Phone Number [facility] [address] [place] [phone] * POTASSIUM LEVEL (01/11/2018 4:02 AM EST) Only the most recent of2 resultswithin the time period is included. Pathologist [facility] Potassium 4.1 3.5 - 5.0 mmol/L 01/11/2018 7:13 AM EST [facility] Blood BLOOD SAMPLE TAKEN FROM CENTRAL LINE / Unknown Venipuncture / Unknown 01/11/2018 4:02 AM EST 01/11/2018 6:46 AM EST us Ricardo Rai MD CHEMISTRY ORDERABLES Final Resul t Performing Organization Address [facility] [place] Number [facility] [address] [place] [id number] * EXTRA GOLD SST (01/09/2018 5:12 PM EST) Blood VENOUS BLOOD / Unknown Venipuncture / Unknown 01/09/2018 5:12 PM EST 01/09/2018 5:34 PM EST us Jeffrey Curtis MD CHEMISTRY ORDERABLES Final Resu lt Performing Organization Address [facility] de Phone Number [facility] [address] [place] [address] * PARTIAL THROMBOPLASTIN TIME (01/09/2018 5:12 PM EST) Only the most recent of11 resultswithin the time period is included. PTT 32.7 26.0 - 36.4 second(s) 01/09/2018 5:54 PM EST [facility] Comment: Therapeutic range for unfractionated heparin: 53.0 - 94.4 seconds Therapeutic range for direct thrombin inhibitors: Argatroban is 1.5 to 3 times the aPTT baseline. Lepirudin is 1.5 to 2 times the aPTT baseline. The aPTT should not exceed 100 seconds. The dosage of Argatroban should be decreased in patients with hepatic impairment. The dosage of Lepirudin should be decreased in renal insufficiency. Blood VENOUS BLOOD / Unknown 01/09/2018 5:12 PM EST 01/09/2018 5:33 PM EST Jeffrey Curtis MD HEMATOLOGY ORDERABLES Final Res ult Performing Organization Address [facility] de Phone Number [facility] [address] [place] [address] * (ABNORMAL) PT / INR (01/09/2018 5:12 PM EST) Only the most recent of8 resultswithin the time period is included. PT 13.9(H) 9.7 - 12.5 second(s) 01/09/2018 5:54 PM EST [facility] INR 1.23(H) 0.86 - 1.10 no units 01/09/2018 5:54 PM EST [facility] Comment: Level of Therapy Indications Target INR Range Standard Dose Treatment and prophylaxis of venous 2.0 - 3.0 thrombosis, pulmonary embolism High Dose High risk patients with mechanical 2.5 - 3.5 heart valves Blood VENOUS BLOOD / Unknown 01/09/2018 5:12 PM EST 01/09/2018 5:33 PM EST us Jeffrey Curtis MD HEMATOLOGY ORDERABLES Final Res ult Performing Organization Address [facility] de Phone Number [facility] [address] [place] [address] * (ABNORMAL) HEPATIC FUNCTION PANEL (01/09/2018 5:12 PM EST) Only the most recent of4 resultswithin the time period is included. Pathologist [facility] Total Protein 6.2(L) 6.4 - 8.3 gm/dL 01/09/2018 5:59 PM EST [facility] Albumin 3.1(L) 3.2 - 4.6 gm/dL 01/09/2018 5:59 PM EST [facility] Bili Direct <0.2 0.0 - 0.3 mg/dL 01/09/2018 5:59 PM EST [facility] Bili Total 0.4 0.1 - 1.4 mg/dL 01/09/2018 5:59 PM EST [facility] AST 20 <=40 IU/L 01/09/2018 5:59 PM EST [facility] ALT 21 <=41 IU/L 01/09/2018 5:59 PM EST [facility] Alk Phos 136(H) 40 - 129 IU/L 01/09/2018 5:59 PM EST [facility] Blood VENOUS BLOOD / Unknown 01/09/2018 5:12 PM EST 01/09/2018 5:33 PM EST us Jeffrey Curtis MD CHEMISTRY ORDERABLES Final Resu lt [facility] [address] [place] [address] * (ABNORMAL) LIPID SCREEN (01/09/2018 5:12 PM EST) [facility] Cholesterol 167 <=200 mg/dL 01/09/2018 11:49 PM EST [employer] Comment: < 200 Desirable 200 - 239 Borderline High >= 240 High Triglyceride 72 <=150 mg/dL 01/09/2018 11:49 PM EST [employer] Comment: < 150 Normal 150 - 199 Borderline High 200 - 499 High >= 500 Very High HDL 32(L) >=40 mg/dL 01/09/2018 11:49 PM EST [employer] Comment: > 60 Optimal 40 - 60 Acceptable < 40 Low LDL Calculated 121(H) <=100 mg/dL 01/09/2018 11:49 PM EST [facility] Comment: < 100 Optimal 100 - 129 Near or above optimal 130 - 159 Borderline High 160 - 189 High >= 190 Very High Non-HDL-C Calculated 135(H) <=129 mg/dL 01/09/2018 11:49 PM EST [facility] Comment: <130 Desirable 130-159 Above Desirable 160-189 Borderline High 190-219 High >= 220 Very High Blood VENOUS BLOOD / Unknown 01/09/2018 5:12 PM EST 01/09/2018 5:33 PM EST us Jeffrey Curtis MD CHEMISTRY ORDERABLES Final Resu lt [employer] [address] [facility] , [place] [address] * CT HEAD WO CONTRAST (01/06/2018 11:28 AM EST) Anatomical Region Laterality Modality Head Computed Tomogra phy 01/06/2018 11:2 8 AM EST Impressions 01/06/2018 11:49 AM EST No acute intracranial abnormality. Narrative 01/06/2018 11:[address] HEAD WO CONTRAST 01/06/2018 11:28 AM CLINICAL HISTORY: -Encephalopathy COMPARISON: None. PROCEDURE COMMENTS: Routine noncontrast head CT with multiplanar reconstructions. Automated exposure control for dose reduction was used. CTDIvol: 51.1 mGy. DLP: 887 mGy-cm. FINDINGS: No evidence of acute stroke, mass, or hemorrhage. No fracture or extra-axial collection. Age related changes noted, including atrophy and chronic white matter ischemic changes. Included portions of the paranasal sinuses, mastoids, and orbits unremarkable. Procedure Note Tobi Vergara MD - 01/06/2018 CT HEAD WO CONTRAST 01/06/2018 11:28 AM CLINICAL HISTORY: -Encephalopathy COMPARISON: None. PROCEDURE COMMENTS: Routine noncontrast head CT with multiplanar reconstructions. Automated exposure control for dose reduction wasused. CTDIvol: 51.1 mGy. DLP: 887 mGy-cm. FINDINGS: No evidence of acute stroke, mass, or hemorrhage. No fracture orextra-axial collection. Age related changes noted, including atrophy and chronicwhite matter ischemic changes. Included portions of the paranasal sinuses, mastoids, and orbitsunremarkable. IMPRESSION: No acute intracranial abnormality. us Moody Jimenez MD IMG CT ORDERABLES Final Resul t * GLUCOSE METER POC (01/02/2018 6:11 PM EST) Only the most recent of74 resultswithin the time period is included. [facility] Glucose Meter POC 87 70 - 100 mg/dL 01/02/2018 6:13 PM EST [facility] Sample Type Capillary 01/02/2018 6:13 PM EST [facility] Patient Status Non-Critical Patient 01/02/2018 6:13 PM EST [facility] Blood BLOOD SPECIMEN / Unknown 01/02/2018 6:11 PM EST 01/02/2018 6:13 PM EST us Fred Marquez MD POINT OF CARE TEST ORDERABLE S Final Result Performing Organization Address City/[facility]/ZIP Co de Phone Number [facility] [address] [place] [address] * SCANNED RHYTHM STRIPS (01/02/2018 6:58 AM EST) Only the most recent of16 resultswithin the time period is included. Anatomical Region Laterality Modality Other 01/02/2018 6:58 AM EST us Unknown Unknown IMG ECG ORDERABLES Final Result * CARDIOVERSION (01/01/2018 11:12 AM EST) Narrative [facility] - 01/28/2018 1:07 PM EST Successful external DC cardioversion us Alo Lennon MD ELECTROPHYSIOLOGY ORDERA BLES Final Result [facility] * INTRAOP AIRWAY PLACEMENT (01/01/2018 11:03 AM EST) Narrative [facility] - 01/01/2018 11:03 AM EST Harjeet Amos CRNA 01/01/2018 11:03 AM Intraop Airway Placement: Airway type: Nasal cannula salter Procedure Note Harjeet Amos CRNA - 01/01/2018 11:03 AM EST Intraop Airway Placement: Airway type: Nasal cannula salter us Vineet Mims MD ID ANESTHESIA Final Result Performing Organization Address [facility] Co de Phone Number [facility] [address] [place] [address] * [place] MODIFIED BARIUM SWALLOW (12/30/2017 9:51 AM EST) Only the most recent of3 resultswithin the time period is included. Narrative PACS - 12/30/2017 9:51 AM EST Modified Barium Swallow was performed in the Radiology department by Speech Pathology. No Radiologist in attendance. No charge from [facility]. Refer to Speech Pathology for further information. us Fred Marquez MD IMG FLUOROSCOPY ORDERABLES F inal Result Performing Organization Address [facility] de Phone Number PACS * (ABNORMAL) PREALBUMIN (12/29/2017 4:39 AM EST) Only the most recent of5 resultswithin the time period is included. Prealbumin 14.0(L) 20.0 - 40.0 mg/dL 12/29/2017 5:20 AM EST [facility] Blood BLOOD SAMPLE TAKEN FROM CENTRAL LINE / Unknown Venipuncture / Unknown 12/29/2017 4:39 AM EST 12/29/2017 4:47 AM EST us Marnie Bhagat SITE SUPERVISOR CHEMISTRY ORDERABLE S Final Result Performing Organization Address [facility] Co de Phone Number [employer] [address] [place] [address], [place] [address] * (ABNORMAL) VANCOMYCIN LEVEL TROUGH (12/28/2017 7:22 AM EST) Only the most recent of2 resultswithin the time period is included. Vanco Tr 21.0(HH) 10.0-<20.0 mcg/mL 12/28/2017 8:19 AM EST [employer] Blood Venipuncture / Unknown 12/28/2017 7:22 AM EST 12/28/2017 7:42 AM EST Narrative [employer] - 12/28/2017 8:19 AM EST Minimum serum concentration for infection control is 10 mcg/mL; a target therapeutic range of 15-20 mcg/mL is recommended for significant infections such as S. aureus. Toxicity does not correlate well with serum concentrations. Supratherapeutic levels are considered to be > 20 mcg/mL. David Mtz DO CHEMISTRY ORDERABLES Fin al Result Performing Organization Address City/[facility] Co de Phone Number [facility] [address] [place] [address] , [place] [address] * POTASSIUM WHOLE BLOOD (12/25/2017 4:03 PM EDT) Only the most recent of23 resultswithin the time period is included. K-WB 4.2 3.5 - 5.0 mEq/L 12/25/2017 4:24 PM EDT [employer] Blood VENOUS BLOOD / Unknown Venipuncture / Unknown 12/25/2017 4:03 PM EDT 12/25/2017 4:09 PM EDT Fred Marquez MD CHEMISTRY ORDERABLES Final R esult Performing Organization Address [facility] Co de Phone Number [employer] [address] , [place] [address] * CATH TIP CULTURE (NO STAIN) (12/24/2017 4:25 PM EDT) Only the most recent of2 resultswithin the time period is included. Culture No Growth at 3 days. 12/27/2017 7:11 AM EDT [employer] Catheter Tip CENTRAL VENOUS CATHETER / Unknown 12/24/2017 4:25 PM EDT 12/24/2017 4:31 PM EDT Narrative [employer] - 12/27/2017 7:11 AM EDT Blood cultures (one drawn peripherally, one drawn through the line) are the test of choice to evaluate infections associated with catheters. us Rebecca Lomeli MD MICROBIOLOGY - GENERAL ORDERA BLES Final Result [facility] [address] [place] [address], [place] [address] * IR ULTRASOUND GUIDED VASCULAR ACCESS (12/24/2017 3:50 PM EDT) Anatomical Region Laterality Modality Interventional R adiology 12/24/2017 3:50 PM EDT Impressions 12/24/2017 3:57 PM EDT SUCCESSFUL AND UNCOMPLICATED ULTRASOUND AND FLUOROSCOPICALLY GUIDED PLACEMENT OF PICC. PICC READY FOR IMMEDIATE USE. Narrative 12/24/2017 3:57 PM EDT ULTRASOUND AND FLUOROSCOPICALLY GUIDED PICC LINE INSERTION: 12/24/2017 3:50 PM CLINICAL HISTORY: ICD-10, Z45.2, encounter for adjustment and management of vascular access device. TECHNICAL FACTORS AND FINDINGS: Procedure was performed by MICAH Quijano under the supervision of Dr. Jose Gates.. Ultrasound interrogation performed of the right basilic vein. It is shown to be patent and compressible. This was documented with a permanent image. The catheter was placed using all elements of maximal sterile barrier technique as well as all elements of sterile ultrasound technique. Following sterile skin preparation and local anesthesia under ultrasound guidance the vein was punctured. This allowed guide wire and introducer sheath insertion. Through the introducer sheath a PICC was inserted. Catheter tip was positioned at the cavo-atrial junction. This was documented with a single fluoroscopic spot film. Catheter was cut to 38 cm. Fluoroscopy time 0.4 minutes. Catheter aspirated and flushed freely. The catheter was secured to the skin surface. A sterile dressing was applied. Patient tolerated the procedure well and left the Radiology Department in stable condition. Procedure Note Artem Gates MD - 12/24/2017 ULTRASOUND AND FLUOROSCOPICALLY GUIDED PICC LINE INSERTION: 12/24/20173:50 PM CLINICAL HISTORY: ICD-10, Z45.2, encounter for adjustment and managementof vascular access device. TECHNICAL FACTORS AND FINDINGS: Procedure was performed by MCIAH Quijano under the supervision of Dr.Brad Gates.. Ultrasound interrogation performed of the right basilic vein.It is shown to be patent and compressible. This was documented with apermanent image. The catheter was placed using all elements of maximal sterile barriertechnique as well as all elements of sterile ultrasound technique. Following sterileskin preparation and local anesthesia under ultrasound guidance the vein was punctured. This allowed guide wire and introducer sheath insertion.Through the introducer sheath a PICC was inserted. Catheter tip was positioned atthe cavo-atrial junction. This was documented with a single fluoroscopic spotfilm. Catheter was cut to 38 cm. Fluoroscopy time 0.4 minutes. Catheter aspirated and flushed freely. The catheter was secured to theskin surface. A sterile dressing was applied. Patient tolerated the procedurewell and left the Radiology Department in stable condition. IMPRESSION: SUCCESSFUL AND UNCOMPLICATED ULTRASOUND AND FLUOROSCOPICALLY GUIDED PLACEMENT OF PICC. PICC READY FOR IMMEDIATE USE. us Fred Marquez MD IMG IR ORDERABLES Final Resu lt * IR PICC INSERTION EQUAL OR > 5 YEARS (12/24/2017 3:50 PM EDT) Anatomical Region Laterality Modality Interventional R adiology 12/24/2017 3:50 PM EDT Impressions 12/24/2017 3:57 PM EDT SUCCESSFUL AND UNCOMPLICATED ULTRASOUND AND FLUOROSCOPICALLY GUIDED PLACEMENT OF PICC. PICC READY FOR IMMEDIATE USE. Narrative 12/24/2017 3:57 PM EDT ULTRASOUND AND FLUOROSCOPICALLY GUIDED PICC LINE INSERTION: 12/24/2017 3:50 PM CLINICAL HISTORY: ICD-10, Z45.2, encounter for adjustment and management of vascular access device. TECHNICAL FACTORS AND FINDINGS: Procedure was performed by MICAH Quijano under the supervision of Dr. Jose Gates.. Ultrasound interrogation performed of the right basilic vein. It is shown to be patent and compressible. This was documented with a permanent image. The catheter was placed using all elements of maximal sterile barrier technique as well as all elements of sterile ultrasound technique. Following sterile skin preparation and local anesthesia under ultrasound guidance the vein was punctured. This allowed guide wire and introducer sheath insertion. Through the introducer sheath a PICC was inserted. Catheter tip was positioned at the cavo-atrial junction. This was documented with a single fluoroscopic spot film. Catheter was cut to 38 cm. Fluoroscopy time 0.4 minutes. Catheter aspirated and flushed freely. The catheter was secured to the skin surface. A sterile dressing was applied. Patient tolerated the procedure well and left the Radiology Department in stable condition. Procedure Note Artem Gates MD - 12/24/2017 ULTRASOUND AND FLUOROSCOPICALLY GUIDED PICC LINE INSERTION: 12/24/20173:50 PM CLINICAL HISTORY: ICD-10, Z45.2, encounter for adjustment and managementof vascular access device. TECHNICAL FACTORS AND FINDINGS: Procedure was performed by MICAH Quijano under the supervision of Dr.Brad Gates.. Ultrasound interrogation performed of the right basilic vein.It is shown to be patent and compressible. This was documented with apermanent image. The catheter was placed using all elements of maximal sterile barriertechnique as well as all elements of sterile ultrasound technique. Following sterileskin preparation and local anesthesia under ultrasound guidance the vein was punctured. This allowed guide wire and introducer sheath insertion.Through the introducer sheath a PICC was inserted. Catheter tip was positioned atthe cavo-atrial junction. This was documented with a single fluoroscopic spotfilm. Catheter was cut to 38 cm. Fluoroscopy time 0.4 minutes. Catheter aspirated and flushed freely. The catheter was secured to theskin surface. A sterile dressing was applied. Patient tolerated the procedurewell and left the Radiology Department in stable condition. IMPRESSION: SUCCESSFUL AND UNCOMPLICATED ULTRASOUND AND FLUOROSCOPICALLY GUIDED PLACEMENT OF PICC. PICC READY FOR IMMEDIATE USE. Fred Marquez MD IMG IR ORDERABLES Final Resu lt * LOWER RESPIRATORY CULTURE (STAIN INCLUDED) (12/23/2017 8:38 PM EDT) Only the most recent of4 resultswithin the time period is included. Culture Moderate growth of normal oral herrera. 12/25/2017 6:04 PM EDT [facility] Stain Group 4: >25 WBC and 10-25 epithelial cells/lpf 12/25/2017 6:04 PM EDT [facility] Stain Moderate Gram positive cocci 12/25/2017 6:04 PM EDT [facility] Sputum LOWER RESPIRATORY TRACT STRUCTURE / Unknown 12/23/2017 8:38 PM EDT 12/23/2017 8:44 PM EDT us Dawson Salvador MD MICROBIOLOGY - GENERAL ORDERABL ES Final Result Performing Organization Address [facility]/ZIP Co de Phone Number [facility], [address], [place] [address] * EXTRA GLYNN URINE CX (12/23/2017 8:30 PM EDT) Urine URINE SPECIMEN OBTAINED VIA INDWELLING URINARY CATHETER / Unknown 12/23/2017 8:30 PM EDT 12/23/2017 8:43 PM EDT us Rebecca Lomeli MD MICROBIOLOGY - GENERAL ORDERA BLES Final Result Performing Organization Address [facility] [place] [address] * (ABNORMAL) URINALYSIS (12/23/2017 8:30 PM EDT) Only the most recent of4 resultswithin the time period is included. UA Color Yellow 12/23/2017 9:32 PM EDT [facility] UA Appear Clear Clear 12/23/2017 9:32 PM EDT [facility] UA Glucose Negative Negative mg/dL 12/23/2017 9:32 PM EDT [facility] UA Ketones Negative Negative mg/dL 12/23/2017 9:32 PM EDT [facility] UA Blood Small(A) Negative 12/23/2017 9:32 PM EDT [facility] UA pH 7.0 5.0 - 8.0 pH 12/23/2017 9:32 PM EDT [facility] UA Protein 100(A) Negative mg/dL 12/23/2017 9:32 PM EDT [facility] UA Urobilinogen Normal <=1 mg/dL 8 9:32 PM EDT [facility] UA Bili Negative Negative 12/23/2017 9:32 PM EDT [facility] UA Nitrite Negative Negative 12/23/2017 9:32 PM EDT [facility] UA Leuk Est Trace(A) Negative 12/23/2017 9:32 PM EDT [facility] UA Spec Grav 1.025 1.001 - 1.035 no units 12/23/2017 9:32 PM EDT [facility] Comment: Reference range valid for random specimens only. UA WBC 2 0 - 4 /HPF 12/23/2017 9:32 PM EDT [facility] UA RBC 159(H) 0 - 3 /HPF 12/23/2017 9:32 PM EDT [facility] UA Bacteria Trace(A) Negative /HPF 12/23/2017 9:32 PM EDT [facility] UA Hyal Cast 1 0 - 2 /LPF 12/23/2017 9:32 PM EDT [facility] Urine URINE SPECIMEN COLLECTION, CLEAN CATCH / Unknown 12/23/2017 8:30 PM EDT 12/23/2017 8:43 PM EDT Rebecca Lomeli MD URINE ORDERABLES Final Result Performing Organization Address [facility]/ZIP Co de Phone Number [facility], [address] , [address] [place] [id number] * BLOOD CULTURE (NO STAIN) (12/23/2017 8:09 PM EDT) Only the most recent of10 resultswithin the time period is included. Culture Result No Growth at 120 hours. BLOOD CULTURE (NO STAIN) 12/28/2017 9:00 PM EST [facility] Blood BLOOD SAMPLE TAKEN FROM CENTRAL LINE / Unknown Venipuncture / Unknown 12/23/2017 8:09 PM EDT 12/23/2017 8:46 PM EDT Rebecca Lomeli MD MICROBIOLOGY - GENERAL ORDERA BLES Final Result Performing Organization Address [facility]/ZIP Co de Phone Number [facility], [address] , [place] [address] * (ABNORMAL) HEMOGLOBIN AND HEMATOCRIT (12/21/2017 4:18 AM EDT) Only the most recent of5 resultswithin the time period is included. Hgb 7.9(L) 13.7 - 17.5 g/dL 12/21/2017 4:46 AM EDT [employer] Hct 25.0(L) 40.0 - 51.0 % 12/21/2017 4:46 AM EDT [employer] [facility] Blood BLOOD SAMPLE TAKEN FROM CENTRAL LINE / Unknown Venipuncture / Unknown 12/21/2017 4:18 AM EDT 12/21/2017 4:38 AM EDT us Fred Marquez MD HEMATOLOGY ORDERABLES Final Result [employer] [facility] [employer] [address] [facility], [place] [address] * (ABNORMAL) POC OPEN HEART PROFILE (12/19/2017 2:37 PM EDT) Only the most recent of30 resultswithin the time period is included. pH 7.45(H) 7.37 - 7.44 pH 12/19/2017 2:40 PM EDT [facility] pCO2 35 32 - 45 mmHg 12/19/2017 2:40 PM EDT [facility] pO2 70(L) 80 - 100 mmHg 12/19/2017 2:40 PM EDT [facility] HCO3 24.0 20.0 - 29.0 mmol/L 12/19/2017 2:40 PM EDT [facility] TCO2 25 21 - 30 mmol/L 12/19/2017 2:40 PM EDT [facility] Base Excess -0.1 -2.8 - 2.3 mmol/L 12/19/2017 2:40 PM EDT [facility] O2 Sat 95.0 95.0 - 97.0 % 12/19/2017 2:40 PM EDT [facility] Sodium 134(L) 135 - 148 mmol/L 12/19/2017 2:40 PM EDT [facility] K-WB 4.2 3.5 - 5.3 mEq/L 12/19/2017 2:40 PM EDT [facility] Calcium Ionized 1.13 1.12 - 1.32 mmol/L 12/19/2017 2:40 PM EDT [facility] Chloride 105 98 - 108 mmol/L 12/19/2017 2:40 PM EDT [facility] Glucose WB 160(H) 72 - 112 mg/dL 12/19/2017 2:40 PM EDT [facility] Lactic Acid 0.8(L) 1.0 - 1.7 mmol/L 12/19/2017 2:40 PM EDT [facility] Hgb 9.1(L) 13.5 - 17.1 g/dL 12/19/2017 2:40 PM EDT [facility] Hct 27.0(L) 39.0 - 52.0 % 12/19/2017 2:40 PM EDT [facility] Blood ARTERIAL BLOOD / Unknown 12/19/2017 2:37 PM EDT 12/19/2017 2:40 PM EDT Fred Marquez MD POINT OF CARE TEST ORDER[place] [address] * CORTISOL (12/19/2017 4:31 AM EDT) Only the most recent of2 resultswithin the time period is included. Cortisol 13.29 mcg/dL 12/19/2017 6:2 2 AM EDT [employer] Blood ARTERIAL BLOOD / Unknown Venipuncture / Unknown 12/19/2017 4:31 AM EDT 12/19/2017 5:30 AM EDT Narrative [facility] - 12/19/2017 6:22 AM EDT Normals: Mornin.2 - 19.4 mcg/dL Evenin.3 - 11.9 mcg/dL Ingestion of paz doses of biotin (>5 mg/day) taken within 8 hours of drawing blood sample can interfere with this immunoassay test. David Mtz DO CHEMISTRY ORDERABLES Fin al Result [employer] [facility] [address] [place] [address] , [place] [address] * BLOOD GAS ARTERIAL (12/18/2017 11:58 PM EDT) Only the most recent of3 resultswithin the time period is included. pH 7.38 7.35 - 7.45 pH 12/19/2017 12:18 AM EDT [facility] pCO2 41 35 - 45 mmHg 12/19/2017 12:18 AM EDT [facility] pO2 91 80 - 100 mmHg 12/19/2017 12:18 AM EDT [facility] HCO3 23.3 22.0 - 26.0 mmol/L 12/19/2017 12:18 AM EDT [facility] TCO2 22 22 - 29 mmol/L 12/19/2017 12:18 AM EDT [facility] Base Excess -1.1 -2.0 - 3.0 mmol/L 12/19/2017 12:18 AM EDT [facility] O2 Sat 97.9 95.0 - 98.0 % 12/19/2017 12:18 AM EDT [facility] [employer] O2 40 12/19/2017 12:18 AM EDT [facility] Blood ARTERIAL BLOOD / Unknown Venipuncture / Unknown 12/18/2017 11:58 PM EDT 12/19/2017 12:13 AM EDT David Mtz DO CHEMISTRY ORDERABLES Fin al Result [facility] [address] [facility] , [place] [address] * ANE ARTERIAL LINE PLACEMENT (12/18/2017 9:24 PM EDT) Narrative [facility] - 12/18/2017 9:24 PM EDT Valentina Carrasco MD 12/18/2017 9:25 PM Arterial Line Placement Procedure Date/time: 12/18/2017 9:24 PM Patient Location: Patient's room Indication: Continuous blood pressure monitoring Ultrasound-Guided: Surface landmarks Anesthesiologist: VALENTINA CARRASCO Placed By: Anesthesiologist Sterility prep: Provider hand hygiene prior to procedure and Provider used sterile gloves, hat, mask Skin prep: Chloraprep Local anesthetic: None Catheter Size: 20 gauge Catheter Length: 1 and 3/4 inch Catheter Type: Arrow Seldinger Technique: Yes Laterality: Left Site: Radial Insertion attempts: 2 Line Secured: Biopatch applied and Tegaderm Events: Patient tolerated procedure well with no complications Procedure Note Valentina Carrasco MD - 12/18/2017 9:24 PM EDT Arterial Line Placement Procedure Date/time: 12/18/2017 9:24 PM Patient Location: Patient's room Indication: Continuous blood pressure monitoring Ultrasound-Guided: Surface landmarks Anesthesiologist: VALENTINA CARRASCO Placed By: Anesthesiologist Sterility prep: Provider hand hygiene prior to procedure and Provider usedsterile gloves, hat, mask Skin prep: Chloraprep Local anesthetic: None Catheter Size: 20 gauge Catheter Length: 1 and 3/4 inch Catheter Type: Arrow Seldinger Technique: Yes Laterality: Left Site: Radial Insertion attempts: 2 Line Secured: Biopatch applied and Tegaderm Events: Patient tolerated procedure well with no complications us Valentina Carrasco MD ANESTHESIA ORDERABLES Fin al Result Performing Organization Address [facility] [facility] Co de Phone Number [facility] [address] [place], [place] [id number] * IONIZED CALCIUM - INPATIENT (12/18/2017 6:26 PM EDT) [facility] Calcium Ionized 1.14 1.12 - 1.32 mmol/L 12/18/2017 6:42 PM EDT [employer] Blood VENOUS BLOOD / Unknown Venipuncture / Unknown 12/18/2017 6:26 PM EDT 12/18/2017 6:39 PM EDT us David Mtz DO CHEMISTRY ORDERABLES Fin al Result Performing Organization Address City/[facility] Co de Phone Number [employer] [address] [place] [address], [place] [address] * CELL COUNT BODY FLUID (12/18/2017 1:19 PM EDT) Pathologist [facility] Color BF 12/19/2017 9:50 AM EDT [facility] Comment:[place] Appear BF Slightly Hazy 12/19/2017 9:50 AM EDT [facility] RBC BF /mcL 12/19/2017 9:50 AM EDT [facility] Comment:Cells are too degene rated to count Total Nucleated Cells BF /mcL 12/19/2017 9:50 AM EDT [facility] Comment:Cells are to degener ated to count Bronchoalveolar Lavage BRONCHIAL STRUCTURE / Unknown 12/18/2017 1:19 PM EDT Narrative [facility] - 12/19/2017 9:50 AM EDT Cells are too degenerated to do an accurate count or any differential. Stu Abdi MD BODY FLUIDS AND STOOLS RANDAL ANTON Final Result Performing Organization Address City/[facility]/ZIP Co de Phone Number [facility] [address] [place] [address] * FUNGUS CULTURE (NO STAIN) (12/18/2017 1:19 PM EDT) Only the most recent of2 resultswithin the time period is included. Culture No growth of fungus at 4 weeks. 01/19/2018 9:49 PM EST [facility] Bronchoalveolar Lavage BRONCHIAL STRUCTURE / Unknown 12/18/2017 1:19 PM EDT 12/18/2017 3:50 PM EDT Stu Abdi MD MICROBIOLOGY - GENERAL [place] Final Result Performing Organization Address City/[facility]/ZIP Co de Phone Number [employer] [address] [facility], [place] [address] * MODIFIED ACID FAST STAIN (STAIN ONLY) (12/18/2017 1:19 PM EDT) Modified Acid Fast Stain No partially acid fast bacilli seen. 12/19/2017 5:00 PM EDT [facility] Bronchoalveolar Lavage BRONCHIAL STRUCTURE / Unknown 12/18/2017 1:19 PM EDT 12/18/2017 3:50 PM EDT Stu Abdi MD MICROBIOLOGY - GENERAL [place] Final Result Performing Organization Address [facility]/ZIP Co de Phone Number [facility] [address] [facility], [place] [address] * ACID FAST BACILLI CULTURE AND SMEAR (STAIN INCLUDED) (12/18/2017 1:19 PM EDT) Culture No growth of AFB after 8 weeks. 02/15/2018 3:35 PM EST [facility] AFB Stain No Acid Fast Bacilli seen with fluorescent stain. 02/15/2018 3:35 PM EST [facility] AFB Stain Test performed by reference lab; see separate report. 02/15/2018 3:35 PM EST [facility] Bronchoalveolar Lavage BRONCHIAL STRUCTURE / Unknown 12/18/2017 1:19 PM EDT 12/18/2017 3:50 PM EDT Narrative [facility] - 02/15/2018 3:35 PM EST Test performed by reference lab; see separate report Stu Abdi MD MICROBIOLOGY - GENERAL [place] Final Result Performing Organization Address City/[facility]/[place] [address] * NON-FIRE CONTROL TECHNICIAN B CYTOLOGY REQUEST (12/18/2017 1:19 PM EDT) CASE REPORT Non-gynecologic Cytology Case: [id number] Authorizing Provider: Stu Abdi MD Collected: 12/18/2017 1319 Ordering Location: [facility] Received: 12/18/2017 1456 Pathologist: Mercedes Milner MD Specimen: Bronchoalveolar, Bronchoalveolar lavage right middle lobe 12/19/2017 11:23 AM EDT [facility] NON-FIRE CONTROL TECHNICIAN B CYTOLOGY FINAL DIAGNOSIS Bronchoalveolar lavage (Right middle lung lobe): - Negative for malignant cells. - Benign bronchial epithelial cells, macrophages, and scattered leukocytes. - GMS stain negative for fungal organisms and Pneumocystis. 12/19/2017 11:23 AM EDT [facility] at 1123 EDT EMBEDDED IMAGES 12/19/2017 11:23 AM EDT [facility] MICROSCOPIC DESCRIPTION Microscopic examination is performed and the findings corroborate the diagnosis. 12/19/2017 11:23 AM EDT [facility] GROSS DESCRIPTION Bronchoalveolar lavage, RML, Rec'd 10 ml blood tinged fluid (TP,GMS) 12/19/2017 11:23 AM EDT [facility] COMMENT 12/19/2017 11:23 AM EDT [facility] Bronchoalveolar Lavage BRONCHIAL STRUCTURE / Unknown 12/18/2017 1:19 PM EDT 12/18/2017 2:55 PM EDT Stu Abdi MD CYTOLOGY ORDERABLES Final R esult Performing Organization Address City/[facility]/[place] [address] * MISCELLANEOUS LAB (12/18/2017 1:19 PM EDT) Only the most recent of2 resultswithin the time period is included. [facility] See Scanned Image 02/15/2018 3:36 PM EST EXTERNAL LAB Bronchoalveolar Lavage BRONCHIAL STRUCTURE / Unknown 12/18/2017 1:19 PM EDT 12/18/2017 3:50 PM EDT us Stu Abdi MD HEMATOLOGY ORDERABLES Final Result EXTERNAL LAB See Scanned Report * PATHOLOGY TISSUE REQUEST (12/17/2017 2:25 PM EDT) Only the most recent of2 resultswithin the time period is included. CASE REPORT Surgical Pathology Case: [id number] Authorizing Provider: Fred Marquez MD Collected: 12/17/2017 1425 Ordering Location: [facility] Received: 12/17/2017 1513 Pathologist: Uamng Chaparro MD Specimen: Sternum, sternum 12/19/2017 3:23 PM EDT [facility] FINAL DIAGNOSIS Bone, sternum, debridement: - Fragments of cortical bone with bone marrow fat necrosis, and hemorrhage. 12/19/2017 3:23 PM EDT [facility] at 1522 EDT GROSS DESCRIPTION Received in formalin, labeled with the patient's name and sternum are two irregular fragments of zarate-brown trabeculated bone measuring 1.3 x 0.4 x 0.2 cm and 1.5 x 1.1 x 0.4 cm. The cut surface is brown-red and trabeculated. The specimen is serially sectioned and entirely submitted in cassette A1 after fixation and decalcification . /JWP 12/19/2017 3:23 PM EDT [facility] MICROSCOPIC DESCRIPTION Microscopic examination is performed and the findings corroborate the diagnosis. 12/19/2017 3:23 PM EDT [facility] EMBEDDED IMAGES 12/19/2017 3:23 PM EDT [facility] Tissue BONE STRUCTURE OF STERNUM / Unknown 12/17/2017 2:25 PM EDT 12/17/2017 3:13 PM EDT us Fred Marquez MD PATHOLOGY ORDERABLES Final R esult Performing Organization Address City/[facility]/ZIP Co de Phone Number [facility] [address] [phone] [facility] [address] [place] [address] * FIBRINOGEN (12/17/2017 12:25 PM EDT) Only the most recent of3 resultswithin the time period is included. Fibrinogen 445 196 - 447 mg/dL 12/17/2017 1:24 PM EDT [employer] Blood VENOUS BLOOD / Unknown Venipuncture / Unknown 12/17/2017 12:25 PM EDT 12/17/2017 12:37 PM EDT us Dawson Salvador MD HEMATOLOGY ORDERABLES Final Res ult [employer] [address] [facility] , [place] [address] * TRANSFUSE RED BLOOD CELLS (12/17/2017 11:36 AM EDT) Only the most recent of4 resultswithin the time period is included. us Sherif Brown DO NURSING TREATMENT ORDERABLES - B LOOD ADMIN Final Result * INTRAOP AIRWAY PLACEMENT (12/17/2017 10:36 AM EDT) Narrative [facility] - 12/17/2017 10:36 AM EDT [facility] CRNA 12/17/2017 10:37 AM Intraop Airway Placement: Induction type: Inhalation Airway type: ETT- cuffed Procedure Note Neo Bella CRNA - 12/17/2017 10:36 AM EDT Intraop Airway Placement: Induction type: Inhalation Airway type: ETT- cuffed us Sherif Brown DO ID ANESTHESIA Final Result Performing Organization Address [facility] de Phone Number [facility] [address] [place] [address] * WOUND CULTURE (STAIN INCLUDED) (12/17/2017 10:35 AM EDT) Only the most recent of2 resultswithin the time period is included. Culture No growth at 94 hours. 12/21/2017 12:10 PM EDT [facility] Stain No organisms seen 12/21/2017 12:10 PM EDT [facility] Stain Few WBCs 12/21/2017 12:10 PM EDT [facility] Stain Few RBCs 12/21/2017 12:10 PM EDT [facility] Drainage SPECIMEN FROM MEDIASTINUM / Unknown 12/17/2017 10:35 AM EDT 12/17/2017 10:46 AM EDT Comment:AEROBIC, ANAEROBIC, FUNGAL, STAT GRAM STAIN us Fred Marquez MD MICROBIOLOGY - GENERAL ORDER MILEY Final Result Performing Organization Address City/[facility]/ZIP Co de Phone Number [facility] [address] [facility] , [address] [place] [phone] * (ABNORMAL) ANAEROBIC CULTURE (NO STAIN) (12/17/2017 10:35 AM EDT) Culture Positive Growth(A) 01/01/2018 2:35 PM EST [facility] Culture Sparse growth of Cutibacterium (Propionibacteriu m acnes) SUSCEPTIB ILITY RESULT 01/01/2018 2:35 PM EST [employer] Comment:Susceptibility perfo rmed by reference laboratory, see scanned report. Drainage SPECIMEN FROM [employer] / Unknown 12/17/2017 10:35 AM EDT 12/17/2017 10:46 AM EDT Comment:AEROBIC, ANAEROBIC, FUNGAL, STAT GRAM STAIN Fred Marquez MD MICROBIOLOGY - GENERAL ORDER MILEY Edited Result - Final [facility]REF[facility] [address] [facility], [place] [address] * RED BLOOD CELLS REQUEST (12/16/2017 8:25 PM EDT) Only the most recent of6 resultswithin the time period is included. Product Code [id number] [facility] Unit Number [id number] [facility] Crossmatch Interp Compatible [facility] Dispense Status TRANSFUSED [facility] BLOOD [facility] Blood Expiration Date [facility] ISBT 128 Type 9500 [facility]OD [facility] BA CODING SYSTEM [id number] [facility] Blood Type (Unit) O NEG [facility] Product Code [id number] [facility] Unit Number [id number] [facility] Crossmatch Interp Compatible [facility] Dispense Status TRANSFUSED [facility] Blood Expiration Date [facility] ISBT 128 Type 9500 [facility] B[facility]OD [facility] BA CODING SYSTEM [id number] [facility] Blood Type (Unit) O NEG [facility] Blood 12/16/2017 8:25 PM EDT 12/16/2017 8:36 PM EDT us Fred Marquez MD BLOOD PRODUCT ORDERS Final R esult Performing Organization Address [facility] Co de Phone Number [facility] BLOOD [address] [phone] * BB HISTORY CHECK (12/16/2017 8:25 PM EDT) Only the most recent of3 resultswithin the time period is included. Pathologist [facility] BB HISTORY CHECK (1) Previous History OK 12/16/2017 9:07 PM EDT [facility] Blood VENOUS BLOOD / Unknown Venipuncture / Unknown 12/16/2017 8:25 PM EDT 12/16/2017 8:35 PM EDT us Fred Marquez MD BLOOD BANK ORDERABLES Final Result Performing Organization Address [facility] de Phone Number [address] [phone] * ABORH (12/16/2017 8:25 PM EDT) Only the most recent of3 resultswithin the time period is included. [facility] ABORH Int O NEG 12/16/2017 9:3 8 PM EDT [facility] BLOOD [facility] Blood VENOUS BLOOD / Unknown Venipuncture / Unknown 12/16/2017 8:25 PM EDT 12/16/2017 8:35 PM EDT us Fred Marquez MD BLOOD BANK ORDERABLES Final Result Performing Organization Address [facility] Co de Phone Number [facility] B[facility]OD [address] [phone] * ANTIBODY SCREEN IGG (12/16/2017 8:25 PM EDT) Only the most recent of3 resultswithin the time period is included. Pathologist [facility] ABSC IgG Int Negative 12/16/2017 9:40 PM EDT [facility] BLOOD [facility] Blood VENOUS BLOOD / Unknown Venipuncture / Unknown 12/16/2017 8:25 PM EDT 12/16/2017 8:35 PM EDT us Fred Marquez MD BLOOD BANK ORDERABLES Final Result [facility] [address] [place], [place] [address], [place] [phone] * IR US GUIDED THORACENTESIS (12/16/2017 4:07 PM EDT) Anatomical Region Laterality Modality Ultrasound 12/16/2017 4:07 PM EDT Impressions 12/16/2017 4:16 PM EDT SUCCESSFUL AND UNCOMPLICATED ULTRASOUND-GUIDED THORACENTESIS. Narrative 12/16/2017 4:16 PM EDT ULTRASOUND-GUIDED THORACENTESIS: [12/16/2017 4:07 PM] HISTORY: -Pnemo PROCEDURE: The procedure was performed by Emily Hannah under supervision of Dr. Vela, following obtaining informed written consent. The left chest was prepped and draped in usual sterile fashion. Skin anesthetized with 1% Lidocaine. Access was gained using a sheathed needle under ultrasound guidance. The inner needle was removed and the catheter left in place. 1 L of pleural fluid was removed. The catheter was then removed and a sterile dressing applied to the exit site. If requested by clinician, the fluid will be sent for analysis. A permanent image was obtained. The patient tolerated the procedure well and left the Radiology Department in stable condition. Procedure Note Nura Michael MD - 12/16/2017 ULTRASOUND-GUIDED THORACENTESIS: [12/16/2017 4:07 PM] HISTORY: -Pnemo PROCEDURE: The procedure was performed by Emily Hannah under supervision of Dr.Van Michael, following obtaining informed written consent. The left chest wasprepped and draped in usual sterile fashion. Skin anesthetized with 1% Lidocaine. Access was gained using a sheathed needle under ultrasound guidance. Theinner needle was removed and the catheter left in place. 1 L of pleural fluidwas removed. The catheter was then removed and a sterile dressing applied tothe exit site. If requested by clinician, the fluid will be sent foranalysis. A permanent image was obtained. The patient tolerated the procedure well and left the Radiology Departmentin stable condition. IMPRESSION: SUCCESSFUL AND UNCOMPLICATED ULTRASOUND-GUIDED THORACENTESIS. us Fred Marquez MD IMG IR ORDERABLES Final Resu lt * PROCALCITONIN (12/15/2017 4:38 AM EDT) Only the most recent of3 resultswithin the time period is included. Procalcitonin 0.24 <=0.49 ng/mL 12/15/2017 6:20 AM EDT [employer] Blood VENOUS BLOOD / Unknown Venipuncture / Unknown 12/15/2017 4:38 AM EDT 12/15/2017 4:45 AM EDT Narrative [employer] - 12/15/2017 6:20 AM EDT Procalcitonin <0.50 ng/mL: Procalcitonin levels below 0.50 ng/mL on the first day of ICU admission represent a low risk for progression to severe sepsis and/or septic shock Procalcitonin >=0.50 ng/mL and <=2.00 ng/mL: If the procalcitonin measurement is performed shortly after the systemic infection process has started (usually less than 6 hours), this value may still be low. As various non-infectious conditions are known to induce procalcitonin as well, procalcitonin levels between 0.50 ng/mL and 2.00 ng/mL should be reviewed carefully to take into account the specific clinical background and condition(s) of the patient. Procalcitonin >2.00 ng/mL: Procalcitonin levels above 2.00 ng/mL on the first day of ICU admission represent a high risk for progression to severe sepsis and/or septic shock. us Rebecca Lomeli MD CHEMISTRY ORDERABLES Final Re sult [employer] [address] [facility] , [address] [place] [phone] * ANE NON SURGICAL AIRWAY (12/14/2017 5:51 PM EDT) Narrative [facility] - 12/14/2017 5:51 PM EDT Robert Olson MD 12/14/2017 5:54 PM Emergent Intubation Airway not difficult General Information and Staff Anesthesiologist: ROBERT OLSON Performed: anesthesiologist Indications and Patient Status Indications for airway management: airway protection, hypoxemia and respiratory failure Spontaneous ventilation: present Sedation level: deep Preoxygenated: yes Mask difficulty assessment: 1 - vent by mask Vital signs pre-intubation: BP 90's/50's, HR 110, O2 Sat 100% Vital signs post-intubation: BP 110/60 aprox, HR 110, O2 [id number] Final Airway Details Final airway type: endotracheal airway Successful airway: ETT-cuffed Successful intubation technique: direct laryngoscopy Blade: Reina Blade size: #3 ETT size: 8 mm mm Cormack-Lehane Classification: grade I - full view of glottis Number of attempts at approach: 1 Number of other approaches attempted: 0 Additional Comments Called to intubate by nursing. Pt on bipap doing poorly with respect to respiratory status. Intubation with 50 mg of propofol and 120 mg of succinylcholine. No apparent complications. Procedure Note Robert Olson MD - 12/14/2017 5:51 PM EDT Emergent Intubation Airway not difficult General Information and Staff Anesthesiologist: ROBERT OLSON Performed: anesthesiologist Indications and Patient Status Indications for airway management: airway protection, hypoxemia andrespiratory failure Spontaneous ventilation: present Sedation level: deep Preoxygenated: yes Mask difficulty assessment: 1 - vent by mask Vital signs pre-intubation: BP 90's/50's, HR 110, O2 Sat 100% Vital signs post-intubation: BP 110/60 aprox, HR 110, O2 [id number] Final Airway Details Final airway type: endotracheal airway Successful airway: ETT-cuffed Successful intubation technique: direct laryngoscopy Blade: Reina Blade size: #3 ETT size: 8 mm mm Cormack-Lehane Classification: grade I - full view of glottis Number of attempts at approach: 1 Number of other approaches attempted: 0 Additional Comments Called to intubate by nursing. Pt on bipap doing poorly with respect torespiratory status. Intubation with 50 mg of propofol and 120 mg ofsuccinylcholine. No apparent complications. us Robert Olson MD ANESTHESIA [place] [address] * LACTIC ACID (12/13/2017 7:20 PM EDT) [facility] Lactic Acid 1.9 0.5 - 1.9 mmol/L 12/13/2017 7:43 PM EDT [facility] Blood VENOUS BLOOD / Unknown Butterfly / Unknown 12/13/2017 7:20 PM EDT 12/13/2017 7:26 PM EDT us Dawson Salvador MD CHEMISTRY ORDERABLES Final Resu lt Performing Organization Address City/[facility]/ZIP Co de Phone Number [facility] 1 [place] [address] * HIV AG/AB (12/12/2017 5:46 PM EDT) [facility] HIV Ag/AB Non-Reacti ve Non-Reactive, See Footnote 12/12/2017 7:33 PM EDT [facility] Blood Venipuncture / Unknown 12/12/2017 5:46 PM EDT 12/12/2017 5:53 PM EDT us Rebecca Lomeli MD IMMUNOLOGY ORDERABLES Final R esult Performing Organization Address [facility] Co de Phone Number [facility] [address] [place] [address], [place] [address] * SYPHILIS SCREEN WITH REFLEX RPR QUANT (12/12/2017 5:46 PM EDT) [facility] Trep Ab Index 0.09 <=0.99 Index Value 12/12/2017 7:33 PM EDT [employer] Comment: < 1.00 - Negative >=1.00 - Positive NOTE: All positive results will be reflexed to Quantitative Non-Treponemal(RPR)test. Blood Venipuncture / Unknown 12/12/2017 5:46 PM EDT 12/12/2017 5:53 PM EDT us Rebecca Lomeli MD CHEMISTRY ORDERABLES Final Re sult Performing Organization Address City/[facility]/ZIP Co de Phone Number [employer] [address] [facility] , [place] [address] * STREP PNEUMO ANTIGEN (12/12/2017 5:01 PM EDT) Strep Pneum Ag Not Detected Not Detected 12/12/2017 7:09 PM EDT [facility] Urine STRUCTURE OF URINARY TRACT PROPER / Unknown 12/12/2017 5:01 PM EDT 12/12/2017 5:25 PM EDT us Rebecca Lomeli MD MICROBIOLOGY - GENERAL ORDERA BLES Final Result Performing Organization Address [facility] de Phone Number [employer] [address] [facility] , [place] [address] * LEGIONELLA ANTIGEN URINE (12/12/2017 5:01 PM EDT) Legionella Ag Not Detected Not Detected 018 7:09 PM EDT [facility] Urine STRUCTURE OF URINARY TRACT PROPER / Unknown 12/12/2017 5:01 PM EDT 12/12/2017 5:25 PM EDT us Rebecca Lomeli MD MICROBIOLOGY - GENERAL ORDERA BLES Final Result Performing Organization Address [facility] Co de Phone Number [employer] [address] [facility] , [place] [address] * AMMONIA LEVEL (12/12/2017 9:22 AM EDT) Ammonia 30 16 - 60 mcmol/L 12/12/2017 10:13 AM EDT [facility] Blood VENOUS BLOOD / Unknown Venipuncture / Unknown 12/12/2017 9:22 AM EDT 12/12/2017 9:50 AM EDT us Rebecca Lomeli MD CHEMISTRY ORDERABLES Final Re sult Performing Organization Address [facility]/ZIP Co de Phone Number [id number] [address] [facility] , [address] [place] [phone] * CARDIOVERSION (12/11/2017 2:19 PM EDT) Narrative [facility] - 12/16/2017 12:52 PM EDT 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, 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 Successful cardioversion to SR us Ronit Lagos SITE SUPERVISOR ELECTROPHYSIOLOGY ORDER MILEY Final Result Performing Organization Address [facility]/ZIP Co de Phone Number [facility] * INTRAOP AIRWAY PLACEMENT (12/11/2017 2:09 PM EDT) Narrative [facility] - 12/11/2017 2:09 PM EDT Ely Simmons 12/11/2017 2:09 PM Intraop Airway Placement: Airway type: Nasal cannula salter Procedure Note Ely Simmons - 12/11/2017 2:09 PM EDT Intraop Airway Placement: Airway type: Nasal cannula salter us Bony Valencia MD ID ANESTHESIA Final Re sult Performing Organization Address [facility] Co de Phone Number [facility] [address] [place] [address] * O2 SAT - MIXED VENOUS (12/07/2017 4:15 AM EDT) Only the most recent of6 resultswithin the time period is included. O2 Sat Mixed Venous 55.8 40.0 - 70.0 % 12/07/2017 5:23 AM EDT [facility] Blood BLOOD SAMPLE TAKEN FROM CENTRAL LINE / Unknown Venipuncture / Unknown 12/07/2017 4:15 AM EDT 12/07/2017 5:00 AM EDT us Fred Marquez MD CHEMISTRY ORDERABLES Final R esult Performing Organization Address [facility] Co de Phone Number [employer] [facility] [address] [facility] , [place] [address] * FFP/PLASMA REQUEST (12/07/2017 2:35 AM EDT) Product Code [id number] [facility] BLOOD BANK Unit Number [id number] [facility]OD [facility] Dispense Status TRANSFUSED [facility] Blood Expiration Date [id number] [facility] BLOOD [facility] ISBT 128 Type 5100 [facility] BLOOD B[facility] BA CODING SYSTEM [id number] [facility]OD [facility] Blood Type (Unit) O POS [facility]LOOD [facility] Product Code [id number] [facility] BLOOD [facility] Unit Number [id number] [facility] BLOOD [facility] Dispense Status TRANSFUSED [facility] Blood Expiration Date [id number] [facility] ISBT 128 Type 9500 [facility] BA CODING SYSTEM [id number] [facility] Blood Type (Unit) O NEG [facility] Blood 12/07/2017 2:35 AM EDT us Fred Marquez MD BLOOD PRODUCT ORDERS Final R esult [facility] [address] [place] [address] * TRANSFUSE FRESH FROZEN PLASMA (12/06/2017 4:24 AM EDT) us Fred Marquez MD NURSING TREATMENT ORDERABLES - BLOOD ADMIN Final Result * PLATELETS REQUEST (12/06/2017 2:35 AM EDT) Product Code [id number] [facility] Unit Number [id number] [facility] Dispense Status TRANSFUSED [facility] Blood Expiration Date [id number] [facility] ISBT 128 Type 6200 [facility] BA CODING SYSTEM [id number] [facility] Blood Type (Unit) A POS [facility] Product Code [id number] [facility] Unit Number [id number] [facility] Dispense Status TRANSFUSED [facility] Blood Expiration Date [id number] [facility] ISBT 128 Type 5100 [facility] BA CODING SYSTEM [id number] [facility] Blood Type (Unit) O POS [facility] Blood 12/06/2017 2:35 AM EDT Harjeet Fox APRN BLOOD PRODUCT ORDE RS Final Result Performing Organization Address [facility] [place] [address] * CRYOPRECIPITATE REQUEST (12/06/2017 2:35 AM EDT) Product Code [id number] [facility] Unit Number [id number] [facility] Dispense Status TRANSFUSED [facility] BLOOD [facility] Blood Expiration Date [facility] ISBT 128 Type 5100 [facility] BA CODING SYSTEM [id number] [facility] Blood Type (Unit) O POS [facility] Product Code [id number] [facility] Unit Number [id number] [facility] Dispense Status TRANSFUSED [facility] BLOOD [facility] Blood Expiration Date [facility] ISBT 128 Type 5100 [facility] BA CODING SYSTEM [id number] [facility] Blood Type (Unit) O POS [facility] Blood 12/06/2017 2:35 AM EDT Harjeet Fox APRN BLOOD PRODUCT ORDE RS Final Result Performing Organization Address [facility] [place] [address] * (ABNORMAL) PLATELET COUNT (12/06/2017 1:51 AM EDT) Only the most recent of2 resultswithin the time period is included. Platelet 100(L) 155 - 369 x10(3)/mcL 12/06/2017 2:26 AM EDT [facility] MPV 10.3 8.8 - 12.5 fL 12/06/2017 2:26 AM EDT [employer] [facility] Blood ARTERIAL BLOOD / Unknown Venipuncture / Unknown 12/06/2017 1:51 AM EDT 12/06/2017 1:59 AM EDT us Fred Marquez MD HEMATOLOGY ORDERABLES Final Result [facility] [address] [facility], [place] [address] * BROOKS (12/06/2017 12:47 AM EDT) Narrative [facility] - 12/06/2017 12:47 AM EDT Jose Ramon Bains MD 12/06/2017 12:54 AM BROOKS by Anesthesia Procedure Date/Time: 12/06/2017 12:20 AM Location: OR Physician Requesting Echo: Lori MARQUEZication: bring back bleed Intubated: YES Sedated: YES Insertion: Easy Probe type: Multiplane Modalities: CFM and 2D Echocardiographic and Doppler Measurements Aorta Size Diam (cm) Dissection Plaque thick (mm) Plaque mobile Ascending AO AO Arch Descending AR Valves Annulus Stenosis Area/ Gradient Regurg Leaflet Morphology Leaflet Motion Aortic Valve normal no 0 nl Mitral Valve bioprosth no 1+ nl nl Tricuspid normal 1+ Atria Size SEC (smoke) Thrombus Tumor Device Right Atrium Left Atrium Ventricles Cavity Size Cavity Dimension Hypertrophy Thrombus Global FXN EF RV moderately decreased LV moderately decreased Post Intervention Follow-up Study Procedure Note Jose Ramon Bains MD - 12/06/2017 12:47 AM EDT BROOKS by Anesthesia Procedure Date/Time: 12/06/2017 12:20 AM Location: OR Physician Requesting Echo: Lori MARQUEZication: bring backbleed Intubated: YES Sedated: YES Insertion: Easy Probe type: Multiplane Modalities: CFM and 2D Echocardiographic and Doppler Measurements Aorta Size Diam (cm) Dissection Plaque thick (mm) Plaque mobile Ascending AO AO Arch Descending AR Valves Annulus Stenosis Area/ Gradient Regurg Leaflet Morphology Leaflet Motion Aortic Valve normal no 0 nl Mitral Valve bioprosth no 1+ nl nl Tricuspid normal 1+ Atria Size SEC (smoke) Thrombus Tumor Device Right Atrium Left Atrium Ventricles Cavity Size Cavity Dimension Hypertrophy Thrombus Global FXN EF RV moderately decreased LV moderately decreased Post Intervention Follow-up Study us Jose Ramon Bains MD ANESTHESIA ORDERABLES Fin al Result Performing Organization Address [facility] [place] [address] * INTRAOP AIRWAY PLACEMENT (12/06/2017 12:28 AM EDT) Narrative [facility] - 12/06/2017 12:28 AM EDT Jose Ramon Bains MD 12/06/2017 12:28 AM Intraop Airway Placement: Airway type: ETT- cuffed Procedure Note Jose Ramon Bains MD - 12/06/2017 12:28 AM EDT Intraop Airway Placement: Airway type: ETT- cuffed us Jose Ramon Bains MD ID ANESTHESIA Final Res ult Performing Organization Address [facility] [place] [address] * ACTIVATED CLOTTING TIME + POC (12/05/2017 11:38 PM EDT) Only the most recent of13 resultswithin the time period is included. ACT+ 109 89 - 169 second(s) 12/06/2017 12:57 AM EDT [facility] Blood BLOOD SPECIMEN / Unknown 12/05/2017 11:38 PM EDT 12/06/2017 12:56 AM EDT us Fred Marquez MD POINT OF CARE TEST ORDERABLE S Final Result Performing Organization Address [facility] Phone Number [facility] [address] [place] [address] * TRANSFUSE PLATELETS (12/05/2017 10:57 PM EDT) Only the most recent of2 resultswithin the time period is included. us Fred Marquez MD NURSING TREATMENT ORDERABLES - BLOOD ADMIN Final Result * TRANSFUSE CRYOPRECIPITATE (12/05/2017 9:10 PM EDT) us Harjeet Fox APRN NURSING TR EATMENT ORDERABLES - BLOOD ADMIN Final Result * (ABNORMAL) TEG PLATELET MAPPING (12/05/2017 4:15 PM EDT) Only the most recent of2 resultswithin the time period is included. TEG PM - MA AA 2.2 2 - 19 mm [facility] TEG PM - HKH MA 53.9 53 - 68 mm [facility] TEG PM - MA ADP 19.3(A) 45 - 69 mm [facility] TEG PM - Pct Aggregation ADP 33.1(A) 83 - 100 % [facility] TEG PM - Pct Inhibition ADP 66.9(A) 0 - 17 % [facility] 12/05/2017 4:15 PM EDT Narrative [facility] - 12/08/2017 12:28 PM EDT Test Notes: ActF Calc=Fibrin; HKH Calc=Thrombin; ADP Calc=ADP; Cartridge Lot#=[id number] us Fred Marquez MD HEMATOLOGY ORDERABLES Final Result [facility] [address] [place] [address] * (ABNORMAL) TEG GLOBAL HEMOSTASIS (12/05/2017 4:08 PM EDT) Only the most recent of3 resultswithin the time period is included. [facility] Signature TEG Functional Fibrinogen - MA 10.2(A) 15 - 32 mm [facility] TEG Functional Fibrinogen - FLEV 186.1(A) 278 - 581 mg/dL [facility] TEG Rapid - MA 47.8(A) 52 - 70 mm [facility] TEG Kaolin w Heparinase - R 684(A) 258 - 498 sec [facility] TEG [employer] - Angle 62.2(A) 63 - 78 deg [facility] TEG Kaolin - K 150(A) 48 - 126 sec [facility] TEG Kaolin - MA 48.9(A) 52 - 69 mm [facility] TEG Kaolin - R 528 276 - 546 sec [facility] 12/05/2017 4:08 PM EDT Narrative [facility] - 12/08/2017 12:28 PM EDT Test Notes: CFF Calc=Fibrin; Cartridge Lot#=[id number] us Fred Marquez MD HEMATOLOGY ORDERABLES Final Result Performing Organization Address [facility] Co de Phone Number [facility] [address] [place] [address] * (ABNORMAL) POC OPEN HEART WHOLE BLOOD GLUCOSE (12/05/2017 10:41 AM EDT) Only the most recent of2 resultswithin the time period is included. Glucose WB 176(H) 72 - 112 mg/dL 12/05/2017 10:43 AM EDT [facility] Blood BLOOD SPECIMEN / Unknown 12/05/2017 10:41 AM EDT 12/05/2017 10:43 AM EDT us Leo Santos MD POINT OF CARE TEST ORDERABLES Final Result Performing Organization Address [facility] [place] [address] * BROOKS (12/05/2017 10:05 AM EDT) Narrative [facility] - 12/05/2017 10:05 AM EDT Luana Newsome 12/05/2017 12:29 PM BROOKS by Anesthesia Procedure Date/Time: 12/05/2017 10:07 AM Location: OR Physician Requesting Echo: FRED MARQUEZIndication: MR Intubated: YES Sedated: YES Insertion: Easy Probe type: Multiplane Modalities: CFM, CWD, PWD, 2D and 3D Echocardiographic and Doppler Measurements Aorta Size Diam (cm) Dissection Plaque thick (mm) Plaque mobile Ascending AO nl No 0-3 No AO Arch nl No 0-3 No Descending AR nl No >3 No Valves Annulus Stenosis Area/ Gradient Regurg Leaflet Morphology Leaflet Motion Aortic Valve normal no 0 nl nl 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 Anteriorly directed jet, hugging the lateral wall of the left atrium making it difficult to assess the entire extent of the regurgitant jet. Thickened leaflets. Posterior leaflet very restricted. A2 prolapse. 3+ myxom Tricuspid normal no 1+ nl nl Atria Size SEC (smoke) Thrombus Tumor Device Right Atrium normal No No No No Left Atrium dilated No No No No Left atrial appendage: Clearly defined edges. No thrombus. Interatrial Septum Morphology: normal, Interventricular Septum Morphology:Normal Ventricles Cavity Size Cavity Dimension Hypertrophy Thrombus Global FXN EF RV normal No No normal 50-55% LV normal No No mildly decreased 50-55% Pericardium: Normal Pleura: Normal Post Intervention Follow-up Study Prosthetic Valve FXN: Bioprosthetic Regional Ventricular FXN: Unchanged Global Ventricular FXN: Unchanged Complications: None Procedure Note Luana Newsome - 12/05/2017 10:05 AM EDT BROOKS by Anesthesia Procedure Date/Time: 12/05/2017 10:07 AM Location: OR Physician Requesting Echo: Lori MARQUEZication: MR Intubated: YES Sedated: YES Insertion: Easy Probe type: Multiplane Modalities: CFM, CWD, PWD, 2D and 3D Echocardiographic and Doppler Measurements Aorta Size Diam (cm) Dissection Plaque thick (mm) Plaque mobile Ascending AO nl No 0-3 No AO Arch nl No 0-3 No Descending AR nl No >3 No Valves Annulus Stenosis Area/ Gradient Regurg Leaflet Morphology Leaflet Motion Aortic Valve normal no 0 nl nl 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 Anteriorly directed jet,hugging the lateral wall of the left atrium making it difficult to assessthe entire extent of the regurgitant jet. Thickened leaflets. Posterior leaflet very restricted. A2 prolapse. 3+ myxom Tricuspid normal no 1+ nl nl Atria Size SEC (smoke) Thrombus Tumor Device Right Atrium normal No No No No Left Atrium dilated No No No No Left atrial appendage: Clearly defined edges. No thrombus. Interatrial Septum Morphology: normal, Interventricular SeptumMorphology:Normal Ventricles Cavity Size Cavity Dimension Hypertrophy Thrombus Global FXN EF RV normal No No normal 50-55% LV normal No No mildly decreased 50-55% Pericardium: Normal Pleura: Normal Post Intervention Follow-up Study Prosthetic Valve FXN: Bioprosthetic Regional Ventricular FXN: Unchanged Global Ventricular FXN: Unchanged Complications: None Fabián Harris MD ANESTHESIA ORDERABLES Edited [facility] [address] [place], [place] [id number] * ANE SWAN ASHUTOSH PLACEMENT (12/05/2017 9:03 AM EDT) Narrative [facility] - 12/05/2017 9:03 AM EDT Luana Newsome 12/05/2017 9:04 AM PA Catheter Placement Location: OR Procedure Date/Time: 12/05/2017 7:45 AM Patient sedated: Yes Immediate pre anesthetic assessment completed:Yes Anesthesiologist: FABIÁN HARRIS Other staff: LUANA NEWSOME catheter type: Oximetric Catheter size: 7.5 Fr Laterality: Right Site: Internal jugular Placement verification: Pressure tracing changes and Verified by BROOKS PA catheter depth: 56 Events: Patient tolerated well with no complications Procedure Note Luana Newsome - 12/05/2017 9:03 AM EDT PA Catheter Placement Location: OR Procedure Date/Time: 12/05/2017 7:45 AM Patient sedated: Yes Immediate pre anesthetic assessment completed:Yes Anesthesiologist: FABIÁN HARRIS Other staff: LUANA NEWSOME PA catheter type: Oximetric Catheter size: 7.5 Fr Laterality: Right Site: Internal jugular Placement verification: Pressure tracing changes and Verified by BROOKS PA catheter depth: 56 Events: Patient tolerated well with no complications us Fabián Harris MD ANESTHESIA ORDERABLES Final Resu lt [facility] [address] [place] [address] * ANE INTRODUCER PLACEMENT (12/05/2017 9:00 AM EDT) Narrative [facility] - 12/05/2017 9:00 AM EDT Luana Newsome 12/05/2017 9:03 AM Central Line / Introducer Placement Procedure Date/Time: 12/05/2017 7:27 AM Patient Location: OR Indication: Central Venous Access and CVP Monitoring Ultrasound-Guided: Ultrasound guided Anesthesiologist: FABIÁN HARRIS Other Staff: LUANA NEWSOME Placed By: Student Greenbelt Sterility prep: Provider hand hygiene prior to procedure, Sterile drape was used and Provider used sterile gloves, gown, hat, mask Prep: Chloraprep Patient position: Reverse trendelenburg Local Anesthetic: Injectable Laterality: Right Site: Internal jugular Catheter size: 9 Catheter Type: Introducer Seldinger Technique: Yes Intravenous Verification: Ultrasound and Venous blood return Post Insertion: All ports aspirated, All ports flushed easily, Guidewire was removed intact, Biopatch was applied, Line was sutured in place and Sterile dressing applied Events: Patient tolerated well with no complications Procedure Note Luana Newsome - 12/05/2017 9:00 AM EDT Central Line / Introducer Placement Procedure Date/Time: 12/05/2017 7:27 AM Patient Location: OR Indication: Central Venous Access and CVP Monitoring Ultrasound-Guided: Ultrasound guided Anesthesiologist: FABIÁN HARRIS Other Staff: YOLA LUANA Placed By: Student Greenbelt Sterility prep: Provider hand hygiene prior to procedure, Sterile drapewas used and Provider used sterile gloves, gown, hat, mask Prep: Chloraprep Patient position: Reverse trendelenburg Local Anesthetic: Injectable Laterality: Right Site: Internal jugular Catheter size: 9 Catheter Type: Introducer Seldinger Technique: Yes Intravenous Verification: Ultrasound and Venous blood return Post Insertion: All ports aspirated, All ports flushed easily, Guidewirewas removed intact, Biopatch was applied, Line was sutured in place andSterile dressing applied Events: Patient tolerated well with no complications Fabián Harris MD ANESTHESIA ORDERABLES Final Resu lt [facility] [address] [place] [address] * INTRAOP AIRWAY PLACEMENT (12/05/2017 8:13 AM EDT) Narrative [facility] - 12/05/2017 8:13 AM EDT Luana Newsome 12/05/2017 8:28 AM Intraop Airway Placement: Date/Time: 12/05/2017 8:03 AM Induction type: IV Mask size: Standard adult Pre-Oxygenation: Standard Mask ventilation: Easy mask ventilation Mask ventilation improved by: Chinlift and Oral airway Oral airway sizes: 100 Technique: Video laryngoscope Laryngoscope blade: Reina Blade size: 1 Grade view: I Airway type: ETT- cuffed Topical Anesthetic/Lubricant: Lubricant jelly Intubation assist devices: Stylet 14fr Device size: 8mm Secured at: 23 cm Secured by: Commercial tube lobo Measured from: Lips Placement verified: Auscultation, End tidal CO2 and Symmetric chest wall motion Condition: Atraumatic (Before induction, patient stated he had a missing cap on one of his teeth on the top left side. Teeth intact post intubation. ) Insertion attempts: 1 Attempt 1 by: Luana Newsome Title: RNSA Procedure Note Luana Newsome - 12/05/2017 8:13 AM EDT Intraop Airway Placement: Date/Time: 12/05/2017 8:03 AM Induction type: IV Mask size: Standard adult Pre-Oxygenation: Standard Mask ventilation: Easy mask ventilation Mask ventilation improved by: Chinlift and Oral airway Oral airway sizes: 100 Technique: Video laryngoscope Laryngoscope blade: Reina Blade size: 1 Grade view: I Airway type: ETT- cuffed Topical Anesthetic/Lubricant: Lubricant jelly Intubation assist devices: Stylet 14fr Device size: 8mm Secured at: 23 cm Secured by: Commercial tube lobo Measured from: Lips Placement verified: Auscultation, End tidal CO2 and Symmetric chestwall motion Condition: Atraumatic (Before induction, patient stated he had amissing cap on one of his teeth on the top left side. Teeth intact postintubation. ) Insertion attempts: 1 Attempt 1 by: Luana Newsome Title: RNSA us Leo Santos MD ID ANESTHESIA Final Result Performing Organization Address [facility] de Phone Number [facility] [address] [place] [address] * HEPARIN ANTI-XA, UNF (12/05/2017 3:47 AM EDT) Only the most recent of10 resultswithin the time period is included. Heparin Level UNF 0.38 0.30 - 0.70 IU/mL 12/05/2017 4:14 AM EDT [employer] Comment: The therapeutic range for heparinized patients monitored by the Heparin Lvl UF is 0.30-0.70 IU/mL. Blood VENOUS BLOOD / Unknown Venipuncture / Unknown 12/05/2017 3:47 AM EDT 12/05/2017 4:02 AM EDT us Fred Marquez MD HEMATOLOGY ORDERABLES Final Result Performing Organization Address [facility] Co de Phone Number [employer] [address] [place] [address], [place] [address] * STAPHYLOCOCCUS AUREUS SCREEN (12/04/2017 12:52 PM EDT) Pathologist [facility] Staph aureus PCR Not Detected Not Detected 12/04/2017 4:34 PM EDT [facility] MRSA PCR Not Detected Not Detected 12/04/2017 4:34 PM EDT [facility] Swab BOTH ANTERIOR NARES / Unknown 12/04/2017 12:52 PM EDT 12/04/2017 1:00 PM EDT Narrative [facility] - 12/04/2017 4:34 PM EDT Staphylococcus aureus target DNA sequence is not detected. This qualitative assay is intended for the detection of Staphylococcus aureus proprietary sequences for the staphylococcal protein A (spa) gene, the gene for methicillin resistance (mecA), and the staphylococcal cassette chromosome mec (SCCmec) inserted into the SA chromosomal attB site. This assay utilizes real time PCR on the [employer] GeneXpert Infinity, and its performance has been verified by the [facility]. A negative result does not rule out the presence of the Staphylococcus aureus or Methicillin resistant Staphylococcus aureus in concentrations below the limit of detection for the assay. This assay is FDA cleared to test on nares swabs collected on patients >21 years of age. Testing on patients < 21 years of age and on umbilicus sources is not FDA approved by this methodology, but has been developed and validated by the [facility] laboratory. Detailed methodology is available upon request. Harjeet Fox APRN MICROBIOLOGY - GEN ERAL ORDERABLES Final Result [facility] [address] [facility] , [place] [address] * HEMOGLOBIN A1C (12/04/2017 8:52 AM EDT) Pathologist [facility] Hgb A1C 5.5 4.2 - 5.6 % 12/04/2017 7:20 PM EDT [facility] [employer], [facility] Est. Avg Glucose 111 mg/dL 12/04/2017 7:20 PM EDT [facility] Blood VENOUS BLOOD / Unknown Venipuncture / Unknown 12/04/2017 8:52 AM EDT 12/04/2017 8:56 AM EDT Narrative [facility] - 12/04/2017 7:20 PM EDT REFERENCE RANGE: Normal: 4.0-5.6% Pre-diabetes: 5.7-6.4% Provisional diagnosis of diabetes: >6.4% Hgb F>10% and anything which shortens red cell survival, such as hemolytic anemia, or unstable hemoglobin variants such as HbSS, HbSC, or HbCC, will lower the HbA1c value associated with a given level of glycemic control. Harjeet Fox SITE SUPERVISOR CHEMISTRY ORDERABL ES Final Result Performing Organization Address [facility] Co de Phone Number [facility] [address] [facility], [place] [address] * PULMONARY FUNCTION TEST - BEDSIDE (12/03/2017 2:21 AM EDT) 12/03/2017 2:21 AM EDT Impressions [facility] - 12/03/2017 2:21 AM EDT Good patient effort and understanding. Acceptable results and reproducibility. Normal FVC. MILD OBSTRUCTIVE VENTILATORY DEFECT. Clinical Correlation is Required. This data was interpreted based upon the 2005 ATS/ERS Task Force Position Statement: Interpretative Strategies for Lung Function Tests. This section is an excerpt of the full report. Marnie Magalisvaldemar Bhagat SITE SUPERVISOR PFT ORDERABLES Juanjo bhavya Result - Final Performing Organization Address [facility] [place] [address] * CORONARY ANGIOGRAM (COR/LHC/LV GRAM, CARDIAC CATHETERIZATION), RIGHT HEART CATH (RHC), LEFT VENTRICULOGRAM, LEFT HEART CATH (12/01/2017 4:25 PM EDT) Cath EF Estimated 50 % [facility] Narrative [facility] - 12/01/2017 6:44 PM EDT Final Impression: 1. Mild Coronary artery disease as described above 2. Normal filling pressures 3. Preserved left ventricular systolic function 4. At least moderate mitral regurgitation. Plan: 1. The patient will be evaluated by cardiothoracic surgery. Yolette Davis MD, [facility] Coronary Findings Diagnostic Dominance: Right Left Anterior Descending: The vessel is moderate in size. The vessel exhibits minimal luminal irregularities. This vessel is mildly tortuous. Left Circumflex: The vessel is moderate in size. The vessel exhibits minimal luminal irregularities. This vessel is mildly tortuous. Right Coronary Artery: The vessel is small. The vessel exhibits minimal luminal irregularities. This vessel is mildly tortuous. Intervention No interventions have been documented. Left Ventricle The left ventricular size is in the upper limits of normal. The ejection fraction is 50-55% by visual estimate. Mitral Valve There is moderate (3+) mitral regurgitation. Aortic Valve There is no aortic valve stenosis. Left Heart Pressures LVEDP /post-A wave : 6 mmHg Right Heart Cazadero-Ashutosh catheter inserted via the right femoral vein and advanced through right heart into pulmonary artery. Cardiac output was obtained through Moon method. Right atrial pressure is normal. There was no Pulmonary Hypertension. No vasodilator challenge performed. 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 Minimal calcification of mitral valve or subvalvular apparatus. Papillary muscles and chordae appear normal. No NOY thrombus present. 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 Minimal calcification of mitral valve or subvalvular apparatus.Papillary muscles and chordae appear normal. No NOY thrombus present. Alo Lennon MD IMG ECHO ORDERABLES Haylee l Result * BROOKS/CARDIOVERSION (12/01/2017 12:22 PM EDT) Narrative [facility] - 12/17/2017 2:10 PM EDT BROOKS with severe mitral regurgitation with 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 present Severe mitral regurgitation Successful external DC cardioversion to sinus rhythm Alo Lennon MD ELECTROPHYSIOLOGY ORDERA BLES Final Result Performing Organization Address City/[facility]/ZIP Co de Phone Number [facility] * INTRAOP AIRWAY PLACEMENT (12/01/2017 11:40 AM EDT) Narrative [facility] - 12/01/2017 11:40 AM EDT Diana Zhang CRNA 12/01/2017 11:40 AM Intraop Airway Placement: Airway type: Nasal cannula salter Procedure Note Diana Zhang CRNA - 12/01/2017 11:40 AM EDT Intraop Airway Placement: Airway type: Nasal cannula salter us Jose Ramon Bains MD ID ANESTHESIA Final Res ult Performing Organization Address [facility] Co de Phone Number [facility] [address] [place], [place] [id number] * DIGOXIN LEVEL (11/28/2017 3:22 PM EDT) Digoxin Lvl 1.1 0.8 - 2.0 ng/mL 11/28/2017 3:40 PM EDT [employer] Blood VENOUS BLOOD / Unknown Venipuncture / Unknown 11/28/2017 3:22 PM EDT 11/28/2017 3:23 PM EDT us Angeline Lim MD CHEMISTRY ORDERABLES Final Res ult [employer] [address] [place] [address], [place] [address] Visit Diagnoses Diagnosis Start Date Atrial fibrillation, unspecified type (HCC) 11/28/2017 Mitral valve disorder Mitral valve disorders 12/01/2017 Other cardiac arrhythmia 12/01/2017 Atrial fibrillation, unspecified type (HCC) 12/04/2017 Non-rheumatic mitral regurgitation 12/04/2017 Bleeding Hemorrhage, unspecified 12/05/2017 Non-rheumatic mitral regurgitation 12/05/2017 Atrial fibrillation, unspecified type (HCC) 12/05/2017 Paroxysmal atrial fibrillation (HCC) Atrial fibrillation 12/11/2017 Sternal wound dehiscence, initial encounter 12/17/2017 Hemoptysis Hemoptysis, unspecified 12/18/2017 Atrial fibrillation, unspecified type (HCC) 01/01/2018 Paroxysmal atrial fibrillation (HCC) Atrial fibrillation 01/09/2018 NICM (nonischemic cardiomyopathy) (HCC) Other primary cardiomyopathies 01/09/2018 Near syncope Syncope and collapse 11/28/2017 Chronic atrial fibrillation (HCC) Atrial fibrillation 11/28/2017 Atrial fibrillation, unspecified type (HCC) 11/28/2017 Other cardiac arrhythmia 11/28/2017 Mitral valve disorder Mitral valve disorders 11/28/2017 Chest pain Chest pain, unspecified 11/28/2017 Non-rheumatic mitral regurgitation 11/28/2017 Paroxysmal atrial fibrillation (HCC) Atrial fibrillation 11/28/2017 Paroxysmal atrial fibrillation (HCC) Atrial fibrillation 11/28/2017 Sternal wound dehiscence, initial encounter 11/28/2017 Hemoptysis Hemoptysis, unspecified 11/28/2017 Persistent atrial fibrillation (HCC) Atrial fibrillation 01/11/2018 Paroxysmal atrial fibrillation (HCC) Atrial fibrillation 01/09/2018 NICM (nonischemic cardiomyopathy) (HCC) Other primary cardiomyopathies 01/09/2018 Persistent atrial fibrillation (HCC) Atrial fibrillation 01/09/2018 Paroxysmal atrial fibrillation (HCC) Atrial fibrillation 01/12/2018 NICM (nonischemic cardiomyopathy) (HCC) Other primary cardiomyopathies 01/12/2018 Other constipation 01/12/2018 Screening for tuberculosis Screening examination for pulmonary tuberculosis 01/12/2018 Pain Generalized pain 01/12/2018 Hypertension, unspecified type 01/12/2018 SOB (shortness of breath) Shortness of breath 01/12/2018 Essential hypertension Unspecified essential hypertension 01/12/2018 Flush Flushing 01/12/2018 Debility Debility, unspecified 01/12/2018 Dry eyes, bilateral Tear film insufficiency, unspecified 01/12/2018 Need for prophylactic vaccination against Streptococcus pneumoniae (pneumococcus) Need for prophylactic vaccination against streptococcus pneumoniae (pneumococcus) 01/12/2018 Hypotension due to drugs Other iatrogenic hypotension 01/12/2018 Depression, unspecified depression type 01/12/2018 Insomnia, unspecified type 01/12/2018 Dysuria 01/12/2018 RLS (restless legs syndrome) Restless legs syndrome (RLS) 01/12/2018 Healthcare maintenance Routine general medical examination at a health care facility 01/12/2018 Prophylactic measure 01/12/2018 Hx of pleural effusion Personal history of other diseases of respiratory system 02/18/2018 S/P mitral valve replacement Heart valve replaced by other means 02/18/2018 Paroxysmal atrial fibrillation (HCC) Atrial fibrillation 02/18/2018 S/P left atrial appendage ligation 02/18/2018 Paroxysmal atrial fibrillation (HCC) Atrial fibrillation 03/06/2018 Heart failure, unspecified HF chronicity, unspecified heart failure type (HCC) 03/12/2018 Chest pain, unspecified type 03/11/2018 Shortness of breath 03/11/2018 Atrial fibrillation, unspecified type (HCC) 03/11/2018 Heart failure, unspecified HF chronicity, unspecified heart failure type (HCC) 03/11/2018 Paroxysmal atrial fibrillation (HCC) Atrial fibrillation 03/11/2018 Chronic systolic congestive heart failure (HCC) Chronic systolic heart failure 03/11/2018 NICM (nonischemic cardiomyopathy) ([facility]) Other primary cardiomyopathies 03/26/2018 Chronic systolic congestive heart failure (HCC) Chronic systolic heart failure 03/26/2018 Atrial fibrillation with RVR (HCC) Atrial fibrillation 03/26/2018 S/P AV rissa ablation Other postprocedural status 03/26/2018 Status post biventricular pacemaker Cardiac pacemaker in situ 03/26/2018 Biventricular pacemaker reprogramming Fitting and adjustment of cardiac pacemaker 03/26/2018 Cardiac pacemaker in situ 08/07/2018 Pacemaker reprogramming/check Fitting and adjustment of cardiac pacemaker 08/07/2018 Cardiac pacemaker in situ 12/25/2018 Pacemaker reprogramming/check Fitting and adjustment of cardiac pacemaker 12/25/2018 NICM (nonischemic cardiomyopathy) (HCC) Other primary cardiomyopathies 12/25/2018 S/P AV rissa ablation Other postprocedural status 12/25/2018 NICM (nonischemic cardiomyopathy) (HCC) Other primary cardiomyopathies 04/05/2019 Chronic systolic congestive heart failure (HCC) Chronic systolic heart failure 04/05/2019 S/P AV rissa ablation Other postprocedural status 04/05/2019 NICM (nonischemic cardiomyopathy) (HCC) Other primary cardiomyopathies 07/05/2019 Chronic systolic congestive heart failure (HCC) Chronic systolic heart failure 07/05/2019 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) Cardiac complications 07/05/2019 Chronic systolic congestive heart failure (HCC) Chronic systolic heart failure 10/04/2019 NICM (nonischemic cardiomyopathy) (HCC) Other primary cardiomyopathies 10/04/2019 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) Cardiac complications 10/04/2019 Biventricular cardiac pacemaker in situ Cardiac pacemaker in situ 12/31/2019 Biventricular pacemaker reprogramming Fitting and adjustment of cardiac pacemaker 12/31/2019 NICM (nonischemic cardiomyopathy) (HCC) Other primary cardiomyopathies 12/31/2019 Chronic systolic congestive heart failure (HCC) Chronic systolic heart failure 12/31/2019 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) Cardiac complications 12/31/2019 Paroxysmal atrial fibrillation (HCC) Atrial fibrillation 12/31/2019 NICM (nonischemic cardiomyopathy) (HCC) Other primary cardiomyopathies 01/26/2020 Chronic systolic congestive heart failure (HCC) Chronic systolic heart failure 01/26/2020 NICM (nonischemic cardiomyopathy) (HCC) Other primary cardiomyopathies 03/31/2020 Chronic systolic congestive heart failure (HCC) Chronic systolic heart failure 03/31/2020 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) Cardiac complications 03/31/2020 Biventricular cardiac pacemaker in situ Cardiac pacemaker in situ 03/31/2020 Biventricular cardiac pacemaker in situ Cardiac pacemaker in situ 06/30/2020 Biventricular pacemaker reprogramming Fitting and adjustment of cardiac pacemaker 06/30/2020 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) Cardiac complications 06/30/2020 NICM (nonischemic cardiomyopathy) (HCC) Other primary cardiomyopathies 06/30/2020 Chronic systolic congestive heart failure (HCC) Chronic systolic heart failure 06/30/2020 Paroxysmal atrial fibrillation (HCC) Atrial fibrillation 06/30/2020 Biventricular cardiac pacemaker in situ Cardiac pacemaker in situ 11/23/2020 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) Cardiac complications 11/23/2020 NICM (nonischemic cardiomyopathy) (HCC) Other primary cardiomyopathies 11/23/2020 Chronic systolic congestive heart failure (HCC) Chronic systolic heart failure 11/23/2020 Systolic congestive heart failure, unspecified HF chronicity (HCC) 01/26/2021 Systolic congestive heart failure, unspecified HF chronicity (HCC) 01/26/2021 Systolic congestive heart failure, unspecified HF chronicity (HCC) 01/29/2021 NICM (nonischemic cardiomyopathy) (HCC) Other primary cardiomyopathies 01/29/2021 Chronic systolic congestive heart failure (HCC) Chronic systolic heart failure 01/29/2021 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) Cardiac complications 01/29/2021 Biventricular cardiac pacemaker in situ Cardiac pacemaker in situ 01/29/2021 Biventricular pacemaker reprogramming Fitting and adjustment of cardiac pacemaker 01/29/2021 Chronic systolic congestive heart failure (HCC) Chronic systolic heart failure 01/29/2021 Persistent atrial fibrillation (HCC) Atrial fibrillation 01/29/2021 SOB (shortness of breath) Shortness of breath 01/29/2021 S/P AV rissa ablation Other postprocedural status 01/29/2021 S/P left atrial appendage ligation 01/29/2021 S/P mitral valve replacement with bioprosthetic valve Heart valve replaced by other means 01/29/2021 NICM (nonischemic cardiomyopathy) (HCC) Other primary cardiomyopathies 01/29/2021 Persistent atrial fibrillation (HCC) Atrial fibrillation 02/26/2021 Systolic congestive heart failure, unspecified HF chronicity (HCC) 03/01/2021 Biventricular cardiac pacemaker in situ Cardiac pacemaker in situ 03/27/2021 S/P AV rissa ablation Other postprocedural status 03/27/2021 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) Cardiac complications 03/27/2021 NICM (nonischemic cardiomyopathy) (HCC) Other primary cardiomyopathies 03/27/2021 Chronic systolic congestive heart failure (HCC) Chronic systolic heart failure 03/27/2021 Paroxysmal atrial fibrillation (HCC) Atrial fibrillation 03/27/2021 Biventricular cardiac pacemaker in situ Cardiac pacemaker in situ 05/16/2021 S/P AV rissa ablation Other postprocedural status 05/16/2021 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) Cardiac complications 05/16/2021 Chronic systolic congestive heart failure (HCC) Chronic systolic heart failure 05/16/2021 NICM (nonischemic cardiomyopathy) (HCC) Other primary cardiomyopathies 05/16/2021 Chronic systolic congestive heart failure (HCC) Chronic systolic heart failure 05/16/2021 Chronic systolic congestive heart failure (HCC) Chronic systolic heart failure 05/22/2021 Persistent atrial fibrillation (HCC) Atrial fibrillation 05/22/2021 Systolic congestive heart failure, unspecified HF chronicity (HCC) 06/28/2021 Acute on chronic heart failure with preserved ejection fraction (HCC) 06/28/2021 Valvular heart disease Endocarditis, valve unspecified, unspecified cause 06/28/2021 Chronic systolic congestive heart failure (HCC) Chronic systolic heart failure 06/28/2021 Systolic congestive heart failure, unspecified HF chronicity (HCC) 06/28/2021 Chronic systolic congestive heart failure (HCC) Chronic systolic heart failure 07/02/2021 Acute on chronic heart failure with preserved ejection fraction (HCC) 07/03/2021 Systolic congestive heart failure, unspecified HF chronicity (HCC) 07/03/2021 Heart failure with mid-range ejection fraction (HCC) 08/15/2021 NICM (nonischemic cardiomyopathy) ([facility]) Other primary cardiomyopathies 08/15/2021 ASHD (arteriosclerotic heart disease) Coronary atherosclerosis of unspecified type of vessel, wrangell or graft 08/15/2021 Valvular heart disease Endocarditis, valve unspecified, unspecified cause 08/15/2021 Atrial fibrillation, unspecified type (HCC) 08/15/2021 Heart failure with mid-range ejection fraction (HCC) 08/17/2021 NICM (nonischemic cardiomyopathy) (HCC) Other primary cardiomyopathies 08/17/2021 Persistent atrial fibrillation (HCC) Atrial fibrillation 08/17/2021 Heart failure with mid-range ejection fraction (HCC) 08/17/2021 NICM (nonischemic cardiomyopathy) (HCC) Other primary cardiomyopathies 08/17/2021 Atrial fibrillation with RVR ([facility]) Atrial fibrillation 08/17/2021 S/P AV rissa ablation Other postprocedural status 08/17/2021 Biventricular cardiac pacemaker in situ Cardiac pacemaker in situ 08/17/2021 Biventricular pacemaker reprogramming Fitting and adjustment of cardiac pacemaker 08/17/2021 NICM (nonischemic cardiomyopathy) (HCC) Other primary cardiomyopathies 08/17/2021 Chronic systolic congestive heart failure (HCC) Chronic systolic heart failure 08/17/2021 Paroxysmal atrial fibrillation (HCC) Atrial fibrillation 08/17/2021 Persistent atrial fibrillation (HCC) Atrial fibrillation 08/17/2021 Heart failure, unspecified HF chronicity, unspecified heart failure type (HCC) 08/17/2021 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) Cardiac complications 08/17/2021 Biventricular cardiac pacemaker in situ Cardiac pacemaker in situ 08/17/2021 [employer] 08/20/2021 Heart failure with mid-range ejection fraction (HCC) 09/05/2021 Heart failure with mid-range ejection fraction (HCC) 09/05/2021 NICM (nonischemic cardiomyopathy) (HCC) Other primary cardiomyopathies 09/05/2021 ASHD (arteriosclerotic heart disease) Coronary atherosclerosis of unspecified type of vessel, wrangell or graft 09/05/2021 Valvular heart disease Endocarditis, valve unspecified, unspecified cause 09/05/2021 Atrial fibrillation, unspecified type (HCC) 09/05/2021 Systolic congestive heart failure, unspecified HF chronicity (HCC) 09/05/2021 Heart failure with mid-range ejection fraction (HCC) 09/06/2021 Heart failure with mid-range ejection fraction (HCC) 10/02/2021 NICM (nonischemic cardiomyopathy) (HCC) Other primary cardiomyopathies 10/02/2021 ASHD (arteriosclerotic heart disease) Coronary atherosclerosis of unspecified type of vessel, wrangell or graft 10/02/2021 Valvular heart disease Endocarditis, valve unspecified, unspecified cause 10/02/2021 Atrial fibrillation, unspecified type (HCC) 10/02/2021 Systolic congestive heart failure, unspecified HF chronicity (HCC) 10/02/2021 Heart failure with mid-range ejection fraction (HCC) 11/05/2021 NICM (nonischemic cardiomyopathy) (HCC) Other primary cardiomyopathies 11/05/2021 [employer] 11/07/2021 Heart failure with mid-range ejection fraction (HCC) 11/07/2021 NICM (nonischemic cardiomyopathy) (HCC) Other primary cardiomyopathies 11/07/2021 ASHD (arteriosclerotic heart disease) Coronary atherosclerosis of unspecified type of vessel, wrangell or graft 11/07/2021 Valvular heart disease Endocarditis, valve unspecified, unspecified cause 11/07/2021 Atrial fibrillation, unspecified type (HCC) 11/07/2021 Heart failure with mid-range ejection fraction (HCC) 11/19/2021 NICM (nonischemic cardiomyopathy) (HCC) Other primary cardiomyopathies 11/19/2021 Systolic congestive heart failure, unspecified HF chronicity (HCC) 12/04/2021 Systolic congestive heart failure, unspecified HF chronicity (HCC) 12/10/2021 NICM (nonischemic cardiomyopathy) (HCC) Other primary cardiomyopathies 01/09/2022 Orthostatic dizziness 01/09/2022 Chronic HFrEF (heart failure with reduced ejection fraction) (HCC) 01/09/2022 NICM (nonischemic cardiomyopathy) (HCC) Other primary cardiomyopathies 03/18/2022 NICM (nonischemic cardiomyopathy) (HCC) Other primary cardiomyopathies 03/25/2022 NICM (nonischemic cardiomyopathy) (HCC) Other primary cardiomyopathies 03/28/2022 NICM (nonischemic cardiomyopathy) (HCC) Other primary cardiomyopathies 04/02/2022 [employer] 05/29/2022 [employer] 08/28/2022 NICM (nonischemic cardiomyopathy) (HCC) Other primary cardiomyopathies 09/02/2022 NICM (nonischemic cardiomyopathy) (HCC) Other primary cardiomyopathies 09/02/2022 Heart failure with mid-range ejection fraction (HCC) 09/02/2022 Valvular heart disease Endocarditis, valve unspecified, unspecified cause 09/02/2022 Permanent atrial fibrillation (HCC) Atrial fibrillation 09/02/2022 [employer] 02/28/2023 Heart failure with mid-range ejection fraction (HCC) 03/03/2023 NICM (nonischemic cardiomyopathy) (HCC) Other primary cardiomyopathies 03/03/2023 Heart failure with mid-range ejection fraction (HCC) 03/11/2023 Heart failure with mid-range ejection fraction (HCC) 08/26/2023 Heart failure with mid-range ejection fraction (HCC) 08/26/2023 NICM (nonischemic cardiomyopathy) (HCC) Other primary cardiomyopathies 08/26/2023 Valvular heart disease Endocarditis, valve unspecified, unspecified cause 08/26/2023 Permanent atrial fibrillation (HCC) Atrial fibrillation 08/26/2023 Heart failure with mid-range ejection fraction (HCC) 08/27/2023 [employer] 09/01/2023 [employer] 09/02/2023 NICM (nonischemic cardiomyopathy) (HCC) Other primary cardiomyopathies 09/09/2023 Biventricular cardiac pacemaker in situ Cardiac pacemaker in situ 09/09/2023 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) Cardiac complications 09/09/2023 Permanent atrial fibrillation (HCC) Atrial fibrillation 09/09/2023 NICM (nonischemic cardiomyopathy) (HCC) Other primary cardiomyopathies 09/09/2023 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) Cardiac complications 09/09/2023 Chronic systolic congestive heart failure (HCC) Chronic systolic heart failure 09/09/2023 Persistent atrial fibrillation (HCC) Atrial fibrillation 09/09/2023 Biventricular cardiac pacemaker in situ Cardiac pacemaker in situ 09/09/2023 Biventricular pacemaker reprogramming Fitting and adjustment of cardiac pacemaker 09/09/2023 [employer] 02/06/2024 [employer] 02/07/2024 [employer] 03/08/2024 [employer] 03/09/2024 Heart failure with mid-range ejection fraction (HCC) 03/09/2024 NICM (nonischemic cardiomyopathy) (HCC) Other primary cardiomyopathies 03/09/2024 Valvular heart disease Endocarditis, valve unspecified, unspecified cause 03/09/2024 Permanent atrial fibrillation (HCC) Atrial fibrillation 03/09/2024 [employer] 04/08/2024 [employer] 04/09/2024 [employer] 05/09/2024 [employer] 05/10/2024 [employer] 05/28/2024 [employer] 06/11/2024 [employer] 06/21/2024 Heart failure with mid-range ejection fraction (HCC) 06/25/2024 Heart failure with mid-range ejection fraction (HCC) 06/28/2024 NICM (nonischemic cardiomyopathy) (HCC) Other primary cardiomyopathies 06/28/2024 [employer] 07/04/2024 NICM (nonischemic cardiomyopathy) (HCC) Other primary cardiomyopathies 07/06/2024 [employer] 07/12/2024 Chest pressure Other chest pain 01/09/2018 NICM (nonischemic cardiomyopathy) (HCC) Other primary cardiomyopathies 01/09/2018 Hypotension due to drugs Other iatrogenic hypotension 11/28/2017 Atrial fibrillation (HCC) Atrial fibrillation 11/28/2017 Essential hypertension Unspecified essential hypertension 11/28/2017 Arrhythmia Cardiac dysrhythmia, unspecified 11/28/2017 Chest pain Chest pain, unspecified 11/28/2017 Non-rheumatic mitral regurgitation 11/28/2017 Paroxysmal atrial fibrillation (HCC) Atrial fibrillation 11/28/2017 Leukocytosis Leukocytosis, unspecified 11/28/2017 Confusion Unspecified psychosis 11/28/2017 Bioprosthetic mitral valve replacement, current hospitalization Heart valve replaced by other means 11/28/2017 S/P left atrial appendage ligation 11/28/2017 Pulmonary infiltrate Other nonspecific abnormal finding of lung field 11/28/2017 Acute respiratory failure with hypoxia (HCC) Acute respiratory failure 11/28/2017 Pneumothorax on left Other pneumothorax 11/28/2017 Fever in adult 11/28/2017 Pleural effusion Unspecified pleural effusion 11/28/2017 Postoperative atrial fibrillation (HCC) Cardiac complications 11/28/2017 Respiratory failure, post-operative Other pulmonary insufficiency, not elsewhere classified, following trauma and surgery 11/28/2017 Hemoptysis Hemoptysis, unspecified 11/28/2017 Mediastinal abscess (HCC) Abscess of mediastinum 11/28/2017 Cellulitis of chest wall Cellulitis and abscess of trunk 11/28/2017 Confusion Unspecified psychosis 01/09/2018 Atrial fibrillation (HCC) Atrial fibrillation 01/09/2018 Mediastinal abscess (HCC) Abscess of mediastinum 01/09/2018 Bioprosthetic mitral valve replacement, current hospitalization Heart valve replaced by other means 01/09/2018 Cellulitis of chest wall Cellulitis and abscess of trunk 01/09/2018 Persistent atrial fibrillation (HCC) Atrial fibrillation 01/09/2018 Chest pressure Other chest pain 01/09/2018 SOB (shortness of breath) Shortness of breath 01/12/2018 Atrial fibrillation (HCC) Atrial fibrillation 01/12/2018 Chest pressure Other chest pain 01/12/2018 Loculated pleural effusion Unspecified pleural effusion 01/12/2018 Mediastinal abscess (HCC) Abscess of mediastinum 01/12/2018 Cellulitis of chest wall Cellulitis and abscess of trunk 01/12/2018 Pleural effusion Unspecified pleural effusion 01/12/2018 Acute respiratory failure with hypoxia (HCC) Acute respiratory failure 01/12/2018 Essential hypertension Unspecified essential hypertension 01/12/2018 Chronic systolic congestive heart failure (HCC) Chronic systolic heart failure 01/12/2018 Debility Debility, unspecified 01/12/2018 Hypokalemia Hypopotassemia 01/12/2018 Bilateral pleural effusion Unspecified pleural effusion 01/12/2018 S/P mitral valve replacement Heart valve replaced by other means 01/12/2018 Benign prostatic hyperplasia with urinary frequency 01/12/2018 RLS (restless legs syndrome) Restless legs syndrome (RLS) 01/12/2018 Rapid atrial fibrillation (HCC) Atrial fibrillation 03/11/2018 SOB (shortness of breath) Shortness of breath 03/11/2018 S/P mitral valve replacement with bioprosthetic valve Heart valve replaced by other means 03/11/2018 Chronic systolic congestive heart failure (HCC) Chronic systolic heart failure 03/11/2018 Pleural effusion Unspecified pleural effusion 03/11/2018 Heart failure (HCC) Heart failure, unspecified 03/11/2018 Atrial fibrillation with RVR (HCC) Atrial fibrillation 03/11/2018 S/P AV rissa ablation Other postprocedural status 03/11/2018 Status post biventricular pacemaker Cardiac pacemaker in situ 03/11/2018 Goals Goal Patient Goal Type Associated Problems Recent Progress Patient-Stated? Author Blood Pressure < 140/90 Blood Pressure 115/69(2024 10:38 AM EST) No Belkys Traore CCMA Maintain a healthy diet, exercise regularly and maintain an ideal body weight General No Belkys Traore CCMA
[2024-08-09 11:29] VITALS: BP 106/59; PULSE 70; RESP 12; O2SAT 96; BMI 25.7
--- NOTE | 2024-08-09 11:52 | EXP.PAIN.SOA ---
[facility] Disclaimer: The information contained in this section may have been updated after the patient was seen, as this information can be updated by other users. Medical History (Updated 08/09/24 @ 11:58 by Flores Koenig APRN) Tongue lesion Acute pansinusitis Mitral valve prolapse Hypertension Neck pain Fall Facial laceration Cervical strain, acute Closed head injury Lumbar radiculopathy Degenerative disc disease Tachycardia Cough Dizziness Congestive heart failure Dilated cardiomyopathy Angina, class III Nonischemic congestive cardiomyopathy Heart failure Paroxysmal atrial fibrillation Atrial fibrillation Surgical History History of permanent cardiac pacemaker placement History of mitral valve replacement History of right knee surgery Family History Other No significant family history Social History Smoking Status: Never smoker alcohol intake: never substance use type: denies use current occupational status: other Travel in the last 8 weeks?: None household members: none housing: house current occupational exposures/hazards: No caffeine: Yes PM Subjective & Objective Subjective Subjective:: Patient is a pleasant 89-year-old male who presents today for follow-up of his right intra-articular hip injection on 07/20/2024. He does state that this did help significantly and he is rating about 40 to 50% improvement. Patient does however state that he is still having more pain into and around his right buttocks area on the backside. He does state that he does have some tenderness and it does not affect his ability perform activities of daily living such as cooking and cleaning. Patient states it is a 3 currently however getting in and out of his truck and walking in here was a 5 out of 10. Patient feels like he does limp due to this worsening pain. He is interested in any options we unable to provide. At our last visit he was prescribed ropinirole 0.25 mg at bedtime for his leg cramps and baclofen 10 mg 3 times a day. He is requesting refills. His Zelalem has been reviewed and is appropriate. Review of Systems: General: No recent weight changes, no fever, no sleep disturbances Respiratory: No cough, no shortness of air, no recurring pulmonary infections Cardiovascular/peripheral vascular: No chest pain, no palpitations, no edema, no shortness of breath Gastrointestinal: No new onset incontinence, normal bowel movements reported Genitourinary: No new onset incontinence Musculoskeletal: Right buttocks pain Psychiatric: [Normal mood/affect] Neurological: [Denies weakness in extremities], [denies balance issues] Pain at rest (0-10 scale): 5 Objective Objective:: Physical Exam: General: Alert and oriented x3, no acute distress, pleasant and cooperative Lungs: Respirations even and unlabored, symmetrical chest expansion Eyes: PERRL Musculoskeletal: Flexion and extension of lumbar [spine] somewhat guarded secondary to pain, [antalgic gait noted] point tenderness right piriformis muscle Neurological: Speech clear, no gross sensory deficit Has patient had previous pain injection?: Yes Percent improvement in pain since last injection: 40 to 50% Conservative treatment options previously tried: Home exercise plan Length of treatment: Longer than 12 weeks Meds Home Medications and Allergies Home Medications ?Medication ?Instructions ?Recorded ?Confirmed ?Type tamsulosin 0.4 mg capsule (Flomax) 0.4 mg PO DAILY prostate 07/01/17 08/09/24 History empagliflozin 10 mg tablet 10 mg PO DAILY Diabetes 09/06/21 08/09/24 History gabapentin 300 mg capsule 300 mg PO BID Pain 03/08/22 08/09/24 History venlafaxine 75 mg tablet 75 mg PO BID MOOD 03/08/22 08/09/24 History lisinopril 2.5 mg tablet 2.5 mg PO DAILY CHF/HBP #30 tabs 03/10/22 08/09/24 Rx metoprolol succinate 25 mg 25 mg PO BID BLOOD PRESSURE 08/21/22 08/09/24 History tablet,extended release 24 hr baclofen 5 mg tablet 5 mg PO TID #42 tabs 05/12/24 08/09/24 Rx prednisone 20 mg tablet 20 mg PO BID #10 tabs 05/12/24 08/09/24 Rx baclofen 10 mg tablet 10 mg PO TID #90 tabs 06/23/24 08/09/24 Rx ropinirole 0.25 mg tablet 0.25 mg PO HS #14 tabs 06/23/24 08/09/24 Rx New Prescriptions to Start Prescriptions: Allergies Allergy/AdvReac Type Severity Reaction Status Date / Time No Known Allergies Allergy Verified 12/11/22 14:36 Assessment and Plan *Assessment and plan (1) Piriformis syndrome of right side: Status: Acute Category: Medical Code(s): G57.01 - Lesion of sciatic nerve, right lower limb (2) Myofascial pain on right side: Status: Acute Category: Medical Code(s): M79.18 - Myalgia, other site (3) Right buttock pain: Status: Acute Category: Medical Code(s): M79.18 - Myalgia, other site Plan Patient is experiencing a little bit worsening pain in his right buttocks with point tenderness along his right piriformis muscle. I did discuss with the patient that I do believe he may benefit from a right piriformis injection. Risk and benefits were discussed with the patient and he would like to proceed forward with this plan of care. Patient has tried and failed conservative therapy clued an oral medications, heat and ice, topicals, at home stretching exercise for longer than 12 weeks. I will also send refills of the ropinirole and the baclofen. Patient will be scheduled for a right piriformis injection. This will be done without fluoroscopic or ultrasound guidance. Patient has been instructed to contact the clinic with any concerns before the next appointment. Dr. Olmstead has reviewed this note and agrees with this plan of care. This note was dictated using voice recognition software and make contain errors or omissions. All injections are used with Lidocaine, Bupivacaine and dexamethasone. Occasionally urine drug screen is needed to verify patient's compliance with our office pain contract. This is ordered based off specific treatments related to chronic pain with the potential to abuse certain medications.
== END 2024-08-09 23:59 | disposition home or self-care (01) ==
PROVIDERS: PCP Family Medicine; Visit Provider Nurse Practitioner Family
DX: G57.01 Lesion of sciatic nerve, right lower limb (principal); Z98.890 Other specified postprocedural states; Z79.899 Other long term (current) drug therapy
CPT/HCPCS: 99212; G0463

== ENCOUNTER 2024-09-20 09:25 | Outpatient (POV) | payer MEDICARE, SELFPAY ==
--- OUTSIDE RECORDS SUMMARY | 2024-01-23 05:30 | XMS_ITS ---
Author Organization [facility] Address [address] [facility] [address] [facility] [address] [place] [phone] Care Team Providers Care Custom Designer Name Role Phone Miguel Shah Primary Care Provider Allergies No Known Allergies REASON FOR VISIT 4 MONTH CHECK UP, Needs labs & flu vaccine Encounters Encounter Location Date Provider Diagnosis [place] [address] [facility] [address] [facility] [address] [place] [phone] 01/23/2024 Miguel Shah Plan Of Treatment Next Appt Details Provider Name:Miguel Baron er, 10/18/2024 10:45:00 AM, [address] [facility] [address] [facility], [address], [place], [id number], Progress Notes * Brandon RIOSDOB:1935 (89 yo M)Acc No.[id number]:01/23/2024 Progress Notes Patient: Brandon OCONNELL Provider: Miguel Shah M.D. :1935 A ge:88 Y S ex:Male Date:01/23/2024 Address:[address], [place] [id number] Subjective: * Chief Complaints: * 1 . 4 MONTH CHECK UP. 2. Needs labs & flu vaccine. * ROS: D ERMATOLOGY: no R emelyn. n o H osorio. G ASTROENTEROLOGY: no N ausea. n o V omiting. n o D iarrhea.? U ROLOGY: no D ifficulty urinating. n o B lood in urine. * Medical History: H ypertension, BPH, Depression, Atrial fibrillation, Mitral valve prolapse, COVID 19 Vaccine, Pfizer 2016 Echo 40-45% EF, [facility]. * Surgical History: R T Knee 1955, Mitral Valve Replacement 11/2017, Pacemaker - [facility] 02/2018. * Hospitalization/Major Diagno stic Procedure: H CHF 12/17-, [facility] - AFIB 01/12-02/09, [facility] ER - laceration to head due to fall 08/11/20. * Family History: F ather: . M other: . 5 brother(s) , 2 sister(s) - healthy. 3 son(s) - healthy. . * Social History: C affeine: no. Exercise: no. Marital Status: . Past smoking status: yes, PPD: , years: ,determination:. Alcohol: Yes, Type: , Frequency: ,Years: , Determination:. * Allergies: N .K.D.A. Objective: * Vitals: Assessment: Plan: * Treatment: * Procedure Codes: G 2211 Complex e/m visit add on * Images: Billing Information: * Visit Code: * Procedure Codes: G2211 Complex e/m visit add on. * Electronic signature of Miguel Shah MD on 09/20/2024 at 09:42 AM EDT Sign off status: Pending * Provider: Miguel Shah M.D. Date: 03/24/2023 Generated for Olga Lidia howard/Staci/Odalisitting on: 0 09/20/2024 09:42 AM EDT
--- OUTSIDE RECORDS SUMMARY | 2024-06-14 08:45 | XMS_ITS ---
Author Organization [facility] Address [address] [place] [id number] Care Team Providers Care Chain Mortiser Operator Name Role Phone Miguel Shah Primary Care Provider Allergies No Known Allergies REASON FOR VISIT Check Up and Refills, Needs labs Medications Medication SIG (Take, Route, Frequency, Duration) Notes Start Date End Date Status Losartan Potassium 25 MG 1 tab(s) Orally every other day Active Venlafaxine HCl 75 MG 1 tab(s) Orally Tw ice a day; Duration: 15 days Active B-12 1000 MCG 1 tab(s) orally once a day 05/30/2020 Not-Taking Vitamin C 250 MG 1 tab(s) orally once a day; Duration: 30 day(s) Not-Taking Doxycycline Monohydrate 100 MG 1 capsule Orally Twice a day; Duration: 10 days 06/14/2024 Active Furosemide 20 MG 1 tab(s) orally as needed prn Active Jardiance 10 MG TAKE 1 TABLET BY TERRELL TH ONCE DAILY IN THE MORNING; Duration: 30 Active Gabapentin 300 MG 1 cap(s) orally 2 ti mes a day; Duration: 30 day(s) 05/18/2024 Active Metoprolol Succinate ER 25 MG 1 tab(s) orally once a day Active Tamsulosin HCl 0.4 MG 1 capsule Orally O nce a day; Duration: 30 days Active Vital Signs Weight 193.2 lbs 06/14/2024 Blood pressure systolic 100 mm Hg 06/15/19 25 Blood pressure diastolic 60 mm Hg 025 Heart Rate 74 /min 06/14/2024 Height 72 in 06/14/2024 BMI 26.2 kg/m2 06/14/2024 Encounters Encounter Location Date Provider Diagnosis [facility] [address] [facility] [address] [facility] [address] [place] [id number] 06/14/2024 Miguel Shah 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 ; Vitamin B12 deficiency E53.8 ; H/O mitral valve replacement Z95.2 ; Tick bite of multiple sites W57.XXXA ; 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 and BMI 26.0-26.9,adult Z68.26 Assessments Encounter Date Diagnosis (ICD Code) Assessment Notes Treatment Notes Treatment Clinical Notes Section Notes 06/14/2024 Arteriosclerotic cardiovascular disease (ICD-10 - I25.10) 06/14/2024 Vitamin B12 deficiency (ICD-10 - E53.8) 06/14/2024 H/O mitral valve replacement (ICD-10 - Z95.2) 06/14/2024 Tick bite of multiple sites (ICD-10 - W57.XXXA) 06/14/2024 Neoplasm of hand (ICD-10 - D49.89) 06/14/2024 BMI 26.0-26.9,adult (ICD-10 - Z68.26) Plan Of Treatment Medication Medication Name Sig Start Date Stop Date Notes Doxycycline Monohydrate 100 MG 1 capsule Orally Twice a day; Duration: 10 days 06/14/2024 Pending Test Test Name Order Date CBC 06/14/2024 BMP 06/14/2024 Lyme IgG/IgM Ab 06/14/2024 Next Appt Details Follow Up: 2 Months, Reason: Provider Name:Miguel Baron er, 10/18/2024 10:45:00 AM, [address] [facility] [address] [facility], [address], [place], [id number], Progress Notes * Brandon RIOSDOB:1935 (89 yo M)Acc No.[id number]:06/14/2024 Progress Notes Patient: Brandon OCONNELL Provider: Miguel Shah M.D. :1935 A ge:88 Y S ex:Male Date:06/14/2024 Address:[address] [place] [address], [place], [id number] Subjective: * Chief Complaints: * 1 . Check Up and Refills. 2. Needs labs. * HPI: H PI: 88 year old male presents with c/o Patient is here today for?Pt is here today for a check with refills. Pt states he pulled a deer tick off the left arm and he states he thinks he has one on his buttock but is not sure. Pt states he has a rash on the left arm where he pulled the tick off. Pt would like testing for Lyme disease. Pt states he also has a skin lesion on the left hand he would like checked out. Pt states the lesion is very sore to touch. Pt has a lesion on the right ear and it is sore to touch as well. * ROS: D ERMATOLOGY: no R emelyn. n o H osorio. G ASTROENTEROLOGY: no N ausea. n o V omiting. n o D iarrhea.? U ROLOGY: no D ifficulty urinating. n o B lood in urine. * Medical History: H ypertension, BPH, Depression, Atrial fibrillation, Mitral valve prolapse, COVID 19 Vaccine, Pfizer 2020, 2016 Echo 40-45% EF, [facility]. * Surgical History: R T Knee 1955, Mitral Valve Replacement 11/2017, Pacemaker - [facility] 02/2018. * Hospitalization/Major Diagno stic Procedure: H CHF 12/17-, [facility] - AFIB 01/12-02/09, [facility] ER - laceration to head due to fall 08/11/20. * Family History: F ather: . M other: . 5 brother(s) , 2 sister(s) - healthy. 3 son(s) - healthy. . * Social History: C affeine: no. Exercise: no. Marital Status: . Past smoking status: yes, PPD: , years: ,determination:. Alcohol: Yes, Type: , Frequency: ,Years: , Determination:. * Medications: T aking Jardiance 10 MG Tablet TAKE 1 TABLET BY MOUTH ONCE DAILY IN THE MORNING , Taking Furosemide 20 MG Tablet 1 tab(s) orally as needed , Notes to Pharmacist: prn, Taking Metoprolol Succinate ER 25 MG Tablet Extended Release 24 Hour 1 tab(s) orally once a day , Taking Gabapentin 300 MG Capsule 1 cap(s) orally 2 times a day , Taking Tamsulosin HCl 0.4 MG Capsule 1 capsule Orally Once a day , Taking Venlafaxine HCl 75 MG Tablet 1 tab(s) Orally Twice a day , Taking Losartan Potassium 25 MG Tablet 1 tab(s) Orally every other day , Not-Taking Vitamin C 250 MG Tablet 1 tab(s) orally once a day , Not-Taking B-12 1000 MCG Tablet 1 tab(s) orally once a day , Medication List reviewed and reconciled with the patient * Allergies: N .K.D.A. Objective: * Vitals: W t: 193.2, Temp: 97.6, BP: 100/60, HR: 74, Nurse: DELILAH, Ht: 72, BMI:26.2. * Examination: G eneral Examination: General Appearance: N AD. H EENT: s caling lesion right pinna. Treated with cryo freeze/freeze, Micheal IL-100. O ral cavity: m ucosa moist and WNL. N gerda: s upple, no lymphadenopathy. C hest: n ormal shape and expansion, pacemaker battery in place. H eart: R SR. L ungs: c lear to auscultation. A bdomen: bowel sounds present, soft and nontender. N eurologic Exam: I ntact, gait normal. S kin: t wo lesions of the left upper arm. Small amount of black material removed.? Two lesions of the left buttock. One with dark material removed with splinter forceps from one wound.. P eripheral pulses: n ormal . E xtremities: n o leg edema. Raised keratinized lesion of dorsum of left hand, nearly 2cm.. Assessment: * Assessment: 1. A rteriosclerotic cardiovascular disease - I25.10 2 . V itamin B12 deficiency - E53.8 3 . H /O mitral valve replacement - Z95.2 4 . T ick bite of multiple sites - W57.XXXA 5 . N eoplasm of hand - D49.89 ? 6 . B DE 26.0-26.9,adult - Z68.26 Plan: * Treatment: * Labs: * L ab: Lyme IgG/IgM Ab L ab: BMP L ab: CBC * Procedure Codes: G 2211 Complex e/m visit add on, 3074F SYST BP LT 130 MM HG, 3078F DIAST BP < 80 MM HG * Follow Up: 2 Months * Images: Billing Information: * Visit Code: 28238 Office Visit, Est Pt., Level 3. * Procedure Codes: G2211 Complex e/m visit add on. 3074F SYST BP LT 130 MM HG. 3078F DIAST BP < 80 MM HG. * Electronic signature of Miguel Shah MD on 09/20/2024 at 09:42 AM EDT Sign off status: Pending * Provider: Miguel Shah M.D. Date: 0 06/14/2024 Generated for Olga Lidia howard/Staci/eTransmitting on: 0 09/20/2024 09:42 AM EDT History and Physical Notes * HPI (History of Present Illness) Category Sub-Category Detail Notes Category Not es HPI Patient is here today for Pt is here today for a check with refills. Pt states he pulled a deer tick off the left arm and he states he thinks he has one on his buttock but is not sure. Pt states he has a rash on the left arm where he pulled the tick off. Pt would like testing for Lyme disease. Pt states he also has a skin lesion on the left hand he would like checked out. Pt states the lesion is very sore to touch. Pt has a lesion on the right ear and it is sore to touch as well Examination Category Sub-Category Detail Notes Category Not es General Examination HEENT: scaling lesi on right pinna. Treated with cryo freeze/freeze, Micheal IL-100 Heart: RSR Lungs: clear to auscultatio n Abdomen: bowel sounds present , soft and nontender Extremities: no leg edema. Raised keratinized lesion of dorsum of left hand, nearly 2cm. General Appearance: NAD Skin: two lesions of the l eft upper arm. Small amount of black material removed. Two lesions of the left buttock. One with dark material removed with splinter forceps from one wound. Neurologic Exam: Intact, gait normal Neck: supple, no lymphaden opathy Oral cavity: mucosa moist and WNL Peripheral pulses: normal Chest: normal shape and exp ansion, pacemaker battery in place
--- OUTSIDE RECORDS SUMMARY | 2024-08-16 06:30 | XMS_ITS ---
[facility] [address] [place] [id number] Care Team Providers Care Baseball Sewer Hand Name Role Phone Miguel Shah Primary Care Provider Allergies No Known Allergies REASON FOR VISIT 2 months checkup and Mini-Mental Status Exam, Needs labs Medications Medication SIG (Take, Route, Frequency, Duration) Notes Start Date End Date Status B-12 1000 MCG 1 tab(s) orally once a day 05/30/2020 Not-Taking Gabapentin 300 MG 1 cap(s) orally 2 ti mes a day; Duration: 30 day(s) 07/20/2024 Active Vitamin C 250 MG 1 tab(s) orally once a day; Duration: 30 day(s) Not-Taking Tamsulosin HCl 0.4 MG TAKE 1 CAPSULE BY MOUTH DAILY; Duration: 90 days Active Metoprolol Succinate ER 25 MG 1 tab(s) orally once a day Active Venlafaxine HCl 75 MG 1 tab(s) Orally Tw ice a day; Duration: 15 days Active Losartan Potassium 25 MG TAKE 1 TABLET B Y MOUTH EVERY OTHER DAY; Duration: 30 days Active Jardiance 10 MG TAKE 1 TABLET BY ONCE DAILY IN THE MORNING; Duration: 30 Active Furosemide 20 MG 1 tab(s) orally as needed prn Active Baclofen 10 MG 1 tablet as needed Orally 3 times a day Active rOPINIRole HCl 0.25 MG 1 tablet 1 to 3 h ours before bedtime Orally Once a day Active Problems Problem Type SNOMED Code ICD Code Onset Dates Problem Status W/U Status Risk Notes Problem Peripheral circulatory disorder associated with diabetes mellitus (135340191) 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 confirmed Vital Signs Weight 192.0 lbs 08/16/2024 Blood pressure systolic 102 mm Hg 08/17/19 25 Blood pressure diastolic 60 mm Hg 025 Heart Rate 72 /min 08/16/2024 Height 72 in 08/16/2024 BMI 26.04 kg/m2 08/16/2024 Encounters Encounter Location Date Provider Diagnosis [facility] [address] [facility] [address] [facility] [address] [place] [id number] 08/16/2024 Miguel Shah Fluctuating mental status R41.82 ; Reactive depression F32.9 ; Type 2 diabetes mellitus with other circulatory complications E11.59 and BMI 26.0-26.9,adult Z68.26 Assessments Encounter Date Diagnosis (ICD Code) Assessment Notes Treatment Notes Treatment Clinical Notes Section Notes 08/16/2024 Fluctuating mental status (ICD-10 - R41.82) HE SCORED 30 OUT OF 30 ON MMSE TODAY 08/16/2024 Reactive depression (ICD-10 - F32.9) 08/16/2024 Type 2 diabetes mellitus with other circulatory complications (ICD-10 - E11.59) 08/16/2024 BMI 26.0-26.9,adult (ICD-10 - Z68.26) Plan Of Treatment Treatment Notes Assessment Notes Fluctuating mental status HE SCORED 30 O UT OF 30 ON MMSE TODAY Next Appt Details Follow Up: 2 Months, Reason: Provider Name:Miguel Baron er, 10/18/2024 10:45:00 AM, [address] [facility] [address] [facility], [address], [place], [id number], Progress Notes * Brandon RIOSDOB:1935 (89 yo M)Acc No.[id number]:08/16/2024 Progress Notes Patient: Brandon OCONNELL Provider: Miguel Shah M.D. :1935 A ge:89 Y S ex:Male Date:08/16/2024 Address:[address] [place] [address], [place] Subjective: * Chief Complaints: * 1 . 2 months checkup and Mini-Mental Status Exam. 2. Needs labs. * HPI: N eurology: Patient and son request Mini Mental Status Exam performed with possible referal for a more comprehensive evaluation at [facility] center. C ardiology: The pt is here for a check up. Pt states he concerned about his weight loss. Pt states he saw pain management last week and his BP was 196/58. Pt states he is fasting. c/o Dizziness. c/o Palpitations. Denies : Chest Pain. D enies : Short of Breath. * ROS: D ERMATOLOGY: no R emelyn. n o H osorio. G ASTROENTEROLOGY: no N ausea. n o V omiting. n o D iarrhea.? U ROLOGY: no D ifficulty urinating. n o B lood in urine. * Medical History: H ypertension, BPH, Depression, Atrial fibrillation, Mitral valve prolapse, COVID 19 Vaccine, Pfizer 2020, 2016 Echo 40-45% EF, [facility]. * Surgical History: R T Knee 1955, Mitral Valve Replacement 11/2017, Pacemaker - [facility] 02/2018. * Hospitalization/Major Diagno stic Procedure: H CHF 12/17-, [facility] - AFIB 01/12-02/09, [facility] ER - laceration to head due to fall 08/11/20. * Family History: F ather: . M other: . 5 brother(s) , 2 sister(s) - healthy. 3 son(s) - healthy. . * Social History: C affeine: no. Exercise: no. Marital Status: . Past smoking status: yes, PPD: , years: ,determination:. Alcohol: Yes, Type: , Frequency: ,Years: , Determination:. * Medications: T aking Baclofen 10 MG Tablet 1 tablet as needed Orally 3 times a day , Taking rOPINIRole HCl 0.25 MG Tablet 1 tablet 1 to 3 hours before bedtime Orally Once a day , Taking Jardiance 10 MG Tablet TAKE 1 TABLET BY MOUTH ONCE DAILY IN THE MORNING , Taking Furosemide 20 MG Tablet 1 tab(s) orally as needed , Notes to Pharmacist: prn, Taking Venlafaxine HCl 75 MG Tablet 1 tab(s) Orally Twice a day , Taking Losartan Potassium 25 MG Tablet TAKE 1 TABLET BY MOUTH EVERY OTHER DAY , Taking Metoprolol Succinate ER 25 MG Tablet Extended Release 24 Hour 1 tab(s) orally once a day , Taking Tamsulosin HCl 0.4 MG Capsule TAKE 1 CAPSULE BY MOUTH DAILY , Taking Gabapentin 300 MG Capsule 1 cap(s) orally 2 times a day , Not-Taking Vitamin C 250 MG Tablet 1 tab(s) orally once a day , Not-Taking B-12 1000 MCG Tablet 1 tab(s) orally once a day , Discontinued Doxycycline Monohydrate 100 MG Capsule 1 capsule Orally Twice a day , Medication List reviewed and reconciled with the patient * Allergies: N .K.D.A. Objective: * Vitals: W t: 192.0, Temp: 98.2, BP: 102/60, HR: 72, Nurse: DELILAH, Ht: 72, BMI:26.04. * Examination: G eneral Examination: General Appearance: [...] hand, nearly 2cm.. Assessment: * Assessment: 1. F luctuating mental status - R41.82 (Primary) 2 . R eactive depression - F32.9 3 . T ype 2 diabetes mellitus with other circulatory complications - E11.59 4 . B LA 26.0-26.9,adult - Z68.26 Plan: * Treatment: * Procedure Codes: G 2211 Complex e/m visit add on, 1036F TOBACCO NON-USER, G7030 BP SCR PRFRM RCMDD DEFIND SCR INTVL, G9469 MOST RECENT SYSTOLIC BP < 140MM HG, G8754 MOST RECENT DIASTOLIC BP < 90MM HG, G8420 BMI<30 AND >=22 CALC & DOCU * Follow Up: 2 Months * Images: Billing Information: * Visit Code: 64504 Office Visit, Est Pt., Level 4. * Procedure Codes: G2211 Complex e/m visit add on. 1036F TOBACCO NON-USER. G8783 BP SCR PRFRM RCMDD DEFIND SCR INTVL. G8752 MOST RECENT SYSTOLIC BP < 140MM HG. G8754 MOST RECENT DIASTOLIC BP < 90MM HG. G8420 BMI<30 AND >=22 CALC & DOCU. * Electronic signature of Miguel Shah MD on 09/20/2024 at 09:44 AM EDT Sign off status: Pending * Provider: Miguel Shah M.D. Date: 0 08/16/2024 Generated for Printi ng/Faxing/eTransmitting on: 0 09/20/2024 09:44 AM EDT History and Physical Notes * HPI (History of Present Illness) Category Sub-Category Detail Notes Category Not es Cardiology Short of Breath Chest Pain Palpitations Dizziness Examination Category Sub-Category Detail Notes Category Not [...]
--- OUTSIDE RECORDS SUMMARY | 2024-09-13 10:00 | XMS_ITS | Encounter Summary ---
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); Permanent atrial fibrillation (HCC); Chronic systolic congestive heart failure (HCC); Encounter for adjustment of biventricular cardiac pacemaker; Encounter for management of biventricular cardiac pacemaker Social History Tobacco Use Types Packs/Day Years [...] on file documented as of this encounter Last Filed Vital Signs Vital Sign Reading Time Taken Comments Blood Pressure - - Pulse - - Temperature - - Respiratory Rate - - Oxygen Saturation - - Inhaled Oxygen Concentration - - Weight 88.2 kg (194 lb 6.4 oz) 09/13/2024 10:02 AM EDT Height 182.9 cm (6') 09/13/2024 10:02 AM EDT Body Mass Index 26.37 09/13/2024 10:02 AM EDT documented in this encounter Progress Notes * Madhavi Mcintosh MA - 09/13/2024 10:00 AM EDT Device Pet Ambassador: Medtronic Device Leads: BiVentricular Device Type: Pacemaker Device Name: Percepta Quad BiV Implant Date: 03/12/18 Implanting Provider: Dr. Lennon (seeing YOUNG Plasencia today) Last in Clinic Check: 09/09/23 Device is not on advisory Presenting: /BV 77 bpm Underlying Rhythm: afib/CHB--no escape Pacing Mode / Rate: VVIR Lower Rate: 70 bpm USR 130 Battery: 3 years Battery Voltage: 2.91 V Ventricle Paced: 100 % EFF: 98.9 % VSR: 0.9 % SIC: 0 PVC: 2.3/hr AF: 100 % RA Lead: [id number] Lead Implant Date: 03/12/18 Pacing Threshold: (afib) Impedance: 494 Ohm RV Lead: [id number] Lead Implant Date: 03/12/18 Sensing: (paced at 35 bpm) Pacing Threshold: 1V@0.4 ms Impedance: 418 Ohm LV Lead: [id number] LV Vector: [id number] Lead Implant Date: 03/12/18 Pacing Threshold: 1.25V@0.4 ms Impedance: 722 Ohm Ejection Fraction History 01/26/2020 2:37 PM Ejection Fraction 40-45 HF Monitoring: Yes On Anticoagulant: No (EPI AND ENDOCARDIAL MAZE, LIGATION NOY (12/05/2017)) Dx: Complete Heart Block; Atrial Fibrillation; Nonischemic Cardiomyopathy; Systolic Heart Failure Next Remote Due: 11/10/24 Phone Number with Vector: [phone] Impression: Normal device function 69 monitored VT episodes w/longest at 30 seconds on 10/08/23. Fastest vent rate of 234 bpm on 08/23/24. OptiVol elevated since 09/05. Denies SOB but has CARRASCO when walking up a hill. Histograms flat but not as active as he once was No changes made today documented in this encounter Plan of Treatment Upcoming Encounters Date Type Department Care Team (Late st Contact Info) Description 10/20/2024 9:30 AM EDT Appointment [facility] [address] [place] [address] Luana Cooper NP [address] [place] [address] [place], [place] [id number] 11/01/2024 11:00 AM EDT Appointment [facility] [address] [place] [address] Drive [address] [place] [address] Rosa Beebe MD [address] [place] [address] [place], [place] [id number] 09/13/2025 10:30 AM EDT Office Visit [facility] [address] [place] [address] [address] [place] [address] 09/13/2025 11:00 AM EDT Office Visit [facility] [address] [place] [address] [address] [place] [address] Markell Lennon MD [address] [place] [address] [place], [place] [id number] Scheduled Orders Name Type Priority Associated Diagnoses Orde r Schedule MO PROGRAM EVAL IMPLANTABLE IN PRSN MULTI LD PACER MO Charge Routine NICM (nonischemic cardiomyopathy) ([facility]) Biventricular cardiac pacemaker in situ 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 Author Blood Pressure < 140/90 Blood Pressure 94/57( 025 11:24 AM EDT) No Belkys Traore CCMA Maintain a healthy diet, exercise regularly and maintain an ideal body weight General No Belkys Traore CCMA documented as of this encounter Procedures Procedure Name Priority Date/Time Associated Diagnosis Comments PACEART REPORT Routine 09/13/2024 2:02 PM EDT documented in this encounter Results * PACEART REPORT (09/13/2024 2:02 PM EDT) 09/13/2024 2:02 PM EDT Narrative [facility] - 09/13/2024 10:48 AM EDT Brandon Rios is here for an annual visit. MDT BiV PPM 03/12/2018. See MD clinic visit note and attached PDF report. 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
--- OUTSIDE RECORDS SUMMARY | 2024-09-13 10:30 | XMS_ITS | Encounter Summary ---
Author Organization [place] [address] Care Team Providers Care Project Controller Name Role Phone Unavailable Primary Care Provider Unavailabl e Reason for Visit * Reason Comments Follow-up The patient is here for a 1-year f/u and eval for his MDT BiV PPM, hx of NICM, CHF, CHB, PAF. Meds per pt report. Encounter Details Date Type Department Care Team (Latest Contact Info) Description 09/13/2024 10:30 AM EDT Office Visit [facility] [address] [facility] [address] [place] [address] Erinn Sabillon, YOUNG [address] [place], [place] [id number] PAF (paroxysmal atrial fibrillation) (HCC) (Primary Dx); Encounter for interrogation of cardiac recorder Social History Tobacco Use Types Packs/Day Years Used Date Smoking Tobacco: Never Smokeless Tobacco: Never Tobacco Cessation:Counseling Given: Not Answered Alcohol Use Standard Drinks/Week Comments No 0 [...] Sign Reading Time Taken Comments Blood Pressure 102/52 09/13/2024 10:40 AM EDT Pulse 90 09/13/2024 10:40 AM EDT Temperature - - Respiratory Rate - - Oxygen Saturation 94% 09/13/2024 10:40 AM EDT Inhaled Oxygen Concentration - - Weight 88 kg (194 lb) 09/13/2024 10:40 AM EDT Height 182.9 cm (6') 09/13/2024 10:40 AM EDT Body Mass Index 26.31 09/13/2024 10:40 AM EDT documented in this encounter Progress Notes * Erinn Sabillon APRN - 09/13/2024 10:30 AM EDT Subjective: Patient ID: Brandon Rios is a 89 y.o. male with a history of NICM (s/p Medtronic BIV ICD), atrial fibrillation (s/p AV rissa modification, s/p NOY ligatiaon), valvular heart disease (s/p MVR 12/05/2017), and ASHD who is here today for annual pacemaker device interrogation and physical examination. Mr. Rios admits to fatigue, dizziness with position changecand activity intolerance. Depressed that he cannot do the activity that he used to be able to do. Chief Complaint Patient presents with Follow-up The patient is here for a 1-year f/u and eval for his MDT BiV PPM, hx of NICM, CHF, CHB, PAF. Meds per pt report. Follow-up Chronicity: NICM. CHF. CHB. PAF. MDT BiV PPM in place. Pertinent negatives include no arthralgias, coughing, diaphoresis, fatigue, headaches, myalgias, rash, urinary symptoms, vertigo or weakness. 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 90 Tablet 3 fUROsemide (LASIX) 20 mg Oral Tablet Take 1 Tablet by mouth as needed (take for weight gain of 2-3 lbs overnight or > 5 lbs in one week). 30 Tablet 1 gabapentin (NEURONTIN) 300 mg Oral Capsule Take by mouth nightly. ibuprofen (ADVIL;MOTRIN) 100 mg/5 mL Oral Suspension Take 10 mg/kg by mouth 2 times daily. losartan (COZAAR) 25 mg Oral Tablet Take 1 Tablet by mouth daily. 90 Tablet 3 metoprolol succinate (TOPROL-XL) 25 mg Oral Tablet Sustained Release 24 hr Take 1 Tablet by mouth 2times daily. 180 Tablet 3 rOPINIRole (REQUIP) 0.25 mg Oral Tablet Take 0.25 mg by mouth nightly. spironolactone (ALDACTONE) 25 mg Oral Tablet Take 1 Tablet by mouth every other day. 45 Tablet 3 tamsulosin (FLOMAX) 0.4 mg Oral Capsule Take 0.4 mg by mouth every other day. venlafaxine (EFFEXOR) 75 mg Oral Tablet Take 1 Tab by mouth every evening. 30 Tab 4 No current facility-administered medications for this visit. Past Medical History: Diagnosis Date Atrial fibrillation ([facility]) 11/28/2017 CHF (congestive heart failure) ([facility]) NICM (nonischemic cardiomyopathy) ([facility]) 11/28/2017 Pacemaker 03/12/2018 Medtronic BiVentricular Permenant pacemaker- Dr. Lennon S/P AV rissa ablation 03/12/[address] 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 ([facility]) 06/17/2019 Biventricular cardiac pacemaker in situ 03/12/2018 Benign prostatic hyperplasia with urinary frequency 02/01/2018 RLS (restless legs syndrome) 02/01/2018 Bilateral pleural effusion Hypokalemia 01/18/2018 Debility 01/17/2018 Loculated pleural effusion 01/16/2018 Mediastinal abscess ([facility]) Acute respiratory failure with hypoxia ([facility]) Confusion S/P mitral valve replacement with bioprosthetic valve S/P left atrial appendage ligation Non-rheumatic mitral regurgitation NICM (nonischemic cardiomyopathy) ([facility]) 11/28/2017 Hypotension due to drugs 11/28/2017 Essential hypertension 11/28/2017 Paroxysmal atrial fibrillation (HCC) 11/28/2017 Chronic systolic congestive heart failure ([facility]) Past Surgical History: Procedure Laterality Date BRONCHOSCOPY N/A 12/18/2017 BRONCHOSCOPY at bedside with bronchoaveolar lavage ; Surgeon: Stu Abdi MD; Location: [facility]; Service: Endoscopy CARDIAC SURGERY N/A 12/05/2017 reopen sternotomy,control of bleeding; Surgeon: Fred Marquez MD; Location: [facility]; Service: Open Heart CARDIOVERSION 12/01/[address] Lennon CARDIOVERSION 12/11/[address] Lennon CARDIOVERSION 01/01/2018 IR PICC INSERTION EQUAL OR > 5 YEARS 12/24/2017 IR PICC INSERTION EQUAL OR > 5 YEARS 12/24/2017 Leila Mix PA-C [facility] IR ULTRASOUND GUIDED VASCULAR ACCESS 12/24/2017 IR ULTRASOUND GUIDED VASCULAR ACCESS 12/24/2017 Leila Mix PA-C [facility] IR US GUIDED THORACENTESIS 12/16/2017 IR US GUIDED THORACENTESIS 12/16/2017 [facility] ULTRASOUND KNEE SURGERY MITRAL VALVE REPLACEMENT N/A 12/05/2017 Mitral ValveReplacement-tissue, MAZE Procedure, Ligation Left Atrial Appendage, 3D Trans esophagealEchocardiogram; Surgeon: Fred Marquez MD; Location: [facility]; Service: Open Heart PACEMAKER INSERTION Left 03/12/[address] Medtronic [address]V [address]PM [address] Lennon STERNUM DEBRIDEMENT N/A 12/17/2017 sternal debridement and re-wire; Surgeon: Fred Marquez MD; Location: [facility]; Service: Open Heart History reviewed. No pertinent family history. Social History Tobacco Use Smoking status: Never Smokeless tobacco: Never Substance Use Topics Alcohol use: No Comment: rare Current Outpatient Medications Medication Sig Dispense Refill empagliflozin (JARDIANCE) 10 mg Oral Tablet Take 1 Tablet by mouth daily. 90 Tablet 3 fUROsemide (LASIX) 20 mg Oral Tablet Take 1 Tablet by mouth as needed (take for weight gain of 2-3 lbs overnight or > 5 lbs in one week). 30 Tablet 1 gabapentin (NEURONTIN) 300 mg Oral Capsule Take by mouth nightly. ibuprofen (ADVIL;MOTRIN) 100 mg/5 mL Oral Suspension Take 10 mg/kg by mouth 2 times daily. losartan (COZAAR) 25 mg Oral Tablet Take 1 Tablet by mouth daily. 90 Tablet 3 metoprolol succinate (TOPROL-XL) 25 mg Oral Tablet Sustained Release 24 hr Take 1 Tablet by mouth 2times daily. 180 Tablet 3 rOPINIRole (REQUIP) 0.25 mg Oral Tablet Take 0.25 mg by mouth nightly. spironolactone (ALDACTONE) 25 mg Oral Tablet Take 1 Tablet by mouth every other day. 45 Tablet 3 tamsulosin (FLOMAX) 0.4 mg Oral Capsule Take 0.4 mg by mouth every other day. venlafaxine (EFFEXOR) 75 mg Oral Tablet Take 1 Tab by mouth every evening. 30 Tab 4 No current facility-administered medications for this visit. Current Outpatient Medications on File Prior to Visit Medication Sig Dispense Refill empagliflozin (JARDIANCE) 10 mg Oral Tablet Take 1 Tablet by mouth daily. 90 Tablet 3 fUROsemide (LASIX) 20 mg Oral Tablet Take 1 Tablet by mouth as needed (take for weight gain of 2-3 lbs overnight or > 5 lbs in one week). 30 Tablet 1 gabapentin (NEURONTIN) 300 mg Oral Capsule Take by mouth nightly. ibuprofen (ADVIL;MOTRIN) 100 mg/5 mL Oral Suspension Take 10 mg/kg by mouth 2 times daily. losartan (COZAAR) 25 mg Oral Tablet Take 1 Tablet by mouth daily. 90 Tablet 3 metoprolol succinate (TOPROL-XL) 25 mg Oral Tablet Sustained Release 24 hr Take 1 Tablet by mouth 2times daily. 180 Tablet 3 rOPINIRole (REQUIP) 0.25 mg Oral Tablet Take 0.25 mg by mouth nightly. spironolactone (ALDACTONE) 25 mg Oral Tablet Take 1 Tablet by mouth every other day. 45 Tablet 3 tamsulosin (FLOMAX) 0.4 mg Oral Capsule Take 0.4 mg by mouth every other day. venlafaxine (EFFEXOR) 75 mg Oral Tablet Take 1 Tab by mouth every evening. 30 Tab 4 No current facility-administered medications on file prior to visit. Outpatient Medications Marked as Taking for the 09/13/24 encounter (Office Visit) with Erinn Sabillon APRN Medication Sig Dispense Refill empagliflozin (JARDIANCE) 10 mg Oral Tablet Take 1 Tablet by mouth daily. 90 Tablet 3 fUROsemide (LASIX) 20 mg Oral Tablet Take 1 Tablet by mouth as needed (take for weight gain of 2-3 lbs overnight or > 5 lbs in one week). 30 Tablet 1 gabapentin (NEURONTIN) 300 mg Oral Capsule Take by mouth nightly. ibuprofen (ADVIL;MOTRIN) 100 mg/5 mL Oral Suspension Take 10 mg/kg by mouth 2 times daily. losartan (COZAAR) 25 mg Oral Tablet Take 1 Tablet by mouth daily. 90 Tablet 3 metoprolol succinate (TOPROL-XL) 25 mg Oral Tablet Sustained Release 24 hr Take 1 Tablet by mouth 2times daily. 180 Tablet 3 rOPINIRole (REQUIP) 0.25 mg Oral Tablet Take 0.25 mg by mouth nightly. spironolactone (ALDACTONE) 25 mg Oral Tablet Take 1 Tablet by mouth every other day. 45 Tablet 3 tamsulosin (FLOMAX) 0.4 mg Oral Capsule Take 0.4 mg by mouth every other day. venlafaxine (EFFEXOR) 75 mg Oral Tablet Take 1 Tab by mouth every evening. 30 Tab 4 Allergies Allergen Reactions Amiodarone Other (See Comments) Possible Lung toxicity Flecainide Other (See Comments) Caused CMP per Dr. Lennon Sotalol Other (See Comments) Not tolerated. Prolonged QT. Review of Systems Constitutional: Positive for malaise/fatigue and weight loss. Negative for diaphoresis, fatigue andweight gain. HENT: Negative for nosebleeds. Cardiovascular: Negative for leg swelling, palpitations and syncope. Respiratory: Negative for cough and shortness of breath. Skin: Negative for flushing and rash. Musculoskeletal: Negative for arthralgias, falls and myalgias. Gastrointestinal: Negative for heartburn and melena. Neurological: Negative for dizziness, headaches, vertigo and weakness. Psychiatric/Behavioral: Negative for depression. The patient does not have insomnia. Allergic/Immunologic: Negative for hives and persistent infections. [id number] Stroke Risk Points: 5 Values used to calculate this score: Points Metrics 1 Has Congestive Heart Failure: Yes 1 Has Hypertension: Yes 2 Age: 89 1 Has Diabetes: Yes 0 Had Stroke: No Had TIA: No Had Thromboembolism: No 0 Has Vascular Disease: No 0 Clinically Relevant Sex: Male Objective: Patient Vitals for the past 24 hrs: Pulse BP BP Location Patient Position 09/13/24 1040 90 102/52 Left arm Sitting Body mass index is 26.31 kg/m??. Physical Exam General: Alert and oriented Lungs: CTA Heart: regular rate and rhythm Extremities: warm and dry, no edema Neuro: no focal deficits No results found for this visit on 09/13/24. Lab Review Lab Results Component Value Date WBC 9.5 06/25/2024 HGB 17.1 06/25/2024 PLT 125 (L) 06/25/2024 Lab Results Component Value Date NA 140 06/25/2024 K 4.6 06/25/2024 BUN 21 06/25/2024 CREATININE 1.23 06/25/2024 GLU 86 06/25/2024 ALT 11 02/03/2018 ALKPHOS 114 02/03/2018 Lab Results Component Value Date TSH 1.400 02/01/2018 Lab Results Component Value Date CHOLESTEROL 167 01/09/2018 HDL 32 (L) 01/09/2018 LDLCALC 121 (H) 01/09/2018 TRIG 72 01/09/2018 Lab Results Component Value Date INR 1.23 (H) 01/09/2018 Device Die Try Out Worker: [employer] Device Leads: BiVentricular Device Type: Pacemaker Device Name: Percepta Quad BiV Implant Date: 03/12/18 Implanting Provider: Dr. Lennon ([facility] today) Last in Clinic Check: 09/09/23 Device [...] Threshold: (afib) Impedance: 494 Ohm RV Lead: [id number] Lead Implant Date: 03/12/18 Sensing: (paced at [...] Remote Due: 11/10/24 Phone Number with Vector: [phone] Impression: Normal device function 69 monitored VT episodes w/longest at 30 seconds on 10/08/23. Fastest vent rate of 234 bpm on 08/23/24. OptiVol elevated since 09/05. Denies SOB but has CARRASCO when walking up a hill. Histograms flat but not as active as he once was No changes made today Assessment & Plan PAF (paroxysmal atrial fibrillation) ([facility]) Encounter for interrogation of cardiac recorder ICM -s/p Medtronic BIV PPM placement Atrial fibrillation -permanent -s/p AV rissa ablation -s/p NOY ligation -no AC due to NOY ligation Valvular heart disease -s/p MVR 2017 Proper device sensing and function Will continue with current medications Encouraged proper hydration All questions answered. Erinn Sabillon APRN documented in this encounter Miscellaneous Notes * Patient Instructions - Nasra Dykes RMA - 09/13/2024 10:30 AM EDT You may be contacted by mail or e-mail to participate in a patient satisfaction survey regarding your office visit today. We value your opinion and depend on your feedback to make improvements and provide you with the best possible experience while receiving high quality medical treatment. Your time in completing this survey is greatly appreciated. Please contact your primary care physician or career services representative for management of your lipids and for diabetes management. documented in this encounter Plan of Treatment Upcoming Encounters Date Type Department Care Team (Late st Contact Info) Description 10/20/2024 9:30 AM EDT Appointment [facility] [address] [place] [id number] Luana Cooper, REAL ESTATE TRANSACTION MANAGER [address] [facility] [place] [address] 11/01/2024 11:00 AM EDT Appointment [facility] [address] [place] [address] Drive [address] [place] [address] Rosa Beebe MD [address] [place] [address] [place] [address] 09/13/2025 10:30 AM EDT Office Visit [facility] [address] [place] [address] [address] [place] [address] 09/13/2025 11:00 AM EDT Office Visit [facility] [address] [place] [address] [address] [place] [address] Markell Lennon MD [address] [place] [address] [address] [place] [id number] documented as of this encounter Goals Goal Patient Goal Type Associated Problems Recent Progress Patient-Stated? Author Blood Pressure < 140/90 Blood Pressure 94/57( 025 11:24 AM EDT) Belkys Ely CCMA Maintain a healthy diet, exercise regularly and maintain an ideal body weight General No Belkys Traore CCMA documented as of this encounter Visit Diagnoses Diagnosis PAF (paroxysmal atrial fibrillation) (HCC)- Primary Atrial fibrillation Encounter for interrogation of cardiac recorder Fitting and adjustment of other cardiac device documented in this encounter Historical Medications * This list may reflect changes made after this encounter. rOPINIRole (REQUIP) 0.25 mg Oral Tablet Take 0.25 mg by mouth nightly. 08/09/2024 added in this encounter Additional Health Concerns Assessment Noted Time A fall risk assessment has been complete d for the patient 09/13/2024 10:39 AM EDT documented as of this encounter
--- OUTSIDE RECORDS SUMMARY | 2024-09-13 11:04 | XMS_ITS | Encounter Summary ---
Author Organization [place] [address] Care Team Providers Care Non Licensed Nuclear Equipment Operator Name Role Phone Unavailable Primary Care Provider Unavailabl e Reason for Referral * Echo (Routine) - Pending Review Specialty Diagnoses / Procedures Referred By Goldie gtz Referred To Contact Radiology Diagnoses NICM (nonischemic cardiomyopathy) (HCC) Heart failure with mid-range ejection fraction (HCC) Valvular heart disease Permanent atrial fibrillation (HCC) Procedures EC ECHOCARDIOGRAM COMPLETE W DOPPLER AND COLOR FLOW MAPPING Luana Cooper NP [address] [place] [address] [place] [address] Phone: tel: fax: Referral ID Status Reason Start Date Expiration Date V isits Requested Visits Authorized [id number] Pending Review 09/13/2024 09/13/2026 1 1 Encounter Details Date Type Department Care Team (Latest Contact Info) Description 09/13/2024 11:04 AM EDT - 09/13/2024 11:59 PM EDT Hospital Encounter [facility] [address] [place] [address] [address] [place] [address] Rosa Beebe MD [address] [place] [address] NICM (nonischemic cardiomyopathy) (HCC) (Primary Dx); Heart [...] [facility] Patient: Brandon Rios CSN: [id number] Date of : 1935 Age: 89 y.o. [...] changed in the past 2 weeks. No bqeh-kjp-lxyhqrs medications. No new medications. Ithas been hot. 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 Dispo: -F/U ON LICENSE OF [facility] in 6-8 weeks Thank you for the [...] as needed. - MDM: kelsey Beebe MD [facility] Heart Failure Documentation NYHA Class: I-II ACC/AHA Society Stage: C Subjective I had the pleasure of seeing Brandon Rios, 89 y.o., male who presented to the [facility] for Heart Failure Established [...] any questions or concerns in the meantime [phone] documented in this encounter Plan of Treatment Upcoming Encounters Date Type Department Care Team (Late st Contact Info) Description 10/20/2024 9:30 AM EDT Appointment [facility] [address] [place] [address] Luana Cooper NP [address] [place] [address] [place] [address] 11/01/2024 11:00 AM EDT Appointment [facility] [address] [place] [address] Drive [address] [place] [address] Rosa Beebe MD [address] [place] [address] [place] [address] 09/13/2025 10:30 AM EDT Office Visit [facility] [address] [place] [address] [address] [place] [address] 09/13/2025 11:00 AM EDT Office Visit [facility] [address] [place] [address] [address] [place] [address] Markell Lennon MD [address] [place], [place] [id number] Scheduled Orders Name Type Priority Associated Diagnoses Order Schedule BASIC METABOLIC PANEL Lab Routine NICM (nonischemic cardiomyopathy) ([facility]) Heart failure with mid-range ejection fraction ([facility]) Valvular heart disease Permanent atrial fibrillation ([facility]) 1 Occurrences starting 09/13/2024 until 09/13/2025 MAGNESIUM LEVEL Lab Routine NICM (nonischemic cardiomyopathy) ([facility]) Heart failure with mid-range ejection fraction ([facility]) Valvular heart disease Permanent atrial fibrillation ([facility]) 1 Occurrences starting 09/13/2024 until 09/13/2025 NT PROBNP Lab STAT NICM (nonischemic cardiomyopathy) ([facility]) Heart failure with mid-range ejection fraction ([facility]) Valvular heart disease Permanent atrial fibrillation ([facility]) 1 Occurrences starting 09/13/2024 until 09/13/2025 CBC Lab Routine NICM (nonischemic cardiomyopathy) ([facility]) Heart failure with mid-range ejection fraction ([facility]) Valvular heart disease Permanent atrial fibrillation ([facility]) 1 Occurrences starting 09/13/2024 until 09/13/2025 EC ECHOCARDIOGRAM COMPLETE W DOPPLER AND COLOR FLOW MAPPING Imaging Cardiology Routine NICM (nonischemic cardiomyopathy) ([facility]) Heart failure with mid-range ejection fraction [...]
--- OUTSIDE RECORDS SUMMARY | 2024-09-20 09:42 | XMS_ITS | Encounter Summary ---
Author Organization [place] [address] Care Team Providers Care Wholesale Buyer Name Role Phone Unavailable Primary Care Provider Unavailabl e Encounter Details Date Type Department Care Team (Late Contact Info) Description 01/23/2021 Orders Only [facility] [address] [place] [address] [address] [place] [address] Markell Lennon MD [address] [place] [address] [place] [address] Social History Tobacco Use Types Packs/Day Years [...] Department Care Team (Late Contact Info) Description 10/20/2024 9:30 AM EDT [facility]ment [facility] [address] [facility] [place] [address] Luana Cooper NP [address] [place] [address] [place] [address] 11/01/2024 11:00 AM EDT Appointment [facility] [address] [place] [address] [address] [place] [address] Rosa Beebe MD [address] [place] [address] [place] [address] 09/13/2025 10:30 AM EDT Office Visit [facility] [address] [facility] [address] [place] [address] 09/13/2025 11:00 AM EDT Office Visit [facility] [address] [facility] [address] [place] [address] Markell Lennon MD [address] [place] [address] [place], [place] [id number] documented as of this encounter Goals Goal [...] EST) 01/23/2021 12:0 9 AM EST Narrative [facility] - 01/26/2021 2:08 PM EST - Unscheduled Bi-V PPM remote rcv'd. AT/AF and Opti-Vol alerts noted. - Presenting rhythm EGM = AF w/ Bi-Unix Administrator'ing in 90's. - (1) AT/AF episode in [...] retention. - Device is functioning as programmed. B.Vogelpohl RN/CDS. us Markell Lennon MD [facility] CARDIAC CATH ORDERAB LES Final Result [facility] [address] [place] [address] documented in this encounter Visit Diagnoses Not on filedocumented in this encounter Additional Health Concerns Assessment Noted Time A fall risk assessment has been complete d for the patient 06/30/2020 2:32 PM EDT documented as of this encounter
--- OUTSIDE RECORDS SUMMARY | 2024-09-20 09:42 | XMS_ITS | Encounter Summary ---
Author Organization [place] [address] Care Team Providers Care Slip Filler Name Role Phone Unavailable Primary Care Provider Unavailabl e Encounter Details Date Type Department Care Team (Late Contact Info) Description 09/11/2024 Orders Only [facility] [address] [place] [address] [address] [place] [address] Markell Lennon MD [address] [place] [address] [place] [address] Vector Remote Device Social History Tobacco Use [...] AM EDT [facility]ointment [facility] [address] [facility] [place] [address] Luana Cooper NP [address] [place] [address] [place] [address] 11/01/2024 11:00 AM EDT Appointment [facility] [address] [place] [address] [address] [place] [address] Rosa Beebe MD [address] [place] [address] [address] [place] [id number] 09/13/2025 10:30 AM EDT Office Visit [facility] [address] [facility] [address] [place] [address] 09/13/2025 11:00 AM EDT Office Visit [facility] [address] [facility] [address] [place] [address] Markell Lennon MD [address] [place] [address] documented as of this encounter Goals Goal [...] Associated Diagnosis Comments VECTOR REMOTE DEVICE Routine 09/11/2024 12:00 AM EDT Vector Remote Device documented in this encounter Results * VECTOR REMOTE DEVICE (09/11/2024 12:00 AM EDT) 09/11/2024 Narrative [facility] - 09/11/2024 12:00 AM EDT Monitored VT/NSVT: 8 longest 9.4s on 08/27/24. V. Sensing Episodes: 11, longest 22s. Pt with history of NOY procedure. Mode: VVIR. TUG CAPTAIN: 99.5%. Effective BiVP: 99.5%. Normal device function. Battery Advisory. ADDENDUM: Pt not called. Events occurred last month. Will continue to monitor--kls us Markell Lennon MD [facility] CARDIAC CATH ORDERAB LES Final Result [facility] [address] [place], [place] [id number] documented in this encounter Visit Diagnoses Diagnosis Vector Remote Device documented in this encounter Additional Health Concerns Assessment Noted Time A fall risk assessment has been complete d for the patient 09/09/2023 1:11 PM EDT documented as of this encounter
--- OUTSIDE RECORDS SUMMARY | 2024-09-20 09:42 | XMS_ITS | Encounter Summary ---
Author Organization [place] [address] Care Team Providers Care Material Manager Name Role Phone Unavailable Primary Care Provider Unavailabl e Encounter Details Date Type Department Care Team (Late Contact Info) Description 08/11/2024 Orders Only [facility] [address] [place] [address] [address] [place] [address] Markell Lennon MD [address] [place] [address] [place] [address] Vector Remote Device Social History Tobacco Use [...] AM EDT Appointment [facility] 238 [facility] [address] Luana Cooper NP [address] [place] [address] [place] [address] 11/01/2024 11:00 AM EDT Appointment [facility] [address] [place] [address] [address] [place] [address] Rosa Beebe MD [address] [place] [address] [place] [address] 09/13/2025 10:30 AM EDT Office Visit [facility] [address] [facility] [address] [place] [address] 09/13/2025 11:00 AM EDT Office Visit [facility] [address] [facility] [address] [place] [address] Markell Lennon MD [address] [place] [address] documented as of this encounter Goals Goal Patient Goal Type Associated Problems Recent Progress Patient-Stated? Author Blood Pressure < 140/90 Blood Pressure 94/57( 025 11:24 AM EDT) No Belkys Traore CCMA Maintain a healthy diet, exercise regularly and maintain an ideal body weight General No Belkys Traore CCMA documented as of this encounter Procedures Procedure Name Priority Date/Time Associated Diagnosis Comments VT REM INTERROG PM/LDLS PM <90 D PHYS/QHP Routine 08/11/2024 12:00 AM EDT Vector Remote Device documented in this encounter Results * VECTOR REMOTE DEVICE (08/11/2024 12:00 AM EDT) 08/11/2024 Narrative [facility] - 08/11/2024 12:00 AM EDT No significant episodes. NSVT: 3 lasting <5s. V. Sensing Episodes: 6, longest 6s. Pt with history of NOY procedure. Mode: VVIR. DRY CLEANER: 99.4%. Effective BiVP: 99.4%. Normal device function. Battery Advisory. us Markell Lennon MD [facility] C[facility] ORDERAB LES Final Result [facility] 1 [place] [address] documented in this encounter Visit Diagnoses Diagnosis Vector Remote Device documented in this encounter Additional Health Concerns Assessment Noted Time A fall risk assessment has been complete d for the patient 09/09/2023 1:11 PM EDT documented as of this encounter
--- OUTSIDE RECORDS SUMMARY | 2024-09-20 09:42 | XMS_ITS | Encounter Summary ---
Author Organization [place] [address] Care Team Providers Care Client Technologies Analyst Name Role Phone Unavailable Primary Care Provider Unavailabl e Encounter Details Date Type Department Care Team (Late Contact Info) Description 05/15/2021 Orders Only [facility] [address] [place] [address] [address] [place] [address] Markell Lennon MD [address] [place] [address] [place] [address] Social History Tobacco Use Types Packs/Day Years [...] AM EDT Appointment [facility] [place] [address] Luana Cooper NP [address] [place] [address] [place] [address] 11/01/2024 11:00 AM EDT Appointment [facility] [address] [place] [address] [address] [place] [address] Rosa Beebe MD [address] [place] [address] [place] [address] 09/13/2025 10:30 AM EDT Office Visit [facility] [address] [facility] [address] [place] [address] 09/13/2025 11:00 AM EDT Office Visit [facility] [address] [facility] [address] [place] [address] Markell Lennon MD [address] [place] [address] [address] [place], [place] [id number] documented as of this encounter Goals Goal [...] PM EDT) 05/15/2021 8:35 PM EDT Narrative [facility] - 05/16/2021 10:46 AM EDT Carelink alert: MDT BV PPM. Vector summary: Alert Criteria Met Summary 2 SVT and 1 Monitored Fast A&V Episode, c/w significant NSVT lasting 6- 22 seconds all occurring on 05/14/21 (Hx AVN ablation). Battery advisory. AT/AF [place]: 100%. AP: <1%. HERBICIDE SERVICE SALES REPRESENTATIVE: >99%. NOY ligation. Battery 7.7 yrs Brand MDT Model Percepta Quad PIPE FITTER MARINE-P MRI Additional note: SVT/AF 05-14-21: 13 sec w/ V-rate avg 188 bpm. Other episodes 04-16-21 w/ V-rate avg 148-176. PVC counters 0 since 03-27-21. V-rate histogram rarely >100 bpm. Optivol increased since 05-02-21. See encounter for more details. Linda,RN us Markell Lennon MD [facility] C[facility] CATH ORDERAB LES Final Result [facility] 1 [place] [id number] documented in this encounter Visit Diagnoses Not on filedocumented in this encounter Additional Health Concerns Assessment Noted Time A fall risk assessment has been complete d for the patient 06/30/2020 2:32 PM EDT documented as of this encounter
--- OUTSIDE RECORDS SUMMARY | 2024-09-20 09:42 | XMS_ITS | Encounter Summary ---
Author Organization [place] [address] Care Team Providers Care Home Health Clinician Name Role Phone Unavailable Primary Care Provider Unavailabl e Encounter Details Date Type Department Care Team (Late Contact Info) Description 04/07/2020 Orders Only [facility] [address] [facility] [address] [place] [address] Markell Lennon MD [address] [facility] [place] [address] Social History Tobacco Use Types Packs/Day [...] 9:30 AM EDT Appointment [facility] [place] [place] [address] Luana Cooper, QUARRY EXTRACTION WORKER [address] [facility] [place] [address] 11/01/2024 11:00 AM EDT Appointment [facility] [address] [place] [address] Drive [address] [place] [address] Rosa Beebe MD [address] [place] [address] [place] [address] 09/13/2025 10:30 AM EDT Office Visit [facility] [address] [place] [address] [address] [place] [address] 09/13/2025 11:00 AM EDT Office Visit [facility] [address] [place] [address] [address] [place] [address] Markell Lennon MD [address] [place] [address] [address] [place] [id number] documented as of this encounter Goals Goal [...] PM EST) 04/07/2020 4:33 PM EST Narrative [facility] - 04/07/2020 12:27 PM EST - Medtronic Bi-V PPM remote for pt c/o dizziness episode this AM while dusting. - (1) NS-VT episode = 04/05/20 for 1 sec. - No AT/AF episodes. - Battery and lead measurements = WNL/stable. Sensing integrity counters = (0). Outputs are programmed w/in appropriate safety margins. - Pacing Mode: DDDR 70/130/130ppm. Ap = 60.3%, Metal Cut Off Saw Tender= 99.9%. (Effective = 99.8%). - Presenting rhythm = Ap/Bi-Metal Cut Off Saw Tender'ing in 70's w/ PAC's. - Opti-Vol = baseline. - Histograms = optimal rate response distribution. - Device is functioning as programmed. Pt was notified of results. Olesya Pastrana RN. us Markell Lennon MD [facility] CARDI[facility] CATH ORDERAB LES Final Result [facility] 1 [place] [address] documented in this encounter Visit Diagnoses Not on filedocumented in this encounter
--- OUTSIDE RECORDS SUMMARY | 2024-09-20 09:42 | XMS_ITS | Encounter Summary ---
Author Organization [place] [address] Care Team Providers Care Cook Ship Name Role Phone Unavailable Primary Care Provider Unavailabl e Encounter Details Date Type Department Care Team (Late Contact Info) Description 09/12/2024 Orders Only [facility] [address] [place] [address] [address] [place] [address] Markell Lennon MD [address] [place] [address] [place] [address] Vector Remote Device Social History Tobacco Use [...] AM EDT Appointment [facility] [place] [address] Luana Cooper NP [address] [place] [address] [place] [address] 11/01/2024 11:00 AM EDT Appointment [facility] [address] [place] [address] [address] [place] [address] Rosa Beebe MD [address] [place] [address] [place] [address] 09/13/2025 10:30 AM EDT Office Visit [facility] [address] [facility] [address] [place] [address] 09/13/2025 11:00 AM EDT Office Visit [facility] [address] [facility] [address] [place] [address] Markell Lennon MD 711 [place] [address] documented as of this encounter Goals Goal Patient Goal Type Associated Problems Recent Progress Patient-Stated? Author Blood Pressure < 140/90 Blood Pressure 94/57( 025 11:24 AM EDT) No Belkys Traore CCMA Maintain a healthy diet, exercise regularly and maintain an ideal body weight General No Belkys Traore CCMA documented as of this encounter Procedures Procedure Name Priority Date/Time Associated Diagnosis Comments [place] REM INTERROG ICPMS <30 D PHYS/QHP Routine 09/12/2024 12:00 AM EDT Vector Remote Device documented in this encounter Results * VECTOR REMOTE HEART FAILURE DEVICE (09/12/2024 12:00 AM EDT) 09/12/2024 Narrative [facility] - 09/12/2024 12:00 AM EDT Possible Fluid Accumulation. Possible OptiVol fluid accumulation: 03-Sep-2024 -- ongoing. ADDENDUM: Saw pt in clinic this morning. No c/o increased SOB but has CARRASCO upon physical activity--kls us Markell Lennon MD [facility] CARDIAC CATH ORDERAB LES Final Result [facility] 1 [place] [address] documented in this encounter Visit Diagnoses Diagnosis Vector Remote Device documented in this encounter Additional Health Concerns Assessment Noted Time A fall risk assessment has been complete d for the patient 09/09/2023 1:11 PM EDT documented as of this encounter
--- OUTSIDE RECORDS SUMMARY | 2024-09-20 09:42 | XMS_ITS | Encounter Summary ---
Author Organization [place] [address] Care Team Providers Care Apprentice Architect Name Role Phone Unavailable Primary Care Provider Unavailabl e Encounter Details Date Type Department Care Team (Late Contact Info) Description 06/28/2024 Results Follow-Up [facility] [address] [place] [address] Luana Cooper NP [address] [place] [address] [place] [address] BASIC METABOLIC PANEL, CBC Social History Tobacco [...] AM EDT Appointment [facility] [address] [facility] [place] [address] Luana Cooper NP [address] [place] [address] [place] [address] 11/01/2024 11:00 AM EDT Appointment [facility] [address] [place] [address] Rosa Beebe MD [address] [place] [address] [place] [address] 09/13/2025 10:30 AM EDT Office Visit [facility] [address] [place] [address] [address] [place] [address] 09/13/2025 11:00 AM EDT Office Visit [facility] [address] [place] [address] [address] [place] [address] Markell Lennon MD [address] [place] [address] [address] [place] [id number] documented as of this encounter Goals Goal [...]
--- OUTSIDE RECORDS SUMMARY | 2024-09-20 09:42 | XMS_ITS | Encounter Summary ---
Author Organization [place] [address] Care Team Providers Care Adjunct Physics Instructor Name Role Phone Unavailable Primary Care Provider Unavailabl e Encounter Details Date Type Department Care Team (Late Contact Info) Description 08/12/2024 Orders Only [facility] [address] [place] [address] [address] [place] [address] Markell Lennon MD [address] [place] [address] [place] [address] Vector Remote Device Social History Tobacco Use [...] AM EDT Appointment [facility] [address] [facility] [place] [address] Luana Cooper NP [address] [place] [address] [place] [address] 11/01/2024 11:00 AM EDT Appointment [facility] [address] [place] [address] [address] [place] [address] Rosa Beebe MD [address] [place] [address] [place], [place] [id number] 09/13/2025 10:30 AM EDT Office Visit [facility] [address] [facility] [address] [place] [address] 09/13/2025 11:00 AM EDT Office Visit [facility] [address] [facility] [address] [place] [address] Markell Lennon MD 711 [facility] [place] [address] documented as of this encounter Goals Goal Patient Goal Type Associated Problems Recent Progress Patient-Stated? Author Blood Pressure < 140/90 Blood Pressure 94/57( 025 11:24 AM EDT) No Belkys Traore CCMA Maintain a healthy diet, exercise regularly and maintain an ideal body weight General No Belkys Traore CCMA documented as of this encounter Procedures Procedure Name Priority Date/Time Associated Diagnosis Comments [place] REM INTERROG ICPMS <30 D PHYS/QHP Routine 08/12/2024 12:00 AM EDT Vector Remote Device documented in this encounter Results * VECTOR REMOTE HEART FAILURE DEVICE (08/12/2024 12:00 AM EDT) 08/12/[address] [facility] - 08/12/2024 12:00 AM EDT Stable trend. us Markell Lennon MD [facility] CATH ORDERAB LES Final Result [facility] 1 [place] [address] documented in this encounter Visit Diagnoses Diagnosis Vector Remote Device documented in this encounter Additional Health Concerns Assessment Noted Time A fall risk assessment has been complete d for the patient 09/09/2023 1:11 PM EDT documented as of this encounter
--- OUTSIDE RECORDS SUMMARY | 2024-09-20 09:44 | XMS_ITS | Patient Health Record ---
Author Organization [facility] Address [address] [place] [id number] Care Team Providers Care Gift Shop Assistant Name Role Phone Miguel Shah Primary Care Provider Harjeet Laird Unavailable [phone] Allergies No Known Allergies Medications Medication SIG (Take, Route, Frequency, Duration) Notes Start Date End Date Status B-12 1000 MCG 1 tab(s) orally once a day 05/30/2020 Not-Taking Baclofen 10 MG 1 tablet as needed Orally 3 times a day Active Gabapentin 300 MG 1 cap(s) orally 2 ti mes a day; Duration: 30 day(s) 07/20/2024 Active Vitamin C 250 MG 1 tab(s) orally once a day; Duration: 30 day(s) Not-Taking Metoprolol Succinate ER 25 MG 1 tab(s) orally once a day Active Tamsulosin HCl 0.4 MG TAKE 1 CAPSULE BY MOUTH DAILY; Duration: 90 days Active Losartan Potassium 25 MG TAKE 1 TABLET B Y MOUTH EVERY OTHER DAY; Duration: 30 days Active Venlafaxine HCl 75 MG 1 tab(s) Orally Tw ice a day; Duration: 30 days Active Jardiance 10 MG TAKE 1 TABLET BY ONCE DAILY IN THE MORNING; Duration: 30 Active Furosemide 20 MG 1 tab(s) orally as needed prn Active rOPINIRole HCl 0.25 MG 1 tablet 1 to 3 h ours before bedtime Orally Once a day Active Immunizations Vaccine Route Administration Date Status [...] Peripheral circulatory disorder associated with diabetes mellitus (638787125) 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 confirmed Problem Vertigo (115543013) Vertigo (R42) Active confir med Problem Vitamin B12 deficiency (438580297) Vitamin B12 deficiency (E53.8) Active confirmed Problem Benign prostatic hyperplasia (986884290) BPH (benign prostatic hyperplasia) (N40.0) Active confirmed Problem Vitamin B12 deficiency (non anemic) (25009586) Vitamin B 12 deficiency (E53.8) Active confirmed Problem Restless legs (61073352) Restless legs (G25.81) Active confirmed Problem Actinic keratosis (680836) Actinic keratosis (L57.0) Active confirmed Problem Primary insomnia (8265604) Primary insomnia (F51.01) Active confirmed Problem Persistent atrial fibrillation (970963307) Persistent atrial fibrillation (I48.1) Active confirmed Problem Cardiac pacemaker in situ (238809574) Presence of cardiac pacemaker (Z95.0) Active confirmed Problem 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 Problem Chronic pain (88888996) Other chronic pain (G89.29) Active confirmed Problem Fatigue (74424543) Fatigue, unspecified type (R53.83) Active confirmed Problem Primary osteoarthritis (542311660) Primary osteoarthritis involving multiple joints (M15.0) Active confirmed Problem History of heart valve repair with prosthesis (302099627133292) H/O mitral valve replacement (Z95.2) Active confirmed Problem Leukocytosis (831461652) Leukocytosis, unspecified type (D72.829) Active confirmed Problem Atrial fibrillation (80014708) Episodic atrial fibrillation (I48.0) Active confirmed Problem Mitral valve prolapse (057621535) Mitral valve prolapse (I34.1) Active confirmed Problem Abnormal gait (75233348) Imbalance (R26.89) Active confirmed Problem Reactive depression (21581190) Reactive depression (F32.9) Active confirmed Problem Facial laceration (265902362) Facial laceration, subsequent encounter (S01.81XD) Active confirmed Problem Reactive depression (situational) (22483772) Reactive depression (situational) (F32.9) Active confirmed Problem Lower urinary tract symptoms due to benign prostatic hypertrophy (43059140845414) Benign prostatic hyperplasia with lower urinary tract symptoms (N40.1) Active confirmed Problem Fall () Fall, subsequent encounter (W19.XXXD) Active confirmed Problem Chronic pansinusitis (35503492) Pansinusitis, unspecified chronicity (J32.4) Active confirmed Problem Nystagmus (996234) Nystagmus (H55.00) Active co nfirmed Problem Cardiac pacemaker in situ (375282281) H/O cardiac pacemaker (Z95.0) Active confirmed Problem 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 confirmed Problem Chronic systolic heart failure (503340309) Systolic CHF, chronic (I50.22) Active confirmed Vital Signs Heart Rate 72 /min 08/16/2024 Blood pressure diastolic 60 mm Hg 08/16/2024 Height 72 in 08/16/2024 Blood pressure systolic 102 mm Hg 08/16/2024 Weight 192.0 lbs 08/16/2024 BMI 26.04 kg/m2 08/16/2024 Encounters Encounter Location Date Provider Diagnosis [facility] [address] [id number] 09/22/2023 Miguel Shah H/O mitral valve replacement Z95.2 ; H/O cardiac pacemaker Z95.0 ; Vitamin B12 deficiency E53.8 ; Hyperkalemia E87.5 ; Benign prostatic hyperplasia with lower urinary tract symptoms N40.1 and Primary osteoarthritis involving multiple joints M15.0 [facility] 1210 [facility] [address] [place] [id number] 06/14/2024 Miguel Shah 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 ; Vitamin B12 deficiency E53.8 ; H/O mitral valve replacement Z95.2 ; Tick bite of multiple sites W57.XXXA ; 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 and BMI 26.0-26.9,adult Z68.26 [facility] [address] [place], [place] [id number] 08/16/2024 Miguel Shah Fluctuating mental s tatus R41.82 ; Reactive depression F32.9 ; Type 2 diabetes mellitus with other circulatory complications E11.59 and BMI 26.0-26.9,adult Z68.26 [facility] [address] [place], [place] [id number] 05/18/2024 Miguel Shah Primary osteoarthrit is involving multiple joints M15.0 [facility] [address] [place], [place] [id number] 06/07/2024 Miguel Shah [facility] [address] [facility] [address] [place] [id number] 06/18/2024 Miguel Shah [facility] [address] [facility] [address] [place], [place] [id number] 07/01/2024 Miguel Shah [facility] [address] [facility] [address] [place], [place] [id number] 07/20/2024 Harjeet Laird Primary osteoarthrit is involving multiple joints M15.0 [facility] [address] [facility] [address] [place], [place] [id number] 08/24/2024 Miguel Shah Assessments Encounter Date Diagnosis (ICD Code) Assessment Notes Treatment Notes Treatment Clinical Notes Section Notes 09/22/2023 H/O cardiac pacemaker (ICD-10 - Z95.0) 05/18/2024 Primary osteoarthritis involving multiple joints (ICD-10 - M15.0) 06/14/2024 Vitamin B12 deficiency (ICD-10 - E53.8) 06/14/2024 Arteriosclerotic cardiovascular disease (ICD-10 - I25.10) 09/22/2023 H/O mitral valve replacement (ICD-10 - Z95.2) 07/20/2024 Primary osteoarthritis involving multiple joints (ICD-10 - M15.0) 08/16/2024 Reactive depression (ICD-10 - F32.9) 08/16/2024 Fluctuating mental status (ICD-10 - R41.82) HE SCORED 30 OUT OF 30 ON MMSE TODAY 08/16/2024 Type 2 diabetes mellitus with other circulatory complications (ICD-10 - E11.59) 06/14/2024 H/O mitral valve replacement (ICD-10 - Z95.2) 09/22/2023 Vitamin B12 deficiency (ICD-10 - E53.8) 09/22/2023 Hyperkalemia (ICD-10 - E87.5) 06/14/2024 Tick bite of multiple sites (ICD-10 - W57.XXXA) 08/16/2024 BMI 26.0-26.9,adult (ICD-10 - Z68.26) 09/22/2023 Benign prostatic hyperplasia with lower urinary tract symptoms (ICD-10 - N40.1) 06/14/2024 Neoplasm of hand (ICD-10 - D49.89) 09/22/2023 Primary osteoarthritis involving multiple joints (ICD-10 - M15.0) 06/14/2024 BMI 26.0-26.9,adult (ICD-10 - Z68.26) Plan Of Treatment Pending Test Test Name Order Date CBC 06/14/2024 BMP 06/14/2024 Lyme IgG/IgM Ab 06/14/2024 Next Appt Details Provider Name:Miguel Baron , 10/18/2024 10:45:00 AM, [address], [place], [place], [id number], Insurance Providers Payer Name Payer Address Payer Phone Subscriber Number Group Number Insured Name Patient Relationship to Insured Coverage Start Date Coverage End Date [employer] [address] [address] [place], [place] [id number] Brandon Rios Self - patient is the insured Medications Administered Medication Instructions Date of Administration Dosage Notes B-12 05/31/2020 1 mL B-12 06/07/2020 1 mL B-12 06/14/2020 1 mL B-12 06/21/2020 1 mL Medical (General) History Medical History History ICD Code Hypertension BPH depression Atrial fibrillation mitral valve prolapse COVID 19 Vaccine, Pfizer 2020 2016 Echo 40-45% EF, [facility] Surgical History Surgery Date(Month/Year) RT Knee 1956 Mitral Valve Replacement 11/[address] [facility] 02/2018 Hospitalization History Reason Date(Month/Year) [facility] ER - laceration to head due to fall 08/11/20 [facility]anda - AFIB 01/12-02/09 [facility] CHF 12/17-
--- OUTSIDE RECORDS SUMMARY | 2024-09-20 09:44 | XMS_ITS | Encounter Summary ---
Author Organization [place] [address] Care Team Providers Care Bed Laster Name Role Phone Unavailable Primary Care Provider Unavailabl e Encounter Details Date Type Department Care Team (Late Contact Info) Description 03/12/2018 Orders Only [facility] [address] [place] [address] [address] [place] [address] Markell Lennon MD [address] [place] [address] [place] [address] Social History Tobacco Use Types Packs/Day Years [...] AM EDT Appointment [facility] [place] [address] Luana Cooper NP [address] [place] [address] [place] [address] 11/01/2024 11:00 AM EDT Appointment [facility] [address] [place] [address] [address] [place] [address] Rosa Beebe MD [address] [place] [address] [place] [address] 09/13/2025 10:30 AM EDT Office Visit [facility] 7[address] [facility] [address] [place] [address] 09/13/2025 11:00 AM EDT Office Visit [facility] [address] [facility] [address] [place] [address] Markell Lennon MD 711 [place], [place] [id number] documented as of this encounter Goals Goal [...] PM EST) 03/12/2018 9:10 PM EST Narrative [facility] - 03/12/2018 4:10 PM EST IMPLANT REPORT us Markell Lennon MD [facility] CARDI[facility] CATH ORDERAB LES Final Result [facility] 1 [place] [address] documented in this encounter Visit Diagnoses Not on filedocumented in this encounter
--- OUTSIDE RECORDS SUMMARY | 2024-09-20 09:44 | XMS_ITS | Encounter Summary ---
[place] [address] Care Team Providers Care Aniline Press Worker Name Role Phone Unavailable Primary Care Provider Unavailabl e Encounter Details Date Type Department Care Team (Late st Contact Info) Description 01/11/2020 Orders Only [facility] [address] [facility] [address] [place] [address] Markell Lennon MD [address] [facility] [place] [address] Social History Tobacco Use Types [...] Appointment [facility] [place] [address] Luana Cooper, SALES REPRESENTATIVE ADDING MACHINES [address] [facility] [place] [address] 11/01/2024 11:00 AM EDT Appointment [facility] [address] [place] [address] Drive [address] [place] [address] Rosa Beebe MD [address] [place] [address] [place] [address] 09/13/2025 10:30 AM EDT Office Visit [facility] [address] [place] [address] [address] [place] [address] 09/13/2025 11:00 AM EDT Office Visit [facility] [address] [place] [address] [address] [place] [address] Markell Lennon MD [address] [place] [address] DR [place] [facility] documented as of this encounter Goals Goal Patient Goal Type Associated Problems Recent Progress Patient-Stated? Author Blood Pressure < 140/90 Blood Pressure 94/57( 025 11:24 AM EDT) No Belkys Traore CCMA Maintain a healthy diet, exercise regularly and maintain an ideal body weight General No Belksy Traore CCMA documented as of this encounter Procedures Procedure Name Priority Date/Time Associated Diagnosis Comments PACEART REPORT Routine 01/11/2020 12:15 AM EST documented in this encounter Results * PACEART REPORT (01/11/2020 12:15 AM EST) 01/11/2020 12:1 5 AM EST Narrative [facility] - 01/11/2020 10:28 AM EST Carelink [...] Seema Trejo RN us Markell Lennon MD [facility] CARDIAC CATH ORDERAB LES Final Result Performing Organization Address City/State/[facility] Co de Phone Number [facility] 1 [place] [address] documented in this encounter Visit Diagnoses Not on filedocumented in this encounter
--- NOTE | 2024-09-20 09:52 | EXP.PAIN.SOA ---
[facility] Disclaimer: The information contained in this section may have been updated after the patient was seen, as this information can be updated by other users. Medical History (Updated 08/09/24 @ 11:58 by Flores Koenig APRN) Tongue lesion Acute pansinusitis Mitral valve prolapse Hypertension Neck pain Fall Facial laceration Cervical strain, acute Closed head injury Lumbar radiculopathy Degenerative disc disease Tachycardia Cough Dizziness Congestive heart failure Dilated cardiomyopathy Angina, class III Nonischemic congestive cardiomyopathy Heart failure Paroxysmal atrial fibrillation Atrial fibrillation Surgical History History of permanent cardiac pacemaker placement History of mitral valve replacement History of right knee surgery Family History Other No significant family history Social History Smoking Status: Never smoker alcohol intake: never substance use type: denies use current occupational status: other Travel in the last 8 weeks?: None household members: none housing: house current occupational exposures/hazards: No caffeine: Yes PM Subjective & Objective Subjective Subjective:: Patient is a pleasant 89-year-old male who presents today for follow-up. Today he rates his pain a 4 out of 10. He was tentatively scheduled for a piriformis injection at our last visit however he states that he ended up stopping using a shovel and that was what was causing his severe pain. He states since doing this he has had improvement. He does state that he still feels that some but it is more tolerable. Patient is prescribed ropinirole 0.25 mg at bedtime and baclofen 10 mg 3 times a day. He denies any side effects. He does state that these medications really do help especially with the leg cramping and that he is able to sleep better. He is requesting a refill. His Zelalem has been reviewed and is appropriate. Review of Systems: General: No recent weight changes, no fever, no sleep disturbances Respiratory: No cough, no shortness of air, no recurring pulmonary infections Cardiovascular/peripheral vascular: No chest pain, no palpitations, no edema, no shortness of breath Gastrointestinal: No new onset incontinence, normal bowel movements reported Genitourinary: No new onset incontinence Musculoskeletal: Buttocks pain Psychiatric: [Normal mood/affect] Neurological: [Denies weakness in extremities], [denies balance issues] Pain at rest (0-10 scale): 4 Objective Objective:: Physical Exam: General: Alert and oriented x3, no acute distress, pleasant and cooperative Lungs: Respirations even and unlabored, symmetrical chest expansion Eyes: PERRL Musculoskeletal: Flexion and extension of lumbar [spine] somewhat guarded secondary to pain, [antalgic gait noted] Neurological: Speech clear, no gross sensory deficit Has patient had previous pain injection?: No Conservative treatment options previously tried: Home exercise plan Length of treatment: Longer than 12 weeks Meds Home Medications and Allergies Home Medications ?Medication ?Instructions ?Recorded ?Confirmed ?Type tamsulosin 0.4 mg capsule (Flomax) 0.4 mg PO DAILY prostate 07/01/17 08/09/24 History empagliflozin 10 mg tablet 10 mg PO DAILY Diabetes 09/06/21 08/09/24 History gabapentin 300 mg capsule 300 mg PO BID Pain 03/08/22 08/09/24 History venlafaxine 75 mg tablet 75 mg PO BID MOOD 03/08/22 08/09/24 History lisinopril 2.5 mg tablet 2.5 mg PO DAILY CHF/HBP #30 tabs 03/10/22 08/09/24 Rx metoprolol succinate 25 mg 25 mg PO BID BLOOD PRESSURE 08/21/22 08/09/24 History tablet,extended release 24 hr baclofen 5 mg tablet 5 mg PO TID #42 tabs 05/12/24 08/09/24 Rx prednisone 20 mg tablet 20 mg PO BID #10 tabs 05/12/24 08/09/24 Rx baclofen 10 mg tablet 10 mg PO TID #270 tabs 09/20/24 Rx ropinirole 0.25 mg tablet 0.25 mg PO HS #90 tabs 09/20/24 Rx New Prescriptions to Start Prescriptions: baclofen AryaFlores A ropinirole Flores Koenig A Allergies Allergy/AdvReac Type Severity Reaction Status Date / Time No Known Allergies Allergy Verified 12/11/22 14:36 Assessment and Plan *Assessment and plan (1) Right buttock pain: Status: Acute Category: Medical Code(s): M79.18 - Myalgia, other site (2) Myofascial pain on right side: Status: Acute Category: Medical Code(s): M79.18 - Myalgia, other site (3) Piriformis syndrome of right side: Status: Acute Category: Medical Code(s): G57.01 - Lesion of sciatic nerve, right lower limb Plan I did discuss with the patient regarding his blood pressure as well as he was having some complaints of dizziness but does state that his primary care just decreased his medication. He does have a heart history with a pacemaker in place. We will continue to monitor at future visits. I did send in a 90-day supply of the ropinirole and baclofen. Patient will return to clinic in 3 months. Patient has been instructed to contact the clinic with any concerns before the next appointment. Dr. Olmstead has reviewed this note and agrees with this plan of care. This note was dictated using voice recognition software and make contain errors or omissions. All injections are used with Lidocaine, Bupivacaine and dexamethasone. Occasionally urine drug screen is needed to verify patient's compliance with our office pain contract. This is ordered based off specific treatments related to chronic pain with the potential to abuse certain medications.
[2024-09-20 11:57] VITALS: BP 122/90; PULSE 74; RESP 18; O2SAT 95; BMI 25.7
== END 2024-09-20 23:59 | disposition home or self-care (01) ==
PROVIDERS: PCP Family Medicine; Visit Provider Nurse Practitioner Family
DX: M79.18 Myalgia, other site (principal); G57.01 Lesion of sciatic nerve, right lower limb
CPT/HCPCS: 99212; G0463

== ENCOUNTER 2024-10-18 11:57 | Outpatient (CLI) | payer MEDICARE, SELFPAY ==
--- OUTSIDE RECORDS SUMMARY | 2024-08-16 06:30 | XMS_ITS ---
Author Organization [facility] Address [address] [place] [id number] Care Team Providers Care Airline Radio Operator Name Role Phone Miguel Shah Primary Care Provider [phone] Allergies No Known Allergies REASON FOR VISIT [...] Problem Status W/U Status Risk Notes Problem 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 confirmed Vital Signs Blood pressure systolic 102 mm Hg 08/17/19 25 Blood pressure diastolic 60 mm Hg 025 Heart Rate 72 /min 08/16/2024 Height 72 in 08/16/2024 Weight 192.0 lbs 08/16/2024 BMI 26.04 kg/m2 08/16/2024 Encounters Encounter Location Date Provider Diagnosis [facility] [address] [facility] 36 [facility] [address] [place], [place] [id number] 08/16/2024 Miguel Shah Fluctuating mental status R41.82 [...] 2 Months, Reason: Provider Name:Miguel Baron er, 01/07/2025 08:00:00 AM, [address] [facility] [address] [facility], [address], [place], [id number], Progress Notes * Brandon RIOSDOB:1935 (89 yo M)Acc No.[id number]:08/16/2024 Progress Notes Patient: Brandon OCONNELL Provider: Miguel Shah M.D. :1935 A ge:89 Y S ex:Male Date:08/16/2024 Address:[facility] [place] , [place] [id number] Subjective: * Chief Complaints: * 1 . [...] Vaccine, Pfizer 2020, 2016 Echo 40-45% EF, [facility]. * Surgical History: R T Knee 1955, Mitral Valve Replacement 11/2017, Pacemaker - [facility] 02/2018. * Hospitalization/Major Diagno stic Procedure: H CHF 12/17-, [facility] - AFIB 01/12-02/09, [facility] ER - laceration to head due to [...] circulatory complications - E11.59 4 . B [place] 26.0-26.9,adult - Z68.26 Plan: * Treatment: * Procedure Codes: G 2211 Complex e/m visit add on, 1036F TOBACCO NON-USER, G8783 BP SCR PRFRM RCMDD DEFIND SCR INTVL, G8752 MOST RECENT SYSTOLIC BP < 140MM HG, G8754 MOST RECENT DIASTOLIC BP < 90MM HG, G8420 BMI<30 AND >=22 CALC & DOCU * Follow Up: 2 Months * Images: Billing Information: * Visit Code: 65528 Office Visit, Est Pt., Level 4. * Procedure Codes: G2211 Complex e/m visit add on. 1036F TOBACCO NON-USER. G8783 BP SCR PRFRM RCMDD DEFIND SCR INTVL. G8752 MOST RECENT SYSTOLIC BP < 140MM HG. G8754 MOST RECENT DIASTOLIC BP < 90MM HG. G8420 BMI<30 AND >=22 CALC & DOCU. * Electronic signature of Miguel Shah MD on 10/18/2024 at 12:21 PM EDT Sign off status: Pending * Provider: Miguel Shah M.D. Date: 0 08/16/2024 Generated for Olga Lidia howard/Staci/eTransmitting on: 0 10/18/2024 12:21 PM EDT History and Physical Notes * HPI [...]
--- OUTSIDE RECORDS SUMMARY | 2024-09-13 10:30 | XMS_ITS | Encounter Summary ---
Author Organization [place] [address] Care Team Providers Care Registered Art Therapist Name Role Phone Unavailable Primary Care Provider Unavailabl e Reason for Visit * Reason Comments Follow-up The patient is here for a 1-year f/u and eval for his MDT BiV PPM, hx of NICM, CHF, CHB, PAF. Meds per pt report. Encounter Details Date Type Department Care Team (Latest Contact Info) Description 09/13/2024 10:30 AM EDT Office Visit [facility] [address] [facility] [address] [place] [address] Erinn Sabillon, YOUNG [address] [place], [place] [id number] PAF (paroxysmal atrial fibrillation) (HCC) (Primary Dx); [...] Past Medical History: Diagnosis Date Atrial fibrillation ([facility]) 11/28/2017 CHF (congestive heart failure) ([facility]) NICM (nonischemic cardiomyopathy) ([facility]) 11/28/2017 Pacemaker 03/12/2018 Medtronic BiVentricular Permenant pacemaker- Dr. Lennon S/P AV rissa ablation 03/12/[address] 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 ([facility]) 06/17/2019 Biventricular cardiac pacemaker in situ 03/12/2018 Benign prostatic hyperplasia with urinary frequency 02/01/2018 RLS (restless legs syndrome) 02/01/2018 Bilateral pleural effusion Hypokalemia 01/18/2018 Debility 01/17/2018 Loculated pleural effusion 01/16/2018 Mediastinal abscess ([facility]) Acute respiratory failure with hypoxia ([facility]) Confusion S/P mitral valve replacement with bioprosthetic valve S/P left atrial appendage ligation Non-rheumatic mitral regurgitation NICM (nonischemic cardiomyopathy) ([facility]) 11/28/2017 Hypotension due to drugs 11/28/2017 Essential hypertension 11/28/2017 Paroxysmal atrial fibrillation (HCC) 11/28/2017 Chronic systolic congestive heart failure ([facility]) Past Surgical History: Procedure Laterality Date BRONCHOSCOPY [...] Allergic/Immunologic: Negative for hives and persistent infections. [id number] Stroke Risk Points: 5 Values used to [...] Value Date INR 1.23 (H) 01/09/2018 Device Client Care Specialist: [employer] Device Leads: BiVentricular Device Type: Pacemaker Device Name: Percepta Quad BiV Implant Date: 03/12/18 Implanting Provider: Dr. Lennon ([facility] today) Last in Clinic Check: 09/09/23 Device [...] Threshold: (afib) Impedance: 494 Ohm RV Lead: [id number] Lead Implant Date: 03/12/18 Sensing: (paced at [...] Remote Due: 11/10/24 Phone Number with Vector: [phone] Impression: Normal device function 69 monitored VT episodes w/longest at 30 seconds on 10/08/23. Fastest vent rate of 234 bpm on 08/23/24. OptiVol elevated since 09/05. Denies SOB but has CARRASCO when walking up a hill. Histograms flat but not as active as he once was No changes made today Assessment & Plan PAF (paroxysmal atrial fibrillation) ([facility]) Encounter for interrogation of cardiac recorder ICM [...] Please contact your primary care physician or rv mechanic for management of your lipids and for diabetes management. documented in this encounter Plan of Treatment Upcoming Encounters Date Type Department Care Team (Late st Contact Info) Description 10/20/2024 9:30 AM EDT Appointment [facility] [address] [place] [address] Luana Cooper, OCCUPATIONAL THERAPY TECHNICIAN [address] [facility] [place] [address] 11/01/2024 11:00 AM EDT Appointment [facility] [address] [place] [address] Drive [address] [place] [address] Rosa Beebe MD [address] [place] [address] [place] [address] 09/13/2025 10:30 AM EDT Office Visit [facility] [address] [place] [address] [address] [place] [address] 09/13/2025 11:00 AM EDT Office Visit [facility] [address] [place] [address] [address] [place] [address] Markell Lennon MD [address] [place] [address] [address] [place] [id number] documented as of this encounter Goals Goal [...]
--- OUTSIDE RECORDS SUMMARY | 2024-09-13 11:04 | XMS_ITS | Encounter Summary ---
Author Organization [place] [address] Care Team Providers Care Gem Expert Name Role Phone Unavailable Primary Care Provider Unavailabl e Reason for Referral * Echo (Routine) - Authorization Not Needed Specialty Diagnoses / Procedures Referred By Contac t Referred To Contact Radiology Diagnoses NICM (nonischemic cardiomyopathy) (HCC) Heart failure with mid-range ejection fraction (HCC) Valvular heart disease Permanent atrial fibrillation (HCC) Procedures EC ECHOCARDIOGRAM COMPLETE W DOPPLER AND COLOR FLOW MAPPING Luana Cooper NP [address] [place] [address] Phone: tel: fax: Referral ID Status Reason Start Date Expiration Date Visits Requested Visits Authorized [id number] Authorization Not Needed 09/13/2024 09/13/2026 1 1 Encounter Details Date Type Department Care Team (Latest Contact Info) Description 09/13/2024 11:04 AM EDT - 09/13/2024 11:59 PM EDT Hospital Encounter [facility] [address] [place] [address] [address] [place] [address] Rosa Beebe MD [address] [place] [address] NICM (nonischemic cardiomyopathy) (HCC) (Primary Dx); Heart [...] Sign Reading Time Taken Comments Blood Pressure 94/57 09/13/2024 11:24 AM EDT Pulse 85 09/13/2024 11:24 AM EDT Temperature - - Respiratory Rate - - Oxygen Saturation 97% 09/13/2024 11:24 AM EDT Inhaled Oxygen Concentration - - Weight 88.2 kg (194 lb 8 oz) 09/13/2024 11:24 AM EDT Height - - Body Mass Index 26.38 09/13/2024 10:40 AM EDT documented in this encounter Medications at Time of Discharge empagliflozin (JARDIANCE) 10 mg Oral Tablet Take 1 Tablet by mouth daily. 90 Tablet 3 07/06/2024 fUROsemide (LASIX) 20 mg Oral TabletIndications :Systolic [...] losartan (COZAAR) 25 mg Oral Tablet Take 0.5 Tablets by mouth daily. 45 Tablet 3 09/13/2024 metoprolol succinate (TOPROL-XL) 25 mg Oral Tablet Sustained Release 24 hr Take 1 Tablet by mouth 2 times daily. 180 Tablet 3 03/03/2023 rOPINIRole (REQUIP) 0.25 mg Oral Tablet Take 0.25 mg by mouth nightly. 08/09/2024 spironolactone (ALDACTONE) 25 mg Oral Tablet Take 1 Tablet by mouth every other day. 45 Tablet 3 03/03/2023 tamsulosin (FLOMAX) 0.4 mg Oral Capsule Take 0.4 mg by mouth every other day. venlafaxine (EFFEXOR) 75 mg Oral TabletIndications :Depression, unspecified depression type Take 1 Tab by mouth every evening. 30 Tab 4 02/09/2018 documented as of this encounter Ordered Prescriptions Prescription Sig Dispense Quantity Refills Last Filled Start Date End Date losartan (COZAAR) 25 mg Oral Tablet Take 0.5 Tablets by mouth daily. 45 Tablet 3 09/13/2024 documented in this encounter Discharge Disposition Disposition Code Departure Means Destination Home or Self Care documented in this encounter Progress Notes * Rosa Beebe MD - 09/13/2024 11:30 AM EDT Images from the original note were not included. [facility] Patient: Brandon Rios CSN: [id number] Date of : 1935 Age: 89 y.o. Date of Service: 09/13/2024 Assessment and Plan: 89-year-old male with nonischemic cardiomyopathy here for follow-up. States his pressures are running a little lower. He is noticing more dizziness and loss and equilibrium with getting up and walking. States he wanted to go check on his dog which is in the car after sitting in the waiting area fora little bit. He got out of the elevator and was dizzy and had to hold onto something. This is new. Not sure which changed in the past 2 weeks. No dbga-pwf-jicklzm medications. No new medications. Ithas been hot. He does admit he does not drink enough water. He was advised to do so by his primary care physician as well. He drinks a lot of coffee which his primary care physician and I both reviewed looks like a diuretic. He is on Flomax but has been on it for a long time. This may also be contributing to his issues. Did not want him to fall. Reviewed that with him. He is also having troubles with pain in his hips and knees. He states he gets depressed with all this. He misses his job. I gave him a sense of purpose. Now he just sits at home and there are days when he is very depressed. Denies any shortness of breath at rest orthopnea. No leg edema. He states he has no problem climbing upa flight of stairs from a shortness of breath standpoint but sometimes has to go up on his fours because of bad pain in his hips. Got an injection for his hip pain. But his friend advised him to stopusing the Schauble which improved the pain even more. HFmEF: NYHA class difficult assess, limited with activities by arthritis pain, euvolemic NICM: -SCD prevention: BiV ICD -TTE (05/22/21): EF 48%, LVDD 4.98 cm, well seated bioprosthetic MV w/ mean gradient at 4 mmHg, trace MR, PASP 23 mmHg + RAP 3 mmHg -TTE (01/26/20): EF 40-45% -TTE (01/12/18): EF 35-40% -TTE (01/06/18): EF 45-50% -TTE (11/29/17): EF 50-55% -RHC (12/01/17): RV 25/7, PA 27/5 (16), PCWP 12 mmHg, Moon CO/CI 6.68/3.06 -on Losartan 25 mg daily, Toprol XL 25 mg BID, Spironolactone 25 mg QOD, Jardiance 10 mg daily, Lasix 20 mg PRN ASHD -LHC (12/01/17): LVEDP 8 mmHg; LAD w/ minimal irregularities; Left Cx w/ minimal irregularities; RCAw/ minimal irregularities; mild CAD VHD -s/p MVR 12/05/17. His echo done 05/17 shows a well-seated valve. Pressure half- time of 117 ms. Continuity equation shows his mitral valve to be 1.13 cm??. No significant MR -TTE (01/06/18): a new bioprosthetic MV appears to be well seated. 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 a couple drinks per night; when home he does not drink -ETOH cessation (Jan 2022) CKD -recent baseline Cr appears 1.4-1.6 Primary Phonograph Cartridge Assembler None Data Reviewed: -BP soft, HR stable, clinic weight unchanged from previous clinic visit -Most recent BMP reviewed (06/25/24), Na 140, K 4.6, Cr 1.23, GFR 57 -last device interrogation reviewed (09/13/24): effective BiVP 98.7%, 69 NSVT events, AT/AF off, optivol rising above threshold Medical Decision Making / Plan -compensated on exam today; not requiring loop diuretics -discussed Ibuprofen suspension on his medication list; he is only using this rarely because he wasinstructed by our office -soft BP and with more lightheadedness/dizziness; decrease Losartan to 12.5 mg daily -if he continues with dizziness/lightheadedness; after we decrease the losartan, would go to every other day -hesitant to decrease beta blockade given the NSVTs noted on his device -continue Toprol XL 25 mg BID, Spironolactone 25 mg QOD, Jardiance 10 mg daily -struggling with depression; encouraged social activities with friends -low platelet count in June, repeat to reassess -check BMP, Mag, NT pro BNP -last imaging in 2021; repeat echo prior to next clinic visit -consider Genetic testing at his next clinic visit, given strong nonischemic cardiomyopathy historyin his siblings and his father. Reviewed that with him. May have implications for his kids. Has 3 kids Vitals: Blood pressure 94/57, pulse 85, weight 194 lb 8 oz (88.2 kg), SpO2 97%. Dispo[facility] 6-8 weeks Thank you for the opportunity to assist in the care of this patient, please feel free to contact meif I can be of any assistance. I was acting as a scribe for Dr. Beebe during this visit. Luana Cooper, TOM Physician Attestation I saw and personally examined this patient with the nurse practitioner. YOUNG was acting as a scribefor this encounter. I have reviewed the note in its entirety and edited as needed. - MDM: kelsey Beebe MD [facility] Heart Failure Documentation NYHA Class: I-II ACC/AHA Society Stage: C Subjective I had the pleasure of seeing Brandon Rios, 89 y.o., male who presented to the [facility] for Heart Failure Established Patient. HPI: Patient presents today for Heart failure with reduced ejection fraction, improved, Non-Ischemic Cardiomyopathy appointment. Brandon Rios is here for follow up visit. Here for six month follow up. He feels that overall he has been doing fairly well from cardiac standpoint but has noticed recently he has been having more dizziness/lightheadedness and feeling off balance. He states the dizziness/lightheadedness has been going on for sometime but seems worse more re cently. He had discussed the symptoms with his PCP and was given instructions to increase fluid intake, he is now drinking one bottle of water per day and knows he should probably be drinking more. He gets fatigued with activity, struggles with depression since he is not able to get out and do the things he wishes he should do. He struggles with arthritis pain; is able to climb steps without shortness of breath but sometimes has to crawl on his hands and knees. Denies orthopnea or PND. Often has issues with insomnia. Denies Le edema, abdominal distention or weight gain. ROS: HEENT: No new vision problems or hearing problems Pulmonary: No hemoptysis Cardiovascular as stated above. GI: No bloody stools or black stools, no abd pain : No hematuria or dysuria Hematology: No bleeding issues or blood clots Skin: No rashes or skin lesions General: Normal appetite, no weight loss MSK: No new joint issues or myalgias Medications: Current Outpatient Medications Medication Sig Dispense Refill [...] 4 No current facility-administered medications for this encounter. Objective PHYSICAL EXAM: Constitutional: Alert, no acute distress, well developed, appropriate for age Skin: Normal turgor, normal color, warm to touch. Chest: No deformities, no apparent respiratory distress, Clear to auscultation bilaterally. Abdomen: Nontender, non distended Psych: Affect and mood appropriate, normal interaction. Cardiovascular Neck Veins: non distended Regular rhythm, S1 S2, no S3, S4 Extra Sounds: no gallops, rub or clicks Murmurs: no murmurs appreciated Extremities: no BLE edema, No cyanosis. Disclaimer- This note was completed using voice recognition technology. Despite my review, it may still contain unintended errors, typos etc. Please do not hesitate to contact me through hospital paging service with questions documented in this encounter Miscellaneous Notes * Patient Instructions - Luana Cooper NP - 09/13/2024 11:30 AM EDT DECREASE Losartan to 12.5 mg (half tablet) daily Stay well hydrated, goal of at ~ 48 oz daily Blood work orders are in, you can have this drawn at the time of your echocardiogram appointment Echocardiogram prior to your next clinic visit Follow up in clinic in 6-8 weeks, after echo, call with any questions or concerns in the meantime [phone] documented in this encounter Plan of Treatment Upcoming Encounters Date Type Department Care Team (Late st Contact Info) Description 10/20/2024 9:30 AM EDT Appointment [facility] [address] [place] [address] Luana Cooper NP [address] [place] [address] [place] [address] 11/01/2024 11:00 AM EDT Appointment [facility] [address] [place] [address] Drive [address] [place] [address] Rosa Beebe MD [address] [place] [address] [place] [address] 09/13/2025 10:30 AM EDT Office Visit [facility] [address] [place] [address] [address] [place] [address] 09/13/2025 11:00 AM EDT Office Visit [facility] [address] [place] [address] [address] [place] [address] Markell Lennon MD [address] [place], [place] [id number] Scheduled Orders Name Type Priority Associated Diagnoses Order Schedule BASIC METABOLIC PANEL Lab Routine NICM (nonischemic cardiomyopathy) ([facility]) Heart failure with mid-range ejection fraction ([facility]) Valvular heart disease Permanent atrial fibrillation ([facility]) 1 Occurrences starting 09/13/2024 until 09/13/2025 MAGNESIUM LEVEL Lab Routine NICM (nonischemic cardiomyopathy) ([facility]) Heart failure with mid-range ejection fraction ([facility]) Valvular heart disease Permanent atrial fibrillation ([facility]) 1 Occurrences starting 09/13/2024 until 09/13/2025 NT PROBNP Lab STAT NICM (nonischemic cardiomyopathy) ([facility]) Heart failure with mid-range ejection fraction ([facility]) Valvular heart disease Permanent atrial fibrillation ([facility]) 1 Occurrences starting 09/13/2024 until 09/13/2025 CBC Lab Routine NICM (nonischemic cardiomyopathy) ([facility]) Heart failure with mid-range ejection fraction ([facility]) Valvular heart disease Permanent atrial fibrillation ([facility]) 1 Occurrences starting 09/13/2024 until 09/13/2025 EC ECHOCARDIOGRAM COMPLETE W DOPPLER AND COLOR FLOW MAPPING Imaging Cardiology Routine NICM (nonischemic cardiomyopathy) ([facility]) Heart failure with mid-range ejection fraction (HCC) Valvular heart disease Permanent atrial fibrillation (HCC) 1 Occurrences starting 09/13/2024 until 09/13/2026 documented as of this encounter Goals Goal [...] (nonischemic cardiomyopathy) (HCC)- Primary Other primary cardiomyopathies Heart failure with mid-range ejection fraction (HCC) Valvular heart disease Endocarditis, valve unspecified, unspecified cause Permanent atrial fibrillation (HCC) Atrial fibrillation documented in this encounter Discontinued Medications Medication Sig Discontinue Reason Start Date End Da te losartan (COZAAR) 25 mg Oral Tablet Take 1 Tablet by mouth daily. 03/03/2023 09/13/2024 documented as of this encounter Additional Health Concerns Assessment Noted Time A fall risk assessment has been complete d for the patient 09/13/2024 10:39 AM EDT documented as of this encounter
--- NOTE | 2024-10-18 12:00 | XR_ITS ---
FINAL REPORT CLINICAL HISTORY: CHRONIC COUGH COMPARISON: 03/07/2022 FINDINGS: PA and lateral views of the chest were obtained. Evidence of a prior sternotomy is again noted. There is no significant change in the left pacemaker noted on the prior exam. The cardiac and mediastinal silhouettes are within normal limits. 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 There is left lower lobe scar present with blunting of the left costophrenic angle, that may be secondary to scar or small effusion. No acute osseous abnormality is identified. IMPRESSION: Changes of emphysema, with left lower lobe scar and blunting of the costophrenic angle on the left, scar or small effusion. No significant changes noted since the prior exam of 03/07/2022. Reviewed, Interpreted and Dictated by Milly Garcia MD Transcribed by Shabana Arias Authenticated and [facility]
--- OUTSIDE RECORDS SUMMARY | 2024-10-18 12:19 | XMS_ITS | Encounter Summary ---
Author Organization [place] [address] Care Team Providers Care Commercial Roofer Name Role Phone Unavailable Primary Care Provider Unavailabl e Encounter Details Date Type Department Care Team (Late Contact Info) Description 05/15/2021 Orders Only [facility] [address] [place] [address] [address] [place] [address] Markell Lennon MD [address] [place] [address] [place] [address] Social History Tobacco Use Types Packs/Day Years [...] AM EDT Appointment [facility] [address] [facility] [place] [address] Luana Cooper NP [address] [place] [address] [place] [address] 11/01/2024 11:00 AM EDT Appointment [facility] [address] [place] [address] [address] [place] [address] Rosa Beebe MD [address] [place] [address] [place] [address] 09/13/2025 10:30 AM EDT Office Visit [facility] [address] [facility] [address] [place] [address] 09/13/2025 11:00 AM EDT Office Visit [facility] [address] [facility] [address] [place] [address] Markell Lennon MD [address] [place] [address] [place], [place] [id number] documented as of this encounter Goals Goal [...] PM EDT) 05/15/2021 8:35 PM EDT Narrative [facility] - 05/16/2021 10:46 AM EDT Carelink alert: MDT BV PPM. Vector summary: Alert Criteria Met Summary 2 SVT and 1 Monitored Fast A&V Episode, c/w significant NSVT lasting 6- 22 seconds all occurring on 05/14/21 (Hx AVN ablation). Battery advisory. AT/AF [place]: 100%. AP: <1%. SERVICING REP: >99%. NOY ligation. Battery 7.7 yrs Brand MDT Model Percepta Quad OUTDOOR POWER EQUIPMENT MECHANIC-P MRI Additional note: SVT/AF 05-14-21: 13 sec w/ V-rate avg 188 bpm. Other episodes 04-16-21 w/ V-rate avg 148-176. PVC counters 0 since 03-27-21. V-rate histogram rarely >100 bpm. Optivol increased since 05-02-21. See encounter for more details. Linda,RN us Markell Lennon MD [facility] CARDIAC CATH ORDERAB LES Final Result [facility] [address] [place] [id number] documented in this encounter Visit Diagnoses Not on filedocumented in this encounter Additional Health Concerns Assessment Noted Time A fall risk assessment has been complete d for the patient 06/30/2020 2:32 PM EDT documented as of this encounter
--- OUTSIDE RECORDS SUMMARY | 2024-10-18 12:19 | XMS_ITS | Encounter Summary ---
Author Organization [place] [address] Care Team Providers Care Nuclear Test Technician Name Role Phone Unavailable Primary Care Provider Unavailabl e Encounter Details Date Type Department Care Team (Late Contact Info) Description 04/07/2020 Orders Only [facility] Ed[facility] [address] [facility] [address] [place] [address] Markell Lennon MD [address] [place] [address] Social History Tobacco Use Types [...] Appointment [facility] [place] [address] Luana Cooper, CARPENTRY PROFESSIONAL [address] [place] [address] 11/01/2024 11:00 AM EDT Appointment [facility] [address] [place] [address] Drive [address] [place] [address] Rosa Beebe MD [address] [place] [address] [place] [address] 09/13/2025 10:30 AM EDT Office Visit [facility] [address] [place] [address] [address] [place] [address] 09/13/2025 11:00 AM EDT Office Visit [facility] [address] [place] [address] [address] [place] [address] Markell Lennon MD [address] [place] [address] [address] [place] [id number] documented as of this encounter Goals Goal [...] PM EST) 04/07/2020 4:33 PM EST Narrative [facility] - 04/07/2020 12:27 PM EST - Medtronic Bi-V PPM remote for pt c/o dizziness episode this AM while dusting. - (1) NS-VT episode = 04/05/20 for 1 sec. - No AT/AF episodes. - Battery and lead measurements = WNL/stable. Sensing integrity counters = (0). Outputs are programmed w/in appropriate safety margins. - Pacing Mode: DDDR 70/130/130ppm. Ap = 60.3%, Header Setup Operator= 99.9%. (Effective = 99.8%). - Presenting rhythm = Ap/Bi-Header Setup Operator'ing in 70's w/ PAC's. - Opti-Vol = baseline. - Histograms = optimal rate response distribution. - Device is functioning as programmed. Pt was notified of results. Olesya Pastrana RN. us Markell Lennon MD [facility] CARDIAC CATH ORDERAB LES Final Result [facility] 1 [place] [address] documented in this encounter Visit Diagnoses Not on filedocumented in this encounter
--- OUTSIDE RECORDS SUMMARY | 2024-10-18 12:19 | XMS_ITS | Encounter Summary ---
Author Organization [place] [address] Care Team Providers Care Client Support Analyst Name Role Phone Unavailable Primary Care Provider Unavailabl e Encounter Details Date Type Department Care Team (Late Contact Info) Description 06/28/2024 Results Follow-Up [facility] [address] [place] [address] Luana Cooper NP [address] [place] [address] [place] [address] BASIC METABOLIC PANEL, CBC Social History Tobacco [...] AM EDT Appointment [facility] [address] [facility] [place] [address] Luana Cooper NP [address] [place] [address] [place] [address] 11/01/2024 11:00 AM EDT Appointment [facility] [address] [place] [address] Rosa Beebe MD [address] [place] [address] [place] [address] 09/13/2025 10:30 AM EDT Office Visit [facility] [address] [place] [address] [address] [place] [address] 09/13/2025 11:00 AM EDT Office Visit [facility] [address] [place] [address] [address] [place] [address] Markell Lennon MD [address] [place] [address] [address] [place] [id number] documented as of this encounter Goals Goal [...]
--- OUTSIDE RECORDS SUMMARY | 2024-10-18 12:19 | XMS_ITS | Encounter Summary ---
Author Organization [place] [address] Care Team Providers Care Fire Battalion Chief Name Role Phone Unavailable Primary Care Provider Unavailabl e Encounter Details Date Type Department Care Team (Late Contact Info) Description 10/13/2024 Orders Only [facility] [address] [place] [address] [address] [place] [address] Markell Lennon MD [address] [place] [address] [place] [address] Vector Remote Device Social History Tobacco Use [...] AM EDT Appointment [facility] [address] [facility] [place] [address] Luana Cooper NP [address] [place] [address] [place] [address] 11/01/2024 11:00 AM EDT Appointment [facility] [address] [place] [address] [address] [place] [address] Rosa Beebe MD [address] [place] [address] DR [place] [id number] 09/13/2025 10:30 AM EDT Office Visit [facility] [address] [facility] [address] [place] [address] 09/13/2025 11:00 AM EDT Office Visit [facility] [address] [facility] [address] [place] [address] Markell Lennon MD [address] [place] [address] documented as of this encounter Goals Goal Patient Goal Type Associated Problems Recent Progress Patient-Stated? Author Blood Pressure < 140/90 Blood Pressure 94/57( 025 11:24 AM EDT) No Belkys Traore CCMA Maintain a healthy diet, exercise regularly and maintain an ideal body weight General No Belkys Traore CCMA documented as of this encounter Procedures Procedure Name Priority Date/Time Associated Diagnosis Comments WI REM INTERROG ICPMS <30 D PHYS/QHP Routine 10/13/2024 12:00 AM EDT Vector Remote Device documented in this encounter Results * VECTOR REMOTE HEART FAILURE DEVICE (10/13/2024 12:00 AM EDT) 10/13/2024 Narrative [facility] - 10/13/2024 12:00 AM EDT Possible Fluid Accumulation. Possible OptiVol fluid accumulation: 03-Sep-2024 -- ongoing.. Addendum: pls see [facility] encouter. [facility] us Markell Lennon MD [facility] CARDIAC CATH ORDERAB LES Final Result [facility] 1 [place] [address] documented in this encounter Visit Diagnoses Diagnosis Vector Remote Device documented in this encounter Additional Health Concerns Assessment Noted Time A fall risk assessment has been complete d for the patient 09/13/2024 10:39 AM EDT documented as of this encounter
--- OUTSIDE RECORDS SUMMARY | 2024-10-18 12:19 | XMS_ITS | Encounter Summary ---
Author Organization [place] [address] Care Team Providers Care Pilot Plant Operator Helper Name Role Phone Unavailable Primary Care Provider Unavailabl e Encounter Details Date Type Department Care Team (Late Contact Info) Description 01/23/2021 Orders Only [facility] [address] [place] [address] [address] [place] [address] Markell Lennon MD [address] [place] [address] [place] [address] Social History Tobacco Use Types Packs/Day Years [...] AM EDT Appointment [facility] [address] [facility] [place] [address] Luana Cooper NP [address] [place] [address] [place] [address] 11/01/2024 11:00 AM EDT Appointment [facility] [address] [place] [address] [address] [place] [address] Rosa Beebe MD [address] [place] [address] [place] [address] 09/13/2025 10:30 AM EDT Office Visit [facility] [address] [facility] [address] [place] [address] 09/13/2025 11:00 AM EDT Office Visit [facility] [address] [facility] [address] [place] [address] Markell Lennon MD [address] [place] [address] [place] [id number] documented as of this encounter Goals Goal [...] EST) 01/23/2021 12:0 9 AM EST Narrative [facility] - 01/26/2021 2:08 PM EST - Unscheduled Bi-V PPM remote rcv'd. AT/AF and Opti-Vol alerts noted. - Presenting rhythm EGM = AF w/ Bi-Hose Handler'ing in 90's. - (1) AT/AF episode in [...] programmed. B.Vogelpohl RN/CDS. us Markell Lennon MD [facility] CARDIAC CATH ORDERAB LES Final Result [facility] 1 [place] [address] documented in this encounter Visit Diagnoses Not on filedocumented in this encounter Additional Health Concerns Assessment Noted Time A fall risk assessment has been complete d for the patient 06/30/2020 2:32 PM EDT documented as of this encounter
--- OUTSIDE RECORDS SUMMARY | 2024-10-18 12:19 | XMS_ITS | Encounter Summary ---
Author Organization [place] [address] Care Team Providers Care Turkey Cleaner Name Role Phone Unavailable Primary Care Provider Unavailabl e Reason for Visit * Reason Onset Date Comments Results 10/12/2024 [facility]link heart f ailure pacemaker report Encounter Details Date Type Department Care Team (Late st Contact Info) Description 10/12/2024 Telephone [facility] [address] [facility] [address] [place] [address] Minnie Reyna MA Results ([facility]link heart failure pacemaker report) Social History Tobacco Use Types Packs/Day Years [...] encounter Miscellaneous Notes * Telephone Encounter - Minnie Reyna MA - 10/13/2024 4:09 PM EDT Pt denied any edema, sob nor weight gain. He has been drinking about 4 cans of Coke a day. I informed that he is scheduled for a consultation with Dr. Beebe on 11-01-24 to discuss further. * Telephone Encounter - Karina Medina, Clerical Staff - 10/13/2024 11:15 AM EDT Patient is returning call. He states that he does not have any swelling but he has been having a lot of leg cramps. His phone number that he needs updated with Vector is [phone] Please call Brandon with any changes * Telephone Encounter - Minnie Reyna MA - 10/12/2024 12:51 PM EDT Images from the original note were not included. Possible Fluid Accumulation. Possible OptiVol fluid accumulation: 03-Sep-2024 -- ongoing.. Called the patient to assess. No answer or possibility to leave a voice mail on all listed phone number. If patient return the call please verify if they are still wanting to use [phone] for the remote monitoring. documented in this encounter Plan of Treatment Upcoming Encounters Date Type Department Care Team (Late st Contact Info) Description 10/20/2024 9:30 AM EDT Appointment [facility] [address] [place] [address] Luana Cooper NP [address] [place] [address] [place] [address] 11/01/2024 11:00 AM EDT Appointment [facility] [address] [place] [address] [address] [place] [address] Rosa Beebe MD [address] [place] [address] [place] [address] 09/13/2025 10:30 AM EDT Office Visit [facility] [address] [place] [address] [address] [place] [address] 09/13/2025 11:00 AM EDT Office Visit [facility] [address] [place] [address] [address] [place] [address] Markell Lennon MD [address] [place] [address] DR [place], [place] [address] documented as of this encounter Goals Goal [...]
--- OUTSIDE RECORDS SUMMARY | 2024-10-18 12:21 | XMS_ITS | Encounter Summary ---
Author Organization [place] [address] Care Team Providers Care Csr Retail Name Role Phone Unavailable Primary Care Provider Unavailabl e Encounter Details Date Type Department Care Team (Late Contact Info) Description 08/11/2024 Orders Only [facility] [address] [place] [address] [address] [place] [address] Markell Lennon MD [address] [place] [address] [place] [address] Vector Remote Device Social History Tobacco Use [...] AM EDT Appointment [facility] [address] [facility] [place] [address] Luana Cooper NP [address] [place] [address] [place] [address] 11/01/2024 11:00 AM EDT Appointment [facility] [address] [place] [address] [address] [place] [address] Rosa Beebe MD [address] [place] [address] [place] [address] 09/13/2025 10:30 AM EDT Office Visit [facility] [address] [facility] [address] [place] [address] 09/13/2025 11:00 AM EDT Office Visit [facility] [address] [facility] [address] [place] [address] Markell Lennon MD [address] [place] [address] documented as of this encounter Goals Goal Patient Goal Type Associated Problems Recent Progress Patient-Stated? Author Blood Pressure < 140/90 Blood Pressure 94/57( 025 11:24 AM EDT) No Belkys Traore CCMA Maintain a healthy diet, exercise regularly and maintain an ideal body weight General No Belkys Traore CCMA documented as of this encounter Procedures Procedure Name Priority Date/Time Associated Diagnosis Comments IA REM INTERROG PM/LDLS PM <90 D PHYS/QHP Routine 08/11/2024 12:00 AM EDT Vector Remote Device documented in this encounter Results * VECTOR REMOTE DEVICE (08/11/2024 12:00 AM EDT) 08/11/2024 Narrative [facility] - 08/11/2024 12:00 AM EDT No significant episodes. NSVT: 3 lasting <5s. V. Sensing Episodes: 6, longest 6s. Pt with history of NOY procedure. Mode: VVIR. DOUGH PUNCHER: 99.4%. Effective BiVP: 99.4%. Normal device function. Battery Advisory. us Markell Lennon MD [facility] CATH ORDERAB LES Final Result [facility] 1 [place] [address] documented in this encounter Visit Diagnoses Diagnosis Vector Remote Device documented in this encounter Additional Health Concerns Assessment Noted Time A fall risk assessment has been complete d for the patient 09/09/2023 1:11 PM EDT documented as of this encounter
--- OUTSIDE RECORDS SUMMARY | 2024-10-18 12:21 | XMS_ITS | Encounter Summary ---
Author Organization [place] [address] Care Team Providers Care Electronics Worker Name Role Phone Unavailable Primary Care Provider Unavailabl e Encounter Details Date Type Department Care Team (Late Contact Info) Description 09/12/2024 Orders Only [facility] [address] [place] [address] [address] [place] [address] Markell Lennon MD [address] [place] [address] [place] [address] Vector Remote Device Social History Tobacco Use [...] EDT Appointment [facility] [address] [facility] [place] [address] Luana Cooper NP [address] [place] [address] [place] [address] 11/01/2024 11:00 AM EDT Appointment [facility] [address] [place] [address] [address] [place] [address] Rosa Beebe MD [address] [place] [address] [place] [address] 09/13/2025 10:30 AM EDT Office Visit [facility] [facility] [address] [place] [address] 09/13/2025 11:00 AM EDT Office Visit [facility] [address] [facility] [address] [place] [address] Markell Lennon MD [address] [place] [address] documented as of this encounter Goals Goal Patient Goal Type Associated Problems Recent Progress Patient-Stated? Author Blood Pressure < 140/90 Blood Pressure 94/57( 025 11:24 AM EDT) No Belkys Traore CCMA Maintain a healthy diet, exercise regularly and maintain an ideal body weight General No Belkys Traore CCMA documented as of this encounter Procedures Procedure Name Priority Date/Time Associated Diagnosis Comments MO REM INTERROG ICPMS <30 D PHYS/QHP Routine 09/12/2024 12:00 AM EDT Vector Remote Device documented in this encounter Results * VECTOR REMOTE HEART FAILURE DEVICE (09/12/2024 12:00 AM EDT) 09/12/[address] [facility] - 09/12/2024 12:00 AM EDT Possible Fluid Accumulation. Possible OptiVol fluid accumulation: 03-Sep-2024 -- ongoing. ADDENDUM: Saw pt in clinic this morning. No c/o increased SOB but has CARRASCO upon physical activity--kls us Markell Lennon MD [facility] CATH ORDERAB LES Final Result [facility] 1 [place] [address] documented in this encounter Visit Diagnoses Diagnosis Vector Remote Device documented in this encounter Additional Health Concerns Assessment Noted Time A fall risk assessment has been complete d for the patient 09/09/2023 1:11 PM EDT documented as of this encounter
--- OUTSIDE RECORDS SUMMARY | 2024-10-18 12:21 | XMS_ITS | Encounter Summary ---
Author Organization [place] [address] Care Team Providers Care Financial Aids Officer Name Role Phone Unavailable Primary Care Provider Unavailabl e Encounter Details Date Type Department Care Team (Late Contact Info) Description 09/11/2024 Orders Only [facility] [address] [place] [address] [address] [place] [address] Markell Lennon MD [address] [place] [address] [place] [address] Vector Remote Device Social History Tobacco Use [...] EDT Appointment [facility] [address] [facility] [place] [address] Luana Cooper NP [address] [place] [address] [place] [address] 11/01/2024 11:00 AM EDT Appointment [facility] [address] [place] [address] [address] [place] [address] Rosa Beebe MD [address] [place] [address] [address] [place] [id number] 09/13/2025 10:30 AM EDT Office Visit [facility] [address] [facility] [address] [place] [address] 09/13/2025 11:00 AM EDT Office Visit [facility] [address] [facility] [address] [place] [address] Markell Lennon MD [address] [place] [address] documented as of this encounter [...] DEVICE (09/11/2024 12:00 AM EDT) 09/11/2024 Narrative [facility] - 09/11/2024 12:00 AM EDT Monitored VT/NSVT: 8 longest 9.4s on 08/27/24. V. Sensing Episodes: 11, longest 22s. Pt with history of NOY procedure. Mode: VVIR. VESSEL CAPTAIN: 99.5%. Effective BiVP: 99.5%. Normal device function. Battery Advisory. ADDENDUM: Pt not called. Events occurred last month. Will continue to monitor--kls us Markell Lennon MD [facility] CATH ORDERAB LES Final Result [facility] 1 [place], [place] [id number] documented in this encounter Visit Diagnoses Diagnosis Vector Remote Device documented in this encounter Additional Health Concerns Assessment Noted Time A fall risk assessment has been complete d for the patient 09/09/2023 1:11 PM EDT documented as of this encounter
--- OUTSIDE RECORDS SUMMARY | 2024-10-18 12:21 | XMS_ITS | Encounter Summary ---
Author Organization [place] [address] Care Team Providers Care Knife Finisher Name Role Phone Unavailable Primary Care Provider Unavailabl e Encounter Details Date Type Department Care Team (Late Contact Info) Description 08/12/2024 Orders Only [facility] [address] [place] [address] [address] [place] [address] Markell Lennon MD [address] [place] [address] [place] [address] Vector Remote Device Social History Tobacco Use [...] AM EDT Appointment [facility] [address] [facility] [place] [address] Luana Cooper NP [address] [place] [address] [place] [address] 11/01/2024 11:00 AM EDT Appointment [facility] [address] [place] [address] [address] [place] [address] Rosa Beebe MD [address] [place] [address] [address] [place], [place] [id number] 09/13/2025 10:30 AM EDT Office Visit [facility] [address] [facility] [address] [place] [address] 09/13/2025 11:00 AM EDT Office Visit [facility] [address] [facility] [address] [place] [address] Markell Lennon MD [address] [facility] [facility] [place] [address] documented as of this encounter Goals Goal Patient Goal Type Associated Problems Recent Progress Patient-Stated? Author Blood Pressure < 140/90 Blood Pressure 94/57( 025 11:24 AM EDT) No Belkys Traore CCMA Maintain a healthy diet, exercise regularly and maintain an ideal body weight General No Belkys Traore CCMA documented as of this encounter Procedures Procedure Name Priority Date/Time Associated Diagnosis Comments DE REM INTERROG ICPMS <30 D PHYS/QHP Routine 08/12/2024 12:00 AM EDT Vector Remote Device documented in this encounter Results * VECTOR REMOTE HEART FAILURE DEVICE (08/12/2024 12:00 AM EDT) 08/12/20[address] [facility] - 08/12/2024 12:00 AM EDT Stable trend. us Markell Lennon MD [facility] CATH ORDERAB LES Final Result [facility] 1 [place] [address] documented in this encounter Visit Diagnoses Diagnosis Vector Remote Device documented in this encounter Additional Health Concerns Assessment Noted Time A fall risk assessment has been complete d for the patient 09/09/2023 1:11 PM EDT documented as of this encounter
--- OUTSIDE RECORDS SUMMARY | 2024-10-18 12:22 | XMS_ITS | Encounter Summary ---
Author Organization [place] [address] Care Team Providers Care Child & Adolescent Psychiatrist Name Role Phone Unavailable Primary Care Provider Unavailabl e Encounter Details Date Type Department Care Team (Late Contact Info) Description 03/12/2018 Orders Only [facility] [address] [place] [address] [address] [place] [address] Markell Lennon MD [address] [place] [address] [place] [address] Social History Tobacco Use Types Packs/Day Years [...] AM EDT Appointment [facility] [address] [facility] [place] [address] Luaan Cooper NP [address] [place] [address] [place] [address] 11/01/2024 11:00 AM EDT Appointment [facility] [address] [place] [address] [address] [place] [address] Rosa Beebe MD [address] [place] [address] [place] [address] 09/13/2025 10:30 AM EDT Office Visit [facility] [address] [facility] [address] [place] [address] 09/13/2025 11:00 AM EDT Office Visit [facility] [address] [facility] [address] [place] [address] Markell Lennon MD [address] [place], [place] [id number] documented as of this encounter Goals Goal [...] PM EST) 03/12/2018 9:10 PM EST Narrative [facility] - 03/12/2018 4:10 PM EST IMPLANT REPORT us Markell Lennon MD [facility] CARDI[facility] CATH ORDERAB LES Final Result [facility] 1 [place] [address] documented in this encounter Visit Diagnoses Not on filedocumented in this encounter
--- OUTSIDE RECORDS SUMMARY | 2024-10-18 12:22 | XMS_ITS | Continuity of Care Document ---
Author Organization [facility] Address [address] [place] [address] [place] [phone] Phone Care Team Providers Care Pack Worker Name Role Phone Unavailable Primary Care Provider Unavailabl e Encounters Date Type Department Care Team Description 10/13/2024 Orders Only [facility] [address] [place] [address] [place] [phone] Alo Lennon MD Vector Remote Device 10/12/2024 Telephone [facility] [address] [place] [address] [place] [phone] Minnie Reyna MA Results (Carelink heart failure pacemaker report) 09/13/2024 10:30 AM EDT Office Visit [facility] [address] [place] [phone] Erinn Sabillon APRN PAF (paroxysmal atrial fibrillation) (HCC) (Primary Dx); Encounter for interrogation of cardiac recorder 09/13/2024 10:00 AM EDT Office Visit [facility] [address] [place] [address] [place] [phone] Madhavi Mcintosh MA NICM (nonischemic cardiomyopathy) (HCC) (Primary Dx); Biventricular cardiac pacemaker in situ; 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); Permanent atrial fibrillation (HCC); Chronic systolic congestive heart failure (HCC); Encounter for adjustment of biventricular cardiac pacemaker; Encounter for management of biventricular cardiac pacemaker 09/13/2024 11:04 AM EDT - 09/13/2024 11:59 PM EDT Hospital Encounter [facility] [address] [place] [address] [place] [address] Rosa Beebe MD NICM (nonischemic cardiomyopathy) (HCC) (Primary Dx); Heart failure with mid-range ejection fraction (HCC); Valvular heart disease; Permanent atrial fibrillation (HCC) Discharge Disposition: Home or Self Care 09/12/2024 Orders Only [facility] [address] [place] [address] [place] [phone] Alo Lennon MD Vector Remote Device 09/11/2024 Orders Only [facility] [address] [place] [address] [place] [phone] Alo Lennon MD Vector Remote Device 08/12/2024 Orders Only [facility] [address] [place] [phone] Alo Lennon MD Vector Remote Device 08/11/2024 Orders Only [facility] [address] [place] [phone] Alo Lennon MD Vector Remote Device 07/15/2024 Telephone [facility] [address] [place] [address] Elisa Mejia MA Reschedule 07/12/2024 Orders Only [facility] [address] [place] [phone] Alo Lennon MD Vector Remote Device 07/06/2024 Orders Only [facility] [address] [place] [address] Moody Gates NP NICM (nonischemic cardiomyopathy) (HCC) (Primary Dx) 07/06/2024 Telephone [facility] [address] [place], [place] [phone] Hannah Baeza, MANUAL CONTROL AUGER PRESS OPERATOR Other (Financial - Jardiance - Refill) 07/04/2024 Orders Only [facility] [address] [place] [phone] Alo Lennon MD Vector Remote Device 06/28/2024 Results Follow-Up [facility] [address] [facility] [address] [place] [phone] Luana Cooper, CLINICAL LAB CLERK BASIC METABOLIC PANEL, CBC 06/25/2024 11:59 AM EDT - 06/25/2024 11:59 PM EDT Hospital Encounter [facility] [address] [place] [address] Heart failure with mid-range ejection fraction (HCC) Discharge Disposition: Home or Self Care 06/21/2024 Orders Only [facility] [address] [place] [address] [address] [place] [phone] Alo Lennon MD Vector Remote Device 06/11/2024 Orders Only [facility] [address] [place] [address] [address] [place] [phone] Alo Lennon MD Vector Remote Device 05/28/2024 Orders Only [facility] [address] [place] [address] [address] [place] [phone] Alo Lennon MD Vector Remote Device 05/10/2024 Telephone [facility] [address] [place] [address] [address] [place] [phone] Nakita Durant (T BV PPM. Carelink. TC. ) 05/10/2024 Orders Only [facility] [address] [place] [address] [address] [place] [phone] Alo Lennon MD Vector Remote Device 05/09/2024 Orders Only [facility] [address] [place] [address] [address] [place] [phone] Alo Lennon MD Vector Remote Device 04/09/2024 Orders Only [facility] [address] [place] [address] [address] [place] [phone] Alo Lennon MD Vector Remote Device 04/08/2024 Orders Only [facility] [address] [place] [address] [address] [place] [phone] Alo Lennon MD Vector Remote Device 03/09/2024 Social Work [facility] [address] [place] [address] [place] [address] Hannah Baeza MSW Medication-social Work (Jardiance) 03/09/2024 Orders Only [facility] [address] [place] [address] [place] [phone] Alo Lennon MD Vector Remote Device 03/09/2024 10:25 AM EST - 03/09/2024 11:59 PM EST Hospital Encounter [facility] [address] [place] [address] [place] [address] Rosa Beebe MD Heart failure with mid-range ejection fraction (HCC) (Primary Dx); NICM (nonischemic cardiomyopathy) (HCC); Valvular heart disease; Permanent atrial fibrillation (HCC) Discharge Disposition: Home or Self Care 03/08/2024 Orders Only [facility] [address] [place] [address] [place] [phone] Alo Lennon MD Vector Remote Device 02/13/2024 Telephone [facility] [address] [place] [address] [place] [address] Malu Newsome MA Other (Jardiance - CARES) 02/09/2024 Telephone [facility] [address] [place] [phone] Nakita Durant Other (JULIANO BV PPM. Carelink. TC. ) 02/07/2024 Orders Only [facility] [address] [place] [address] [place] [phone] Alo Lennon MD Vector Remote Device 02/06/2024 Orders Only [facility] [address] [place] [phone] Alo Lennon MD Vector Remote Device 01/29/2024 Telephone [facility] [address] [place] [address] [place] [address] Constantine Leos RN Reschedule 09/09/2023 1:00 PM EDT Office Visit [facility] [address] [place] [phone] Alo Lennon MD NICM (nonischemic cardiomyopathy) (HCC) (Primary Dx); Biventricular cardiac pacemaker in situ; 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); Permanent atrial fibrillation (HCC) 09/09/2023 12:30 PM EDT Office Visit [facility] [address] [place] [phone] Whit Fernández RN NICM (nonischemic cardiomyopathy) (HCC) (Primary Dx); 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 TC. Carelink. ) 08/27/2023 Orders Only [facility] [address] [place], [place] [phone] Joi Sethi NP Heart failure with mid-range ejection fraction (HCC) (Primary Dx) 08/26/2023 11:53 AM EDT - 08/26/2023 11:59 PM EDT Hospital Encounter [facility] [address] [place], [place] [id number] Heart failure with mid-range ejection fraction (HCC) Discharge Disposition: Home or Self Care 08/26/2023 Social Work [facility] [address] [place] [address] Hannah Baeza MSW Medication-social Work (Jardiance) 08/26/2023 10:53 AM EDT - 08/26/2023 11:52 AM EDT Hospital Encounter [facility] [place] [address] Rosa Beebe MD Heart failure with mid-range ejection fraction (HCC) (Primary Dx); NICM (nonischemic cardiomyopathy) (HCC); Valvular heart disease; Permanent atrial fibrillation (HCC) Discharge Disposition: Home or Self Care 07/15/2023 Refill [facility] [place] [address] Elisa Mejia MA Medication Refill 03/11/2023 1:18 PM EST - 03/11/2023 11:59 PM EST Hospital Encounter [facility] [address] [place] [address] Heart failure with mid-range ejection fraction (HCC) Discharge Disposition: Home or Self Care 03/03/2023 12:55 PM EST - 03/03/2023 11:59 PM EST Hospital Encounter [facility] [address] [address] Rosa Beebe MD Heart failure with mid-range ejection fraction (HCC) (Primary Dx); NICM (nonischemic cardiomyopathy) (HCC) Discharge Disposition: Home or Self Care 02/28/2023 Orders Only [facility] [address] [place] [phone] Alo Lennon MD Vector Remote Device 02/28/2023 Telephone [facility] [address] [place] [phone] Parvin Trejo RN Results (Carelink results) 12/13/2022 Telephone [facility] [address] [address] Elisa Mejia MA Other (Jardiance Cost) 09/02/2022 12:52 PM EDT - 09/02/2022 11:59 PM EDT Hospital Encounter [facility] [address] [place] [address] NICM (nonischemic cardiomyopathy) (HCC) Discharge Disposition: Home or Self Care 09/02/2022 Travel 09/02/2022 11:58 AM EDT - 09/02/2022 12:51 PM EDT Hospital Encounter [facility] [address] [place] [address] Rosa Beebe MD NICM (nonischemic cardiomyopathy) (HCC) (Primary Dx); Heart failure with mid-range ejection fraction (HCC); Valvular heart disease; Permanent atrial fibrillation (HCC) Discharge Disposition: Home or Self Care 08/28/2022 Orders Only [facility] [address] [place] [phone] Alo Lennon MD Vector Remote Device 08/05/2022 Telephone [facility] [address] [place] [address] Mirna Jimenez, nib inspector Refill (Losartan and metoprolol) 07/15/2022 Orders Only [facility] [address] [place] [address] Shima Sibley RMA 07/11/2022 Telephone [facility] [address] [place] [address] Mirna Jimenez, nib inspector Refill (Jardiance and losartan) 05/29/2022 Orders Only [facility] [address] [place], [place] [phone] Alo Lennon MD Vector Remote Device 04/05/2022 Telephone [facility] [address] [place] [address] Shima Sibley, JUAN MANUEL Orders 04/02/2022 Travel 04/02/2022 9:40 AM EST - 04/02/2022 11:59 PM EST Hospital Encounter [facility] [address] [place] [address] Kulwant Ferraro MD NICM (nonischemic cardiomyopathy) (HCC) (Primary Dx) Discharge Disposition: Home or Self Care 03/28/2022 Orders Only [facility] [address] [place] [address] Luana Cooper NP NICM (nonischemic cardiomyopathy) (HCC) (Primary Dx) 03/25/2022 Travel 03/25/2022 11:30 AM EST - 03/25/2022 11:59 PM EST Hospital Encounter [facility] [address] [facility] [place] [address] NICM (nonischemic cardiomyopathy) ([facility]) Discharge Disposition: Home or Self Care 03/18/2022 Orders Only [facility] [address] [place] [address] Luana Cooper NP NICM (nonischemic cardiomyopathy) (HCC) (Primary Dx) 03/11/2022 Telephone [facility] [address] [place] [address] Nae Garcia RMA Follow-up 03/04/2022 Telephone [facility] [address] [place] [address] Shima Sibley RMA Appointment Needed 01/31/2022 Telephone [facility] [address] [place] [address] Mirna Jimenez RN Other (Reschedule appt) 01/09/2022 Travel 01/09/2022 1:00 PM EST - 01/09/2022 11:59 PM EST Hospital Encounter [facility] [address] [place] [address] Rosa Beebe MD NICM (nonischemic cardiomyopathy) (HCC) (Primary Dx); Orthostatic dizziness; Chronic HFrEF (heart failure with reduced ejection fraction) ([facility]) Discharge Disposition: Home or Self Care 12/10/2021 Refill [facility] [address] [place], [place] [phone] Alo Lennon MD Medication Refill 12/04/2021 Telephone [facility] [address] [place] [address] [place] [phone] Shima Sibley, RMA Dizziness 11/19/2021 Orders Only [facility] [address] [place] [address] Shima Sibley, JUAN MANUEL Heart failure with mid-range ejection fraction (HCC); NICM (nonischemic cardiomyopathy) (HCC) 11/07/2021 Orders Only [facility] [address] [place] [address] [place] [phone] Alo Lennon MD Vector Remote Device 11/07/2021 Travel 11/07/2021 11:15 AM EDT - 11/07/2021 11:59 PM EDT Hospital Encounter [facility] [address] [place] [address] Kulwant Ferraro MD Heart failure with mid-range ejection fraction (HCC) (Primary Dx); NICM (nonischemic cardiomyopathy) (HCC); ASHD (arteriosclerotic heart disease); Valvular heart disease; Atrial fibrillation, unspecified type (HCC) Discharge Disposition: Home or Self Care 11/05/2021 Travel 11/05/2021 11:25 AM EDT - 11/05/2021 11:59 PM EDT Hospital Encounter [facility] [address] [place] [address] Heart failure with mid-range ejection fraction (HCC); NICM (nonischemic cardiomyopathy) (HCC) Discharge Disposition: Home or Self Care 10/02/2021 Travel 10/02/2021 11:42 AM EDT - 10/02/2021 11:59 PM EDT Hospital Encounter [facility] [address] [place] [phone] Luana Cooper NP Heart failure with mid-range ejection fraction (HCC) (Primary Dx); NICM (nonischemic cardiomyopathy) (HCC); ASHD (arteriosclerotic heart disease); Valvular heart disease; Atrial fibrillation, unspecified type (HCC); Systolic congestive heart failure, unspecified HF chronicity (HCC) Discharge Disposition: Home or Self Care 09/27/2021 Telephone [facility] [address] [place] [phone] Lety Caldwell APRN Procedure (Risk assessment prior to dental procedure ) 09/21/2021 Telephone [facility] [address] [place] [address] Mirna Jimenez RN Other (Overnight pulse ox status) 09/06/2021 Refill [facility] [place] [address] Joi Sethi NP Medication Refill 09/06/2021 11:25 AM EDT - 09/06/2021 11:59 PM EDT Hospital Encounter [facility] [address] [facility] [place] [address] Heart failure with mid-range ejection fraction (HCC) Discharge Disposition: Home or Self Care 09/05/2021 [facility] [place] [address] Nae Leblanc APRN Lab Orders 09/05/2021 Travel 09/05/2021 10:04 AM EDT - 09/05/2021 11:59 PM EDT Hospital Encounter [facility] [place] [address] Nae Leblanc APRN Heart failure with mid-range ejection fraction (HCC) (Primary Dx); NICM (nonischemic cardiomyopathy) (HCC); ASHD (arteriosclerotic heart disease); Valvular heart disease; Atrial fibrillation, unspecified type (HCC); Systolic congestive heart failure, unspecified HF chronicity (HCC) Discharge Disposition: Home or Self Care 09/04/2021 Telephone [facility] [address] [place] [address] Moody Gates NP Non-scheduled Referral 08/30/2021 Refill [facility] [address] [place] [phone] Alo Lennon MD Medication Refill 08/20/2021 Orders Only [facility] [address] [place] [address] [address] [place] [address] Alo Lennon MD Vector Remote Device 08/17/2021 Orders Only [facility] [address] [place] [address] [address] [place] [phone] Moody Gates NP Heart failure with mid-range ejection fraction (HCC) (Primary Dx); NICM (nonischemic cardiomyopathy) (HCC) 08/17/2021 Travel 08/17/2021 12:40 PM EDT - 08/17/2021 11:59 PM EDT Hospital Encounter [facility] [address] Persistent atrial fibrillation (HCC); Heart failure with mid-range ejection fraction (HCC); NICM (nonischemic cardiomyopathy) (HCC) Discharge Disposition: Home or Self Care 08/17/2021 2:30 PM EDT Office Visit [facility] [address] [place] [address] [address] [place] [phone] Alo Lennon MD Atrial fibrillation with RVR (HCC) (Primary Dx); S/P AV rissa ablation; Biventricular cardiac pacemaker in situ 08/17/2021 2:00 PM EDT Office Visit [facility] [address] [place] [phone] Cheo Ramos RN Biventricular pacemaker reprogramming (Primary [...] Encounter [facility] [address] [place] [address] [place] [address] Moody Gates NP Heart failure with mid-range ejection fraction (HCC) (Primary Dx); NICM (nonischemic cardiomyopathy) (HCC); ASHD (arteriosclerotic heart disease); Valvular heart disease; Atrial fibrillation, unspecified type (HCC) Discharge Disposition: Home or Self Care 07/09/2021 Telephone [facility] [address] [place] [phone] Belkys Frost MA Reschedule (R/s cx 06/29/21 appt- 1 year follow up MDT BiV PPM) 07/03/2021 Orders Only [facility] [address] [place] [address] Joi Sethi NP Acute on chronic heart failure with preserved ejection fraction (HCC) (Primary Dx); Systolic congestive heart failure, unspecified HF chronicity (HCC) 07/02/2021 Travel 07/02/2021 3:20 PM EDT - 07/02/2021 11:59 PM EDT Hospital Encounter [facility] [address] [place] [address] Chronic systolic congestive heart failure (HCC) Discharge Disposition: Home or Self Care 06/28/2021 Refill [facility] [address] [place] [address] Joi Sethi NP Medication Refill 06/28/2021 Travel 06/28/2021 2:09 PM EDT - 06/28/2021 11:59 PM EDT Hospital Encounter [facility] [address] [place] [address] Rosa Beebe MD Acute on chronic heart failure with preserved ejection fraction (HCC) (Primary Dx); Valvular heart disease; Chronic systolic congestive heart failure (HCC); Systolic congestive heart failure, unspecified HF chronicity (HCC) Discharge Disposition: Home or Self Care 05/22/2021 Telephone [facility] [address] [place] [address] Nae Garcia RMA Referral (CLINICAL LAB CLERK appointment ) 05/22/2021 Travel 05/22/2021 9:12 AM EDT - 05/22/2021 11:59 PM EDT Hospital Encounter [facility] [address] [place] [address] Lety Caldwell APRN Chronic systolic congestive heart failure (HCC); Persistent atrial fibrillation (HCC) Discharge Disposition: Home or Self Care 05/16/2021 Refill [facility] [address] [place] [address] [place] [phone] Alo Lennon MD Medication Refill 05/16/2021 9:00 AM EDT Clinical Support [facility] [address] [place] [phone] Nakita Durant Biventricular cardiac pacemaker in situ (Primary Dx); S/P AV rissa ablation; 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); Chronic systolic congestive heart failure (HCC); NICM (nonischemic cardiomyopathy) (HCC) 05/16/2021 Telephone [facility] [address] [place] [phone] Nakita Durant Other (Carelink transmission ) 05/15/2021 Orders Only [facility] [address] [place] [phone] Alo Lennon MD 03/27/2021 9:00 AM EST Clinical Support [facility] [address] [place] [phone] Nakita Durant Biventricular cardiac pacemaker in situ (Primary Dx); S/P AV rissa ablation; 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); NICM (nonischemic cardiomyopathy) (HCC); Chronic systolic congestive heart failure (HCC); Paroxysmal atrial fibrillation (HCC) 03/01/2021 Telephone [facility] [address] [place] [phone] Alo Lennon MD Other 02/26/2021 Telephone [facility] [address] [place] [phone] Alo Lennon MD Other (shortness of breath ) 02/22/2021 Telephone [facility] [address] [place] [phone] Alo Lennon MD Other 01/29/2021 10:48 AM EST - 01/29/2021 11:59 PM EST Hospital Encounter [facility] 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); Biventricular cardiac pacemaker in situ; Biventricular pacemaker reprogramming 01/29/2021 9:30 AM EST Office Visit [facility] [address] [phone] Lety Caldwell APRN Chronic systolic congestive heart failure (HCC) (Primary Dx); Persistent atrial fibrillation (HCC); SOB (shortness of breath); S/P AV rissa ablation; S/P left atrial appendage ligation; S/P mitral valve replacement with bioprosthetic valve; NICM (nonischemic cardiomyopathy) (HCC) 01/26/2021 Refill [facility] [address] [phone] Lety Caldwell APRN Medication Refill 01/26/2021 Telephone [facility] [address] [phone] Alo Lennon MD Other 01/23/2021 Orders Only [facility] [address] [facility] [address] [place] [phone] Alo Lennon MD 11/23/2020 Telephone [facility] [address] [place] [phone] Parvin Trejo RN Other (Carelink results) 11/23/2020 Travel 11/23/2020 9:00 AM EDT Clinical Support [facility] [address] [place] [address] [place] [phone] Parvin Trejo RN Biventricular cardiac pacemaker in situ (Primary Dx); 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); NICM (nonischemic cardiomyopathy) (HCC); Chronic systolic congestive heart failure (HCC) 11/22/2020 Telephone [facility] [address] [place] [address] [place] [phone] Alo Lennon MD Other 11/22/2020 Telephone [facility] [address] [place] [address] [place] [phone] Alo Lennon MD Other (address concern) 11/09/2020 Telephone [facility] [address] [place] [phone] Parvin Trejo RN Other (carelink not connecting) 06/30/2020 Travel 06/30/2020 2:30 PM EDT Office Visit [facility] [address] [place] [phone] Alo Lennon MD Biventricular cardiac pacemaker in situ (Primary Dx); Biventricular pacemaker reprogramming; 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); NICM (nonischemic cardiomyopathy) ([facility]); Chronic systolic congestive heart failure (HCC); Paroxysmal atrial fibrillation (HCC) 04/07/2020 Orders Only [facility] [address] [place] [phone] Alo Lennon MD 04/07/2020 Telephone [facility] [address] [place] [phone] Alo Lennon MD Other 03/31/2020 Telephone [facility] [address] [place] [phone] Whit Fernández RN Pacemaker Check (Results of Carelink transmission) 03/31/2020 9:00 AM EST Clinical Support [facility] [address] [place] [phone] Whit Fernández, ED NICM (nonischemic cardiomyopathy) (HCC) (Primary Dx); Chronic systolic congestive heart failure (HCC); 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 [address] Alo Lennon MD NICM (nonischemic cardiomyopathy) (HCC); Chronic systolic congestive heart failure (HCC) Discharge Disposition: Home or Self Care 01/25/2020 Travel 01/11/2020 Orders Only [facility] [address] [facility] [address] [place] [phone] Alo Lennon MD 01/11/2020 Telephone [facility] [address] [place] [address] [place] [phone] Parvin Trejo RN Other (carelink alert for 7 sec VT event 01/09); Other (Returning call to [facility]) 12/31/2019 Travel 12/31/2019 2:00 PM EST Office Visit [facility] [address] [facility] [address] [place] [address] Alo Lennon MD Biventricular cardiac pacemaker in situ (Primary Dx); Biventricular pacemaker reprogramming; NICM (nonischemic cardiomyopathy) (HCC); Chronic systolic congestive heart failure (HCC); 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); Paroxysmal atrial fibrillation (HCC) 10/06/2019 Telephone [facility] [address] [facility] [address] [place] [address] Parvin Trejo RN Other (carelink results) 10/06/2019 Travel 10/04/2019 9:00 AM EDT Clinical Support [facility] [address] [place] [address] [address] [place] [phone] Parvin Trejo RN Chronic systolic congestive heart failure (HCC) (Primary Dx); NICM (nonischemic cardiomyopathy) (HCC); 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) 08/13/2019 Telephone [facility] [address] [place] [address] [place] [phone] Alo Lennon MD Other (Disconnected monitor ) 07/05/2019 Telephone [facility] [address] [place] [address] [place] [phone] Parvin Trejo RN Other (carelink results) 07/05/2019 3:30 PM EDT Clinical Support [facility] [address] [place] [address] [address] [place] [address] Parvin Trejo RN NICM (nonischemic cardiomyopathy) (HCC) (Primary Dx); Chronic systolic congestive heart failure (HCC); 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) 07/05/2019 Travel 04/05/2019 Telephone [facility] [address] [place] [address] [place] [phone] Parvin Trejo RN Other (carelink results) 04/05/2019 11:00 AM EST Clinical Support [facility] [address] [place] [address] [address] [place] [address] Parvin Trejo RN NICM (nonischemic cardiomyopathy) (HCC) (Primary Dx); Chronic systolic congestive heart failure (HCC); S/P AV rissa ablation 04/05/2019 Travel 03/31/2019 Telephone [facility] [address] [place] [address] [place] [phone] Whit Fernández RN Other (Carelink not connecting, missed transmission) 12/25/2018 2:00 PM EDT Office Visit [facility] [address] [facility] [address] [place] [address] Alo Lennon MD Cardiac pacemaker in situ (Primary Dx); Pacemaker reprogramming/check; NICM (nonischemic cardiomyopathy) (HCC); S/P AV rissa ablation 08/07/2018 3:30 PM EDT Office Visit [facility] [address] [facility] [address] [place] [address] Alo Lennon MD Cardiac pacemaker in situ (Primary Dx); Pacemaker reprogramming/check 03/26/2018 11:00 AM EST Office Visit [facility] [address] [phone] Parvin Trejo RN NICM (nonischemic cardiomyopathy) (HCC) (Primary Dx); Chronic systolic congestive heart failure (HCC); Atrial fibrillation with RVR (HCC); S/P AV rissa ablation; Status post biventricular pacemaker; Biventricular pacemaker reprogramming 03/17/2018 Telephone [facility] [address] [phone] Alo Lennon MD Other 03/13/2018 Telephone [facility] [address] [place] [phone] Alo Lennon MD Other 03/11/2018 1:06 PM EST - 03/13/2018 2:45 PM EST Hospital Encounter EDG 6D TCU [facility] [address] [place] [id number] Karl Wilkes MD Goetz, Kevin R, MD Connelly, Kevin D, MD Chronic systolic congestive heart failure (HCC) (Primary Dx); Chest pain, unspecified type; Shortness of breath; Atrial fibrillation, unspecified type (HCC); Heart failure (HCC); Heart failure, unspecified HF chronicity, unspecified heart failure type (HCC); Paroxysmal atrial fibrillation (HCC) Discharge Disposition: Home or Self Care 03/12/2018 Orders Only [facility] [address] [phone] Alo Lennon MD 03/12/2018 2:02 PM EST Anesthesia Event EDG MACHINE ERECTOR [facility] [place] [address] Vineet Mims MD 03/12/2018 2:30 PM EST - 03/12/2018 5:40 PM EST Surgery EDG MACHINE ERECTOR [facility] [place] [address] Alo Lennon MD ATRIOVENTRICULAR NODE MODIFICATION WITH BIVENTRICULAR PERMANENT PACEMAKER IMPLANT 03/10/2018 Telephone [facility] [address] [place] [address] [address] [place] [address] Alo Lennon MD Other 03/06/2018 Telephone [facility] [address] [place] [address] [address] [place] [address] Alo Lennon MD Procedure (pre procedure instructions) 03/06/2018 10:30 AM EST Office Visit [facility] [address] [place] [address] [address] [place] [address] Alo Lennon MD Paroxysmal atrial fibrillation (HCC) (Primary Dx) 02/26/2018 Telephone [facility] [address] [place] [address] [address] [place] [address] Cecilia Prajapati, Clerical Staff Cardiac Rehab (Referral) 02/18/2018 Orders Only [facility] [address] [place] [address] Fred Marquez MD Hx of pleural effusion (Primary Dx) 02/18/2018 12:50 PM EST Office Visit [facility] [address] [place] [address] Harjeet Fox APRN S/P mitral valve replacement (Primary Dx); Paroxysmal atrial fibrillation (HCC); S/P left atrial appendage ligation 02/09/2018 [facility] [address] [facility] [facility] [address] [place] [address] Belkys Traore CCMA Medication Question 01/12/2018 2:44 PM EST - 02/09/2018 1:40 PM EST Hospital Encounter [facility] [address] [place] [place] [address] Jeffrey Curtis MD Other constipation (Primary Dx); [...] Prophylactic measure Discharge Disposition: Home Health Care [facility] [place] 01/28/2018 Telephone [facility] IM [address] [place] [address] Willie Addison MD Other (Huseyin from [facility] calling stating would like to set up appt to speak to Dr. Addison) 01/09/2018 4:58 PM EST - 01/12/2018 2:34 PM EST Hospital Encounter [facility]TT TCU [address]SW [address] [place] [place] [address] Jeffrey Curtis MD Paroxysmal atrial fibrillation (HCC); NICM (nonischemic cardiomyopathy) (HCC); Persistent atrial fibrillation (HCC); Persistent atrial fibrillation (HCC) Discharge Disposition: [facility] 01/11/2018 10:00 AM EST - 01/11/2018 11:00 AM EST Surgery FTT CARDIAC MACHINE ERECTOR [address] [facility] [place] [address] Ricardo Rai MD CARDIOVERSION 01/09/2018 3:38 PM EST - 01/09/2018 4:46 PM EST Hospital Encounter [facility] [address] [place] [place] [address] Jeffrey Curtis MD Paroxysmal atrial fibrillation (HCC) (Primary Dx); NICM (nonischemic cardiomyopathy) (HCC) Discharge Disposition: Admitted as an Inpatient 11/28/2017 11:49 AM EDT - 01/09/2018 3:00 PM EST Hospital Encounter EDG 5D TCU [facility] [place] [address] Angeline Lim MD Yates, Jeffrey L, MD Schmelzer, Victor, MD Near syncope (Primary Dx); Chronic atrial fibrillation (HCC); Atrial fibrillation, unspecified type (HCC); Arrhythmia; Other cardiac arrhythmia; Mitral valve disorder; Chest pain; Non-rheumatic mitral regurgitation; Paroxysmal atrial fibrillation (HCC); Paroxysmal atrial fibrillation (HCC); Sternal wound dehiscence, initial encounter; Hemoptysis Discharge Disposition: [facility] 01/01/2018 11:30 AM EST - 01/01/2018 12:30 PM EST Surgery EDG MACHINE ERECTOR [facility] [place] [address] Alo Lennon MD CARDIOVERSION 01/01/2018 11:00 AM EST Anesthesia Event EDG MACHINE ERECTOR [facility] [place] [address] Vineet Mims MD Merkle Serey, Jennifer L, NP 12/18/2017 9:24 PM EDT Anesthesia Event EDG [facility] [place] [address] Valentina Carrasco MD 12/18/2017 1:00 PM EDT - 12/18/2017 1:40 PM EDT Surgery EDG ENDOSCOPY [facility] [place] [address] Stu Abdi MD BRONCHOSCOPY 12/17/2017 9:52 AM EDT Anesthesia Event EDG PERIOP [facility] [place] [address] Sherif Brown DO Duncan, Andrew P, CRNA 12/17/2017 10:00 AM EDT - 12/17/2017 11:50 AM EDT Surgery EDG [facility] [place] [address] Fred Marquez MD STERNAL DEBRIDEMENT/ANTERIOR CHEST WALL DEBRIDEMENT OR STERNAL WASH OUT 12/14/2017 5:50 PM EDT Anesthesia Event EDG [facility] [place] [address] Robert Olson MD 12/11/2017 2:02 PM EDT Anesthesia Event EDG MACHINE ERECTOR [facility] [address] [place] [address] Bony Valencia MD Merkle Serey, Jennifer L, NP 12/11/2017 1:35 PM EDT - 12/11/2017 2:05 PM EDT Surgery EDG MACHINE ERECTOR [facility] [place] [facility] Alo Lennon MD CARDIOVERSION 12/05/2017 11:04 PM EDT Anesthesia Event EDG [facility] [place] [address] Jose Ramon Bains MD Corriveau, Matthew M, MD 12/05/2017 10:35 PM EDT - 12/06/2017 12:45 AM EDT Surgery EDG [facility] [address] [place] [address] Fred Marquez MD OPEN HEART POST OP BLEED 12/05/2017 7:15 AM EDT - 12/05/2017 12:15 PM EDT Surgery EDG [facility] [address] [place] [facility] Fred Marquez MD MITRAL VALVE REPAIR OR REPLACEMENT 12/05/2017 7:55 AM EDT [facility] [place] [address] Fabián Harris MD Braxton-Brown, Jennifer, APRN 12/04/2017 Orders Only [facility] Cardiac Surgeons [address] [place] [address] Fred Marquez MD Atrial fibrillation, unspecified type (HCC) (Primary Dx); Non-rheumatic mitral regurgitation 12/01/2017 3:15 PM EDT - 12/01/2017 4:15 PM EDT Surgery EDG MACHINE ERECTOR [facility] [place] [address] Yolette Davis MD CORONARY ANGIOGRAM / CARDIAC CATHETERIZATION 12/01/2017 11:34 AM EDT Anesthesia Event EDG MACHINE ERECTOR [facility] [address] [place] [phone] Jose Ramon Bains MD Stone, Dyshera Lee, CRNA 12/01/2017 11:30 AM EDT - 12/01/2017 12:10 PM EDT Surgery EDG MACHINE ERECTOR [facility] [place] [address] Alo Lennon MD TRANSESOPHAGEAL ECHOCARDIOGRAM/CARDIOVE RSION 11/30/2017 11:59 PM EDT Anesthesia Event EDG MACHINE ERECTOR [facility] [place] [address] Demetrius Cobos MD 11/28/2017 11:00 AM EDT Office Visit [facility] [address] [facility] [address] [place] [address] Alo Lennon MD Atrial fibrillation, unspecified type (HCC) 11/27/2017 Abstract [facility] [address] [facility] [address] [place] [address] Alo Lennon MD 03/31/1995 5:24 AM EST [...] s:Systolic congestive heart failure, unspecified HF chronicity (HCC) Take 1 Tablet by mouth as needed (take for weight gain of 2-3 lbs overnight or > 5 lbs in one week). 30 Tablet 1 2 Active spironolactone (ALDACTONE) 25 mg Oral Tablet Take 1 Tablet by mouth every other day. 45 Tablet 3 4 Active metoprolol succinate (TOPROL-XL) 25 mg Oral Tablet Sustained Release 24 hr Take 1 Tablet by mouth 2 times daily. 180 Tablet 3 4 Active ibuprofen (ADVIL;MOTRIN) 100 mg/5 mL Oral Suspension Take 10 mg/kg by mouth 2 times daily. Active empagliflozin (JARDIANCE) 10 mg Oral Tablet Take 1 Tablet by mouth daily. 90 Tablet 3 5 Active rOPINIRole (REQUIP) 0.25 mg Oral Tablet Take 0.25 mg by mouth nightly. 5 Active losartan (COZAAR) 25 mg Oral Tablet Take 0.5 Tablets by mouth daily. 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 Lennon Biventricular cardiac pacemaker in situ 03/12/19 Overview (03/12/2018): S/P Medtronic BiV PPM by Dr. Lennon on 03/12/18 Benign prostatic hyperplasia with urinary freque ncy 02/01/2018 RLS (restless legs syndrome) 02/01/2018 Hypokalemia 01/18/2018 Debility 01/17/2018 Loculated pleural effusion 01/16/2018 NICM (nonischemic cardiomyopathy) 11/28/2017 Hypotension due to drugs 11/28/2017 Essential hypertension 11/28/2017 Paroxysmal atrial fibrillation 11/28/2017 Overview (12/11/2017): Added automatically from request for surgery [id number] Chronic systolic congestive heart failure Non-rheumatic mitral regurgitation Confusion S/P mitral valve replacement with bioprosthetic valve S/P left atrial appendage ligation Acute respiratory failure with hypoxia Mediastinal abscess Bilateral pleural effusion Resolved Problems Problem Noted Date Diagnosed Date Resolved Date S/P AV rissa ablation 03/12/20182023 Overview (03/12/2018): S/P AV node ablation by Dr. Lennon on 03/12/18 Heart failure 03/11/2018 07/01/2023 Overview (03/12/2018): Added automatically from request for surgery [id number] Chest pressure 01/11/2018 12/25/2018 Chest pressure 01/09/2018 12/25/2018 Persistent atrial fibrillation 01/09/2018 09/13/2024 Overview (01/10/2018): Added automatically from request for surgery [id number] Respiratory failure, post-operative 12/18/2017 09/13/2024 Hemoptysis 12/18/2017 09/13/2024 Arrhythmia 11/28/2017 12/25/2018 Overview (12/01/2017): Added automatically from request for surgery [id number] Chest pain, precordial 11/28/201712/25 Overview (12/01/2017): Added automatically from request for surgery [id number] Leukocytosis 09/13/2024 Pulmonary infiltrate 025 Pneumothorax on left 025 Fever in adult 12/25/2018 Pleural effusion 09/13/2024 Rapid atrial fibrillation Cellulitis of chest wall SOB (shortness of breath) S/P mitral valve replacement 12/25/2018 Atrial fibrillation with RVR 07/01/2023 Immunizations Immunization Administration Dates Next Due Influenza Vaccine Quadrivalent PF 11/29/2017 PPD Test 01/26/2018,01/12/2018 Pneumococcal Polysaccharide 23 Valent 01/24/2018 Social History Smoking Status as of 10/18/2024 Tobacco Use Types Packs/Day Years Used Date [...] Pulse 85 09/13/2024 11:24 AM EDT Temperature 36.3 C (97.4 F) 06/30/2020 2:35 PM EDT Respiratory Rate 18 03/13/2018 11:06 AM EST Oxygen Saturation 97% 09/13/2024 11:24 AM EDT Inhaled Oxygen Concentration - - Weight 88.2 kg (194 lb 8 oz) 09/13/2024 11:24 AM EDT Height 182.9 cm (6') 09/13/2024 10:40 AM EDT Body Mass Index 26.38 09/13/2024 10:40 AM EDT Plan of Treatment Upcoming Encounters Date Type Department Care Team (Late st Contact Info) Description 10/20/2024 9:30 AM EDT Appointment [facility] [address] [place] [address] Luana Cooper NP [address] [place] [address] [place] [phone] 11/01/2024 11:00 AM EDT Appointment [facility] [address] [place] [address] [address] [place] [address] Rosa Beebe MD [address] [place] [address] 09/13/2025 10:30 AM EDT Office Visit [facility] [address] [place] [address] [address] [place] [address] 09/13/2025 11:00 AM EDT Office Visit [facility] [address] [place] [address] [address] [place] [address] Alo Lennon MD [address] [place] [address] [place] [address] Medical Devices Implanted Type Area Brick Layer Device Identifier Shelf Expiration Date Model / Serial / Lot Lead Pacing Implantable Capsurefix Novus 58cm Atrial/Ventric - [id number] Implanted:Qty: 1 on 03/12/2018 by Alo Lennon MD at [facility] Lead [employer]:EMY King SYS 5076-58 / [id number] / Lead Attain Performa 88cm 4298 - [id number] Implanted:Qty: 1 on 03/12/2018 by Alo Lennon MD at [facility] Lead [employer]:EMY King SYS [id number] / [id number] / Lead Pacing Implantable Capsurefix Novus 52cm Atrial/Ventric - [id number] Implanted:Qty: 1 on 03/12/2018 by Alo Lennon MD at [facility] Lead [employer]:EMY King SYS 5076-52 / [id number] / Device - Percepta Mri Quad Pediatric Physical Therapy Assistant-P - [id number] Implanted:Qty: 1 on 03/12/2018 by Alo Lennon MD at [facility] Pacemaker [employer] [id number] / [id number] / Bioprosthesis Valve Mitral Pericardial Plus Perimount Wilks 31mm - [id number] Implanted:Qty: 1 on 12/05/2017 by Fred Marquez MD at [facility] N/A: Heart WILKS [employer]IF[employer]CI 2018 6900P-31 / [id number] / Procedures Procedure Name Priority Date/Time Associated Diagnosis Comments TN REM INTERROG ICPMS <30 D PHYS/QHP Routine 10/13/2024 12:00 AM EDT Vector Remote Device PACEART REPORT Routine 09/13/2024 2:02 PM EDT TN REM INTERROG ICPMS <30 D PHYS/QHP Routine 09/12/2024 12:00 AM EDT Vector Remote Device VECTOR REMOTE DEVICE Routine 09/11/2024 12:00 AM EDT Vector Remote Device TN REM INTERROG ICPMS <30 D PHYS/QHP Routine 08/12/2024 12:00 AM EDT Vector Remote Device TN REM INTERROG PM/LDLS PM <90 D PHYS/QHP Routine 08/11/2024 12:00 AM EDT Vector Remote Device TN REM INTERROG ICPMS <30 D PHYS/QHP Routine [...] 06/21/2024 12:00 AM EDT Vector Remote Device TN REM INTERROG ICPMS <30 D PHYS/QHP Routine 06/11/2024 12:00 AM EDT Vector Remote Device VECTOR REMOTE DEVICE Routine 05/28/2024 12:00 AM EDT Vector Remote Device TN REM INTERROG ICPMS <30 D PHYS/QHP Routine 05/10/2024 12:00 AM EDT Vector Remote Device TN REM INTERROG PM/LDLS PM <90 D PHYS/QHP Routine 05/09/2024 12:00 AM EDT Vector Remote Device TN REM INTERROG ICPMS <30 D PHYS/QHP Routine 04/09/2024 12:00 AM EST Vector Remote Device VECTOR REMOTE DEVICE Routine 04/08/2024 12:00 AM EST Vector Remote Device TN REM INTERROG ICPMS <30 D PHYS/QHP Routine 03/09/2024 12:00 AM EST Vector Remote Device VECTOR REMOTE DEVICE Routine 03/08/2024 12:00 AM EST Vector Remote Device TN REM INTERROG ICPMS <30 D PHYS/QHP Routine 02/07/2024 12:00 AM EST Vector Remote Device TN REM INTERROG PM/LDLS PM <90 D PHYS/QHP Routine 02/06/2024 12:00 AM EST Vector Remote Device PACEART REPORT Routine 09/09/2023 4:40 PM EDT TN REM INTERROG ICPMS <30 D PHYS/QHP Routine 09/02/2023 12:00 AM EDT Vector Remote Device TN REM INTERROG PM/LDLS PM <90 D PHYS/QHP [...] 12:52 PM EDT NICM (nonischemic cardiomyopathy) (HCC) TN REM INTERROG PM/LDLS PM <90 D PHYS/QHP Routine 08/28/2022 12:00 AM EDT Vector Remote Device TN REM INTERROG PM/LDLS PM <90 D PHYS/QHP [...] (HCC) SCANNED EKG 08/20/2021 11:39 AM EDT TN REM INTERROG PM/LDLS PM <90 D PHYS/QHP [...] Provider: No primary care provider on file. Locksmith Helper: Edgar Anthony Chief Complaint: chest pain Reason for Consult: [...] with anassociated would dehis. 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 [...] lavage ; Surgeon: Stu Abdi MD; Location: [facility] ENDOSCOPY; Service:Endoscopy CARDIAC SURGERY N/A 12/05/2017 reopen sternotomy,control of bleeding; Surgeon: Fred Marquez MD;Location: [facility] MAIN OR; Service: Open Heart CARDIOVERSION 12/01/2017 [...] -net I & O -2.3L -on metoprolol FLIGHT PHYSICIAN, but no diuretics S/P PPM 03/12/17 -AVN ablation, BiV PPM per Dr. Saji MENENDEZ -mild ds per cath 11/2017 -on ASA, metoprolol FLIGHT PHYSICIAN S/P MVR -bioprosthetic 11/2017 -had sternal wound dehis post op requiring chest wall debridement andsternal re-wire -well seated valve per echo 12/2017 Atrial fib -s/p DCCV, MAZE and NOY ligation 11/2017 -h/o amio toxicity -sotalol previous d/c'd 2/2 prolonged QT -on eliquis, metoprolol FLIGHT PHYSICIAN NICM -EF 45-50% -on metoprolol FLIGHT PHYSICIAN H/O NSVT -on metoprolol FLIGHT PHYSICIAN HTN -on metoprolol FLIGHT PHYSICIAN Dementia Plan: -SOB patient was having likely to fluid overload. Has had good UOP withdose of IV lasix. SOB has almost completely resolved. Not on any diureticsprior to admission -Will start lasix po daily -Recent echos have been limited. Last complete echo 11/2017. Will deferneed to repeat to director supply -Continue eliquis, ASA, metoprolol -EP following s/p BiV PPM Further input to follow-up from Dr. Rad Puente, ROLLER HELPER 03/13/2018 Cardiology: ATTENDING PHYSICIAN ATTESTATION: The patient [...] Thanks for consult follow-up with his own director supply in 3-4 weeks XR CHEST AP PORTABLE [...] in progress. ADMISSION: 03/12/2018 PATIENT: Brandon Rios [id number] PCP: No primary care provider on file. Electrophysiology Consultation I would like to thank Maxi Dyer MD for requesting me to see yourpatient, Brandon Rios in consultation for AF with RVR. Mr. Rios is a 82 yo male with history of persistent AF- Dx 2003, S/Pseveral DCCV- 2 post surgery, severe MR, [...] fibrillation (HCC) 11/28/2017 CHF (congestive heart failure) ([facility]) NICM (nonischemic cardiomyopathy) ([facility]) 11/28/2017 Medication No current facility-administered medications on [...] : 6 mmHg Right Heart Right Heart [place] catheter inserted via the right femoral vein [...] will be evaluated by cardiothoracic surgery. Last [id number] Score Documented Value Time User [id number] - CALCULATED SCORE 3 03/12/2018 10:46 AM Brian Lagos APRN The most recent cardiovascular imaging studies available in [facility] EMR werereviewed at time of consultation [...] patient was seen in collaboration with the [facility]. I have reviewed all the pertinent history, ROS, laboratory and radiologystudies. I have taken a history and performed a physical examination of thispatient. I agree with the history, physical, assessment and plan as outlinedabove. HPI: Mr. Rios is an 82 yo man well known to me. Last week I increased hismetoprolol for RVR. He continued to have SOB/CARRASCO and presented to [facility]. Continues to be in rapid ventricular [...] 10:23 AM EST Persistent atrial fibrillation (HCC) MACHINE ERECTOR HEMODYNAMIC WAVEFORMS Routine 01/11/2018 10:13 AM EST [...] fibrillation (HCC) 11/28/2017 CHF (congestive heart failure) ([facility]) NICM (nonischemic cardiomyopathy) ([facility]) 11/28/2017 Medications No current facility-administered medications on [...] INSERTION EQUAL OR > 5 YEARS 12/24/2017 June LakeLeila walden PA-C [facility] IR ULTRASOUND GUIDED VASCULAR ACCESS [...] is rapid and irregulalry irregular. S1 and [id number]. N0 murmur. Pulses are normal. Jugular venous [...] 01/09/2018 5:55 PM EST Procedure Note - Ricardo Rai MD - 01/10/2018 9:46 AM ESTThis note is in progress. Cardiology Consultation Admission: 01/10/2018 Patient: Brandon Rios [id number] PCP:No primary care provider on file. Locksmith Helper: Valentina Angelo MD - [place], [place] Presents with chest pain Cardiology consulted [...] fibrillation (HCC) 11/28/2017 CHF (congestive heart failure) ([facility]) NICM (nonischemic cardiomyopathy) ([facility]) 11/28/2017 Medication No current facility-administered medications on [...] Location: Left arm, Patient Position: Semi Fowlers) [id number] Temp 97.5 F (36.4 C) (Oral) Resp [...] follow. Stationary ECG StudyStViridiana PrajapatiInterpretive StatementsATRIAL FIBRILLATION WITH RAPID VENTRICULAR RESPONSE [...] most recent cardiovascular imaging studies availabe in [facility] EMR werereviewed at time of consultation [...] 01/09/2018 5:53 PM EST Procedure Note - iRcardo Rai MD - 01/10/2018 9:46 AM GREGORYThis note is in progress. Cardiology Consultation Admission: 01/10/2018 Patient: Brandon Rios [id number] PCP:No primary care provider on file. Locksmith Helper: Valentina Angelo MD - [place], [place] Presents with chest pain Cardiology consulted [...] at bedside with bronchoaveolar lavage ; Surgeon: Sut Abdi MD; Location: [facility] ENDOSCOPY; Service:Endoscopy CARDIAC SURGERY N/A 12/05/2017 reopen [...] Location: Left arm, Patient Position: Semi Fowlers) [id number] Temp 97.5 F (36.4 C) (Oral) Resp [...] most recent cardiovascular imaging studies availabe in [facility] EMR werereviewed at time of consultation [...] Pt seen and examined. Full note Dictated. #[id number] 82yo WM with confusion. Evaluated by Dr. [...] LAB Routine 12/18/2017 1:19 PM EDT Hemoptysis NON-DIRECTOR POST CYTOLOGY REQUEST Routine 12/18/2017 1:19 PM EDT [...] 12/01/2017 4:25 PM EDT Mitral valve disorder MACHINE ERECTOR HEMODYNAMIC WAVEFORMS Routine 12/01/2017 3:36 PM EDT [...] HEART FAILURE DEVICE (10/13/2024 12:00 AM EDT) Only the most recent of10 resultswithin the time period is included. 10/13/2024 Narrative [facility] - 10/13/2024 12:00 AM EDT Possible Fluid Accumulation. Possible OptiVol fluid accumulation: 03-Sep-2024 -- ongoing.. Addendum: pls see [facility] encouter. [place] us Alo Lennon MD [facility] CARDIAC CATH ORDERAB LES Final Result [facility] [address] [place], [place] [id number] * PACEART REPORT (09/13/2024 2:02 PM EDT) Only the most recent of20 resultswithin the time period is included. 09/13/2024 2:02 PM EDT Narrative [facility] - 09/13/2024 10:48 AM EDT Brandon Rios is here for an annual visit. MDT BiV PPM 03/12/2018. See MD clinic visit note and attached PDF report. JAMES Harris Alo Lennon MD [facility] CARDIAC CATH ORDERAB LES Final Result Performing Organization Address [facility] Co de Phone Number [facility] [address] [place] [address] * VECTOR REMOTE DEVICE (09/11/2024 12:00 AM EDT) Only the most recent of15 resultswithin the time period is included. 09/11/2024 Narrative [facility] - 09/11/2024 12:00 AM EDT Monitored VT/NSVT: 8 longest 9.4s on 08/27/24. V. Sensing Episodes: 11, longest 22s. Pt with history of NOY procedure. Mode: VVIR. NECK PINNER: 99.5%. Effective BiVP: 99.5%. Normal device function. Battery Advisory. ADDENDUM: Pt not called. Events occurred last month. Will continue to monitor--kls Alo Lennon MD [facility] CARDIAC CATH ORDERAB LES Final Result Performing Organization Address [facility] de Phone Number [facility] [address] [place] [address] * (ABNORMAL) CBC (06/25/2024 11:59 AM EDT) [...] 06/25/2024 11:59 AM EDT us Luana Cooper CLINICAL LAB CLERK HEMATOLOGY ORDERABLES Final Res ult [facility] [address] [facility] , [place] [address] * (ABNORMAL) BASIC METABOLIC PANEL (06/25/2024 11:59 AM EDT) Only the most recent of48 resultswithin the time period is included. Sodium 140 136 - 145 mmol/L 06/25/2024 8:06 PM EDT [facility] Potassium 4.6 3.5 - 5.0 mmol/L 06/25/2024 8:06 PM EDT [facility] Chloride 105 98 - 107 mmol/L 06/25/2024 8:06 PM EDT [facility] Total CO2 24 22 - 29 mmol/L [...] - 23 mg/dL 06/25/2024 8:06 PM EDT [facility] [employer] [facility] Creatinine 1.23 0.67 - 1.30 mg/dL 06/25/2024 8:06 PM EDT [facility] [employer] [facility] eGFR (CKD-EPIcr 2020) 57(L) >=60 mL/min/1.7 3 m2 06/25/2024 8:06 PM EDT [facility] [employer] [facility] Comment:Estimated GFR was ca lculated using the CKD-EPIcr (2020) equation refit without race. The equation is recommended by the National Kidney Foundation - [place] Society of Nephrology Task Force. Blood VENOUS BLOOD / Unknown Venipuncture / Unknown 06/25/2024 11:59 AM EDT 06/25/2024 11:59 AM EDT us Luana Cooper NP CHEMISTRY ORDERABLES Final Resu lt [facility] [employer] [facility] [address] [facility] , [place] [address] * SCANNED EKG (08/20/2021 11:39 AM EDT) Only the most recent of3 resultswithin the time period is included. Anatomical Region Laterality Modality Other 08/20/2021 11:3 9 AM EDT us Unknown Provider IMG ECG ORDERABLES Final Result * (ABNORMAL) MAGNESIUM LEVEL (08/17/2021 1:04 PM EDT) Only the most recent of18 resultswithin the time period is included. Magnesium 2.8(H) 1.6 - 2.4 mg/dL 08/17/2021 2:31 PM EDT [facility] [employer] [facility] Blood VENOUS BLOOD / Unknown Venipuncture / Unknown 08/17/2021 1:04 PM EDT 08/17/2021 1:04 PM EDT us Alo Lennon MD CHEMISTRY ORDERABLES Fin al Result [facility] [address] [facility] , [address] [place], [place] [id number] * EC ECHOCARDIOGRAM COMPLETE W DOPPLER AND [...] period is included. 03/01/2021 1:47 PM EST Unknown Provider HEMATOLOGY ORDERABLES Final Res ult * (ABNORMAL) NT PROBNP (01/29/2021 10:58 AM EST) Only the most recent of3 resultswithin the time period is included. NT Pro-BNP 926(H) <=852 pg/mL 01/29/2021 12:11 PM EST [facility] Blood VENOUS BLOOD / Unknown Venipuncture / Unknown 01/29/2021 10:58 AM EST 01/29/2021 10:59 AM EST Narrative [facility] - 01/29/2021 12:11 PM EST An NT pro-BNP level less than 300 pg/mL in any patient, regardless of age, effectively rules out acute CHF with a 99% negative predictive value. Ingestion of paz doses of biotin (>5 mg/day) taken within 8 hours of drawing blood sample can interfere with this immunoassay test. us Lety Paulette ROLLER HELPER CHEMISTRY ORDERABLES Final Res ult Performing Organization Address [facility] de Phone Number [facility] [address] [place] [address], [address] [place] [phone] * CARDIAC INTERROGATION DEVICE (03/14/2018 4:23 PM EST) Anatomical Region Laterality Modality Other 03/14/2018 4:23 PM EST us Unknown Unknown IMG ECG ORDERABLES Final Result * ECG AND WAVEFORMS - TELEMETRY (03/13/2018 7:43 AM EST) Only the most recent of95 resultswithin the time period is included. Pathologist [facility] ECG INTERPRET Ventricular Paced [facility] TESTER EQUIPMENT APPROVED Yes [facility] 03/13/2018 7:43 AM EST Narrative [facility] - 03/13/2018 8:33 AM EST See Clinical Report link for waveform capture us Unknown Provider POINT OF CARE CARDIOLOGY Final Result Performing Organization Address [facility] de Phone Number [facility] [address] [place], [place] [id number] * (ABNORMAL) CBC WITH DIFF (03/13/2018 6:31 AM EST) Only the most recent of32 resultswithin the time period is included. WBC 11.6(H) 3.7 - 10.3 x10(3)/mcL 03/13/2018 6:47 AM EST [facility] RBC 4.76 4.60 - 6.10 x10(6)/mcL 03/13/2018 6:47 AM EST [facility] Hgb 13.1(L) 13.7 - 17.5 g/dL 03/13/2018 6:47 AM EST [facility] Hct 42.3 40.0 - 51.0 % 03/13/2018 6:47 AM EST [facility] MCV 88.9 79.0 - 98.0 fL 03/13/2018 6:47 AM EST [facility] MCH 27.5 26.0 - 32.0 pg 03/13/2018 6:47 AM EST [facility] MCHC 31.0 30.7 - 35.5 g/dL 03/13/2018 6:47 AM EST [facility] RDW 14.6 <=14.9 % 03/13/2018 6:47 AM EST [facility] Platelet 171 155 - 369 x10(3)/mcL 03/13/2018 6:47 AM EST [facility] MPV 11.9 8.8 - 12.5 fL 03/13/2018 6:47 AM EST [facility] Neut Percent 92.1 % 03/13/2018 6:47 AM EST [facility] Comment:Neutrophils equals s egs plus bands Imm Gran% 0.6 % 03/13/2018 6:47 AM EST [facility] Comment:Automated count of m etamyelocytes, myelocytes and promyelocytes. Lymph Percent 2.6 % 03/13/2018 6:47 AM EST [facility] [place] Percent 4.0 % 03/13/2018 6:47 AM EST [facility] Eos Percent 0.5 % 03/13/2018 6:47 AM EST [facility] Baso Percent 0.2 % 03/13/2018 6:47 AM EST [facility] Neut # 10.7(H) 1.6 - 6.1 x10(3)/mcL 03/13/2018 6:47 AM EST [facility] Comment:Neutrophils equals s egs plus bands IMMGRAN# 0.1 0.0 - 0.1 x10(3)/mcL 03/13/2018 6:47 AM EST [facility] Comment:Automated count of m etamyelocytes, myelocytes and promyelocytes. An absolute IG <0.1 is reported as 0.0. Lymph # 0.3(L) 1.2 - 3.9 x10(3)/mcL 03/13/2018 6:47 AM EST [facility] [place] # 0.5 0.3 - 0.9 x10(3)/mcL 03/13/2018 6:47 AM EST [facility] [employer] Eos# 0.1 0.0 - 0.5 x10(3)/mcL 03/13/2018 6:47 AM EST [facility] [employer] [employer] Baso # 0.0 0.0 - 0.1 x10(3)/mcL 03/13/2018 6:47 AM EST [facility] [employer] [facility] Blood Venipuncture / Unknown 03/13/2018 6:31 AM EST 03/13/2018 6:37 AM EST us Maxi Dyer MD HEMATOLOGY ORDERABLES Final Result [facility] [address] [facility] , [place] [address] * XR CHEST AP PORTABLE (03/12/2018 4:30 [...] Progress films advised. Code jot. Stat call. Narrative 03/12/2018 4:58 PM EST [...] Progress films advised. Code jot. Stat call. Alo Lennon MD IMG DIAGNOSTIC IMAGING O RDERABLES Final Result * INTRAOP AIRWAY PLACEMENT (03/12/2018 4:06 PM EST) Narrative [facility] - 03/12/2018 4:06 PM EST Bony Raman CRNA 03/12/2018 4:06 PM Intraop Airway Placement: Airway type: Nasal cannula salter Procedure Note Bony Raman CRNA - 03/12/2018 4:06 PM EST Intraop Airway Placement: Airway type: Nasal cannula salter Vineet Mims MD [place] ANESTHESIA Final Result [facility] [address] [place] [address] * AV NODE MODIFICATION WITH BIVENTRICULAR PERMANENT PACEMAKER (03/12/2018 3:58 PM EST) Narrative [facility] - 03/25/2018 1:08 PM EST Successful biventricular pacemaker placement Permanent atrial fibrillation 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 Phosphorus 4.1 2.5 - 4.5 mg/dL 03/12/2018 8:32 AM EST [facility] Blood VENOUS BLOOD / Unknown Venipuncture / Unknown 03/12/2018 7:21 AM EST 03/12/2018 7:53 AM EST Maxi Dyer MD CHEMISTRY ORDERABLES Final R esult Performing Organization Address [facility] de Phone Number [facility] [address] [facility], [place] [address] * TROPONIN-T HIGH SENSITIVITY (03/11/2018 7:32 PM EST) Only the most recent of9 resultswithin the time period is included. [id number] 18 <22 ng/L 03/11/2018 8:04 PM EST [facility] Comment: See the website below for rule out [place] care pathway, conditions other than AMI that can cause elevated hs cTnT, and comparison of values from the 4th and 5th generation Suha tests. https://askmayoexpert.[facility].org/topic/clinical-answers/[email or web address]/[email or web address] 47231 Blood VENOUS BLOOD / Unknown Venipuncture / Unknown 03/11/2018 7:32 PM EST 03/11/2018 7:40 PM EST Narrative [facility] - 03/11/2018 8:04 PM EST Ingestion of paz doses of biotin (>5 mg/day) taken within 8 hours of drawing blood sample can interfere with this immunoassay test. Karl Wilkes MD CHEMISTRY ORDERABLES Final Resul t Performing Organization Address [facility]/ZIP Co de Phone Number [facility] [address] [place] [address] * XR CHEST PA AND LATERAL (03/11/2018 [...] post median sternotomy and mitral valve replacement. monitor worker device projects over the medial aspect of [...] Status post median sternotomyand mitral valve replacement. monitor worker device projects over the medialaspect of the [...] 03/11/2018 8:51 PM EST Stationary ECG Study [place] Interpretive Statements ATRIAL FIBRILLATION WITH RAPID VENTRICULAR RESPONSE POSSIBLE ANTERIOR MYOCARDIAL INFARCTION, OF INDETERMINATE AGE Electronically Signed On 03-11-2018 20:51:05 EST by Ray Davis MD Narrative Procedure Note Ray Davis MD - 03/11/2018 IMPRESSION Stationary ECG Study [place] Interpretive Statements ATRIAL FIBRILLATION WITH RAPID VENTRICULAR [...] - 20 mm/hr 02/03/2018 6:59 AM EST [facility] Blood VENOUS BLOOD / Unknown Venipuncture / Unknown 02/03/2018 6:01 AM EST 02/03/2018 6:15 AM EST Willie Addison MD HEMATOLOGY ORDERABLES F inal Result Performing Organization Address City/[facility]/ZIP Co de Phone Number [facility] [address] [place] [address] * C-REACTIVE PROTEIN (02/03/2018 6:01 AM EST) Only the most recent of6 resultswithin the time period is included. CRP 3.09 <=5.00 mg/L 02/03/2018 7:55 AM EST [facility] Blood Venipuncture / Unknown 02/03/2018 6:01 AM EST 02/03/2018 6:15 AM EST Willie Addison MD CHEMISTRY ORDERABLES Fi nal Result Performing Organization Address City/[facility]/ZIP Co de Phone Number [facility] [address] [place] [address], [place] [address] * (ABNORMAL) COMPREHENSIVE METABOLIC PANEL (02/03/2018 6:01 AM EST) Only the most recent of12 resultswithin the time period is included. Sodium 139 136 - 145 mmol/L 02/03/2018 6:34 AM EST [facility] Potassium 4.9 3.5 - 5.0 mmol/L 02/03/2018 6:34 AM EST [facility] Chloride 103 98 - 107 mmol/L 02/03/2018 6:34 AM EST [facility] Total CO2 25 22 - 29 mmol/L 02/03/2018 6:34 AM EST [facility] Anion Gap 11 7 - 16 mmol/L 02/03/2018 6:34 AM EST [facility] Calcium 9.5 8.8 - 10.2 mg/dL 02/03/2018 6:34 AM EST [facility] Glucose Lvl 118(H) 82 - 100 mg/dL 02/03/2018 6:34 AM EST [facility] BUN 18 8 - 23 mg/dL 02/03/2018 6:34 AM EST [facility] Creatinine 1.02 0.67 - 1.30 mg/dL 02/03/2018 6:34 AM EST [facility] Albumin 3.4 3.2 - 4.6 gm/dL 02/03/2018 6:[address] [facility] Total Protein 6.7 6.4 - 8.3 gm/dL 02/03/2018 6:34 AM EST [facility] Bili Total 0.4 0.1 - 1.4 mg/dL 02/03/2018 6:34 AM EST [facility] ALT 11 <=41 IU/L 02/03/2018 6:34 AM EST [facility] AST 14 <=40 IU/L 02/03/2018 6:[address] [facility] Alk Phos 114 40 - 129 IU/L 02/03/2018 6:34 AM EST [facility] GFR Afr Am 80 >=60 mL/min/1.7 3 m2 02/03/2018 6:[address] [facility] GFR Non Afr Am 69 >=60 mL/min/1.7 3 m2 02/03/2018 6:[address] [facility] Comment: This estimated GFR [...] Addison MD CHEMISTRY ORDERABLES Fi nal Result [facility] [address] [place] [address] * (ABNORMAL) VITAMIN B12/ FOLIC ACID (02/01/2018 6:21 AM EST) Only the most recent of2 resultswithin the time period is included. Vitamin B12 512 211 - 946 pg/mL 02/01/2018 11:22 AM EST [facility] Folate >16.00(H) 4.50 - 16.00 ng/mL 02/01/2018 11:22 AM EST [facility] Blood VENOUS BLOOD / Unknown Venipuncture / Unknown 02/01/2018 6:21 AM EST 02/01/2018 6:34 AM EST Narrative [facility] - 02/01/2018 11:22 AM EST Ingestion of paz doses of biotin (>5 mg/day) taken within 8 hours of drawing blood sample can interfere with this immunoassay test. us Willie Addison MD CHEMISTRY ORDERABLES Fi nal Result [facility] [address] [facility] , [address] [place] [phone] * (ABNORMAL) VITAMIN D 25 HYDROXY (02/01/2018 6:21 AM EST) Vit D 25 OH 24.0(L) 30.0 - 120.0 ng/mL 02/01/2018 12:36 PM EST [facility] Comment: INTERPRETIVE INFORMATION: Vitamin D, 25-Hydroxy <20 [...] Addison MD CHEMISTRY ORDERABLES Fi nal Result [facility] [address] [place] [address] , [address] [place] [id number] * THYROID STIMULATING HORMONE (02/01/2018 6:21 AM EST) Only the most recent of2 resultswithin the time period is included. TSH 1.400 0.270 - 4.200 mcIU/mL 02/01/2018 11:30 AM EST [facility] Blood VENOUS BLOOD / Unknown Venipuncture / Unknown 02/01/2018 6:21 AM EST 02/01/2018 6:33 AM EST Narrative [facility] - 02/01/2018 11:30 AM EST Ingestion of paz doses of biotin (>5 mg/day) taken within 8 hours of drawing blood sample can interfere with this immunoassay test. Willie Addison MD CHEMISTRY ORDERABLES Fi nal Result Performing Organization Address [facility] Number [facility] [address] [place] [address] , [place] [phone] * TESTOSTERONE LEVEL TOTAL (02/01/2018 6:21 AM EST) Testosterone Lvl 329 300 - 720 ng/dL 02/01/2018 11:30 AM EST [facility] Blood VENOUS BLOOD / Unknown Venipuncture / Unknown 02/01/2018 6:21 AM EST 02/01/2018 6:33 AM EST Narrative [facility] - 02/01/2018 11:30 AM EST Values less than 12 ng/dL are not reliable as the intermediate precision coefficient of variation is > 20%. Ingestion of paz doses of biotin (>5 mg/day) taken within 8 hours of drawing blood sample can interfere with this immunoassay test. Willie Addison MD CHEMISTRY ORDERABLES Fi nal Result Performing Organization Address [facility] de Phone Number [facility] [address] , [place] [address] * (ABNORMAL) URINE CULTURE (NO STAIN) (01/30/2018 11:21 PM EST) Only the most recent of4 resultswithin the time period is included. Culture Positive Growth(A) 02/01/2018 11:35 AM EST [facility] Culture 3000 CFU/mL Gram negative rods 02/01/2018 11:35 AM EST [facility] Comment:No further workup. Urine URINE SPECIMEN COLLECTION, CLEAN CATCH / Unknown 01/30/2018 11:21 PM EST 01/30/2018 11:25 PM EST us Jeffrey Curtis MD MICROBIOLOGY - GENERAL ORDERABL ES Final Result [facility] [address] [facility], [place] [address] * CT CHEST WO CONTRAST (01/17/2018 9:34 [...] consolidation atelectasis and/or pneumonia. Kavon Reese MD IMG CT ORDERABLES Final Resul t * EC [...] fraction by visual estimate. Alo Lennon MD IMG ECHO ORDERABLES Haylee l Result * CARDIOVERSION (01/11/2018 10:23 AM EST) Narrative [facility] - 01/11/2018 10:50 AM EST Successful CV of Afib to SR with one 200Joule DC shock. Plan Flecainide per Dr. Lennon. Ricardo Rai MD ELECTROPHYSIOLOGY ORDERABLES Fin al Result Performing Organization Address [facility] Co de Phone Number [facility] * MACHINE ERECTOR HEMODYNAMIC WAVEFORMS (01/11/2018 10:13 AM EST) Only the most recent of2 resultswithin the time period is included. 01/11/2018 10:1 3 AM EST us Ricardo Rai MD CARDIAC CATH ORDERABLES Final Re sult Performing Organization Address [facility] de Phone Number [facility] [address] [place] [phone] * POTASSIUM LEVEL (01/11/2018 4:02 AM EST) Only the most recent of2 resultswithin the time period is included. Potassium 4.1 3.5 - 5.0 mmol/L 01/11/2018 7:13 AM EST [facility] Blood BLOOD SAMPLE TAKEN FROM CENTRAL LINE / Unknown Venipuncture / Unknown 01/11/2018 4:02 AM EST 01/11/2018 6:46 AM EST Ricardo Rai MD CHEMISTRY ORDERABLES Final Resul t Performing Organization Address [facility] Phone Number [facility] [address] [place] [address] * EXTRA GOLD SST (01/09/2018 5:12 PM EST) Blood VENOUS BLOOD / Unknown Venipuncture / Unknown 01/09/2018 5:12 PM EST 01/09/2018 5:34 PM EST us Jeffrey Curtis MD CHEMISTRY ORDERABLES Final Resu lt Performing Organization Address [facility] de Phone Number [facility] [address] [place] [address] * PARTIAL THROMBOPLASTIN TIME (01/09/2018 5:12 PM EST) Only the most recent of11 resultswithin the time period is included. PTT 32.7 26.0 - 36.4 second(s) 01/09/2018 5:54 PM EST [facility] Comment: Therapeutic range for unfractionated [...] ORDERABLES Final Res ult Performing Organization Address [facility] de Phone Number [facility] [address] [place] [address] * (ABNORMAL) PT / INR (01/09/2018 5:12 PM EST) Only the most recent of8 resultswithin the time period is included. PT 13.9(H) 9.7 - 12.5 second(s) 01/09/2018 5:54 PM EST [facility] INR 1.23(H) 0.86 - 1.10 no units 01/09/2018 5:54 PM EST [facility] Comment: Level of Therapy Indications Target INR Range Standard Dose Treatment and prophylaxis of venous 2.0 - 3.0 thrombosis, pulmonary embolism High Dose High risk patients with mechanical 2.5 - 3.5 heart valves Blood VENOUS BLOOD / Unknown 01/09/2018 5:12 PM EST 01/09/2018 5:33 PM EST Jeffrey Curtis MD HEMATOLOGY ORDERABLES Final Res ult Performing Organization Address [facility] de Phone Number [facility] [address] [place] [address] * (ABNORMAL) HEPATIC FUNCTION PANEL (01/09/2018 5:12 PM EST) Only the most recent of4 resultswithin the time period is included. Pathologist [facility] Total Protein 6.2(L) 6.4 - 8.3 gm/dL 01/09/2018 5:59 PM EST [facility] Albumin 3.1(L) 3.2 - 4.6 gm/dL 01/09/2018 5:59 PM EST [facility] Bili Direct <0.2 0.0 - 0.3 mg/dL 01/09/2018 5:59 PM EST [facility] Bili Total 0.4 0.1 - 1.4 mg/dL 01/09/2018 5:59 PM EST [facility] AST 20 <=40 IU/L 01/09/2018 5:59 PM EST [facility] ALT 21 <=41 IU/L 01/09/2018 5:59 PM EST [facility] Alk Phos 136(H) 40 - 129 IU/L 01/09/2018 5:59 PM EST [facility] Blood VENOUS BLOOD / Unknown 01/09/2018 5:12 PM EST 01/09/2018 5:33 PM EST us Jeffrey Curtis MD CHEMISTRY ORDERABLES Final Resu lt [facility] [address] [place] [address] * (ABNORMAL) LIPID SCREEN (01/09/2018 5:12 PM EST) [facility] Cholesterol 167 <=200 mg/dL 01/09/2018 11:49 PM EST [facility] [employer] Comment: < 200 Desirable 200 - 239 Borderline High >= 240 High Triglyceride 72 <=150 mg/dL 01/09/2018 11:49 PM EST [facility] Comment: < 150 Normal 150 - 199 Borderline High 200 - 499 High >= 500 Very High HDL 32(L) >=40 mg/dL 01/09/2018 11:49 PM EST [facility] Comment: > 60 Optimal 40 - 60 Acceptable < 40 Low LDL Calculated 121(H) <=100 mg/dL 01/09/2018 11:49 PM EST [facility] Comment: < 100 Optimal 100 - 129 Near or above optimal 130 - 159 Borderline High 160 - 189 High >= 190 Very High Non-HDL-C Calculated 135(H) <=129 mg/dL 01/09/2018 11:49 PM EST [facility] Comment: <130 Desirable 130-159 Above Desirable 160-189 Borderline High 190-219 High >= 220 Very High Blood VENOUS BLOOD / Unknown 01/09/2018 5:12 PM EST 01/09/2018 5:33 PM EST us Jeffrey Curtis MD CHEMISTRY ORDERABLES Final Resu lt [facility] [address] [facility] , [place] [address] * CT HEAD WO CONTRAST (01/06/2018 11:28 [...] of74 resultswithin the time period is included. [facility] Glucose Meter POC 87 70 - 100 mg/dL 01/02/2018 6:13 PM EST [facility] Sample Type Capillary 01/02/2018 6:13 PM EST [facility] Patient Status Non-Critical Patient 01/02/2018 6:13 PM EST [facility] Blood BLOOD SPECIMEN / Unknown 01/02/2018 6:11 PM EST 01/02/2018 6:13 PM EST us Fred Marquez MD POINT OF CARE TEST ORDERABLE S Final Result Performing Organization Address City/[facility]/[place] [address] * SCANNED RHYTHM STRIPS (01/02/2018 6:58 AM [...] ORDERA BLES Final Result Performing Organization Address City/[facility]/ZIP Co de Phone Number [facility] * INTRAOP AIRWAY PLACEMENT (01/01/2018 11:03 AM EST) Narrative [facility] - 01/01/2018 11:03 AM EST Harjeet Amos CRNA 01/01/2018 11:03 AM Intraop Airway Placement: Airway type: Nasal cannula salter Procedure Note Harjeet Amos, [employer]CI[employer] - 01/01/2018 11:03 AM EST Intraop Airway Placement: Airway type: Nasal cannula salter Vineet Mims MD [place] ANESTHESIA Final Result Performing Organization Address [facility] Co de Phone Number [facility] [address] [place] [address] * [place] MODIFIED BARIUM SWALLOW (12/30/2017 9:51 AM EST) Only the most recent of3 resultswithin the time period is included. Narrative [facility] - 12/30/2017 9:51 AM EST Modified Barium Swallow was performed in the Radiology department by Speech Pathology. No Radiologist in attendance. No charge from [facility]. Refer to Speech Pathology for further information. Fred Marquez MD IMG FLUOROSCOPY ORDERABLES F inal Result Performing Organization Address [facility] de Phone Number [facility] * (ABNORMAL) PREALBUMIN (12/29/2017 4:39 AM EST) Only the most recent of5 resultswithin the time period is included. Prealbumin 14.0(L) 20.0 - 40.0 mg/dL 12/29/2017 5:20 AM EST [facility] Blood BLOOD SAMPLE TAKEN FROM CENTRAL LINE / Unknown Venipuncture / Unknown 12/29/2017 4:39 AM EST 12/29/2017 4:47 AM EST us Marnie Bhagat ROLLER HELPER CHEMISTRY ORDERABLE S Final Result Performing Organization Address [facility] de Phone Number [facility] [address] [facility] [address], [place] [address] * (ABNORMAL) VANCOMYCIN LEVEL TROUGH (12/28/2017 7:22 AM EST) Only the most recent of2 resultswithin the time period is included. Vanco Tr 21.0(HH) 10.0-<20.0 mcg/mL 12/28/2017 8:19 AM EST [facility] Blood Venipuncture / Unknown 12/28/2017 7:22 AM EST 12/28/2017 7:42 AM EST Narrative [facility] - 12/28/2017 8:19 AM EST Minimum serum concentration for infection control is 10 mcg/mL; a target therapeutic range of 15-20 mcg/mL is recommended for significant infections such as S. aureus. Toxicity does not correlate well with serum concentrations. Supratherapeutic levels are considered to be > 20 mcg/mL. David Mtz DO CHEMISTRY ORDERABLES Fin al Result Performing Organization Address [facility] Co de Phone Number [facility] [employer] [address] , [place] [address] * POTASSIUM WHOLE BLOOD (12/25/2017 4:03 PM EDT) Only the most recent of23 resultswithin the time period is included. K-WB 4.2 3.5 - 5.0 mEq/L 12/25/2017 4:24 PM EDT [facility] Blood VENOUS BLOOD / Unknown Venipuncture / Unknown 12/25/2017 4:03 PM EDT 12/25/2017 4:09 PM EDT Fred Marquez MD CHEMISTRY ORDERABLES Final R esult Performing Organization Address [facility] Co de Phone Number [facility] [employer] , [place] [address] * CATH TIP CULTURE (NO STAIN) (12/24/2017 4:25 PM EDT) Only the most recent of2 resultswithin the time period is included. Culture No Growth at 3 days. 12/27/2017 7:11 AM EDT [facility] Catheter Tip CENTRAL VENOUS CATHETER / Unknown 12/24/2017 4:25 PM EDT 12/24/2017 4:31 PM EDT Narrative [facility] [employer] - 12/27/2017 7:11 AM EDT Blood cultures (one drawn peripherally, one drawn through the line) are the test of choice to evaluate infections associated with catheters. us Rebecca Lomeli MD MICROBIOLOGY - GENERAL ORDERA BLE Final Result [facility] [employer] [address] [place] [address], [address] [place] [phone] * IR ULTRASOUND GUIDED VASCULAR ACCESS (12/24/2017 [...] READY FOR IMMEDIATE USE. Fred Marquez MD [facility] [place] ORDERABLES Final Resu lt * LOWER RESPIRATORY CULTURE (STAIN INCLUDED) (12/23/2017 8:38 PM EDT) Only the most recent of4 resultswithin the time period is included. Culture Moderate growth of normal oral herrera. 12/25/2017 6:04 PM EDT [facility] [employer] Stain Group 4: >25 WBC and 10-25 epithelial cells/lpf 12/25/2017 6:04 PM EDT [facility] [employer] Stain Moderate Gram positive cocci 12/25/2017 6:04 PM EDT [facility] [employer] LOWER RESPIRATORY TRACT STRUCTURE / Unknown 12/23/2017 8:38 PM EDT 12/23/2017 8:44 PM EDT us Dawson Salvador MD MICROBIOLOGY - GENERAL ORDERABL ES Final Result Performing Organization Address [facility]/ZIP Co de Phone Number [facility] [address] [place] [address], [place] [address] * EXTRA GLYNN URINE CX (12/23/2017 8:30 PM EDT) Urine URINE SPECIMEN OBTAINED VIA INDWELLING URINARY CATHETER / Unknown 12/23/2017 8:30 PM EDT 12/23/2017 8:43 PM EDT us Rebecca Lomeli MD MICROBIOLOGY - GENERAL ORDERA BLES Final Result Performing Organization Address [facility] [place] [address] * (ABNORMAL) URINALYSIS (12/23/2017 8:30 PM EDT) [...] 12/23/2017 9:32 PM EDT [facility] [employer] UA Hyal Cast 1 0 - 2 /LPF 12/23/2017 9:32 PM EDT [facility] [employer] Urine URINE SPECIMEN COLLECTION, CLEAN CATCH / Unknown 12/23/2017 8:30 PM EDT 12/23/2017 8:43 PM EDT Rebecca Lomeli MD URINE ORDERABLES Final Result Performing Organization Address [facility] Co de Phone Number [facility] [employer], [address] , [place] [address] * BLOOD CULTURE (NO STAIN) (12/23/2017 8:09 PM EDT) Only the most recent of10 resultswithin the time period is included. Culture Result No Growth at 120 hours. BLOOD CULTURE (NO STAIN) 12/28/2017 9:00 PM EST [facility] [employer] [employer] Blood BLOOD SAMPLE TAKEN FROM CENTRAL LINE / Unknown Venipuncture / Unknown 12/23/2017 8:09 PM EDT 12/23/2017 8:46 PM EDT Rebecca Lomeli MD MICROBIOLOGY - GENERAL ORDERA BLES Final Result Performing Organization Address [facility] Co de Phone Number [facility] [employer] , [place] [address] * (ABNORMAL) HEMOGLOBIN AND HEMATOCRIT (12/21/2017 4:18 AM EDT) Only the most recent of5 resultswithin the time period is included. Hgb 7.9(L) 13.7 - 17.5 g/dL 12/21/2017 4:46 AM EDT [facility] [employer] Hct 25.0(L) 40.0 - 51.0 % 12/21/2017 4:46 AM EDT [facility] [employer] Blood BLOOD SAMPLE TAKEN FROM CENTRAL LINE / Unknown Venipuncture / Unknown 12/21/2017 4:18 AM EDT 12/21/2017 4:38 AM EDT us Fred Marquez MD HEMATOLOGY ORDERABLES Final Result [facility] [employer] [address] [facility], [place] [address] * (ABNORMAL) POC OPEN HEART PROFILE (12/19/2017 2:37 PM EDT) Only the most recent of30 resultswithin the time period is included. Pathologist [facility] pH 7.45(H) 7.37 - 7.44 pH 12/19/2017 2:40 PM EDT [facility] pCO2 35 32 - 45 mmHg 12/19/2017 2:40 PM EDT [facility] pO2 70(L) 80 - 100 mmHg 12/19/2017 2:40 PM EDT [facility] HCO3 24.0 20.0 - 29.0 mmol/L 12/19/2017 2:40 PM EDT [facility] TCO2 25 21 - 30 mmol/L 12/19/2017 2:40 PM EDT [facility] Base Excess -0.1 -2.8 - 2.3 mmol/L 12/19/2017 2:40 PM EDT [facility] O2 Sat 95.0 95.0 - 97.0 % 12/19/2017 2:40 PM EDT [facility] Sodium 134(L) 135 - 148 mmol/L 12/19/2017 2:40 PM EDT [facility] K-WB 4.2 3.5 - 5.3 mEq/L 12/19/2017 2:40 PM EDT [facility] Calcium Ionized 1.13 1.12 - 1.32 mmol/L 12/19/2017 2:40 PM EDT [facility] Chloride 105 98 - 108 mmol/L 12/19/2017 2:40 PM EDT [facility] Glucose WB 160(H) 72 - 112 mg/dL 12/19/2017 2:40 PM EDT [facility] Lactic Acid 0.8(L) 1.0 - 1.7 mmol/L 12/19/2017 2:40 PM EDT [facility] Hgb 9.1(L) 13.5 - 17.1 g/dL 12/19/2017 2:40 PM EDT [facility] Hct 27.0(L) 39.0 - 52.0 % 12/19/2017 2:40 PM EDT [facility] Blood ARTERIAL BLOOD / Unknown 12/19/2017 2:37 PM EDT 12/19/2017 2:40 PM EDT us Fred Marquez MD POINT OF CARE TEST ORDERABLE S Final Result Performing Organization Address [facility] [place] [address] * CORTISOL (12/19/2017 4:31 AM EDT) Only the most recent of2 resultswithin the time period is included. Cortisol 13.29 mcg/dL 12/19/2017 6:2 2 AM EDT [facility] Blood ARTERIAL BLOOD / Unknown Venipuncture / Unknown 12/19/2017 4:31 AM EDT 12/19/2017 5:30 AM EDT Narrative [facility] - 12/19/2017 6:22 AM EDT Normals: Mornin.2 - 19.4 mcg/dL Evenin.3 - 11.9 mcg/dL Ingestion of paz doses of biotin (>5 mg/day) taken within 8 hours of drawing blood sample can interfere with this immunoassay test. us David Mtz DO CHEMISTRY ORDERABLES Fin al Result Performing Organization Address [facility] Co de Phone Number [facility] [address] [facility] , [place] [address] * BLOOD GAS ARTERIAL (12/18/2017 11:58 PM [...] % 12/19/2017 12:18 AM EDT [facility] [employer] O2 40 12/19/2017 12:18 AM EDT [facility] Blood ARTERIAL BLOOD / Unknown Venipuncture / Unknown 12/18/2017 11:58 PM EDT 12/19/2017 12:13 AM EDT us David Mtz DO CHEMISTRY ORDERABLES Fin al Result [facility], [address] , [place] [address] * ANE ARTERIAL LINE PLACEMENT (12/18/2017 9:24 PM EDT) Narrative [facility] - 12/18/2017 9:24 PM EDT Valentina [...] ORDERABLES Fin al Result Performing Organization Address [facility] Co de Phone Number [facility] [address] [place] [address] * IONIZED CALCIUM - INPATIENT (12/18/2017 6:26 PM EDT) [facility] Calcium Ionized 1.14 1.12 - 1.32 mmol/L 12/18/2017 6:42 PM EDT [facility] Blood VENOUS BLOOD / Unknown Venipuncture / Unknown 12/18/2017 6:26 PM EDT 12/18/2017 6:39 PM EDT David Mtz DO CHEMISTRY ORDERABLES Fin al Result Performing Organization Address [facility] Co de Phone Number [facility] [address] [place] [address], [place] [address] * CELL COUNT BODY FLUID (12/18/2017 1:19 PM EDT) Color BF 12/19/2017 9:50 AM EDT [facility] Comment:[place] Appear BF Slightly Hazy 12/19/2017 9:50 AM EDT [facility] RBC BF /mcL 12/19/2017 9:50 AM EDT [facility] Comment:Cells are too degene rated to count Total Nucleated Cells BF /mcL 12/19/2017 9:50 AM EDT [facility] Comment:Cells are to degener ated to count Bronchoalveolar Lavage BRONCHIAL STRUCTURE / Unknown 12/18/2017 1:19 PM EDT Narrative [facility] - 12/19/2017 9:50 AM EDT Cells are too degenerated to do an accurate count or any differential. Stu Abdi MD BODY FLUIDS AND STOOLS RANDAL ANTON Final Result Performing Organization Address City/[facility]/[place] [address] * FUNGUS CULTURE (NO STAIN) (12/18/2017 1:19 PM EDT) Only the most recent of2 resultswithin the time period is included. Culture No growth of fungus at 4 weeks. 01/19/2018 9:49 PM EST [facility] [employer] Bronchoalveolar Lavage BRONCHIAL STRUCTURE / Unknown 12/18/2017 1:19 PM EDT 12/18/2017 3:50 PM EDT us Stu Abdi MD MICROBIOLOGY - GENERAL RANDAL ANTON Final Result [facility] [address] [facility], [place] [address] * MODIFIED ACID FAST STAIN (STAIN ONLY) (12/18/2017 1:19 PM EDT) Modified Acid Fast Stain No partially acid fast bacilli seen. 12/19/2017 5:00 PM EDT [facility] [employer] Bronchoalveolar Lavage BRONCHIAL STRUCTURE / Unknown 12/18/2017 1:19 PM EDT 12/18/2017 3:50 PM EDT Stu Abdi MD MICROBIOLOGY - GENERAL RANDAL ANTON Final Result [facility] [employer] [address] [facility], [place] [address] * ACID FAST BACILLI CULTURE AND SMEAR (STAIN INCLUDED) (12/18/2017 1:19 PM EDT) Culture No growth of AFB after 8 weeks. 02/15/2018 3:35 PM EST [facility] AFB Stain No Acid Fast Bacilli seen with fluorescent stain. 02/15/2018 3:35 PM EST [facility] AFB Stain Test performed by reference lab; see separate report. 02/15/2018 3:35 PM EST [facility] Bronchoalveolar Lavage BRONCHIAL STRUCTURE / Unknown 12/18/2017 1:19 PM EDT 12/18/2017 3:50 PM EDT Narrative [facility] - 02/15/2018 3:35 PM EST Test performed by reference lab; see separate report Stu Abdi MD MICROBIOLOGY - GENERAL RANDAL ANTON Final Result Performing Organization Address City/[facility]/[place] [address] * NON-DIRECTOR POST CYTOLOGY REQUEST (12/18/2017 1:19 PM EDT) CASE REPORT Non-gynecologic Cytology Case: [id number] Authorizing Provider: Stu Abdi MD Collected: 12/18/2017 1319 Ordering Location: [facility] Received: 12/18/2017 1455 Pathologist: Mercedes Milner MD Specimen: Bronchoalveolar, Bronchoalveolar lavage right middle lobe 12/19/2017 11:23 AM EDT [facility] NON-DIRECTOR POST CYTOLOGY FINAL DIAGNOSIS Bronchoalveolar lavage (Right middle lung lobe): - Negative for malignant cells. - Benign bronchial epithelial cells, macrophages, and scattered leukocytes. - GMS stain negative for fungal organisms and Pneumocystis. 12/19/2017 11:23 AM EDT [facility] at 1123 EDT EMBEDDED IMAGES 12/19/2017 11:23 AM EDT [facility] MICROSCOPIC DESCRIPTION Microscopic examination is performed and the findings corroborate the diagnosis. 12/19/2017 11:23 AM EDT [facility] GROSS DESCRIPTION Bronchoalveolar lavage, RML, Rec'd 10 ml blood tinged fluid (TP,GMS) 12/19/2017 11:23 AM EDT [facility] COMMENT 12/19/2017 11:23 AM EDT [facility] Bronchoalveolar Lavage BRONCHIAL STRUCTURE / Unknown 12/18/2017 1:19 PM EDT 12/18/2017 2:55 PM EDT Stu Abdi MD CYTOLOGY ORDERABLES Final R esult Performing Organization Address City/[facility]/ZIP Co de Phone Number [facility] [address] [place] [address] * MISCELLANEOUS LAB (12/18/2017 1:19 PM EDT) Only the most recent of2 resultswithin the time period is included. [facility] [place] See Scanned Image 02/15/2018 3:36 PM EST [facility] Bronchoalveolar Lavage BRONCHIAL STRUCTURE / Unknown 12/18/2017 1:19 PM EDT 12/18/2017 3:50 PM EDT us Stu Abdi MD HEMATOLOGY ORDERABLES Final Result Performing Organization Address City/[facility]/ZIP Co de Phone Number EXTERNAL LAB See Scanned Report * PATHOLOGY TISSUE REQUEST (12/17/2017 2:25 PM EDT) Only the most recent of2 resultswithin the time period is included. CASE REPORT Surgical Pathology Case: [id number] Authorizing Provider: Fred Marquez MD Collected: 12/17/2017 1425 Ordering Location: [facility] Received: 12/17/2017 1513 Pathologist: Umang Chaparro MD Specimen: Sternum, sternum 12/19/2017 3:23 PM EDT [facility] FINAL DIAGNOSIS Bone, sternum, debridement: - Fragments of cortical bone with bone marrow fat necrosis, and hemorrhage. 12/19/2017 3:23 PM EDT [facility] at 1522 EDT GROSS DESCRIPTION Received [...] decalcification . /JWP 12/19/2017 3:23 PM EDT [facility] MICROSCOPIC DESCRIPTION Microscopic examination is performed and the findings corroborate the diagnosis. 12/19/2017 3:23 PM EDT [facility] EMBEDDED IMAGES 12/19/2017 3:23 PM EDT [facility] Tissue BONE STRUCTURE OF STERNUM / Unknown 12/17/2017 2:25 PM EDT 12/17/2017 3:13 PM EDT us Fred Marquez MD PATHOLOGY ORDERABLES Final R esult Performing Organization Address City/[facility]/ZIP Co de Phone Number [facility] [address] [place] [address] [place] [address] * FIBRINOGEN (12/17/2017 12:25 PM EDT) Only the most recent of3 resultswithin the time period is included. Fibrinogen 445 196 - 447 mg/dL 12/17/2017 1:24 PM EDT [facility] Blood VENOUS BLOOD / Unknown Venipuncture / Unknown 12/17/2017 12:25 PM EDT 12/17/2017 12:37 PM EDT us Dawson Salvador MD HEMATOLOGY ORDERABLES Final Res ult Performing Organization Address City/[facility]/ZIP Co de Phone Number [facility] [address] [facility], [address] [place] [phone] * TRANSFUSE RED BLOOD CELLS (12/17/2017 11:36 AM EDT) Only the most recent of4 resultswithin the time period is included. us Sherif Brown DO NURSING TREATMENT ORDERABLES - B LOOD ADMIN Final Result * INTRAOP AIRWAY PLACEMENT (12/17/2017 10:36 AM EDT) Narrative [facility] - 12/17/2017 10:36 AM EDT Neo Bella CRNA 12/17/2017 10:37 AM Intraop Airway Placement: Induction type: Inhalation Airway type: ETT- cuffed Procedure Note Neo Bella CRNA - 12/17/2017 10:36 AM EDT Intraop Airway Placement: Induction type: Inhalation Airway type: ETT- cuffed us Sherif Brown DO [place] ANESTHESIA Final Result Performing Organization Address [facility] de Phone Number [facility] [address] [place] [address] * WOUND CULTURE (STAIN INCLUDED) (12/17/2017 10:35 AM EDT) Only the most recent of2 resultswithin the time period is included. Culture No growth at 94 hours. 12/21/2017 12:10 PM EDT [facility] Stain No organisms seen 12/21/2017 12:10 PM EDT [facility] Stain Few WBCs 12/21/2017 12:10 PM EDT [facility] Stain Few RBCs 12/21/2017 12:10 PM EDT [facility] Drainage SPECIMEN FROM MEDIA[employer] / Unknown 12/17/2017 10:35 AM EDT 12/17/2017 10:46 AM EDT Comment:AEROBIC, ANAEROBIC, FUNGAL, STAT GRAM STAIN us Fred Marquez MD MICROBIOLOGY - GENERAL ORDER MILEY Final Result Performing Organization Address City/[facility]/ZIP Co de Phone Number [facility] [address] [facility], [address] [place] [phone] * (ABNORMAL) ANAEROBIC CULTURE (NO STAIN) (12/17/2017 10:35 AM EDT) Culture Positive Growth(A) 01/01/2018 2:35 PM EST [facility] [employer] Culture Sparse growth of Cutibacterium (Propionibacteriu m acnes) SUSCEPTIB ILITY RESULT 01/01/2018 2:35 PM EST [facility] Comment:Susceptibility perfo rmed by reference laboratory, see scanned report. Drainage SPECIMEN FROM [employer] / Unknown 12/17/2017 10:35 AM EDT 12/17/2017 10:46 AM EDT Comment:AEROBIC, ANAEROBIC, FUNGAL, STAT GRAM STAIN Fred Marquez MD MICROBIOLOGY - GENERAL ORDER MILEY Edited Result - Final [facility] [address] [facility], [place] [address] * RED BLOOD CELLS REQUEST (12/16/2017 8:25 PM EDT) Only the most recent of6 resultswithin the time period is included. Product Code G5940J17 [facility] Unit Number [id number] [facility] Crossmatch Interp Compatible [facility] Dispense Status TRANSFUSED [facility] Blood Expiration Date [facility] ISBT 128 Type 9500 [facility] BA CODING SYSTEM [id number] [facility] Blood Type (Unit) O NEG [facility] Product Code [id number] [facility] Unit Number [id number] [facility] Crossmatch Interp Compatible [facility] Dispense Status TRANSFUSED [facility] Blood Expiration Date [facility] ISBT 128 Type 9500 [facility]OD [facility] BA CODING SYSTEM [id number] [facility] Blood Type (Unit) O NEG [facility] Blood 12/16/2017 8:25 PM EDT 12/16/2017 8:36 PM EDT us Fred Mckeonmelzer MD BLOOD PRODUCT ORDERS Final R esult Performing Organization Address [facility] Co de Phone Number [facility] [address] [address] * BB HISTORY CHECK (12/16/2017 8:25 PM EDT) Only the most recent of3 resultswithin the time period is included. [facility] BB HISTORY CHECK (1) Previous History OK 12/16/2017 9:07 PM EDT [facility] Blood VENOUS BLOOD / Unknown Venipuncture / Unknown 12/16/2017 8:25 PM EDT 12/16/2017 8:35 PM EDT Fred Marquez MD BLOOD BANK ORDERABLES Final Result Performing Organization Address [facility] de Phone Number [address] [address] * ABORH (12/16/2017 8:25 PM EDT) Only the most recent of3 resultswithin the time period is included. [facility] ABORH Int O NEG 12/16/2017 9:3 8 PM EDT [facility] Blood VENOUS BLOOD / Unknown Venipuncture / Unknown 12/16/2017 8:25 PM EDT 12/16/2017 8:35 PM EDT Fred Marquez MD BLOOD BANK ORDERABLES Final Result Performing Organization Address [facility] de Phone Number [facility] [address] [phone] * ANTIBODY SCREEN IGG (12/16/2017 8:25 PM EDT) Only the most recent of3 resultswithin the time period is included. [facility] ABSC IgG Int Negative 12/16/2017 9:40 PM EDT [facility] Blood VENOUS BLOOD / Unknown Venipuncture / Unknown 12/16/2017 8:25 PM EDT 12/16/2017 8:35 PM EDT us Fred Marquez MD BLOOD BANK ORDERABLES Final Result [facility] [address] [place] [phone] * IR US GUIDED THORACENTESIS (12/16/2017 4:07 [...] 0.24 <=0.49 ng/mL 12/15/2017 6:20 AM EDT [facility] Blood VENOUS BLOOD / Unknown Venipuncture / Unknown 12/15/2017 4:38 AM EDT 12/15/2017 4:45 AM EDT Narrative [facility] - 12/15/2017 6:20 AM EDT Procalcitonin <0.50 [...] Lomeli MD CHEMISTRY ORDERABLES Final Re sult [facility] [address] [facility] , [place] [address] * ANE NON SURGICAL AIRWAY (12/14/2017 5:51 PM EDT) Narrative [facility] - 12/14/2017 5:51 PM EDT Robert [...] post-intubation: BP 110/60 aprox, HR 110, O2 [id number] Final Airway Details Final airway type: endotracheal [...] post-intubation: BP 110/60 aprox, HR 110, O2 [id number] Final Airway Details Final airway type: endotracheal [...] Olson MD ANESTHESIA [place] [address] * LACTIC ACID (12/13/2017 7:20 PM EDT) Pathologist [facility] Lactic Acid 1.9 0.5 - 1.9 mmol/L 12/13/2017 7:43 PM EDT [facility] Blood VENOUS BLOOD / Unknown Butterfly / Unknown 12/13/2017 7:20 PM EDT 12/13/2017 7:26 PM EDT us Dawson Salvador MD CHEMISTRY ORDERABLES Final Resu lt Performing Organization Address [facility] Co de Phone Number [facility] [address] [place] [address] * HIV AG/AB (12/12/2017 5:46 PM EDT) [facility] HIV Ag/AB Non-Reacti ve Non-Reactive, See Footnote 12/12/2017 7:33 PM EDT [facility] [employer] Blood Venipuncture / Unknown 12/12/2017 5:46 PM EDT 12/12/2017 5:53 PM EDT Rebecca Lomeli MD IMMUNOLOGY ORDERABLES Final R esult Performing Organization Address [facility] de Phone Number [facility] [address] [place] [address] , [place] [address] * SYPHILIS SCREEN WITH REFLEX RPR QUANT (12/12/2017 5:46 PM EDT) [facility] Trep Ab Index 0.09 <=0.99 Index Value 12/12/2017 7:33 PM EDT [facility] Comment: < 1.00 - Negative >=1.00 - Positive NOTE: All positive results will be reflexed to Quantitative Non-Treponemal(RPR)test. Blood Venipuncture / Unknown 12/12/2017 5:46 PM EDT 12/12/2017 5:53 PM EDT us Rebecca Lomeli MD CHEMISTRY ORDERABLES Final Re sult Performing Organization Address [facility] Co de Phone Number [facility] [address] [place] [address] , [address] [place] [phone] * STREP PNEUMO ANTIGEN (12/12/2017 5:01 PM EDT) Strep Pneum Ag Not Detected Not Detected 12/12/2017 7:09 PM EDT [facility] [employer] [employer] Urine STRUCTURE OF URINARY TRACT PROPER / Unknown 12/12/2017 5:01 PM EDT 12/12/2017 5:25 PM EDT Rebecca Lomeli MD MICROBIOLOGY - GENERAL ORDERA BLES Final Result [facility] [employer] [employer] [address] [facility] , [facility] [place] [address] * LEGIONELLA ANTIGEN URINE (12/12/2017 5:01 PM EDT) Pathologist [facility] Legionella Ag Not Detected Not Detected 018 7:09 PM EDT [facility] [employer] [employer] Urine STRUCTURE OF URINARY TRACT PROPER / Unknown 12/12/2017 5:01 PM EDT 12/12/2017 5:25 PM EDT us Rebecca Lomeli MD MICROBIOLOGY - GENERAL ORDERA BLES Final Result Performing Organization Address City/[facility]/ZIP Co de Phone Number [facility] [employer] [address] [facility] , [place] [address] * AMMONIA LEVEL (12/12/2017 9:22 AM EDT) Pathologist [facility] Ammonia 30 16 - 60 mcmol/L 12/12/2017 10:13 AM EDT [facility] [employer] [employer] Blood VENOUS BLOOD / Unknown Venipuncture / Unknown 12/12/2017 9:22 AM EDT 12/12/2017 9:50 AM EDT us Rebecca Lomeli MD CHEMISTRY ORDERABLES Final Re sult Performing Organization Address City/[facility]/ZIP Co de Phone Number [facility] [employer] [address] [facility] , [place] [address] * CARDIOVERSION (12/11/2017 2:19 PM EDT) Narrative [facility] - 12/16/2017 12:52 PM EDT 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, 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 Successful cardioversion to SR us Ronit Lagos ROLLER HELPER ELECTROPHYSIOLOGY ORDER MILEY Final Result Performing Organization Address [facility]/ZIP Co de Phone Number [facility] * INTRAOP AIRWAY PLACEMENT (12/11/2017 2:09 PM EDT) Narrative [facility] - 12/11/2017 2:09 PM EDT SimmonsEly 12/11/2017 2:09 PM Intraop Airway Placement: Airway type: Nasal cannula salter Procedure Note Ely Simmons - 12/11/2017 2:09 PM EDT Intraop Airway Placement: Airway type: Nasal cannula salter Bony Valencia MD [place] ANESTHESIA Final Re sult Performing Organization Address [facility] de Phone Number [facility] [address] [place] [address] * O2 SAT - MIXED VENOUS (12/07/2017 4:15 AM EDT) Only the most recent of6 resultswithin the time period is included. Pathologist [facility] O2 Sat Mixed Venous 55.8 40.0 - 70.0 % 12/07/2017 5:23 AM EDT [facility] Blood BLOOD SAMPLE TAKEN FROM CENTRAL LINE / Unknown Venipuncture / Unknown 12/07/2017 4:15 AM EDT 12/07/2017 5:00 AM EDT us Fred Marquez MD CHEMISTRY ORDERABLES Final R esult Performing Organization Address [facility] Co de Phone Number [facility] [address] [place] [address], [place] [address] * FFP/PLASMA REQUEST (12/07/2017 2:35 AM EDT) Product Code X9824I84 [facility] Unit Number [id number] [facility] Dispense Status TRANSFUSED [facility] Blood Expiration Date [id number] [facility] ISBT 128 Type [address] [facility] BA CODING SYSTEM [id number] [facility] Blood Type (Unit) O POS [facility] Product Code [id number] [facility] Unit Number [id number] [facility] Dispense Status TRANSFUSED [facility] Blood Expiration Date [id number] [facility] ISBT 128 Type 9500 [facility] BA CODING SYSTEM [id number] [facility] Blood Type (Unit) O NEG [facility] Blood 12/07/2017 2:35 AM EDT us Fred Marquez MD BLOOD PRODUCT ORDERS Final R esult [facility] [address] [place] [address] * TRANSFUSE FRESH FROZEN PLASMA (12/06/2017 4:24 AM EDT) us Fred Marquez MD NURSING TREATMENT ORDERABLES - BLOOD ADMIN Final Result * PLATELETS REQUEST (12/06/2017 2:35 AM EDT) Product Code G0262O38 [facility] Unit Number [id number] [facility] Dispense Status TRANSFUSED [facility] Blood Expiration Date [id number] [facility] ISBT 128 Type [address] [facility]OD [facility] BA CODING SYSTEM [id number] [facility] Blood Type (Unit) A POS [facility] Product Code [id number] [facility] Unit Number [id number] [facility] Dispense Status TRANSFUSED [facility] Blood Expiration Date [id number] [facility] ISBT 128 Type [address] [facility] BA CODING SYSTEM [id number] [facility] Blood Type (Unit) O POS [facility] Blood 12/06/2017 2:35 AM EDT Harjeet Fox APRN BLOOD PRODUCT ORDE RS Final Result Performing Organization Address [facility] [place] [address] * CRYOPRECIPITATE REQUEST (12/06/2017 2:35 AM EDT) Product Code Q9483H46 [facility] Unit Number [id number] [facility] Dispense Status TRANSFUSED [facility] Blood Expiration Date [facility] ISBT 128 Type [address] [facility] BA CODING SYSTEM [id number] [facility] Blood Type (Unit) O POS [facility] Product Code P6866Y05 [facility] Unit Number [id number] [facility] Dispense Status TRANSFUSED [facility] Blood Expiration Date [facility] ISBT 128 Type [address] [facility]OD BANK BA CODING SYSTEM [id number] [facility] Blood Type (Unit) O POS [facility] Blood 12/06/2017 2:35 AM EDT Harjeet Fox APRN BLOOD PRODUCT ORDE RS Final Result Performing Organization Address City/[facility] [place] [address] * (ABNORMAL) PLATELET COUNT (12/06/2017 1:51 AM EDT) Only the most recent of2 resultswithin the time period is included. Platelet 100(L) 155 - 369 x10(3)/mcL 12/06/2017 2:26 AM EDT [facility] MPV 10.3 8.8 - 12.5 fL 12/06/2017 2:26 AM EDT [facility] Blood ARTERIAL BLOOD / Unknown Venipuncture / Unknown 12/06/2017 1:51 AM EDT 12/06/2017 1:59 AM EDT us Fred Marquez MD HEMATOLOGY ORDERABLES Final Result [facility] [address] [facility], [place] [address] * BROOKS (12/06/2017 12:47 AM EDT) Narrative [facility] - 12/06/2017 12:47 AM EDT Jose [...] ORDERABLES Fin al Result Performing Organization Address [facility] de Phone Number [facility] [address] [place] [address] * INTRAOP AIRWAY PLACEMENT (12/06/2017 12:28 AM EDT) Narrative [facility] - 12/06/2017 12:28 AM EDT Jose Ramon Bains MD 12/06/2017 12:28 AM Intraop Airway Placement: Airway type: ETT- cuffed Procedure Note Jose Ramon Bains MD - 12/06/2017 12:28 AM EDT Intraop Airway Placement: Airway type: ETT- cuffed Jose Ramon Bains MD [place] ANESTHESIA Final Res ult Performing Organization Address [facility] Phone Number [facility] [address] [place] [address] * ACTIVATED CLOTTING TIME + POC (12/05/2017 11:38 PM EDT) Only the most recent of13 resultswithin the time period is included. [facility] Signature ACT+ 109 89 - 169 second(s) 12/06/2017 12:57 AM EDT [facility] Blood BLOOD SPECIMEN / Unknown 12/05/2017 11:38 PM EDT 12/06/2017 12:56 AM EDT Fred Marquez MD POINT OF CARE TEST ORDERABLE S Final Result Performing Organization Address [facility] Phone Number [facility] [address] [place] [address] * TRANSFUSE PLATELETS (12/05/2017 10:57 PM EDT) [...] MA AA 2.2 2 - 19 mm [facility] TEG PM - HKH MA 53.9 53 - 68 mm [facility] TEG PM - MA ADP 19.3(A) 45 - 69 mm [facility] TEG PM - Pct Aggregation ADP 33.1(A) 83 - 100 % [facility] TEG PM - Pct Inhibition ADP 66.9(A) 0 - 17 % [facility] 12/05/2017 4:15 PM EDT Narrative [facility] - 12/08/2017 12:28 PM EDT Test Notes: ActF Calc=Fibrin; HKH Calc=Thrombin; ADP Calc=ADP; Cartridge Lot#=[id number] Fred Marquez MD HEMATOLOGY ORDERABLES Final Result [facility] [address] [place] [address] * (ABNORMAL) TEG GLOBAL HEMOSTASIS (12/05/2017 4:08 PM EDT) Only the most recent of3 resultswithin the time period is included. TEG Functional Fibrinogen - MA 10.2(A) 15 - 32 mm [facility] TEG Functional Fibrinogen - FLEV 186.1(A) 278 - 581 mg/dL [facility] TEG Rapid - MA 47.8(A) 52 - 70 mm [facility] TEG Kaolin w Heparinase - R 684(A) 258 - 498 sec [facility] TEG [employer]olin - Angle 62.2(A) 63 - 78 deg [facility] TEG Kaolin - K 150(A) 48 - 126 sec [facility] TEG Kaolin - MA 48.9(A) 52 - 69 mm [facility] TEG Kaolin - R 528 276 - 546 sec [facility] 12/05/2017 4:08 PM EDT Narrative [facility] - 12/08/2017 12:28 PM EDT Test Notes: CFF Calc=Fibrin; Cartridge Lot#=[id number] Fred Marquez MD HEMATOLOGY ORDERABLES Final Result Performing Organization Address [facility] Co de Phone Number [facility] [address] [place] [address] * (ABNORMAL) POC OPEN HEART WHOLE BLOOD GLUCOSE (12/05/2017 10:41 AM EDT) Only the most recent of2 resultswithin the time period is included. Glucose WB 176(H) 72 - 112 mg/dL 12/05/2017 10:43 AM EDT [facility] Blood BLOOD SPECIMEN / Unknown 12/05/2017 10:41 AM EDT 12/05/2017 10:43 AM EDT us Leo Santos MD POINT OF CARE TEST ORDERABLES Final Result Performing Organization Address [facility] de Phone Number [facility] [address] [place] [address] * BROOKS (12/05/2017 10:05 AM EDT) Narrative [facility] - 12/05/2017 10:05 AM EDT Luana [...] Unchanged Global Ventricular FXN: Unchanged Complications: None us Fabián Harris MD ANESTHESIA ORDERABLES Edited [facility] [address] [place] [address] * ANE SWAN ASHUTOSH PLACEMENT (12/05/2017 9:03 AM EDT) Narrative [facility] - 12/05/2017 9:03 AM EDT Luana [...] Harris MD ANESTHESIA ORDERABLES Final Resu lt [facility] [address] [place] [address] * ANE INTRODUCER PLACEMENT (12/05/2017 9:00 AM EDT) Narrative [facility] - 12/05/2017 9:00 AM EDT Luana Newsome 12/05/2017 9:03 AM Central Line / Introducer Placement Procedure Date/Time: 12/05/2017 7:27 AM Patient Location: OR Indication: Central Venous Access and CVP Monitoring Ultrasound-Guided: Ultrasound guided Anesthesiologist: FABIÁN HARRIS Other Staff: LUANA NEWSOME Placed By: Student Syrup Maker Cook Sterility prep: Provider hand hygiene prior to [...] Ultrasound guided Anesthesiologist: FABIÁN HARRIS Other Staff: ANNY NEWSOMEAH Placed By: Student Syrup Maker Cook Sterility prep: Provider hand hygiene prior to [...] Harris MD ANESTHESIA ORDERABLES Final Resu lt [facility] [address] [place] [address] * INTRAOP AIRWAY PLACEMENT (12/05/2017 8:13 AM EDT) Narrative [facility] - 12/05/2017 8:13 AM EDT JerodLuana 12/05/2017 8:28 AM Intraop Airway Placement: Date/Time: [...] Newsome Title: RNSA us Leo Santos MD TN ANESTHESIA Final Result Performing Organization Address [facility] de Phone Number [facility] [address] [place], [place] [id number] * HEPARIN ANTI-XA, UNF (12/05/2017 3:47 AM EDT) Only the most recent of10 resultswithin the time period is included. Heparin Level UNF 0.38 0.30 - 0.70 IU/mL 12/05/2017 4:14 AM EDT [facility] Comment: The therapeutic range for heparinized patients monitored by the Heparin Lvl UF is 0.30-0.70 IU/mL. Blood VENOUS BLOOD / Unknown Venipuncture / Unknown 12/05/2017 3:47 AM EDT 12/05/2017 4:02 AM EDT us Fred Marquez MD HEMATOLOGY ORDERABLES Final Result Performing Organization Address [facility] Co de Phone Number [facility] [address] [place] [address], [place] [address] * STAPHYLOCOCCUS AUREUS SCREEN (12/04/2017 12:52 PM EDT) Pathologist [facility] Staph aureus PCR Not Detected Not Detected 12/04/2017 4:34 PM EDT [facility] MRSA PCR Not Detected Not Detected 12/04/2017 4:34 PM EDT [facility] Swab BOTH ANTERIOR NARES / Unknown 12/04/2017 12:52 PM EDT 12/04/2017 1:00 PM EDT Narrative [facility] - 12/04/2017 4:34 PM EDT Staphylococcus aureus target DNA sequence is not detected. This qualitative assay is intended for the detection of Staphylococcus aureus proprietary sequences for the staphylococcal protein A (spa) gene, the gene for methicillin resistance (mecA), and the staphylococcal cassette chromosome mec (SCCmec) inserted into the SA chromosomal attB site. This assay utilizes real time PCR on the [employer] GeneXpert Infinity, and its performance has been verified by the [facility]. A negative result does not [...] has been developed and validated by the [facility] laboratory. Detailed methodology is available upon request. Harjeet Fox APRN MICROBIOLOGY - GEN ERAL ORDERABLES Final Result [facility] [employer], [address] , [address] [place] [id number] * HEMOGLOBIN A1C (12/04/2017 8:52 AM EDT) Pathologist [facility] Hgb A1C 5.5 4.2 - 5.6 % 12/04/2017 7:20 PM EDT [facility] [employer], [employer] Est. Avg Glucose 111 mg/dL 12/04/2017 7:20 PM EDT [facility] [employer] Blood VENOUS BLOOD / Unknown Venipuncture / Unknown 12/04/2017 8:52 AM EDT 12/04/2017 8:56 AM EDT Narrative [facility] - 12/04/2017 7:20 PM EDT REFERENCE RANGE: Normal: 4.0-5.6% Pre-diabetes: 5.7-6.4% Provisional diagnosis of diabetes: >6.4% Hgb F>10% and anything which shortens red cell survival, such as hemolytic anemia, or unstable hemoglobin variants such as HbSS, HbSC, or HbCC, will lower the HbA1c value associated with a given level of glycemic control. Harjeet Fox ROLLER HELPER CHEMISTRY ORDERABL ES Final Result Performing Organization Address [facility] de Phone Number [facility] [employer] [address] [facility], [address] [place] [phone] * PULMONARY FUNCTION TEST - BEDSIDE (12/03/2017 2:21 AM EDT) 12/03/2017 2:21 AM EDT Impressions [facility] - 12/03/2017 2:21 AM EDT Good patient effort and understanding. Acceptable results and reproducibility. Normal FVC. MILD OBSTRUCTIVE VENTILATORY DEFECT. Clinical Correlation is Required. This data was interpreted based upon the 2005 ATS/ERS Task Force Position Statement: Interpretative Strategies for Lung Function Tests. This section is an excerpt of the full report. Marnie Bhagat ROLLER HELPER PFT ORDERABLES Juanjo bhavya Result - Final Performing Organization Address [facility] de Phone Number [facility] [address] [place] [address] * CORONARY ANGIOGRAM (COR/LHC/LV GRAM, CARDIAC CATHETERIZATION), [...] evaluated by cardiothoracic surgery. Yolette Davis MD, [facility] Coronary Findings Diagnostic Dominance: Right Left [...] /post-A wave : 6 mmHg Right Heart [place]-Ashutosh catheter inserted via the right femoral vein [...] chordae appear normal. No NOY thrombus present. us Alo Lennon MD IMG ECHO ORDERABLES Haylee l Result * BROOKS/CARDIOVERSION (12/01/2017 12:22 PM EDT) Narrative [facility] - 12/17/2017 2:10 PM EDT BROOKS with severe mitral regurgitation with 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 present Severe mitral regurgitation Successful external DC cardioversion to sinus rhythm Alo Lennon MD ELECTROPHYSIOLOGY ORDERA BLES Final Result [facility] * INTRAOP AIRWAY PLACEMENT (12/01/2017 11:40 AM EDT) Narrative [facility] - 12/01/2017 11:40 AM EDT Diana Zhang [employer] 12/01/2017 11:40 AM Intraop Airway Placement: Airway type: Nasal cannula salter Procedure Note Diana Zhang CRNA - 12/01/2017 11:40 AM EDT Intraop Airway Placement: Airway type: Nasal cannula salter us Jose Ramon Bains MD TN ANESTHESIA Final Res ult Performing Organization Address [facility] Co de Phone Number [facility] [address] [place] [address] * DIGOXIN LEVEL (11/28/2017 3:22 PM EDT) Digoxin Lvl 1.1 0.8 - 2.0 ng/mL 11/28/2017 3:40 PM EDT [facility] Blood VENOUS BLOOD / Unknown Venipuncture / Unknown 11/28/2017 3:22 PM EDT 11/28/2017 3:23 PM EDT us Angeline Lim MD CHEMISTRY ORDERABLES Final Res ult Performing Organization Address City/[facility] Co de Phone Number [facility] [address] [place] [address], [place] [address] Visit Diagnoses Diagnosis Start Date Atrial fibrillation, unspecified type ([facility]) 11/28/2017 Mitral valve disorder Mitral valve disorders [...] systolic heart failure 03/11/2018 NICM (nonischemic cardiomyopathy) ([facility]) Other primary cardiomyopathies 03/26/2018 Chronic systolic congestive [...] ejection fraction (HCC) 08/15/2021 NICM (nonischemic cardiomyopathy) ([facility]) Other primary cardiomyopathies 08/15/2021 ASHD (arteriosclerotic heart disease) Coronary atherosclerosis of unspecified type of vessel, [place] or graft 08/15/2021 Valvular heart disease Endocarditis, valve unspecified, unspecified cause 08/15/2021 Atrial fibrillation, unspecified type ([facility]) 08/15/2021 Heart failure with mid-range ejection fraction (HCC) 08/17/2021 NICM (nonischemic cardiomyopathy) ([facility]) Other primary cardiomyopathies 08/17/2021 Persistent atrial fibrillation (HCC) Atrial fibrillation 08/17/2021 Heart failure with mid-range ejection fraction (HCC) 08/17/2021 NICM (nonischemic cardiomyopathy) ([facility]) Other primary cardiomyopathies 08/17/2021 Atrial fibrillation with RVR ([facility]) Atrial fibrillation 08/17/2021 S/P AV rissa ablation Other postprocedural status 08/17/2021 Biventricular cardiac pacemaker in situ Cardiac pacemaker in situ 08/17/2021 Biventricular pacemaker reprogramming Fitting and adjustment of cardiac pacemaker 08/17/2021 NICM (nonischemic cardiomyopathy) ([facility]) Other primary cardiomyopathies 08/17/2021 Chronic systolic congestive [...] Coronary atherosclerosis of unspecified type of vessel, [place] or graft 09/05/2021 Valvular heart disease Endocarditis, valve unspecified, unspecified cause 09/05/2021 Atrial fibrillation, unspecified type (HCC) 09/05/2021 Systolic congestive heart failure, unspecified HF chronicity (HCC) 09/05/2021 Heart failure with mid-range ejection fraction (HCC) 09/06/2021 Heart failure with mid-range ejection fraction (HCC) 10/02/2021 NICM (nonischemic cardiomyopathy) (HCC) Other primary cardiomyopathies 10/02/2021 ASHD (arteriosclerotic heart disease) Coronary atherosclerosis of unspecified type of vessel, [place] or graft 10/02/2021 Valvular heart disease Endocarditis, [...] Coronary atherosclerosis of unspecified type of vessel, [place] or graft 11/07/2021 Valvular heart disease Endocarditis, [...] primary cardiomyopathies 07/06/2024 Vector Remote Device 07/12/2024 Vector Remote Device 08/11/2024 Vector Remote Device 08/12/2024 Vector Remote Device 09/11/2024 Vector Remote Device 09/12/2024 PAF (paroxysmal atrial fibrillation) (HCC) Atrial fibrillation 09/13/2024 Encounter for interrogation of cardiac recorder Fitting and adjustment of other cardiac device 09/13/2024 NICM (nonischemic cardiomyopathy) (HCC) Other primary cardiomyopathies 09/13/2024 Biventricular cardiac pacemaker in situ Cardiac pacemaker in situ 09/13/2024 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) Cardiac complications 09/13/2024 Permanent atrial fibrillation (HCC) Atrial fibrillation 09/13/2024 Chronic systolic congestive heart failure (HCC) Chronic systolic heart failure 09/13/2024 Encounter for adjustment of biventricular cardiac pacemaker 09/13/2024 Encounter for management of biventricular cardiac pacemaker 09/13/2024 NICM (nonischemic cardiomyopathy) ([facility]) Other primary cardiomyopathies 09/13/2024 Heart failure with mid-range ejection fraction (HCC) 09/13/2024 Valvular heart disease Endocarditis, valve unspecified, unspecified cause 09/13/2024 Permanent atrial fibrillation (HCC) Atrial fibrillation 09/13/2024 Vector Remote Device 10/13/2024 Chest pressure Other chest pain 01/09/2018 NICM (nonischemic cardiomyopathy) [facility] [place]) Other primary cardiomyopathies 01/09/2018 Hypotension due to [...] Pressure 94/57( 025 11:24 AM EDT) Belkys Ely, MARILYN Maintain a healthy diet, exercise regularly and maintain an ideal body weight General Belkys Ely, MARILYN
--- OUTSIDE RECORDS SUMMARY | 2024-10-18 12:22 | XMS_ITS | Encounter Summary ---
Author Organization [place] [address] Care Team Providers Care Poly Operator Name Role Phone Unavailable Primary Care Provider Unavailabl e Encounter Details Date Type Department Care Team (Late st Contact Info) Description 01/11/2020 Orders Only [facility] [address] [facility] [address] [place] [address] Markell Lennon MD [address] [facility] [place] [address] Social History Tobacco Use Types [...] Appointment [facility] [place] [address] Luana Cooper, LOSS PREVENTION INVESTIGATOR [address] [facility] [place] [address] 11/01/2024 11:00 AM EDT Appointment [facility] [address] [place] [address] Drive [address] [place] [address] Rosa Beebe MD [address] [place] [address] [place] [address] 09/13/2025 10:30 AM EDT Office Visit [facility] [address] [place] [address] [address] [place] [address] 09/13/2025 11:00 AM EDT Office Visit [facility] [address] [place] [address] [address] [place] [address] Markell Lennon MD [address] [place] [address] [address] [place] [facility] documented as of this encounter Goals Goal [...] EST) 01/11/2020 12:[address] [facility] - 01/11/2020 10:28 AM [...] Seema Trejo RN us Markell Lennon MD [facility] CARDIAC CATH ORDERAB LES Final Result Performing Organization Address City/State/[facility] Co de Phone Number [facility] [address] [place] [address] documented in this encounter Visit Diagnoses Not on filedocumented in this encounter
== END 2024-10-18 23:59 | disposition home or self-care (01) ==
LOC: RAD 11:57
PROVIDERS: PCP Family Medicine; Visit Provider Family Medicine
DX: R05.3 Chronic cough (principal); R91.8 Other nonspecific abnormal finding of lung field
CPT/HCPCS: 71046